=== PATIENT | male | born 1995 | race Native Hawaiian/Other Pacific Islander ===

== ENCOUNTER 2017-02-18 17:34 | Inpatient (IN) | payer MEDICAID, OTHER ==
[2017-02-18 18:41] LABS: BASO # 0.1 K/uL (0.0-0.2); BASO % 0.6 % (0.0-2.0); EOS # 0.3 K/uL (0.0-0.7); EOS % 3.3 % (0.0-4.0); HEMATOCRIT 45.3 % (35.0-51.0); LYMPH # 1.6 K/uL (1.0-4.3); LYMPH % 18.1 % (20.0-40.0); MEAN CELL VOLUME 89.2 fl (80.0-94.0); MEAN CORPUSCULAR HGB CONC 33.6 g/dL (33.0-37.0); MEAN PLATELET VOLUME 7.9 fl (7.2-11.7); MONO # 0.4 K/uL (0.0-0.8); NEUT # 6.4 K/uL (1.8-7.0); RED CELL DISTRIBUTION WIDTH 12.3 % (11.5-14.5); WHITE BLOOD COUNT 8.8 K/uL (4.8-10.8)
[2017-02-18 18:52] LABS: ALB/GLOB RATIO 1.3 (1.0-2.1); ALKALINE PHOSPHATASE 86 U/L (38-126); ALT/SGPT 82 U/L (21-72); AST/SGOT 47 U/L (17-59); BILIRUBIN,TOTAL 0.6 mg/dl (0.2-1.3); BLOOD UREA NITROGEN 22 mg/dl (9-20); CALCIUM 9.4 mg/dL (8.4-10.2); CARBON DIOXIDE 26 mmol/L (22-30); CHLORIDE 102 mmol/L (98-107); GFR AFRICAN-AMERICAN > 60; GLUCOSE,RANDOM 100 mg/dL (75-110); POTASSIUM 3.8 MMOL/L (3.6-5.0); SODIUM 140 mmol/l (132-148); TOTAL PROTEIN 8.3 G/DL (6.3-8.2)
[2017-02-18] MEDS ORDERED: Lidocaine 2% w Epi 1:100,000 Inj IJ ONE ×2 (19:16→19:23)
[2017-02-18] MEDS ORDERED: Propofol 10 mg/ml Inj (20 ML) IV ONE (19:16)
[2017-02-18] MEDS ORDERED: Propofol 10 mg/ml Inj (20 ML) ONE ×2 (19:23→20:33)
--- NOTE | 2017-02-18 19:37 | ED PDOC ---
HPI: SOB/CHF/COPD Time Seen by Provider: 02/18/17 17:53 Chief Complaint (Nursing): Shortness Of Breath Chief Complaint (Provider): Shortness of Breath History Per: Patient History/Exam Limitations: no limitations Onset/Duration Of Symptoms: Hrs (since 10:00 AM this morning) Current Symptoms Are (Timing): Still Present Additional Complaint(s): 17:53 Blanco Irwin is a 21 year old male that presents to the ED with a chief complaint of SOB with associated chest pain that began suddenly while he was on the train to school around 10:00 AM this morning. Once at school, he went to his school [facility], who directed him to an outpatient x-ray which showed a collapsed lung. Patient states that he had a similar sensation about three weeks ago, but that the pain resolved spontaneously after a couple of hours. He also denies coughing and states that he recently had a URI. Denies smoking or drug use. Past Medical History Reviewed: Historical Data, Nursing Documentation, Vital Signs Vital Signs: Last Vital Signs Temp 98.3 F 02/19/17 11:58 Pulse 67 02/19/17 11:58 Resp 12 02/19/17 11:58 BP 111/63 02/19/17 11:58 Pulse Ox 100 02/19/17 17:28 - Medical History PMH: No Chronic Diseases - Surgical History Surgical History: No Surg Hx - Family History Family History: States: Unknown Family Hx Other Family History: Father had multiple myeloma - Social History Current smoker - smoking cessation education provided: No Alcohol: None - Home Medications Home Medications: Ambulatory Orders Medication Instructions Recorded No Known Home Med 02/18/17 - Allergies Allergies/Adverse Reactions: Allergies Allergy/AdvReac Type Severity Reaction Status Date / Time No Known Allergies Allergy Verified 02/18/17 17:39 Review of Systems Cardiovascular: Positive for: Chest Pain Respiratory: Positive for: Shortness of Breath. Negative for: Cough Physical Exam - Reviewed Nursing Documentation Reviewed: Yes Vital Signs Reviewed: Yes - Physical Exam Appears: Positive for: Non-toxic, In Acute Distress (in mild panful distress) Head Exam: Positive for: ATRAUMATIC, NORMOCEPHALIC Skin: Positive for: Normal Color, Warm, Dry Cardiovascular/Chest: Positive for: Tachycardia. Negative for: Regular Rate, Rhythm (regular rhythym, but tachycardic), Murmur Respiratory: Positive for: Decreased Breath Sounds (decreased breath sounds in left lung field, right lung field breath sounds clear). Negative for: Normal Breath Sounds Neurologic/Psych: Positive for: Alert, Oriented - Laboratory Results Result Diagrams: 02/19/17 04:15 02/19/17 04:15 - ECG ECG Rhythm: Positive for: Sinus Tachycardia O2 Sat by Pulse Oximetry: 100 (Non-rebreather) Pulse Ox Interpretation: Normal - Radiology X-Ray Interpretation: Pnemothorax - Critical Care Total Time (In Min): 30 Documented Critical Care: Time excludes all time spent performint seperately billable procedures Medical Decision Making Medical Decision Makin:00 Initial Impression: Pneumothorax Initial Plan: * Type and screen * EKG * PTT * PT * Chext X-Ray: complete LEFT pneumothorax with slight traches deviation to RIGHT * Lidocaine/Epinephrine Injection 5 mL injection (prep for thoracostomy) * Propofol 20 mg/ml, 200 mg IV (prep for thoracostomy) * O2 with nonrebreather mask * Reevalution * Hospitalization 18:[address] Espinoza of thoracic surgery and Dr. Bennett, surgical asst, they will come to do the thoracostomy. Discussed with patient and patient's family the findings and plan of care, obtained consent for moderate sedation for patient. Risk benefits discussed. 20:00 LEFT tube thoracostomy performed by Dr Bennett under moderate sedation. Propofol used initial bolus of 6ml, then boluses of 4ml x 3 during procedure. Pt maintained oxygenation and blood pressure well throughout procedure. Fully alert and awake post procedure, c/o pain to site of thoracostomy tube. Procedure time: 45 minutes Repeat CXR demonstrates partial reexpansion of lung. Anticipate increased expansion with continued suction. CT Chest ordered for inpatient workup. HAKEEM Cartwright Hospitalist for admission to ICU. Scribe Attestation: Documented by Sherry Tian, acting as a scribe for Emily Iniguez MD.. Provider Scribe Attestation: All medical record entries made by the Scribe were at my direction and personally dictated by me. I have reviewed the chart and agree that the record accurately reflects my personal performance of the history, physical exam, medical decision making, and the department course for this patient. I have also personally directed, reviewed, and agree with the discharge instructions and disposition. Disposition - Clinical Impression Clinical Impression: Spontaneous pneumothorax Counseled Patient/Family Regarding: Studies Performed, Diagnosis - Disposition Disposition Time: 18:00 Condition: GUARDED - Pt Status Changed To: Hospital Disposition Of: Inpatient - Admit Certification Admit to Inpatient:: After my assessment, the patient will require hospitalization for at least two midnights. This is because of the severity of symptoms shown, intensity of services needed, and/or the medical risk in this patient being treated as an outpatient. - POA Present On Arrival: None Prod Sedation PRE-PROCEDURE - Pre-Anesthesia Chief Complaint: Shortness Of Breath Past Medical History: Medications Reviewed, Allergies Reviewed, Record Review Previous Surgies: Reviewed Family History/Social History: Reviewed - Physical Exam/Review of Systems Vital Signs Reviewed: Yes Cardiovascular: Regular Rate and Rhythm, Murmurs, Normal S1, S2 Respiratory/Chest: Decreased Breath Sounds (on LEFT side due to pneumothorax) Neurological: GCS=15, CN II-XII Intact, Speech Normal Abdomen: Tenderness, Distention, Normal Bowel Sounds, Peritoneal Signs Mental Status: Alert and Oriented X 3 - Pre-Procedure Airway Assessment History of difficult intubation or surgical airway (i.e trach):: No Inability to extend neck:: No Mouth opening less than two finger breadth:: No Diagnosis of sleep apnea:: No Less than three finger breadth to hyoid bone:: No ASA Criteria: 1 - Healthy, normal. 2 - Mild systemic disease (No functional limitations, mildline obesity, DM withot complications, Hypertention). 3 - Severe systemic disease (Some functional limitation, stable angina, morbid obesity, controlled COPD/Asthma/CHF). 4 - Sever systemic disease constant threat to life (Unstable angina, active symptoms of COPD/Asthma, CHF/ Hypertension. 5 - Moribund ASA Clarification: ASA I Prod Sedation INTRA-PROCEDURE - Medications Medications Given: Acetaminophen (Tylenol 325mg Tab) 650 mg PO Q6H PRN PRN Reason: Pain, Mild (1-3) Enoxaparin Sodium (Lovenox) 40 mg SC DAILY JACOB PRN Reason: Protocol Last Admin: 02/19/17 16:42 Dose: Not Given Non-Admin Reason: Patient Refused Sodium Chloride (Sodium Chloride 0.9%) 1,000 mls @ 100 mls/hr IV .Q10H [facility] Last Admin: 02/19/17 00:13 Dose: 100 mls/hr Ketorolac Tromethamine (Toradol) 30 mg IVP Q6 [facility] Last Admin: 02/19/17 16:37 Dose: 30 mg Morphine Sulfate (Morphine) 4 mg IVP Q4 PRN PRN Reason: Pain, moderate (4-7) Discontinued Medications Propofol (Diprivan) Confirm Administered Dose 1,000 mg in 100 mls @ ud .ROUTE .STK-MED ONE Stop: 02/18/17 20:31 Lidocaine/Epinephrine (Xylocaine 2% W Epi 1:100,000) 5 ml IJ ONCE ONE Stop: 02/18/17 19:17 Last Admin: 02/18/17 20:30 Dose: 5 ml Lidocaine/Epinephrine (Xylocaine 2% W Epi 1:100,000) Confirm Administered Dose 20 ml IJ .STK-MED ONE Stop: 02/18/17 19:24 Morphine Sulfate (Morphine) Confirm Administered Dose 8 mg .ROUTE .STK-MED ONE Stop: 02/18/17 20:34 Morphine Sulfate (Morphine) 8 mg IVP STAT STA Stop: 02/18/17 21:36 Last Admin: 02/18/17 21:37 Dose: 8 mg Re-Assess: [facility] Pain Assessment Document 02/18/17 22:37 (Rec: 02/19/17 01:25 [id number]) Pain Reassessment Is this a pain reassessment? Yes Sleep Is patient sleeping during reassessment? No Presence of Pain Presence of Pain Yes Pain Scale Used Pain Scale Used Numeric Location Left, Right or Bilateral Left Pain Location Body Site Chest Description Description Sharp Intensity of Pain at present 4 Acceptable Level of Pain 4 Aggravating Factors Changing Position Alleviating Factors/Management Medication Techniques Alleviating Factors Medication Pain not relieved and LIP/MD was Pt. states pain is tolerable. notified Morphine Sulfate (Morphine) 4 mg IVP STAT STA Stop: 02/18/17 21:38 Last Admin: 02/18/17 21:41 Dose: 4 mg Morphine Sulfate (Morphine) 2 mg IVP Q4 PRN PRN Reason: Pain, severe (8-10) Last Admin: 02/19/17 06:17 Dose: 2 mg Re-Assess: SABINE Pain Reassessment Document 02/19/17 06:47 (Rec: 02/19/17 07:21 [id number]) Sleep Is patient sleeping during reassessment? No Pain Reassessment Pain not relieved and LIP/MD was Pt. still with c/o pain; MD notified made aware Pain Scale Used Numeric Pain Scale Level 7 Left, Right or Bilateral Left Pain Location Body Site Chest Description Sharp Pneumococcal Polyvalent Vaccine (Pneumovax 23 Vaccine) 0.5 ml IM .ONCE ONE Stop: 02/19/17 09:01 Propofol (Diprivan) 200 mg IV ONCE ONE Stop: 02/18/17 19:17 Last Admin: 02/18/17 21:32 Dose: 200 mg Propofol (Diprivan) Confirm Administered Dose 200 mg .ROUTE .STK-MED ONE Stop: 02/18/17 19:24 Propofol (Diprivan) Confirm Administered Dose 200 mg .ROUTE .STK-MED ONE Stop: 02/18/17 20:34 Proc Sedation POST-PROCEDURE - Discharge Checklist Written MD order for Discharge: No (Pt admitted) Vital signs assessed and are consistent with pre-procedure reading: Yes Voided (if applicable): Yes Minimal nausea, vomiting, and dizziness: Yes Ambulates to pre-procedural level: No (Pt admitted and initially on bedrest) Alert and oriented to pre-procedural level: Yes Responsible adult escort present: Yes - X DISCHARGE INSTRUCTIONS GIVEN:: N/A
[2017-02-18 20:02] LABS: PARTIAL THROMBOPLASTIN TIME 27.8 SECONDS (23.3-32.5)
[2017-02-18] MEDS ORDERED: Propofol 10 mg/ml 0 MG/0 ML VIAL ONE (20:30)
[2017-02-18] MEDS ORDERED: Oxycodone/Acetaminophen 5/325 mg Tab PO PRN (21:44)
--- NOTE | 2017-02-18 23:06 | CT ---
EXAM: CT Chest Without Intravenous Contrast CLINICAL HISTORY: 21 years old, male; Signs and symptoms; Other: Left pneumothorax TECHNIQUE: Axial computed tomography images of the chest without intravenous contrast. This CT exam was performed using one or more of the following dose reduction techniques: automated exposure control, adjustment of the mA and/or kV according to patient size, and/or use of iterative reconstruction technique. Coronal and sagittal reformatted images were created and reviewed. COMPARISON: CR - CHEST TWO VIEWS (PA/LAT) 02/18/2017 6:00:55 PM EXAM: FINDINGS: Lungs: No mass. No consolidation. Pleural spaces: Persistent left-sided pneumothorax, without reexpansion after chest tube placement. The chest tube abuts the posterior pleura, and demonstrates a intraluminal column of fluid for which withdrawal of approximately 2-3 cm is recommended for optimal radiographic placement. Heart: No cardiomegaly. No significant pericardial effusion. Interval resolution of the mediastinal shift seen on earlier x-ray. Vasculature: No aortic aneurysm. Lymph nodes: No enlarged lymph nodes. Bones: No acute fracture. IMPRESSION: No reexpansion following chest tube placement, likely secondary to positioning (as detailed above). Interval resolution of the mediastinal shift, seen on the earlier radiographic evaluation.
--- NOTE | 2017-02-18 23:20 | CP.PCM.HP ---
History of Present Illness - History of Present Illness History of Present Illness: CC: SOB, CP HPI: This is a 21 y/o male with no medical problems who comes in with acute onset of SOB and CP from this AM, around 7-8. He is a student, and he went to his usual classes and then went to a nearby clinic where he was referred to for an XR. He eventually came back to [place] and had the CXR done at an outpatient radiology facility, and then was informed some time later to immediately go to the ER. In the ER, CXR showed mediastinal deviation to the Right, consistent with a tension PTX. Patient had a chest tube put in at bedside in the L chest, and his symptoms improved. Patient does not have any penetration wounds. Patient denies any recent trauma or fractured ribs. Denies PNA, denies asthma, denies significant coughing. He does mention that he had some CP/SOB like this about 2 weeks ago, but it self resolved. ROS: 14 systems reviewed, o/w negative MHx: None SHx: None Allergies: None Medications: None Family Hx: Father recently passed from mult melanoma; no obvious history of Marfan's or other CTD Social Hx: Lives at home, denies tobacco, denies significant EtOH use Present on Admission - Present on Admission Any Indicators Present on Admission: No Past Patient History - Past Social History Alcohol: None - PSYCHIATRIC Hx Substance Use: No - SURGICAL HISTORY Hx Surgeries: No - ANESTHESIA Hx Anesthesia: No Meds Allergies/Adverse Reactions: Allergies Allergy/AdvReac Type Severity Reaction Status Date / Time No Known Allergies Allergy Verified 02/18/17 17:39 Physical Exam - Constitutional Appears: No Acute Distress - Head Exam Head Exam: ATRAUMATIC, NORMOCEPHALIC - Eye Exam Eye Exam: EOMI, PERRL - ENT Exam ENT Exam: Mucous Membranes Moist - Neck Exam Neck exam: Positive for: Full Rom - Respiratory Exam Additional comments: Dim b/s at both bases, dim b/s in L lung field - Cardiovascular Exam Cardiovascular Exam: Tachycardia, +S1, +S2 - GI/Abdominal Exam GI & Abdominal Exam: Normal Bowel Sounds, Soft - Extremities Exam Extremities exam: Positive for: full ROM, normal inspection - Neurological Exam Neurological exam: Alert, CN II-XII Intact, Oriented x3 - Psychiatric Exam Psychiatric exam: Normal Affect, Normal Mood - Skin Skin Exam: Dry, Warm Results - Vital Signs Recent Vital Signs: Last Vital Signs Temp 98.0 F 02/18/17 17:40 Pulse 106 H 02/18/17 19:43 Resp 20 02/18/17 19:43 BP 119/80 02/18/17 19:43 Pulse Ox 100 02/18/17 22:08 - Labs Result Diagrams: 02/18/17 18:25 02/18/17 18:25 - Imaging and Cardiology CT scan - chest Status: Image reviewed by me (CXR appears to show improvement of mediastinal shift; CT report indicate no resoluation of PTX however, possibly due to placement), Report reviewed by me Assessment & Plan (1) Tension pneumothorax, spontaneous Assessment and Plan: 21 y/o with spontaneous PTX-- given no clear etiology. -Patient has L sided chest tube in to suction -Plan for further surgical intervention possibly in OR in AM if no further improvement overnight Status: Acute (2) DVT prophylaxis Status: Acute
--- NOTE | 2017-02-19 00:06 | CP.PCM.CON ---
History of Present Illness - History of Present Illness History of Present Illness: THORACIC SURGERY CONSULT NOTE FOR DR. GARCIA 21yo M with no PMHx presents to the ED with SOB and CP. The symptoms began this morning around 7 or 8AM. He went to class and then went to the school clinic. He was referred for a chest X-ray and was then informed to come to the ER once the CXR results were back. In the ED, he was found to have large left pneumothorax with slight mediastinal shift to the right. A chest tube was placed at bedside in the ED with sedation given by the ED physician. CXR after the chest tube showed some improvement but still pneumothorax. Another CXR ordered for 11PM showed even more re-expansion of left lung. Patient denies similar episodes and denies trauma. He had some SOB about 2 weeks ago but it resolved on its own. PMHx: none Surgeries: none Allergies: none Home medications: none Social history: denies etoh or tobacco use Family history: father from multiple myeloma Review of Systems - Review of Systems All systems: reviewed and no additional remarkable complaints except (as per HPI ) Past Patient History - Past Medical History & Family History Past Medical History?: No - Past Social History Alcohol: None - MUSCULOSKELETAL/RHEUMATOLOGICAL Hx Falls: No - PSYCHIATRIC Hx Substance Use: No - SURGICAL HISTORY Hx Surgeries: No - ANESTHESIA Hx Anesthesia: No Meds Allergies/Adverse Reactions: Allergies Allergy/AdvReac Type Severity Reaction Status Date / Time No Known Allergies Allergy Verified 02/18/17 17:39 - Medications Medications: Current Medications Acetaminophen (Tylenol 325mg Tab) 650 mg PO Q6H PRN PRN Reason: Pain, Mild (1-3) Sodium Chloride (Sodium Chloride 0.9%) 1,000 mls @ 100 mls/hr IV .Q10H [facility] Morphine Sulfate (Morphine) 2 mg IVP Q4 PRN PRN Reason: Pain, severe (8-10) Oxycodone/Acetaminophen (Percocet 5/325 Mg Tab) 1 tab PO Q4 PRN PRN Reason: Pain, moderate (4-7) Stop: 02/21/17 21:45 Pneumococcal Polyvalent Vaccine (Pneumovax 23 Vaccine) 0.5 ml IM .ONCE ONE Stop: 02/19/17 09:01 Physical Exam - Constitutional Appears: Well, Non-toxic, No Acute Distress - Head Exam Head Exam: ATRAUMATIC, NORMAL INSPECTION - Eye Exam Eye Exam: EOMI, Normal appearance - Respiratory Exam Respiratory Exam: Decreased Breath Sounds (left lung), NORMAL BREATHING PATTERN. absent: Respiratory Distress - Cardiovascular Exam Cardiovascular Exam: Tachycardia, +S1, +S2 - GI/Abdominal Exam GI & Abdominal Exam: Soft. absent: Distended - Extremities Exam Extremities exam: Positive for: normal inspection - Neurological Exam Neurological exam: Alert, CN II-XII Intact, Oriented x3 - Psychiatric Exam Psychiatric exam: Normal Affect, Normal Mood - Skin Skin Exam: Dry, Normal Color, Warm Results - Vital Signs Recent Vital Signs: Last Vital Signs Temp 99.9 F H 02/18/17 22:30 Pulse 87 02/18/17 22:30 Resp 13 02/18/17 22:30 BP 127/76 02/18/17 22:30 Pulse Ox 100 02/18/17 22:30 - Labs Result Diagrams: 02/18/17 18:25 02/18/17 18:25 Assessment & Plan - Assessment and Plan (Free Text) Assessment: 21yo M with no PMHx who has spontaneous left pneumothorax - Afebrile, VSS, O2 sat 100% - Initial CXR showed large left pneumothorax - Left chest tube placed at bedside in the ED - CXR showed partial expansion but still large pneumothorax - CXR done at 11PM showed even more re-expansion of left lung - CT Chest done, will follow up with results - If lung does not re-expand more, may need OR tomorrow - NPO after midnight in case goes for OR tomorrow - Patient admitted to ICU for close monitoring overnight - Daily CXRs - Discussed plan with Dr. Alexis Bennett PGY-2
[2017-02-19] MEDS: Sodium Chloride 0.9% 1,000 ML IV SCH ×2 (00:13→21:21)
--- NOTE | 2017-02-19 00:19 | PCM.PROC ---
Procedures Attestation:: I certify that I have explained the specified Operation(s) or Procedure(s), risks, benefits and reasonable alternatives to the Patient and/or other person responsible. The opportunity was given to ask questions and all questions answered - Chest Tube Chest Tube Location: Mid-Axillary Left (anterior axillary line) Size of Tube (cm): 28 Chest Tube Procedure: Chlorhexidine Tube Sutured to Skin: Yes Sterile Dressing Applied: Yes Anesthesia: Lidocaine 2% Volume Anesthetic (mls): 20 Incision Made With: #11 blade Post Procedure: sutured to skin, sterile dressing applied [place] of [employer] [place]: Yes Tube Drainage: none Amount of Initial Drainage: 0 Post Procedure CXR?: Yes Patient Tolerated Procedure: Yes
[2017-02-19 05:05] LABS: HEMATOCRIT 41.4 % (35.0-51.0); MEAN CELL VOLUME 89.5 fl (80.0-94.0); MEAN CORPUSCULAR HGB CONC 33.6 g/dL (33.0-37.0); RED CELL DISTRIBUTION WIDTH 12.5 % (11.5-14.5); WHITE BLOOD COUNT 7.8 K/uL (4.8-10.8)
[2017-02-19 05:09] LABS: BLOOD UREA NITROGEN 15 mg/dl (9-20); CALCIUM 8.9 mg/dL (8.4-10.2); CARBON DIOXIDE 24 mmol/L (22-30); CHLORIDE 106 mmol/L (98-107); GFR AFRICAN-AMERICAN > 60; GLUCOSE,RANDOM 101 mg/dL (75-110); POTASSIUM 3.8 MMOL/L (3.6-5.0); SODIUM 141 mmol/l (132-148)
[2017-02-19 06:10] LABS: ABG ALLEN TEST YES; ARTERIAL BLOOD GAS O2 CAPACITY 20.3 mL/dL (16-24); ARTERIAL BLOOD GAS O2 CONTENT 20.2 ML/dL (15-23); ARTERIAL BLOOD GAS PO2 369 mm/Hg (80-100); CARBOXYHEMOGLOBIN 0.8 % (0.5-1.5); HHB 0.4 % (0.0-5.0); METHEMOGLOBIN 1.7 % (0.0-3.0)
--- NOTE | 2017-02-19 07:17 | CARD ---
APPROVED REPORT EKG Measurement Heart [id number] <Conclusion> Sinus tachycardia with fusion complexes Right atrial enlargement Borderline ECG
--- NOTE | 2017-02-19 07:43 | CP.PCM.PN ---
Subjective - Date & Time of Evaluation Date of Evaluation: 02/19/17 Time of Evaluation: 06:41 - Subjective Subjective: Surgery Progress note for Dr. Espinoza This 21M was seen and examined this Am at bedside. He reports no acute events overnight. He reports pain with inspiration. He denies any fevers or chills. Wound dressing clean dry and intact. Objective - Vital Signs/Intake and Output Vital Signs (last 24 hours): Temp Pulse Resp BP Pulse Ox 98.3 F 77 23 130/67 99 02/19/17 07:26 02/19/17 07:26 02/19/17 07:26 02/19/17 07:26 02/19/17 07:26 Intake and Output: 02/19/17 02/19/17 06:59 18:59 Intake Total 600 Output Total 600 Balance 0 - Medications Medications: Current Medications Acetaminophen (Tylenol 325mg Tab) 650 mg PO Q6H PRN PRN Reason: Pain, Mild (1-3) Sodium Chloride (Sodium Chloride 0.9%) 1,000 mls @ 100 mls/hr IV .Q10H [facility] Last Admin: 02/19/17 00:13 Dose: 100 mls/hr Ketorolac Tromethamine (Toradol) 30 mg IVP Q6 [facility] Morphine Sulfate (Morphine) 4 mg IVP Q4 PRN PRN Reason: Pain, moderate (4-7) Pneumococcal Polyvalent Vaccine (Pneumovax 23 Vaccine) 0.5 ml IM .ONCE ONE Stop: 02/19/17 09:01 - Labs Labs: 02/19/17 04:15 02/19/17 04:15 PT 10.7 SECONDS (9.6-11.2) 02/18/17 18:25 INR 1.03 (0.92-1.08) 02/18/17 18:25 APTT 27.8 SECONDS (23.3-32.5) 02/18/17 18:25 - Constitutional Appears: Non-toxic, No Acute Distress - Head Exam Head Exam: ATRAUMATIC, NORMOCEPHALIC - Eye Exam Eye Exam: EOMI, Normal appearance - ENT Exam ENT Exam: Mucous Membranes Moist - Respiratory Exam Respiratory Exam: NORMAL BREATHING PATTERN Additional comments: Left sided chest tube in place, on wall suction, with minimal output. - GI/Abdominal Exam GI & Abdominal Exam: Soft. absent: Guarding, Rigid, Tenderness - Neurological Exam Neurological Exam: Alert, Awake - Psychiatric Exam Psychiatric exam: Normal Affect, Normal Mood - Skin Skin Exam: Dry, Intact Assessment and Plan - Assessment and Plan (Free Text) Assessment: This is a 21M with no PMH and a spontaneous pneumothorax, POD#1 s/p chest tube placement. Continue wall suction Incentive Spirometry Pain control Monitor output Medical management per primary team Plan: Will discuss with Dr. Alexis Seo PGY-1 Surgery resident day pager [phone]
[2017-02-19] MEDS ORDERED: Pneumococcal 23-Valent Vaccine IM ONE (09:00)
--- NOTE | 2017-02-19 09:26 | CP.PCM.PN ---
Subjective - Date & Time of Evaluation Date of Evaluation: 02/19/17 Time of Evaluation: 08:45 - Subjective Subjective: No fever feels better no SOB mild pain at site of Chest tube no abd pain Objective - Vital Signs/Intake and Output Vital Signs (last 24 hours): Temp Pulse Resp BP Pulse Ox 98.3 F 77 23 130/67 99 02/19/17 07:26 02/19/17 07:26 02/19/17 07:26 02/19/17 07:26 02/19/17 07:26 Intake and Output: 02/19/17 02/19/17 06:59 18:59 Intake Total 600 Output Total 600 Balance 0 - Medications Medications: Current Medications Acetaminophen (Tylenol 325mg Tab) 650 mg PO Q6H PRN PRN Reason: Pain, Mild (1-3) Sodium Chloride (Sodium Chloride 0.9%) 1,000 mls @ 100 mls/hr IV .Q10H [facility] Last Admin: 02/19/17 00:13 Dose: 100 mls/hr Ketorolac Tromethamine (Toradol) 30 mg IVP Q6 [facility] Last Admin: 02/19/17 09:03 Dose: 30 mg Morphine Sulfate (Morphine) 4 mg IVP Q4 PRN PRN Reason: Pain, moderate (4-7) - Labs Labs: 02/19/17 04:15 02/19/17 04:15 PT 10.7 SECONDS (9.6-11.2) 02/18/17 18:25 INR 1.03 (0.92-1.08) 02/18/17 18:25 APTT 27.8 SECONDS (23.3-32.5) 02/18/17 18:25 - Constitutional Appears: No Acute Distress - Head Exam Head Exam: ATRAUMATIC, NORMAL INSPECTION, NORMOCEPHALIC - Eye Exam Eye Exam: EOMI, Normal appearance, PERRL Pupil Exam: NORMAL ACCOMODATION - ENT Exam ENT Exam: Mucous Membranes Moist, Normal External Ear Exam - Neck Exam Neck Exam: Full ROM. absent: Meningismus - Respiratory Exam Respiratory Exam: NORMAL BREATHING PATTERN. absent: Rales, Wheezes, Respiratory Distress - Cardiovascular Exam Cardiovascular Exam: REGULAR RHYTHM, +S1, +S2 Additional comments: chest tube connected to Pleurovac on the left - GI/Abdominal Exam GI & Abdominal Exam: Soft, Normal Bowel Sounds. absent: Tenderness - Extremities Exam Extremities Exam: Full ROM, Normal Capillary Refill. absent: Calf Tenderness, Normal Inspection - Back Exam Back Exam: Full ROM, NORMAL INSPECTION. absent: CVA tenderness (L), CVA tenderness (R) - Neurological Exam Neurological Exam: Alert, Awake, CN II-XII Intact, Oriented x3 Neuro motor strength exam: Left Upper Extremity: 5, Right Upper Extremity: 5, Left Lower Extremity: 5, Right Lower Extremity: 5 - Psychiatric Exam Psychiatric exam: Normal Affect, Normal Mood - Skin Skin Exam: Dry, Normal Color, Warm Assessment and Plan - Assessment and Plan (Free Text) Assessment: 21 y/o gent , no significant PMH came in bec of chest pain and SOB. CXR : showed Pneumothorax on the left (1) Spontaneous Pneumothorax s/p Left Chest Tube placement CXR showed 100% PTX on the left Chest tube place- connected to Pleurovac Thoracic surgery consulted- Dr Espinoza rpt CXR showed small PTX ( improved) (2) DVT prophylaxis Status: Acute Lovenox
--- NOTE | 2017-02-19 09:49 | RAD ---
PROCEDURE: CHEST RADIOGRAPH, 1 VIEW HISTORY: PTX COMPARISON: None available. FINDINGS: LUNGS: In situ left-sided chest tube. Small residual left apical pneumothorax is again noted. The lung nash are otherwise clear. There appears to be some minor right apical pleural thickening PLEURA: No pneumothorax or pleural fluid seen. CARDIOVASCULAR: Normal. OSSEOUS STRUCTURES: No significant abnormalities. VISUALIZED UPPER ABDOMEN: Normal. OTHER FINDINGS: None. IMPRESSION: In situ left-sided chest tube. Small residual left apical pneumothorax
--- NOTE | 2017-02-19 09:51 | RAD ---
HISTORY: chest tube COMPARISON: Comparison made with prior study 02/18/2017 1801 hours FINDINGS: LUNGS: . In situ left-sided chest tube. Large left-sided pneumothorax again noted. Atelectatic changes seen throughout the collapsed left lung PLEURA: No significant pleural effusion identified, no pneumothorax apparent. CARDIOVASCULAR: Normal. OSSEOUS STRUCTURES: No significant abnormalities. VISUALIZED UPPER ABDOMEN: Normal. OTHER FINDINGS: None. IMPRESSION: . In situ left-sided chest tube. Large left-sided pneumothorax again noted. Atelectatic changes seen throughout the collapsed left lung
--- NOTE | 2017-02-19 09:52 | RAD ---
HISTORY: sob COMPARISON: No prior. TECHNIQUE: Chest PA and lateral FINDINGS: LUNGS: Large left apical pneumothorax with marked at atelectasis within the collapsed left lung PLEURA: No significant pleural effusion identified. No pneumothorax apparent. CARDIOVASCULAR: Normal. OSSEOUS STRUCTURES: No significant abnormalities. VISUALIZED UPPER ABDOMEN: Normal. OTHER FINDINGS: None. IMPRESSION: Large left apical pneumothorax with marked at atelectasis within the collapsed left lung
--- NOTE | 2017-02-19 09:54 | RAD ---
PROCEDURE: CHEST RADIOGRAPH, 1 VIEW HISTORY: PTX COMPARISON: Comparison made with prior study 02/18/2017 FINDINGS: LUNGS: In situ left-sided chest tube. Small residual left apical pneumothorax markedly decreased from prior study. Mild left basilar atelectasis PLEURA: No pneumothorax or pleural fluid seen. CARDIOVASCULAR: Normal. OSSEOUS STRUCTURES: No significant abnormalities. VISUALIZED UPPER ABDOMEN: Normal. OTHER FINDINGS: None. IMPRESSION: In situ left-sided chest tube. Small residual left apical pneumothorax markedly decreased from prior study. Mild left basilar atelectasis
--- NOTE | 2017-02-19 10:20 | PN ---
DATE: 02/19/2017 LOCATION: The patient in ICU, bed 434. TIME SPENT: 35 minutes. The patient is seen and evaluated at the bedside. Events since admission are reviewed. PAST MEDICAL, SURGICAL AND SOCIAL HISTORY: Reviewed. The patient is a 21-year-old male with no significant medical history in the past admitted with shortness of breath secondary to pneumothorax, status post chest tube insertion. Repeat chest x-ray shows reexpansion of the lung. Chest tube to wall suction. This morning, alert, awake, follows commands, appropriate , complaining of mild to moderate pain at the site of the chest tube insertion. PHYSICAL EXAMINATION: VITAL SIGNS: Temperature 98.3, heart rate 77 and regular, respiratory rate 23, blood pressure 130/67, pulse oximetry 99%. Intake 600, output 600. Weight 150 pounds. HEAD, EYES, EARS, NOSE AND THROAT: Pupils are reactive. Conjunctivae are pink. Sclerae are white. NECK: Supple. CHEST: Bilateral breath sounds, clear to auscultation. No subcutaneous emphysema. HEART: Rhythm regular. S1, S2 normal intensity. ABDOMEN: Bowel sounds present, soft. Liver and spleen not palpable. Bladder not distended. EXTREMITIES: Unremarkable. NEUROLOGIC: Nonfocal. CURRENT MEDICATIONS: Tylenol 650 p.o. q. 6 p.r.n., morphine 4 mg IV q. 4 p.r.n. , Toradol 30 mg IV push q. 6, normal saline at 100 mL per hour. LABORATORY DATA: WBC 7.8, hemoglobin 13.9, hematocrit 41.4, platelet count of 188. PT 10.7, INR 1.03, PTT 27.8. ABG: pH 7.40, pCO2 of 43, pO2 of 369 on FiO2 100%. Changed to oxygen 2 L nasal cannula, saturation remains 100. SMA-7 : Sodium 141, potassium 3.8, chloride 106, CO2 24, blood urea nitrogen 15, creatinine 0.8, glucose 101, calcium 8.9. AST 47, ALT 82, total protein 8.3, albumin of 4.7. IMPRESSION: 1. Spontaneous pneumothorax, status post chest tube insertion, lung fully expanded. CT chest done to evaluate for blebs or cysts at the pleural/ subpleural location, result pending. 2. ALT 82, needs further evaluation If it does not improve, will check alpha one anitrypsin level to rule out alpha 1 antitypsin defficiency. Yao Schultz MD cc: [id number] TT: 02/19/2017 10:19:40 Confirmation # [id number] Dictation # [id number] MTDD
--- NOTE | 2017-02-19 12:12 | CP.PCM.CON ---
History of Present Illness - History of Present Illness History of Present Illness: Reason fo consultation: Spontaneous left pneumothorax Requested by . Pt s/e, Progress notes and imaging studies reviewed. 21 yo male presented to ED with cxr consistent with 100% pneumothorax left. In ER, a 28 f chest tube was inserted, however, the lung only partially reexpanded (due to failure to fill the water trap column with water). This was recongnized and rectified. Now the lung is almost completely reexpanded, and intrapleural pressure is positive without air leak.Clinically stable now. Will repeat ct of chest tomorrow. Continue chest tube for several more days. a/p:1. Spontaneous pneumothorax.(tiny apical pneumo. remains). 2. ct of chest tomorrow. 3. Continue chest tube. 4. Incentive splirometer. Past Patient History - Past Medical History & Family History Past Medical History?: No - Past Social History Alcohol: None - MUSCULOSKELETAL/RHEUMATOLOGICAL Hx Falls: No - PSYCHIATRIC Hx Substance Use: No - SURGICAL HISTORY Hx Surgeries: No - ANESTHESIA Hx Anesthesia: No Meds Allergies/Adverse Reactions: Allergies Allergy/AdvReac Type Severity Reaction Status Date / Time No Known Allergies Allergy Verified 02/18/17 17:39 - Medications Medications: Current Medications Acetaminophen (Tylenol 325mg Tab) 650 mg PO Q6H PRN PRN Reason: Pain, Mild (1-3) Enoxaparin Sodium (Lovenox) 40 mg SC DAILY [facility] PRN Reason: Protocol Sodium Chloride (Sodium Chloride 0.9%) 1,000 mls @ 100 mls/hr IV .Q10H [facility] Last Admin: 02/19/17 00:13 Dose: 100 mls/hr Ketorolac Tromethamine (Toradol) 30 mg IVP Q6 [facility] Last Admin: 02/19/17 09:03 Dose: 30 mg Morphine Sulfate (Morphine) 4 mg IVP Q4 PRN PRN Reason: Pain, moderate (4-7) Results - Vital Signs Recent Vital Signs: Last Vital Signs Temp 98.3 F 02/19/17 07:26 Pulse 77 02/19/17 07:26 Resp 23 02/19/17 07:26 BP 130/67 02/19/17 07:26 Pulse Ox 99 02/19/17 07:26 - Labs Result Diagrams: 02/19/17 04:15 02/19/17 04:15 Labs: Laboratory Results - last 24 hr 02/19/17 02/19/17 02/19/17 04:15 04:15 05:55 WBC 7.8 RBC 4.63 Hgb 13.9 Hct 41.4 MCV 89.5 MCH 30.0 MCHC 33.6 RDW 12.5 Plt Count 188 pCO2 43 pO2 369 H HCO3 26.0 ABG pH 7.40 ABG Total CO2 27.9 ABG O2 Saturation 99.6 H ABG O2 Content 20.2 ABG Base Excess 1.4 ABG Hemoglobin 14.1 ABG Carboxyhemoglobin 0.8 POC ABG HHb (Measured) 0.4 ABG Methemoglobin 1.7 ABG O2 Capacity 20.3 Choco Test Yes A-a O2 Difference 290.0 Hgb O2 Saturation 97.0 FiO2 100.0 Sodium 141 Potassium 3.8 Chloride 106 Carbon Dioxide 24 Anion Gap 15 BUN 15 Creatinine 0.8 Est GFR ( Amer) > 60 Est GFR (Non-Af Amer) > 60 Random Glucose 101 Calcium 8.9
[2017-02-19] MEDS: Enoxaparin 40 mg Syringe SC SCH (16:42)
[2017-02-20 05:34] LABS: HEMATOCRIT 38.9 % (35.0-51.0); MEAN CELL VOLUME 89.6 fl (80.0-94.0); MEAN CORPUSCULAR HEMOGLOBIN 29.9 pg (27.0-31.0); MEAN CORPUSCULAR HGB CONC 33.4 g/dL (33.0-37.0); RED CELL DISTRIBUTION WIDTH 12.4 % (11.5-14.5); WHITE BLOOD COUNT 8.1 K/uL (4.8-10.8)
[2017-02-20 05:41] LABS: BLOOD UREA NITROGEN 12 mg/dl (9-20); CALCIUM 8.7 mg/dL (8.4-10.2); CARBON DIOXIDE 27 mmol/L (22-30); CHLORIDE 107 mmol/L (98-107); GFR AFRICAN-AMERICAN > 60; GLUCOSE,RANDOM 99 mg/dL (75-110); POTASSIUM 4.1 MMOL/L (3.6-5.0); SODIUM 141 mmol/l (132-148)
[2017-02-20] MEDS: Sodium Chloride 0.9% 1,000 ML IV SCH (07:23)
--- NOTE | 2017-02-20 07:36 | CP.PCM.PN ---
Subjective - Date & Time of Evaluation Date of Evaluation: 02/20/17 Time of Evaluation: 07:34 - Subjective Subjective: General Surgery Progress Note for Dr. Espinoza This 21M was seen and examined this Am at bedside. Nurse reports no acute events overnight. PT chest tube put out 210 cc of serosanguinous fluid over 24 hours. The patient reports that he is using his incentive spirometer and that he is feeling alt better today compared with yesterday. He reports that his current pain control regiment is working well. Objective - Vital Signs/Intake and Output Vital Signs (last 24 hours): Temp Pulse Resp BP Pulse Ox 98.6 F 58 L 14 111/70 100 02/20/17 04:00 02/20/17 06:00 02/20/17 06:00 02/20/17 06:00 02/20/17 06:00 Intake and Output: 02/20/17 02/20/17 06:59 18:59 Intake Total 1440 Output Total 770 Balance 670 - Medications Medications: Current Medications Acetaminophen (Tylenol 325mg Tab) 650 mg PO Q6H PRN PRN Reason: Pain, Mild (1-3) Enoxaparin Sodium (Lovenox) 40 mg SC DAILY [facility] PRN Reason: Protocol Last Admin: 02/19/17 16:42 Dose: Not Given Sodium Chloride (Sodium Chloride 0.9%) 1,000 mls @ 100 mls/hr IV .[facility]10[facility] Last Admin: 02/20/17 07:23 Dose: 100 mls/hr Ketorolac Tromethamine (Toradol) 30 mg IVP Q6 [facility] Last Admin: 02/20/17 04:01 Dose: 30 mg Morphine Sulfate (Morphine) 4 mg IVP Q4 PRN PRN Reason: Pain, moderate (4-7) Last Admin: 02/20/17 02:23 Dose: 4 mg - Labs Labs: 02/20/17 04:35 02/20/17 04:35 PT 10.7 SECONDS (9.6-11.2) 02/18/17 18:25 INR 1.03 (0.92-1.08) 02/18/17 18:25 APTT 27.8 SECONDS (23.3-32.5) 02/18/17 18:25 - Constitutional Appears: Non-toxic, No Acute Distress - Head Exam Head Exam: ATRAUMATIC, NORMOCEPHALIC - Eye Exam Eye Exam: EOMI, Normal appearance - ENT Exam ENT Exam: Mucous Membranes Moist - Respiratory Exam Respiratory Exam: NORMAL BREATHING PATTERN - GI/Abdominal Exam GI & Abdominal Exam: Soft. absent: Guarding, Rigid, Tenderness - Neurological Exam Neurological Exam: Alert, Awake - Psychiatric Exam Psychiatric exam: Normal Affect, Normal Mood - Skin Skin Exam: Dry, Intact Assessment and Plan - Assessment and Plan (Free Text) Assessment: This is a 21M with a spontaneous pneumothorax POD #2 s/p 28Fr chest tube placement. Chest tube to water seal today Followup CXR VSS Labs WNL Will followup alpha one antitrypsin labs Continue medical managment per primary team Will D/W Dr. Alexis Seo PGY-1 Surgery Pager [phone]
--- NOTE | 2017-02-20 08:50 | CP.PCM.PN ---
Subjective - Date & Time of Evaluation Date of Evaluation: 02/20/17 Time of Evaluation: 13:00 - Subjective Subjective: Patient was seen and evaluated bedside.Feeling well at present, denies any SOB, chest pain , palpitations.Developed some more chest pain after chest tube was placed back to suction earlier toady. Chest tube to left hemithorax ,back to suction CXR still showing left apical pneumothorax Hemodynamically stable,BP 111 /57 HR 66 afebrile Objective - Vital Signs/Intake and Output Vital Signs (last 24 hours): Temp Pulse Resp BP Pulse Ox 98.3 F 66 15 118/57 L 95 02/20/17 08:00 02/20/17 08:00 02/20/17 08:00 02/20/17 08:00 02/20/17 08:00 Intake and Output: 02/20/17 02/20/17 06:59 18:59 Intake Total 1440 440 Output Total 770 Balance 670 440 - Medications Medications: Current Medications Acetaminophen (Tylenol 325mg Tab) 650 mg PO Q6H PRN PRN Reason: Pain, Mild (1-3) Enoxaparin Sodium (Lovenox) 40 mg SC DAILY [facility] PRN Reason: Protocol Last Admin: 02/19/17 16:42 Dose: Not Given Sodium Chloride (Sodium Chloride 0.9%) 1,000 mls @ 100 mls/hr IV .Q10H [facility] Last Admin: 02/20/17 07:23 Dose: 100 mls/hr Ketorolac Tromethamine (Toradol) 30 mg IVP Q6 [facility] Last Admin: 02/20/17 04:01 Dose: 30 mg Morphine Sulfate (Morphine) 4 mg IVP Q4 [facility] PRN Reason: Pain, moderate (4-7) Last Admin: 02/20/17 02:23 Dose: 4 mg - Labs Labs: 02/20/17 04:35 02/20/17 04:35 PT 10.7 SECONDS (9.6-11.2) 02/18/17 18:25 INR 1.03 (0.92-1.08) 02/18/17 18:25 APTT 27.8 SECONDS (23.3-32.5) 02/18/17 18:25 - Constitutional Appears: Well, Non-toxic, No Acute Distress - Head Exam Head Exam: ATRAUMATIC, NORMAL INSPECTION, NORMOCEPHALIC - Eye Exam Eye Exam: EOMI, Normal appearance, PERRL Pupil Exam: NORMAL ACCOMODATION - ENT Exam ENT Exam: Mucous Membranes Moist, Normal Exam - Neck Exam Neck Exam: Full ROM, Normal Inspection - Respiratory Exam Respiratory Exam: Clear to Ausculation Bilateral, NORMAL BREATHING PATTERN. absent: Accessory Muscle Use, Prolonged Expiratory Phase, Rales, Rhonchi, Wheezes, Respiratory Distress - Cardiovascular Exam Cardiovascular Exam: REGULAR RHYTHM, RRR, +S1, +S2. absent: JVD - GI/Abdominal Exam GI & Abdominal Exam: Soft, Normal Bowel Sounds. absent: Distended, Guarding, Tenderness, Rebound - Rectal Exam Rectal Exam: Deferred - Extremities Exam Extremities Exam: Full ROM, Normal Capillary Refill, Normal Inspection. absent : Calf Tenderness, Pedal Edema - Back Exam Back Exam: NORMAL INSPECTION - Neurological Exam Neurological Exam: Alert, Awake, CN II-XII Intact, Normal Gait, Oriented x3 - Psychiatric Exam Psychiatric exam: Normal Affect, Normal Mood - Skin Skin Exam: Dry, Intact, Normal Color, Warm Assessment and Plan - Assessment and Plan (Free Text) Assessment: 21 y/o male with no significant PMH came in because of chest pain and SOB.CXR showed tension Pneumothorax on the left.Cardiothoracic surgery consulted and chest tube placed. Patient has no smoking history,no history of trauma to the chest, no connective tissues disorder or chronic lung condition. At present CXR shows still pneumothorax to left chest and chest tube still to suction. 1. Spontaneous Pneumothorax s/p Left Chest Tube placement CXR showed 100% PTX on the left- on admission Thoracic surgery consulted- Dr Espinoza Chest tube in place. Trial aof placing chest tube to water seal done today. Repeat CXR thereafter showed increase in size on pneumothoax on the left Will keep chest tube to suction and repeat CXR in AM Continue pain management PRN Promote out of bed to chair Transfer to telemetry 2. DVT prophylaxis Lovenox
[2017-02-20] MEDS: Enoxaparin 40 mg Syringe SC SCH (08:59)
--- NOTE | 2017-02-20 12:33 | CP.PCM.PN ---
Subjective - Date & Time of Evaluation Date of Evaluation: 02/20/17 Time of Evaluation: 12:32 - Subjective Subjective: CXR-lung reexpanded on suction. Will continue suction.. Objective - Vital Signs/Intake and Output Vital Signs (last 24 hours): Temp Pulse Resp BP Pulse Ox 98.7 F 71 18 114/73 99 02/20/17 12:00 02/20/17 12:00 02/20/17 12:00 02/20/17 12:00 02/20/17 12:00 Intake and Output: 02/20/17 02/20/17 06:59 18:59 Intake Total 1440 880 Output Total 770 Balance 670 880 - Medications Medications: Current Medications Acetaminophen (Tylenol 325mg Tab) 650 mg PO Q6H PRN PRN Reason: Pain, Mild (1-3) Enoxaparin Sodium (Lovenox) 40 mg SC DAILY [facility] PRN Reason: Protocol Last Admin: 02/20/17 08:59 Dose: 40 mg Sodium Chloride (Sodium Chloride 0.9%) 1,000 mls @ 100 mls/hr IV .Q10H [facility] Last Admin: 02/20/17 07:23 Dose: 100 mls/hr Ketorolac Tromethamine (Toradol) 30 mg IVP Q6 [facility] Last Admin: 02/20/17 09:53 Dose: Not Given Morphine Sulfate (Morphine) 4 mg IVP Q4 PRN PRN Reason: Pain, moderate (4-7) Last Admin: 02/20/17 02:23 Dose: 4 mg - Labs Labs: 02/20/17 04:35 02/20/17 04:35 PT 10.7 SECONDS (9.6-11.2) 02/18/17 18:25 INR 1.03 (0.92-1.08) 02/18/17 18:25 APTT 27.8 SECONDS (23.3-32.5) 02/18/17 18:25
--- NOTE | 2017-02-20 12:50 | RAD ---
HISTORY: Pneumothorax COMPARISON: Comparison made with chest radiograph 02/20/2017 at 9:25 a.m. FINDINGS: LUNGS: Apparent repositioning left-sided chest tube is not oriented superiorly along the medial left aspect of the mediastinum. . Small left apical pneumothorax is present and has decreased from earlier study same day PLEURA: No significant pleural effusion identified, no pneumothorax apparent. CARDIOVASCULAR: Normal. OSSEOUS STRUCTURES: No significant abnormalities. VISUALIZED UPPER ABDOMEN: Normal. OTHER FINDINGS: None. IMPRESSION: Small left apical pneumothorax has decreased in size from earlier study same day. . Apparent repositioning of left-sided chest tube chest tube the tip of which is now oriented superiorly along left aspect of mediastinum
--- NOTE | 2017-02-20 12:51 | RAD ---
HISTORY: pneumothorax s/p left chest tube COMPARISON: Comparison made with chest radiograph 02/19/2017 FINDINGS: LUNGS: Small to medium size left-sided pneumothorax increased from prior study. In situ left-sided chest tube again noted PLEURA: No significant pleural effusion identified, no pneumothorax apparent. CARDIOVASCULAR: Normal. OSSEOUS STRUCTURES: No significant abnormalities. VISUALIZED UPPER ABDOMEN: Normal. OTHER FINDINGS: None. IMPRESSION: Small to medium size left-sided pneumothorax increased from prior study. In situ left-sided chest tube again noted
[2017-02-21] MEDS: Sodium Chloride 0.9% 1,000 ML IV SCH ×2 (04:14→20:49)
[2017-02-21 07:09] LABS: HEMATOCRIT 39.6 % (35.0-51.0); MEAN CELL VOLUME 89.1 fl (80.0-94.0); MEAN CORPUSCULAR HEMOGLOBIN 30.3 pg (27.0-31.0); MEAN CORPUSCULAR HGB CONC 33.9 g/dL (33.0-37.0); RED CELL DISTRIBUTION WIDTH 12.5 % (11.5-14.5); WHITE BLOOD COUNT 6.6 K/uL (4.8-10.8)
[2017-02-21] MEDS: Enoxaparin 40 mg Syringe SC SCH (09:18)
--- NOTE | 2017-02-21 10:55 | CP.PCM.PN ---
Subjective - Date & Time of Evaluation Date of Evaluation: 02/21/17 Time of Evaluation: 09:52 - Subjective Subjective: General Surgery Progress Note for Dr. Espinoza This 21M was seen and examined this AM at bedside. Reports no acute events overnight. He reports pain is getting better. Denies fevers, chills, chest pain , nausea vomiting diarrhea. Chest tube to suction, no air leak, dressing clean dry and intact. Objective - Vital Signs/Intake and Output Vital Signs (last 24 hours): Temp Pulse Resp BP Pulse Ox 98 F 67 18 105/63 99 02/21/17 08:13 02/21/17 08:13 02/21/17 08:13 02/21/17 08:13 02/21/17 08:13 Intake and Output: 02/21/17 02/21/17 06:59 18:59 Intake Total 570 950 Output Total 5 505 Balance 565 445 - Medications Medications: Current Medications Acetaminophen (Tylenol 325mg Tab) 650 mg PO Q6H PRN PRN Reason: Pain, Mild (1-3) Enoxaparin Sodium (Lovenox) 40 mg SC DAILY [facility] PRN Reason: Protocol Last Admin: 02/21/17 09:18 Dose: 40 mg Sodium Chloride (Sodium Chloride 0.9%) 1,000 mls @ 100 mls/hr IV .Q10H [facility] Last Admin: 02/21/17 04:14 Dose: 100 mls/hr Ketorolac Tromethamine (Toradol) 30 mg IVP Q6 [facility] Last Admin: 02/21/17 04:09 Dose: 30 mg Morphine Sulfate (Morphine) 4 mg IVP Q4 PRN PRN Reason: Pain, moderate (4-7) Last Admin: 02/20/17 02:23 Dose: 4 mg - Labs Labs: 02/21/17 05:30 02/20/17 04:35 PT 10.7 SECONDS (9.6-11.2) 02/18/17 18:25 INR 1.03 (0.92-1.08) 02/18/17 18:25 APTT 27.8 SECONDS (23.3-32.5) 02/18/17 18:25 - Constitutional Appears: Non-toxic, No Acute Distress - Head Exam Head Exam: ATRAUMATIC, NORMOCEPHALIC - Eye Exam Eye Exam: EOMI, Normal appearance - ENT Exam ENT Exam: Mucous Membranes Moist, Normal Exam - Respiratory Exam Respiratory Exam: NORMAL BREATHING PATTERN - Cardiovascular Exam Cardiovascular Exam: REGULAR RHYTHM - GI/Abdominal Exam GI & Abdominal Exam: Soft. absent: Guarding, Rigid, Tenderness - Neurological Exam Neurological Exam: Alert, Awake - Psychiatric Exam Psychiatric exam: Normal Affect, Normal Mood - Skin Skin Exam: Dry, Intact Assessment and Plan - Assessment and Plan (Free Text) Assessment: This is a 21M with a spontaneous pneumothorax POD #3 s/p 28Fr chest tube placement. CXR showed fully expanded lung Continue suction for 4 more days VSS, Labs WNL Alpha 1 antitrypsin WNL Continue medical managment per primary team Will D/W Dr. Alexis Seo PGY-1 Surgery Pager [phone]
--- NOTE | 2017-02-21 11:05 | RAD ---
HISTORY: chest tube re-eval study performed 05:20. COMPARISON: February 20, 2017. 12:00. FINDINGS: LUNGS: No active pulmonary disease. PLEURA: Persistent, small left apical pneumothorax. Chest tube has been repositioned, the tip is medially. The distal aspect of the tube is now oriented horizontally. Trace subcutaneous emphysema in the left neck. CARDIOVASCULAR: Normal. OSSEOUS STRUCTURES: No significant abnormalities. VISUALIZED UPPER ABDOMEN: Normal. OTHER FINDINGS: None. IMPRESSION: Small left apical pneumothorax. Approximate stability compared to the prior study.
--- NOTE | 2017-02-21 11:51 | CP.PCM.PN ---
Subjective - Date & Time of Evaluation Date of Evaluation: 02/21/17 Time of Evaluation: 11:00 - Subjective Subjective: No fever no SOB no cough no CP Chest tube in place on suction no abd pain Objective - Vital Signs/Intake and Output Vital Signs (last 24 hours): Temp Pulse Resp BP Pulse Ox 98 F 67 18 105/63 99 02/21/17 08:13 02/21/17 08:13 02/21/17 08:13 02/21/17 08:13 02/21/17 08:13 Intake and Output: 02/21/17 02/21/17 06:59 18:59 Intake Total 570 950 Output Total 5 505 Balance 565 445 - Medications Medications: Current Medications Acetaminophen (Tylenol 325mg Tab) 650 mg PO Q6H PRN PRN Reason: Pain, Mild (1-3) Enoxaparin Sodium (Lovenox) 40 mg SC DAILY [facility] PRN Reason: Protocol Last Admin: 02/21/17 09:18 Dose: 40 mg Sodium Chloride (Sodium Chloride 0.9%) 1,000 mls @ 100 mls/hr IV .Q10H [facility] Last Admin: 02/21/17 04:14 Dose: 100 mls/hr Ketorolac Tromethamine (Toradol) 30 mg IVP Q6 [facility] Last Admin: 02/21/17 04:09 Dose: 30 mg Morphine Sulfate (Morphine) 4 mg IVP Q4 PRN PRN Reason: Pain, moderate (4-7) Last Admin: 02/20/17 02:23 Dose: 4 mg - Labs Labs: 02/21/17 05:30 02/20/17 04:35 PT 10.7 SECONDS (9.6-11.2) 02/18/17 18:25 INR 1.03 (0.92-1.08) 02/18/17 18:25 APTT 27.8 SECONDS (23.3-32.5) 02/18/17 18:25 - Constitutional Appears: No Acute Distress - Head Exam Head Exam: ATRAUMATIC, NORMAL INSPECTION, NORMOCEPHALIC - Eye Exam Eye Exam: EOMI, Normal appearance, PERRL Pupil Exam: NORMAL ACCOMODATION - ENT Exam ENT Exam: Mucous Membranes Moist, Normal External Ear Exam - Neck Exam Neck Exam: Full ROM. absent: Meningismus - Respiratory Exam Respiratory Exam: NORMAL BREATHING PATTERN. absent: Rales, Respiratory Distress slight wheeze left - Cardiovascular Exam Cardiovascular Exam: REGULAR RHYTHM, +S1, +S2 Additional comments: chest tube connected to Pleurovac on the left - GI/Abdominal Exam GI & Abdominal Exam: Soft, Normal Bowel Sounds. absent: Tenderness - Extremities Exam Extremities Exam: Full ROM, Normal Capillary Refill. absent: Calf Tenderness, Normal Inspection - Back Exam Back Exam: Full ROM, NORMAL INSPECTION. absent: CVA tenderness (L), CVA tenderness (R) - Neurological Exam Neurological Exam: Alert, Awake, CN II-XII Intact, Oriented x3 Neuro motor strength exam: Left Upper Extremity: 5, Right Upper Extremity: 5, Left Lower Extremity: 5, Right Lower Extremity: 5 - Psychiatric Exam Psychiatric exam: Normal Affect, Normal Mood - Skin Skin Exam: Dry, Normal Color, Warm Assessment and Plan - Assessment and Plan (Free Text) Assessment: 21 y/o male with no significant PMH came in because of chest pain and SOB. CXR showed tension Pneumothorax on the left. Cardiothoracic surgery consulted and chest tube placed. Patient has no smoking history,no history of trauma to the chest, no connective tissues disorder or chronic lung condition. At present CXR shows improvement of pneumothorax to left chest and chest tube still to suction. 1. Spontaneous Pneumothorax s/p Left Chest Tube placement CXR showed 100% PTX on the left- on admission Thoracic surgery consulted- Dr Espinoza Chest tube in place. Will keep chest tube to suction poss x 4 more days repeat CXR done this am - will ff up result Continue pain management PRN out of bed to chair 2. DVT prophylaxis Lovenox
--- NOTE | 2017-02-21 13:04 | CP.PCM.PN ---
Subjective - Date & Time of Evaluation Date of Evaluation: 02/21/17 Time of Evaluation: 12:54 - Subjective Subjective: Pt s/e. No sob. vss. cxr-apical pneumo. smaller than yesterday, but chest tube tip is in mid-lung field. chest tube-air leak(large) and + intrapleural pressure(pleurevac changed). a/p: Persistent air leak and apical pneumothorax. Need to resinsert a chest tube and do talc surry pleurodesis under fluro in OR. Risks, benefits,air leak, and infection including possibility of discussed with the pt and his mother who accepted surgery without reservation. Objective - Vital Signs/Intake and Output Vital Signs (last 24 hours): Temp Pulse Resp BP Pulse Ox 98.7 F 76 18 113/67 97 02/21/17 11:56 02/21/17 11:56 02/21/17 11:56 02/21/17 11:56 02/21/17 11:56 Intake and Output: 02/21/17 02/21/17 06:59 18:59 Intake Total 570 950 Output Total 5 505 Balance 565 445 - Medications Medications: Current Medications Acetaminophen (Tylenol 325mg Tab) 650 mg PO Q6H PRN PRN Reason: Pain, Mild (1-3) Enoxaparin Sodium (Lovenox) 40 mg SC DAILY [facility] PRN Reason: Protocol Last Admin: 02/21/17 09:18 Dose: 40 mg Sodium Chloride (Sodium Chloride 0.9%) 1,000 mls @ 100 mls/hr IV .Q10H [facility] Last Admin: 02/21/17 04:14 Dose: 100 mls/hr Morphine Sulfate (Morphine) 4 mg IVP Q4 PRN PRN Reason: Pain, moderate (4-7) Last Admin: 02/20/17 02:23 Dose: 4 mg - Labs Labs: 02/21/17 05:30 02/20/17 04:35 PT 10.7 SECONDS (9.6-11.2) 02/18/17 18:25 INR 1.03 (0.92-1.08) 02/18/17 18:25 APTT 27.8 SECONDS (23.3-32.5) 02/18/17 18:25
[2017-02-21] MEDS ORDERED: Lidocaine 1% Inj (20ml) ONE (14:19)
[2017-02-21] MEDS ORDERED: Midazolam 2 MG/2 ML VIAL ONE ×2 (14:22→14:42)
[2017-02-21] MEDS ORDERED: Lidocaine 1% Inj (20ml) IJ ONE (14:50)
[2017-02-21] MEDS ORDERED: Ketamine 50 mg/ml Inj (10 ml) ONE (15:07)
[2017-02-21] MEDS ORDERED: Lactated Ringer's 1,000 ML IV ONE (15:45)
[2017-02-21] MEDS: HYDROmorphone 0.5 mg/0.5 ml ISec IVP PRN ×3 (15:47→16:01)
[2017-02-21] MEDS ORDERED: HYDROmorphone 0.5 mg/0.5 ml ISec ONE (15:47)
--- NOTE | 2017-02-21 16:04 | PCM.SURG1 ---
Surgeon's Initial Post Op Note - Surgeon's Notes Surgeon: Dr. Espinoza Filtration Plant Operator: Dr. Seo PGY-1 Type of Anesthesia: MAC, Local Pre-Operative Diagnosis: Pneumothorax Operative Findings: See operative report Post-Operative Diagnosis: Pneumothorax Operation Performed: Chest tube insertion and talc pleuodesis Specimen/Specimens Removed: Previous chest tube Estimated Blood Loss: EBL {In ML}: 10 Blood Products Given: N/A Drains Used: Chest Tubes Post-Op Condition: Good Date of Surgery/Procedure: 02/21/17 Time of Surgery/Procedure: 16:04
[2017-02-21] MEDS ORDERED: HYDROmorphone 0.5 mg/0.5 ml ISec IVP ONE ×3 (17:01→18:54)
--- NOTE | 2017-02-21 17:15 | RAD ---
HISTORY: chest tube placement COMPARISON: Chest x-ray performed 02/21/17 TECHNIQUE: Chest, one view. FINDINGS: Left-sided chest tube with distal tip projecting over the medial left lung apex. Subcutaneous emphysema. LUNGS: No focal consolidation. Please note that chest x-ray has limited sensitivity for the detection of pulmonary masses. PLEURA: No significant pleural effusion identified. Left-sided pneumothorax measures approximately 1.4 cm from pleural edge. CARDIOVASCULAR: The cardiomediastinal silhouette appears within normal limits of size. OSSEOUS STRUCTURES: No acute osseous abnormality identified. VISUALIZED UPPER ABDOMEN: Unremarkable. OTHER FINDINGS: None. IMPRESSION: Increasing left-sided pneumothorax measures approximately 1.4 cm from pleural edge. Left-sided chest tube with distal tip projecting over the medial left lung apex. Subcutaneous emphysema.
--- NOTE | 2017-02-21 18:33 | RAD ---
HISTORY: s/p insertion of left chest tube with talc COMPARISON: Chest x-ray performed earlier the same day. TECHNIQUE: Chest, one view. FINDINGS: Left-sided chest tube. Subcutaneous emphysema within the left lateral chest wall. LUNGS: Interval re-expansion of the left emili thorax without appreciable pneumothorax. Mild pulmonary venous congestion, left emili thorax. No definite pneumothorax. Please note that chest x-ray has limited sensitivity for the detection of pulmonary masses. CARDIOVASCULAR: The cardiomediastinal silhouette appears within normal limits of size. OSSEOUS STRUCTURES: No acute osseous abnormality identified. VISUALIZED UPPER ABDOMEN: Unremarkable. OTHER FINDINGS: None. IMPRESSION: Left-sided chest tube. Subcutaneous emphysema, left lateral chest wall. Interval re-expansion of the left emili thorax without appreciable pneumothorax. Mild pulmonary venous congestion, left emili thorax.
[2017-02-21] MEDS ORDERED: ceFAZolin 1 GM in Sodium Chloride 0.9% 100 ML IVPB SCH (21:00)
[2017-02-22] MEDS: Lactated Ringer's 1,000 ML IV SCH ×3 (04:17→18:43)
--- NOTE | 2017-02-22 08:54 | CP.PCM.PN ---
Subjective - Date & Time of Evaluation Date of Evaluation: 02/22/17 Time of Evaluation: 08:45 - Subjective Subjective: Patient was seen and examined bedside. resting comfortably at present. With more left chest pain yesterday after reinsertion of chest tube. 175 ml output from chest tube last night Hemodynamically stable, BP 115/64 HR 81 T 99.4 WBC 6 k No chest XRay this AM but repeat CXr after re insertion of chest tube and talc pleurodesis yesterday showed improvement with no residual pneumothorax Objective - Vital Signs/Intake and Output Vital Signs (last 24 hours): Temp Pulse Resp BP Pulse Ox 99 F 81 16 115/64 99 02/22/17 08:08 02/22/17 08:08 02/22/17 08:08 02/22/17 08:08 02/22/17 08:08 - Medications Medications: Current Medications Acetaminophen (Tylenol 325mg Tab) 650 mg PO Q6H PRN PRN Reason: Pain, Mild (1-3) Last Admin: 02/21/17 22:47 Dose: 650 mg Enoxaparin Sodium (Lovenox) 40 mg SC DAILY [facility] PRN Reason: Protocol Last Admin: 02/21/17 09:18 Dose: 40 mg Cefazolin Sodium 1 gm/ Sodium (Chloride) 100 mls @ 100 mls/hr IVPB Q12 [facility] Stop: 02/22/17 21:00 Last Admin: 02/21/17 20:57 Dose: 100 mls/hr Lactated Ringer's (Lactated Ringer's) 1,000 mls @ 100 mls/hr IV .Q10H [facility] Last Admin: 02/22/17 04:17 Dose: 100 mls/hr Ketorolac Tromethamine (Toradol) 30 mg IVP Q6 PRN PRN Reason: Pain, severe (8-10) Last Admin: 02/22/17 06:38 Dose: 30 mg Ketorolac Tromethamine (Toradol) 15 mg IM Q6 PRN PRN Reason: Pain, moderate (4-7) - Labs Labs: 02/21/17 05:30 02/20/17 04:35 PT 10.7 SECONDS (9.6-11.2) 02/18/17 18:25 INR 1.03 (0.92-1.08) 02/18/17 18:25 APTT 27.8 SECONDS (23.3-32.5) 02/18/17 18:25 - Constitutional Appears: Non-toxic, No Acute Distress - Head Exam Head Exam: ATRAUMATIC, NORMAL INSPECTION, NORMOCEPHALIC - Eye Exam Eye Exam: EOMI, Normal appearance, PERRL Pupil Exam: NORMAL ACCOMODATION - ENT Exam ENT Exam: Mucous Membranes Moist, Normal Exam - Neck Exam Neck Exam: Full ROM, Normal Inspection - Respiratory Exam Respiratory Exam: Clear to Ausculation Bilateral, NORMAL BREATHING PATTERN. absent: Rales, Wheezes - Cardiovascular Exam Cardiovascular Exam: REGULAR RHYTHM, RRR, +S1, +S2. absent: JVD - GI/Abdominal Exam GI & Abdominal Exam: Soft, Normal Bowel Sounds. absent: Distended, Guarding, Tenderness, Rebound - Rectal Exam Rectal Exam: Deferred - Extremities Exam Extremities Exam: Full ROM, Normal Capillary Refill, Normal Inspection. absent : Calf Tenderness, Pedal Edema - Back Exam Back Exam: NORMAL INSPECTION - Neurological Exam Neurological Exam: Alert, Awake, CN II-XII Intact, Oriented x3 - Psychiatric Exam Psychiatric exam: Normal Affect, Normal Mood - Skin Skin Exam: Dry, Intact, Normal Color, Warm Assessment and Plan - Assessment and Plan (Free Text) Assessment: 21 y/o male with no significant PMH came in because of chest pain and SOB. CXR showed tension Pneumothorax on the left. Cardiothoracic surgery consulted and chest tube was placed. Patient has no smoking history,no history of trauma to the chest, no connective tissues disorder or chronic lung condition. Chest tube re inserted yesterday and talc pleurodesis performed in OR due to residual apical pneumothoax and large air leak . Repeat CXR post procedure showed no residual pneumothorax 1. Spontaneous Pneumothorax s/p Left Chest Tube placement CXR showed 100% PTX on the left- on admission Thoracic surgery consulted- Dr Espinoza Chest tube was placed with improvement of pneumothorax i-on admission. Due to persistent residual apical pneumothorax and large air leak chest tube was re inserted and talc pleurodesis performed ,02/21/17 with resolution of pneumothorax Given Cefazolin x 3 doses empirically Chest tube with 175 ml output last 112 hours Continue pain management Follow up with cardiothoraxix surgery recommendations out of bed to chair 2. DVT prophylaxis Lovenox
[2017-02-22] MEDS: Enoxaparin 40 mg Syringe SC SCH (09:26)
[2017-02-22] MEDS: ceFAZolin 1 GM in Sodium Chloride 0.9% 100 ML IVPB SCH ×2 (09:27→21:15)
--- NOTE | 2017-02-22 09:29 | RAD ---
HISTORY: pneumothorax s/p left chest tube COMPARISON: Comparison chest 02/21/2017 1759 hours FINDINGS: LUNGS: Suspect tiny left apical pneumothorax. Mild left basilar atelectasis. There may be a tiny effusion PLEURA: As above CARDIOVASCULAR: Heart size appears enlarged. No change cardiac silhouette OSSEOUS STRUCTURES: No significant abnormalities. VISUALIZED UPPER ABDOMEN: Normal. OTHER FINDINGS: None. IMPRESSION: Suspect tiny left apical pneumothorax. Mild left basilar atelectasis. There may be a tiny effusion
--- NOTE | 2017-02-22 09:40 | RAD ---
PROCEDURE: Intraoperative Fluoroscopy. HISTORY: CHEST TUBE FINDINGS: Fluoroscopic assistance was provided for chest tube insertion Approximately 43.6 seconds of fluoroscopy time utilized during this procedure Please refer to operative report for additional details.
--- NOTE | 2017-02-22 10:35 | CP.PCM.PN ---
Subjective - Date & Time of Evaluation Date of Evaluation: 02/22/17 Time of Evaluation: 07:30 - Subjective Subjective: CT Surgery Pt S&E, NAEO. Complains of more pain after the procedure (2/2 pleurodesis). No other C/O. Objective - Vital Signs/Intake and Output Vital Signs (last 24 hours): Temp Pulse Resp BP Pulse Ox 99 F 81 16 115/64 99 02/22/17 08:08 02/22/17 08:08 02/22/17 08:08 02/22/17 08:08 02/22/17 08:08 - Medications Medications: Current Medications Acetaminophen (Tylenol 325mg Tab) 650 mg PO Q6H PRN PRN Reason: Pain, Mild (1-3) Last Admin: 02/21/17 22:47 Dose: 650 mg Enoxaparin Sodium (Lovenox) 40 mg SC DAILY [facility] PRN Reason: Protocol Last Admin: 02/22/17 09:26 Dose: 40 mg Lactated Ringer's (Lactated Ringer's) 1,000 mls @ 100 mls/hr IV .Q10H [facility] Last Admin: 02/22/17 07:45 Dose: 100 mls/hr Cefazolin Sodium 1 gm/ Sodium (Chloride) 100 mls @ 100 mls/hr IVPB Q12@1000, 2200 [facility] Last Admin: 02/22/17 09:27 Dose: 100 mls/hr Ketorolac Tromethamine (Toradol) 30 mg IVP Q6 PRN PRN Reason: Pain, severe (8-10) Last Admin: 02/22/17 06:38 Dose: 30 mg Ketorolac Tromethamine (Toradol) 15 mg IM Q6 PRN PRN Reason: Pain, moderate (4-7) - Labs Labs: 02/21/17 05:30 02/20/17 04:35 PT 10.7 SECONDS (9.6-11.2) 02/18/17 18:25 INR 1.03 (0.92-1.08) 02/18/17 18:25 APTT 27.8 SECONDS (23.3-32.5) 02/18/17 18:25 - Constitutional Appears: Non-toxic, No Acute Distress - Head Exam Head Exam: ATRAUMATIC, NORMOCEPHALIC - Eye Exam Eye Exam: EOMI. absent: Scleral icterus - Respiratory Exam Respiratory Exam: NORMAL BREATHING PATTERN. absent: Respiratory Distress Additional comments: CT in place, Dressing C/D/I Drained ~200cc of serosanguinous fluid. Air leak. On suction - GI/Abdominal Exam GI & Abdominal Exam: Soft. absent: Distended, Tenderness - Neurological Exam Neurological Exam: Alert, Awake - Skin Skin Exam: Dry, Warm Assessment and Plan - Assessment and Plan (Free Text) Assessment: 21M s/p Chest tube repositioning and talc slurry pleurodesis. Plan: Daily CXR AM Labs Continue CT to suction Will D/W Dr. Alexis Hayden PGY3
--- NOTE | 2017-02-22 12:52 | CP.PCM.PN ---
Subjective - Date & Time of Evaluation Date of Evaluation: 02/22/17 Time of Evaluation: 12:47 - Subjective Subjective: Pt s/e. c/o discomfort-chest since surgery. VSS. [id number] hct- chest tubes -260cc serosanguinous-+ air leak. cxr-apical pneumo.-chest tube in a good position. a/p: Persistent apical pneumo. Continue [id number], and then to water seal. If current rx fails, then VATS, resection next week.(discussed with pt and his mother) Objective - Vital Signs/Intake and Output Vital Signs (last 24 hours): Temp Pulse Resp BP Pulse Ox 99.3 F 89 16 115/64 100 02/22/17 12:41 02/22/17 12:41 02/22/17 12:41 02/22/17 12:41 02/22/17 12:41 - Medications Medications: Current Medications Acetaminophen (Tylenol 325mg Tab) 650 mg PO Q6H PRN PRN Reason: Pain, Mild (1-3) Last Admin: 02/21/17 22:47 Dose: 650 mg Enoxaparin Sodium (Lovenox) 40 mg SC DAILY [facility] PRN Reason: Protocol Last Admin: 02/22/17 09:26 Dose: 40 mg Lactated Ringer's (Lactated Ringer's) 1,000 mls @ 100 mls/hr IV .Q10H [facility] Last Admin: 02/22/17 07:45 Dose: 100 mls/hr Cefazolin Sodium 1 gm/ Sodium (Chloride) 100 mls @ 100 mls/hr IVPB Q12@1000, 2200 [facility] Last Admin: 02/22/17 09:27 Dose: 100 mls/hr Ketorolac Tromethamine (Toradol) 30 mg IVP Q6 PRN PRN Reason: Pain, severe (8-10) Last Admin: 02/22/17 06:38 Dose: 30 mg Ketorolac Tromethamine (Toradol) 15 mg IM Q6 PRN PRN Reason: Pain, moderate (4-7) - Labs Labs: 02/21/17 05:30 02/20/17 04:35 PT 10.7 SECONDS (9.6-11.2) 02/18/17 18:25 INR 1.03 (0.92-1.08) 02/18/17 18:25 APTT 27.8 SECONDS (23.3-32.5) 02/18/17 18:25
[2017-02-23] MEDS: Lactated Ringer's 1,000 ML IV SCH ×2 (01:02→03:07)
[2017-02-23] MEDS: Enoxaparin 40 mg Syringe SC SCH (09:25)
--- NOTE | 2017-02-23 09:33 | CP.PCM.PN ---
Subjective - Date & Time of Evaluation Date of Evaluation: 02/23/17 Time of Evaluation: 09:33 - Subjective Subjective: seen examined bedside. mild pain, breathing improved from yesterday. repeat CXR today: LLL interstitial changes? poss pneumonitis vs result of reperfusion? consider adding coverage. per CTS - 24 hours suction and water seal today. no drainage HD stable no acute distress. Objective - Vital Signs/Intake and Output Vital Signs (last 24 hours): Temp Pulse Resp BP Pulse Ox 99.9 F H 84 18 108/61 98 02/23/17 08:00 02/23/17 08:00 02/23/17 08:00 02/23/17 08:00 02/23/17 08:00 Intake and Output: 02/23/17 02/23/17 06:59 18:59 Intake Total 1780 Output Total 600 Balance 1180 - Medications Medications: Current Medications Acetaminophen (Tylenol 325mg Tab) 650 mg PO Q6H PRN PRN Reason: Pain, Mild (1-3) Last Admin: 02/21/17 22:47 Dose: 650 mg Enoxaparin Sodium (Lovenox) 40 mg SC DAILY [facility] PRN Reason: Protocol Last Admin: 02/23/17 09:25 Dose: 40 mg Lactated Ringer's (Lactated Ringer's) 1,000 mls @ 100 mls/hr IV .Q10H [facility] Last Admin: 02/23/17 03:07 Dose: Not Given Cefazolin Sodium 1 gm/ Sodium (Chloride) 100 mls @ 100 mls/hr IVPB Q12@1000, 2200 [facility] Last Admin: 02/22/17 21:15 Dose: 100 mls/hr Ketorolac Tromethamine (Toradol) 30 mg IVP Q6 PRN PRN Reason: Pain, severe (8-10) Last Admin: 02/22/17 16:41 Dose: 30 mg Ketorolac Tromethamine (Toradol) 15 mg IM Q6 PRN PRN Reason: Pain, moderate (4-7) Last Admin: 02/22/17 22:15 Dose: 15 mg - Labs Labs: 02/21/17 05:30 02/20/17 04:35 PT 10.7 SECONDS (9.6-11.2) 02/18/17 18:25 INR 1.03 (0.92-1.08) 02/18/17 18:25 APTT 27.8 SECONDS (23.3-32.5) 02/18/17 18:25 - Constitutional Appears: Non-toxic, No Acute Distress - Head Exam Head Exam: ATRAUMATIC, NORMOCEPHALIC - Eye Exam Eye Exam: EOMI, Normal appearance, PERRL Pupil Exam: NORMAL ACCOMODATION - ENT Exam ENT Exam: Mucous Membranes Moist, Normal Oropharynx - Neck Exam Neck Exam: Full ROM, Normal Inspection - Respiratory Exam Respiratory Exam: Clear to Ausculation Bilateral, NORMAL BREATHING PATTERN Additional comments: chest tube in place - Cardiovascular Exam Cardiovascular Exam: RRR, +S1, +S2. absent: Gallop, Rubs - GI/Abdominal Exam GI & Abdominal Exam: Soft, Normal Bowel Sounds. absent: Tenderness - Extremities Exam Extremities Exam: Normal Capillary Refill. absent: Calf Tenderness - Back Exam Back Exam: absent: CVA tenderness (L), CVA tenderness (R) - Neurological Exam Neurological Exam: Alert, Awake - Psychiatric Exam Psychiatric exam: Normal Affect, Normal Mood - Skin Skin Exam: Dry, Warm Assessment and Plan - Assessment and Plan (Free Text) Plan: 21 y/o male with no significant PMH came in because of chest pain and SOB. CXR showed tension Pneumothorax on the left. Cardiothoracic surgery consulted and chest tube was placed. Patient has no smoking history,no history of trauma to the chest, no connective tissues disorder or chronic lung condition. Chest tube re inserted yesterday and talc pleurodesis performed in OR due to residual apical pneumothoax and large air leak . Repeat CXR post procedure showed no residual pneumothorax 1. Spontaneous Pneumothorax s/p Left Chest Tube placement CXR showed 100% PTX on the left- on admission Thoracic surgery consulted- Dr Espinoza Chest tube was placed with improvement of pneumothorax on admission. Due to persistent residual apical pneumothorax and large air leak chest tube was re inserted and talc pleurodesis performed, 02/21/17 with resolution of pneumothorax Given Cefazolin x 3 doses empirically Chest tube 0ml drainage over 12 hours repeat CXR today: LLL interstitial changes? poss pneumonitis vs result of reperfusion? consider adding coverage. Continue pain management Follow up with cardiothoracic surgery recommendations; suction for 24 hours as of yesterday and water seal likely today. out of bed to chair 2. DVT prophylaxis Lovenox
[2017-02-23] MEDS: ceFAZolin 1 GM in Sodium Chloride 0.9% 100 ML IVPB SCH ×2 (09:58→21:06)
--- NOTE | 2017-02-23 11:08 | RAD ---
HISTORY: pneumothorax s/p left chest tube COMPARISON: Yesterday FINDINGS: LUNGS: Small left apical pneumothorax is suspected. Left chest tube is identified with its tip in the high left apex. No right pneumothorax is seen. No right lung infiltrate is noted. There is evidence of persistent infiltrate or atelectasis at the left lung base as well as small left effusion. PLEURA: Small left apical pneumothorax is suspected. See above. CARDIOVASCULAR: Not significantly congested. Heart is unchanged. OSSEOUS STRUCTURES: No significant abnormalities. VISUALIZED UPPER ABDOMEN: Normal. OTHER FINDINGS: None. IMPRESSION: Left chest tube high within the left apex. Very small left apical pneumothorax is suspected. Left subcutaneous air and left lower lobe alveolar density in left pleural fluid unchanged.
--- NOTE | 2017-02-23 12:30 | CP.PCM.PN ---
Subjective - Date & Time of Evaluation Date of Evaluation: 02/23/17 Time of Evaluation: 11:00 - Subjective Subjective: THORACIC SURGERY PROGRESS NOTE FOR DR. GARCIA Patient seen and examined at bedside. He states that is doing ok but it is harder to use the IS after the OR on . He does not report any SOB or CP except for discomfort at chest tube site. Objective - Vital Signs/Intake and Output Vital Signs (last 24 hours): Temp Pulse Resp BP Pulse Ox 99.4 F 92 H 18 106/62 97 02/23/17 12:15 02/23/17 12:15 02/23/17 12:15 02/23/17 12:15 02/23/17 12:15 Intake and Output: 02/23/17 02/23/17 06:59 18:59 Intake Total 1780 Output Total 600 Balance 1180 - Medications Medications: Current Medications Acetaminophen (Tylenol 325mg Tab) 650 mg PO Q6H PRN PRN Reason: Pain, Mild (1-3) Last Admin: 02/21/17 22:47 Dose: 650 mg Enoxaparin Sodium (Lovenox) 40 mg SC DAILY [facility] PRN Reason: Protocol Last Admin: 02/23/17 09:25 Dose: 40 mg Lactated Ringer's (Lactated Ringer's) 1,000 mls @ 100 mls/hr IV .Q10H [facility] BEDS AT [facility] Last Admin: 02/23/17 03:07 Dose: Not Given Cefazolin Sodium 1 gm/ Sodium (Chloride) 100 mls @ 100 mls/hr IVPB Q12@1000, 2200 [facility]S [facility] Last Admin: 02/23/17 09:58 Dose: 100 mls/hr Ketorolac Tromethamine (Toradol) 30 mg IVP Q6 PRN PRN Reason: Pain, severe (8-10) Last Admin: 02/22/17 16:41 Dose: 30 mg Ketorolac Tromethamine (Toradol) 15 mg IM Q6 PRN PRN Reason: Pain, moderate (4-7) Last Admin: 02/22/17 22:15 Dose: 15 mg - Labs Labs: 02/21/17 05:30 02/20/17 04:35 PT 10.7 SECONDS (9.6-11.2) 02/18/17 18:25 INR 1.03 (0.92-1.08) 02/18/17 18:25 APTT 27.8 SECONDS (23.3-32.5) 02/18/17 18:25 - Constitutional Appears: Non-toxic, No Acute Distress - Respiratory Exam Respiratory Exam: NORMAL BREATHING PATTERN. absent: Respiratory Distress Additional comments: Left chest tube in place on suction with 190cc serosanguinous drainage over past 24 hours, air leak present Dressing clean/dry/intact - Cardiovascular Exam Cardiovascular Exam: +S1, +S2 - Neurological Exam Neurological Exam: Alert, Awake, Oriented x3 - Psychiatric Exam Psychiatric exam: Normal Affect, Normal Mood - Skin Skin Exam: Dry, Normal Color, Warm Assessment and Plan - Assessment and Plan (Free Text) Assessment: 21yo M with no PMHx who had spontaneous left pneumothorax s/p left chest tube repositioning and talc slurry pleurodesis POD#2 - Afebrile, VSS - Daily CXRs - Left chest tube in place on suction with 190cc serosanguinous drainage over past 24 hours, air leak present - Dressing clean/dry/intact - CXR this AM: very small left apical pneumothorax is suspected - Will decrease suction of chest tube from 20 to 10cm H20 - Discussed plan with Dr. Alexis Bennett PGY-2
--- NOTE | 2017-02-24 07:09 | CP.PCM.PN ---
Subjective - Date & Time of Evaluation Date of Evaluation: 02/24/17 Time of Evaluation: 07:09 - Subjective Subjective: patient seen and examined at bedside, mother presents. states breathing has improved since yesterday, minor discomfort at site of chest tube. patient vitals are stable, repeat chest xray not significantly changed as reviewed by me 60ml serosang drainage overnight per CTS service, possible water seal today, suction was reduced yesterday. no acute distress all questions answered and discussed. Objective - Vital Signs/Intake and Output Vital Signs (last 24 hours): Temp Pulse Resp BP Pulse Ox 98.9 F 99 H 20 111/67 96 02/24/17 04:49 02/24/17 04:49 02/24/17 04:49 02/24/17 04:49 02/24/17 04:49 Intake and Output: 02/24/17 02/24/17 06:59 18:59 Output Total 550 Balance -550 GEN WDWN alert cooperative HEENT NCAT PERRL EOMI HEART RRR +S1S2, No murmurs appreciated LUNG clear breath sounds, clear, no WRR ABD soft NT ND no organomegaly or masses EXT no edema or cyanosis. well perfused NEURO no focal deficits, awake and alert SKIN warm and dry PSYCH normal mood normal affect - Medications Medications: Current Medications Acetaminophen (Tylenol 325mg Tab) 650 mg PO Q6H PRN PRN Reason: Pain, Mild (1-3) Last Admin: 02/23/17 16:36 Dose: 650 mg Enoxaparin Sodium (Lovenox) 40 mg SC DAILY [facility] PRN Reason: Protocol Last Admin: 02/23/17 09:25 Dose: 40 mg Lactated Ringer's (Lactated Ringer's) 1,000 mls @ 100 mls/hr IV .Q10H [facility] Last Admin: 02/23/17 03:07 Dose: Not Given Cefazolin Sodium 1 gm/ Sodium (Chloride) 100 mls @ 100 mls/hr IVPB Q12@1000, 2200 [facility] Last Admin: 02/23/17 21:06 Dose: 100 mls/hr Ketorolac Tromethamine (Toradol) 30 mg IVP Q6 PRN PRN Reason: Pain, severe (8-10) Last Admin: 02/22/17 16:41 Dose: 30 mg Ketorolac Tromethamine (Toradol) 15 mg IM Q6 PRN PRN Reason: Pain, moderate (4-7) Last Admin: 02/22/17 22:15 Dose: 15 mg - Labs Labs: 02/21/17 05:30 02/20/17 04:35 PT 10.7 SECONDS (9.6-11.2) 02/18/17 18:25 INR 1.03 (0.92-1.08) 02/18/17 18:25 APTT 27.8 SECONDS (23.3-32.5) 02/18/17 18:25 Assessment and Plan - Assessment and Plan (Free Text) Plan: 21 y/o male with no significant PMH came in because of chest pain and SOB. CXR showed tension Pneumothorax on the left. Cardiothoracic surgery consulted and chest tube was placed. Patient has no smoking history, no history of trauma to the chest, no connective tissues disorder or chronic lung condition. Chest tube re inserted yesterday and talc pleurodesis performed in OR due to residual apical pneumothorax and large air leak . Repeat CXR post procedure showed no residual pneumothorax 1. Spontaneous Pneumothorax s/p Left Chest Tube placement CXR showed 100% PTX on the left- on admission Thoracic surgery consulted- Dr Espinoza Chest tube was placed with improvement of pneumothorax on admission. Due to persistent residual apical pneumothorax and large air leak chest tube was re inserted and talc pleurodesis performed, 02/21/17 with resolution of pneumothorax Given Cefazolin x 3 doses empirically Chest tube 60ml serosang drainage over 12 hours repeat CXR today no ptx appreciated. Discussed with Radiologist, patient with bilateral bullous changes, LLL infiltrate vs atelectasis vs. mucous plugging. Consider CT chest tomorrow Continue pain management Follow up with cardiothoracic surgery recommendations; suction reduced yesterday and water seal likely today. Air leak continues. out of bed to chair 2. DVT prophylaxis Lovenox
[2017-02-24] MEDS: Enoxaparin 40 mg Syringe SC SCH (08:51)
[2017-02-24] MEDS: ceFAZolin 1 GM in Sodium Chloride 0.9% 100 ML IVPB SCH ×2 (09:21→21:23)
--- NOTE | 2017-02-24 09:42 | CP.PCM.PN ---
Subjective - Date & Time of Evaluation Date of Evaluation: 02/24/17 Time of Evaluation: 07:00 - Subjective Subjective: THORACIC SURGERY PROGRESS NOTE FOR DR. GARCIA Patient seen and examined at bedside. He does not report any SOB or CP except for discomfort at chest tube site during deep inspiration or while using IS. He has been OOB to chair. He is eating and drinking normally and reports high urine output. Objective - Vital Signs/Intake and Output Vital Signs (last 24 hours): Temp Pulse Resp BP Pulse Ox 98.7 F 80 18 103/64 98 02/24/17 07:43 02/24/17 07:43 02/24/17 07:43 02/24/17 07:43 02/24/17 07:43 Intake and Output: 02/24/17 02/24/17 06:59 18:59 Output Total 550 Balance -550 - Medications Medications: Current Medications Acetaminophen (Tylenol 325mg Tab) 650 mg PO Q6H PRN PRN Reason: Pain, Mild (1-3) Last Admin: 02/23/17 16:36 Dose: 650 mg Enoxaparin Sodium (Lovenox) 40 mg SC DAILY [facility] PRN Reason: Protocol Last Admin: 02/24/17 08:51 Dose: 40 mg Cefazolin Sodium 1 gm/ Sodium (Chloride) 100 mls @ 100 mls/hr IVPB Q12@1000, 2200 [facility] Last Admin: 02/24/17 09:21 Dose: 100 mls/hr Ketorolac Tromethamine (Toradol) 30 mg IVP Q6 PRN PRN Reason: Pain, severe (8-10) Last Admin: 02/22/17 16:41 Dose: 30 mg Ketorolac Tromethamine (Toradol) 15 mg IM Q6 PRN PRN Reason: Pain, moderate (4-7) Last Admin: 02/22/17 22:15 Dose: 15 mg - Labs Labs: 02/21/17 05:30 02/20/17 04:35 PT 10.7 SECONDS (9.6-11.2) 02/18/17 18:25 INR 1.03 (0.92-1.08) 02/18/17 18:25 APTT 27.8 SECONDS (23.3-32.5) 02/18/17 18:25 - Constitutional Appears: Non-toxic, No Acute Distress - Respiratory Exam Respiratory Exam: NORMAL BREATHING PATTERN. absent: Respiratory Distress Additional comments: Left chest tube in place on 10cm suction, 60cc serosanguinous drainage over past 24 hours, air leak still present Dressing clean/dry/intact - Cardiovascular Exam Cardiovascular Exam: +S1, +S2 - Neurological Exam Neurological Exam: Alert, Awake, Oriented x3 - Psychiatric Exam Psychiatric exam: Normal Affect, Normal Mood - Skin Skin Exam: Dry, Normal Color, Warm Assessment and Plan - Assessment and Plan (Free Text) Assessment: 21yo M with no PMHx who had spontaneous left pneumothorax s/p left chest tube repositioning and talc slurry pleurodesis POD#3 - Afebrile, VSS - Daily CXRs - Left chest tube in place on suction with 60cc serosanguinous drainage over past 24 hours, air leak present - Yesterday, suction of chest tube was decreased from 20 to 10cm H20 - Dressing clean/dry/intact - Dressing changed this AM - CXR this AM: left lower lateral small hydropneumothorax, left apex limited by bullous changes although minor left pneumothorax can't be excluded. Similar bullous changes in right apex - Patient may need VATS - Discussed plan with Dr. Alexis Bennett PGY-2
--- NOTE | 2017-02-24 11:44 | RAD ---
HISTORY: pneumothorax s/p left chest tube COMPARISON: Yesterday FINDINGS: LUNGS: Left chest tube is once again identified with its tip in the left apex. There appear to be some bullous changes in the left apex limiting evaluation for pneumothorax. Minor left apical pneumothorax is not excluded. There is however some decrease left pleural fluid laterally at the left lung base with a small left hydro pneumothorax noted near the left costophrenic angle region. Persistent left subcutaneous air is noted. There is additionally minor improvement in aeration at the left lung base with some persistent subsegmental atelectasis noted. No new right lung infiltrates are seen. Trachea is midline. No CHF is seen. PLEURA: See above CARDIOVASCULAR: See above OSSEOUS STRUCTURES: No significant abnormalities. VISUALIZED UPPER ABDOMEN: Normal. OTHER FINDINGS: None. IMPRESSION: Left lower lateral small hydro pneumothorax. Left apex limited by bullous changes although minor left pneumothorax cannot be excluded. Similar bullous changes are seen in the right apex. Decreased left effusion with mild improvement in aeration although persistent left lower lobe subsegmental atelectasis.
[2017-02-24 13:08] LABS: BASO % 0.3 % (0.0-2.0); EOS # 0.2 K/uL (0.0-0.7); EOS % 3.1 % (0.0-4.0); HEMATOCRIT 41.1 % (35.0-51.0); LYMPH # 0.8 K/uL (1.0-4.3); LYMPH % 11.2 % (20.0-40.0); MEAN CELL VOLUME 87.8 fl (80.0-94.0); MEAN CORPUSCULAR HEMOGLOBIN 30.2 pg (27.0-31.0); MEAN CORPUSCULAR HGB CONC 34.4 g/dL (33.0-37.0); MEAN PLATELET VOLUME 7.3 fl (7.2-11.7); MONO # 0.4 K/uL (0.0-0.8); MONO % 6.1 % (0.0-10.0); NEUT # 5.5 K/uL (1.8-7.0); NEUT % 79.3 % (50.0-75.0); NRBC % 0.1 % (0.0-0.0); RED CELL DISTRIBUTION WIDTH 12.2 % (11.5-14.5); WHITE BLOOD COUNT 6.9 K/uL (4.8-10.8)
[2017-02-24 13:20] LABS: BLOOD UREA NITROGEN 8 mg/dl (9-20); CALCIUM 9.5 mg/dL (8.4-10.2); CARBON DIOXIDE 30 mmol/L (22-30); CHLORIDE 99 mmol/L (98-107); GFR AFRICAN-AMERICAN > 60; GLUCOSE,RANDOM 114 mg/dL (75-110); SODIUM 142 mmol/l (132-148)
--- NOTE | 2017-02-24 15:24 | CP.PCM.PN ---
Subjective - Date & Time of Evaluation Date of Evaluation: 02/24/17 Time of Evaluation: 15:21 - Subjective Subjective: Pt s/e. tmax=99 wbc-6k cxr-diificult to appreciated apical pneumo. chest tube-air leak remains. chest tube to water seal. Repeat cxr in am. Possibilit of VATS resection discussed with pt and his mother. Objective - Vital Signs/Intake and Output Vital Signs (last 24 hours): Temp Pulse Resp BP Pulse Ox 99.9 F H 113 H 18 108/67 95 02/24/17 11:48 02/24/17 11:48 02/24/17 11:48 02/24/17 11:48 02/24/17 11:48 Intake and Output: 02/24/17 02/24/17 06:59 18:59 Intake Total 250 Output Total 550 411 Balance -550 -161 - Medications Medications: Current Medications Acetaminophen (Tylenol 325mg Tab) 650 mg PO Q6H PRN PRN Reason: Pain, Mild (1-3) Last Admin: 02/23/17 16:36 Dose: 650 mg Enoxaparin Sodium (Lovenox) 40 mg SC DAILY [facility] PRN Reason: Protocol Last Admin: 02/24/17 08:51 Dose: 40 mg Cefazolin Sodium 1 gm/ Sodium (Chloride) 100 mls @ 100 mls/hr IVPB Q12@1000, 2200 [facility] Last Admin: 02/24/17 09:21 Dose: 100 mls/hr Ketorolac Tromethamine (Toradol) 30 mg IVP Q6 PRN PRN Reason: Pain, severe (8-10) Last Admin: 02/22/17 16:41 Dose: 30 mg Ketorolac Tromethamine (Toradol) 15 mg IM Q6 PRN PRN Reason: Pain, moderate (4-7) Last Admin: 02/22/17 22:15 Dose: 15 mg - Labs Labs: 02/24/17 13:05 02/24/17 13:05 PT 10.7 SECONDS (9.6-11.2) 02/18/17 18:25 INR 1.03 (0.92-1.08) 02/18/17 18:25 APTT 27.8 SECONDS (23.3-32.5) 02/18/17 18:25
[2017-02-25 07:25] LABS: BASO % 0.6 % (0.0-2.0); EOS # 0.5 K/uL (0.0-0.7); EOS % 6.8 % (0.0-4.0); HEMATOCRIT 39.7 % (35.0-51.0); LYMPH # 1.3 K/uL (1.0-4.3); LYMPH % 18.7 % (20.0-40.0); MEAN CELL VOLUME 88.5 fl (80.0-94.0); MEAN CORPUSCULAR HEMOGLOBIN 30.5 pg (27.0-31.0); MEAN CORPUSCULAR HGB CONC 34.4 g/dL (33.0-37.0); MEAN PLATELET VOLUME 7.7 fl (7.2-11.7); MONO # 0.6 K/uL (0.0-0.8); MONO % 8.5 % (0.0-10.0); NEUT # 4.4 K/uL (1.8-7.0); NEUT % 65.4 % (50.0-75.0); NRBC % 0.1 % (0.0-0.0); RED CELL DISTRIBUTION WIDTH 11.9 % (11.5-14.5); WHITE BLOOD COUNT 6.7 K/uL (4.8-10.8)
[2017-02-25 07:33] LABS: BLOOD UREA NITROGEN 11 mg/dl (9-20); CALCIUM 9.8 mg/dL (8.4-10.2); CARBON DIOXIDE 30 mmol/L (22-30); CHLORIDE 102 mmol/L (98-107); GFR AFRICAN-AMERICAN > 60; GLUCOSE,RANDOM 104 mg/dL (75-110); POTASSIUM 3.9 MMOL/L (3.6-5.0); SODIUM 143 mmol/l (132-148)
--- NOTE | 2017-02-25 07:35 | CP.PCM.PN ---
Subjective - Date & Time of Evaluation Date of Evaluation: 02/25/17 Time of Evaluation: 07:33 - Subjective Subjective: patient seen examined bedside. tmax last night 100.5, mild tachy currently afebrile, monitoring WBC no cough or congestion, feels chills, malaise CT chest today Discussed with Dr. Espinoza. Will need limited thoracotomy likely tomorrow. no chest pain, no dyspnea. no air leak appreciated in chest tube no acute distress Objective - Vital Signs/Intake and Output Vital Signs (last 24 hours): Temp Pulse Resp BP Pulse Ox 97.9 F 76 20 107/68 98 02/25/17 05:16 02/25/17 05:16 02/25/17 05:16 02/25/17 05:16 02/25/17 05:16 GEN WDWN alert cooperative HEENT NCAT PERRL EOMI HEART RRR +S1S2, No murmurs appreciated LUNG clear breath sounds, clear, no WRR ABD soft NT ND no organomegaly or masses EXT no edema or cyanosis. well perfused NEURO no focal deficits, awake and alert SKIN feels warm and moist PSYCH normal mood normal affect - Medications Medications: Current Medications Acetaminophen (Tylenol 325mg Tab) 650 mg PO Q6 PRN PRN Reason: Fever >100.4 F Last Admin: 02/24/17 20:20 Dose: 650 mg Enoxaparin Sodium (Lovenox) 40 mg SC DAILY [facility] PRN Reason: Protocol Last Admin: 02/24/17 08:51 Dose: 40 mg Cefazolin Sodium 1 gm/ Sodium (Chloride) 100 mls @ 100 mls/hr IVPB Q12@1000, 2200 [facility] Last Admin: 02/24/17 21:23 Dose: 100 mls/hr Ketorolac Tromethamine (Toradol) 30 mg IVP Q6 PRN PRN Reason: Pain, severe (8-10) Last Admin: 02/22/17 16:41 Dose: 30 mg Ketorolac Tromethamine (Toradol) 15 mg IM Q6 PRN PRN Reason: Pain, moderate (4-7) Last Admin: 02/22/17 22:15 Dose: 15 mg - Labs Labs: 02/25/17 05:50 02/24/17 13:05 PT 10.7 SECONDS (9.6-11.2) 02/18/17 18:25 INR 1.03 (0.92-1.08) 02/18/17 18:25 APTT 27.8 SECONDS (23.3-32.5) 02/18/17 18:25 Assessment and Plan - Assessment and Plan (Free Text) Plan: T 21 y/o male with no significant PMH came in because of chest pain and SOB. CXR showed tension Pneumothorax on the left. Cardiothoracic surgery consulted and chest tube was placed. Patient has no smoking history, no history of trauma to the chest, no connective tissues disorder or chronic lung condition. Chest tube re inserted yesterday and talc pleurodesis performed in OR due to residual apical pneumothorax and large air leak . Repeat CXR post procedure showed no residual pneumothorax. Subsequent CXRs showed small apical pneumos. CT chest 02/25/17 - sm L anterior pneumothorax, small bullous and bleb changes in L Lung apex. Small bleb changes R lung apex. Subcutaneous emphysema L anterolateral chest wall. Mod L basilar atelectasis and small L effusion. 1. Spontaneous Pneumothorax s/p Left Chest Tube placement CXR showed 100% PTX on the left- on admission Thoracic surgery consulted- Dr Espinoza Chest tube was placed with improvement of pneumothorax on admission. Due to persistent residual apical pneumothorax and large air leak chest tube was re inserted and talc pleurodesis performed, 02/21/17 with resolution of pneumothorax. Air leak persisted for 3 days in addition to small apical pneumothorax, CT chest 02/25/17. No airleak today. CT chest 02/25/17 - small L anterior pneumothorax, small bullous and bleb changes in L Lung apex. Small bleb changes R lung apex. Subcutaneous emphysema L anterolateral chest wall. Mod L basilar atelectasis and small L effusion. Discussed with CTS Dr. Espinoza, patient will require limited thoracotomy likely tomorrow. Given Cefazolin x 3 doses empirically Chest tube 60ml serosang drainage over 12 hours Continue pain management out of bed to chair Discussed extensively with patient and family. 2. Pneumonia Tmax overnight 100.9, pt with chills, malaise. no WBC, no bands, follow CBC started Ceftriaxone/Azithromycin 02/25/17 Discussed with Radiologist yesterday, possible pneumonia/effusion LLL. Will evaluate CT today for pneumonia and ptx changes. DVT prophylaxis Lovenox
--- NOTE | 2017-02-25 07:44 | CP.PCM.PN ---
Subjective - Date & Time of Evaluation Date of Evaluation: 02/25/17 Time of Evaluation: 07:40 - Subjective Subjective: Thoracic Surgery - Dr. Espinoza Pt S&E. GENO. Pt has mild discomfort at chest tube site, otherwise no complaints. Slight fever yesterday of 100.5. Left Chest tube in place to waterseal, ~10cc serosanguinous drainage/24hrs, +Airleak. Objective - Vital Signs/Intake and Output Vital Signs (last 24 hours): Temp Pulse Resp BP Pulse Ox 97.9 F 76 20 107/68 98 02/25/17 05:16 02/25/17 05:16 02/25/17 05:16 02/25/17 05:16 02/25/17 05:16 - Medications Medications: Current Medications Acetaminophen (Tylenol 325mg Tab) 650 mg PO Q6 PRN PRN Reason: Fever >100.4 F Last Admin: 02/24/17 20:20 Dose: 650 mg Enoxaparin Sodium (Lovenox) 40 mg SC DAILY [facility] PRN Reason: Protocol Last Admin: 02/24/17 08:51 Dose: 40 mg Cefazolin Sodium 1 gm/ Sodium (Chloride) 100 mls @ 100 mls/hr IVPB Q12@1000, 2200 [facility] Last Admin: 02/24/17 21:23 Dose: 100 mls/hr Ketorolac Tromethamine (Toradol) 30 mg IVP Q6 PRN PRN Reason: Pain, severe (8-10) Last Admin: 02/22/17 16:41 Dose: 30 mg Ketorolac Tromethamine (Toradol) 15 mg IM Q6 PRN PRN Reason: Pain, moderate (4-7) Last Admin: 02/22/17 22:15 Dose: 15 mg - Labs Labs: 02/25/17 05:50 02/24/17 13:05 PT 10.7 SECONDS (9.6-11.2) 02/18/17 18:25 INR 1.03 (0.92-1.08) 02/18/17 18:25 APTT 27.8 SECONDS (23.3-32.5) 02/18/17 18:25 - Constitutional Appears: No Acute Distress - Head Exam Head Exam: ATRAUMATIC, NORMAL INSPECTION, NORMOCEPHALIC - Eye Exam Eye Exam: Normal appearance - Respiratory Exam Respiratory Exam: NORMAL BREATHING PATTERN. absent: Respiratory Distress Additional comments: Left Chest tube to waterseal, + Airleak, dressing C/D/I - Neurological Exam Neurological Exam: Alert, Oriented x3 - Psychiatric Exam Psychiatric exam: Normal Affect, Normal Mood - Skin Skin Exam: Dry, Intact Assessment and Plan - Assessment and Plan (Free Text) Assessment: 21M w. L Spont. PTX, s/p L Chest tube and repositioning w/ talc pleurodesis POD #4 -Continue CT to waterseal -F/U CXR today -Patient may need VATs if airleak/PTX do not resolve -Encourage OOB/Ambulation and Incentive Spirometer -DW Dr. Alexis Dickens PGY2
--- NOTE | 2017-02-25 10:02 | RAD ---
HISTORY: pneumothorax s/p left chest tube COMPARISON: Comparison made with chest radiograph 02/24/2017 FINDINGS: LUNGS: In situ left-sided chest tube which enters the left lower lateral emili thorax extending medially and superiorly terminating near the left lung apex. There may be small residual left apical pneumothorax. Small amount of subcutaneous air overlying the lower at left emili thorax obscures fine soft tissue and bone detail PLEURA: Mild left basilar atelectasis with questionable small effusion. CARDIOVASCULAR: Normal. OSSEOUS STRUCTURES: No significant abnormalities. VISUALIZED UPPER ABDOMEN: Normal. OTHER FINDINGS: None. IMPRESSION: In situ left-sided chest tube which enters the left lower lateral emili thorax extending medially and superiorly terminating near the left lung apex. There may be small residual left apical pneumothorax. . Mild left basilar atelectasis and questionable small left effusion. Small amount of subcutaneous air overlying the lower at left emili thorax obscures fine soft tissue and bone detail
[2017-02-25] MEDS: ceFAZolin 1 GM in Sodium Chloride 0.9% 100 ML IVPB SCH (10:17)
--- NOTE | 2017-02-25 11:31 | CP.PCM.PN ---
Subjective - Date & Time of Evaluation Date of Evaluation: 02/25/17 Time of Evaluation: 11:28 - Subjective Subjective: pt s/e. ohat=713.5 wbc=6.7 chest tube-no air leak. cxr-difficult to read apex but in gereral appears no pneumothorax. a/p: stat ct of [place] without contrast to define apical anatomy, and to ascertain apical pneumo, if there is one. Objective - Vital Signs/Intake and Output Vital Signs (last 24 hours): Temp Pulse Resp BP Pulse Ox 98.8 F 87 18 114/72 97 02/25/17 07:54 02/25/17 07:54 02/25/17 07:54 02/25/17 07:54 02/25/17 07:54 - Medications Medications: Current Medications Acetaminophen (Tylenol 325mg Tab) 650 mg PO Q6 PRN PRN Reason: Fever >100.4 F Last Admin: 02/24/17 20:20 Dose: 650 mg Cefazolin Sodium 1 gm/ Sodium (Chloride) 100 mls @ 100 mls/hr IVPB Q12@1000, 2200 [facility] Last Admin: 02/25/17 10:17 Dose: 100 mls/hr Ketorolac Tromethamine (Toradol) 30 mg IVP Q6 [facility] Last Admin: 02/25/17 10:21 Dose: Not Given Morphine Sulfate (Morphine) 4 mg IVP Q4 PRN PRN Reason: Pain, moderate (4-7) - Labs Labs: 02/25/17 05:50 02/25/17 05:50 PT 10.7 SECONDS (9.6-11.2) 02/18/17 18:25 INR 1.03 (0.92-1.08) 02/18/17 18:25 APTT 27.8 SECONDS (23.3-32.5) 02/18/17 18:25
[2017-02-25] MEDS ORDERED: cefTRIAXone 1,000 MG in PED IV SYRINGE 1 SYR IVPB SCH (11:45)
--- NOTE | 2017-02-25 12:13 | CT ---
PROCEDURE: CT Chest without contrast HISTORY: Day left-sided pneumothorax COMPARISON: Comparison made with chest radiograph obtained earlier same TECHNIQUE: Contiguous axial images were obtained through the chest without intravenous contrast enhancement. Sagittal and coronal reconstructions were performed. Radiation dose (DLP): 350.39 mGy-cm. This CT exam was performed using one or more of the following dose reduction techniques: Automated exposure control, adjustment of the mA and/or kV according to patient size, and/or use of iterative reconstruction technique. FINDINGS: LUNGS: In situ left-sided chest tube which enters the pleural space laterally at the left lung base and extends medially and superiorly in the tip of which terminates in the left lung apex. Small residual left anterior pneumothorax is present. There also appears to be pre-existing small bullous and bleb changes. Moderate left basilar atelectasis and small left-sided effusion . Minor right basilar atelectasis Note also made of linear hyperdensity along the left basilar pleural surface consistent with sequela of recent pleurodesis. In addition, small right apical bleb changes are also present. . No evidence of right the sided pneumothorax. MEDIASTINUM: Unremarkable thoracic aorta. No aneurysm. Normal sized heart. Main pulmonary artery unremarkable. No vascular congestion. No lymphadenopathy. PLEURA: No pleural fluid. No pneumothorax. BONES: No fracture. No destructive lesion. UPPER ABDOMEN: Grossly unremarkable. OTHER FINDINGS: Small amount of subcutaneous emphysema left anterolateral chest wall IMPRESSION: In situ left-sided chest tube. Small left anterior pneumothorax. . Small bullous and bleb changes are present in the left lung apex. Small amount of subcutaneous emphysema overlying the left anterolateral chest wall. Moderate left basilar atelectasis and small left effusion. . Note also made of linear hyperdensity along the left basilar pleural surface consistent with sequela of recent pleurodesis. Small bleb changes right lung apex. Minor right basilar atelectasis. Case discussed with referring labor relations consultant Dr. Espinoza at approximately at 12:10 p.m. with written down and read back verification
--- NOTE | 2017-02-25 12:37 | CP.PCM.PN ---
Subjective - Date & Time of Evaluation Date of Evaluation: 02/25/17 Time of Evaluation: 12:33 - Subjective Subjective: CT(stat ct this am): Mulltiple apical blebs and bullae + apical pneumothorax, left lower lobe atelctais, and effusion. Scheduled for thoracotomy, resection, and parietal pleurectomy on . Discussed with pt and his mother. d/w Dr. Ivonne Collins. Objective - Vital Signs/Intake and Output Vital Signs (last 24 hours): Temp Pulse Resp BP Pulse Ox 99.5 F 98 H 18 110/75 97 02/25/17 11:57 02/25/17 11:57 02/25/17 11:57 02/25/17 11:57 02/25/17 11:57 - Medications Medications: Current Medications Acetaminophen (Tylenol 325mg Tab) 650 mg PO Q6 PRN PRN Reason: Fever >100.4 F Last Admin: 02/24/17 20:20 Dose: 650 mg Azithromycin 500 mg/ Sodium (Chloride) 250 mls @ 125 mls/hr IVPB DAILY [facility] Ceftriaxone Sodium 1 gm/ (Sodium Chloride) 100 mls @ 100 mls/hr IVPB DAILY [facility] Ketorolac Tromethamine (Toradol) 30 mg IVP Q6 [facility] Last Admin: 02/25/17 10:21 Dose: Not Given Morphine Sulfate (Morphine) 4 mg IVP Q4 PRN PRN Reason: Pain, moderate (4-7) - Labs Labs: 02/25/17 05:50 02/25/17 05:50 PT 10.7 SECONDS (9.6-11.2) 02/18/17 18:25 INR 1.03 (0.92-1.08) 02/18/17 18:25 APTT 27.8 SECONDS (23.3-32.5) 02/18/17 18:25
[2017-02-25] MEDS: Azithromycin 500 MG in Sodium Chloride 0.9% 250 ML IVPB SCH (13:57)
--- NOTE | 2017-02-26 07:33 | CP.PCM.PN ---
Subjective - Date & Time of Evaluation Date of Evaluation: 02/26/17 Time of Evaluation: 07:29 - Subjective Subjective: This is a thoracic surgery note for Dr. Espinoza: 21 y/o male seen and examined at bedside. Patient denies any acute events overnight. Patient appears in NAD and AAOx3. Patient complains of mild discomfort to chest tube site, no other complaints at this time. Patient states that he has been sitting in chair during the day but has not walked around at all. Left Chest tube in place to waterseal, minimal chest tube output /24hrs, + Airleak. Objective - Vital Signs/Intake and Output Vital Signs (last 24 hours): Temp Pulse Resp BP Pulse Ox 98.1 F 86 20 109/69 97 02/26/17 04:37 02/26/17 04:37 02/26/17 04:37 02/26/17 04:37 02/26/17 04:37 - Medications Medications: Current Medications Acetaminophen (Tylenol 325mg Tab) 650 mg PO Q6 PRN PRN Reason: Fever >100.4 F Last Admin: 02/24/17 20:20 Dose: 650 mg Azithromycin 500 mg/ Sodium (Chloride) 250 mls @ 125 mls/hr IVPB DAILY [facility] Last Admin: 02/25/17 13:57 Dose: 125 mls/hr Ceftriaxone Sodium 1 gm/ (Sodium Chloride) 100 mls @ 100 mls/hr IVPB DAILY [facility] Last Admin: 02/25/17 13:56 Dose: 100 mls/hr Ketorolac Tromethamine (Toradol) 30 mg IVP Q6 [facility] Last Admin: 02/26/17 03:22 Dose: Not Given Morphine Sulfate (Morphine) 4 mg IVP Q4 PRN PRN Reason: Pain, moderate (4-7) - Labs Labs: 02/25/17 05:50 02/25/17 05:50 PT 10.7 SECONDS (9.6-11.2) 02/18/17 18:25 INR 1.03 (0.92-1.08) 02/18/17 18:25 APTT 27.8 SECONDS (23.3-32.5) 02/18/17 18:25 - Constitutional Appears: Well, Non-toxic, No Acute Distress - Neurological Exam Neurological Exam: Alert, Awake, Oriented x3 - Psychiatric Exam Psychiatric exam: Normal Affect, Normal Mood Assessment and Plan - Assessment and Plan (Free Text) Assessment: 21M w. L Spont. PTX, s/p L Chest tube and repositioning w/ talc pleurodesis POD #5 Plan: -Continue CT to waterseal -F/U CXR today -CT 02/25/17: Mulltiple apical blebs and bullae + apical pneumothorax, left lower lobe atelctais, and effusion -Scheduled for thoracotomy, resection, and parietal pleurectomy on . -Encourage OOB/Ambulation and Incentive Spirometer -DW Dr. Espinoza
[2017-02-26] MEDS: Azithromycin 500 MG in Sodium Chloride 0.9% 250 ML IVPB SCH (09:57)
--- NOTE | 2017-02-26 10:55 | CP.PCM.PN ---
Subjective - Date & Time of Evaluation Date of Evaluation: 02/26/17 Time of Evaluation: 10:45 - Subjective Subjective: No fever no SOB no cough Chest Tube in place , left no abd pain Objective - Vital Signs/Intake and Output Vital Signs (last 24 hours): Temp Pulse Resp BP Pulse Ox 98.9 F 79 18 120/78 97 02/26/17 08:00 02/26/17 08:00 02/26/17 08:00 02/26/17 08:00 02/26/17 08:00 - Medications Medications: Current Medications Acetaminophen (Tylenol 325mg Tab) 650 mg PO Q6 PRN PRN Reason: Fever >100.4 F Last Admin: 02/24/17 20:20 Dose: 650 mg Azithromycin 500 mg/ Sodium (Chloride) 250 mls @ 125 mls/hr IVPB DAILY [facility] Last Admin: 02/26/17 09:57 Dose: 125 mls/hr Ceftriaxone Sodium 1 gm/ (Sodium Chloride) 100 mls @ 100 mls/hr IVPB DAILY [facility] Last Admin: 02/26/17 09:58 Dose: 100 mls/hr Ketorolac Tromethamine (Toradol) 30 mg IVP Q6 [facility] Last Admin: 02/26/17 10:09 Dose: Not Given Morphine Sulfate (Morphine) 4 mg IVP Q4 PRN PRN Reason: Pain, moderate (4-7) - Labs Labs: 02/25/17 05:50 02/25/17 05:50 PT 10.7 SECONDS (9.6-11.2) 02/18/17 18:25 INR 1.03 (0.92-1.08) 02/18/17 18:25 APTT 27.8 SECONDS (23.3-32.5) 02/18/17 18:25 - Constitutional Appears: No Acute Distress - Head Exam Head Exam: ATRAUMATIC, NORMAL INSPECTION, NORMOCEPHALIC - Eye Exam Eye Exam: EOMI, Normal appearance, PERRL Pupil Exam: NORMAL ACCOMODATION - ENT Exam ENT Exam: Mucous Membranes Moist, Normal External Ear Exam - Neck Exam Neck Exam: Full ROM. absent: Meningismus - Respiratory Exam Respiratory Exam: NORMAL BREATHING PATTERN. No Respiratory Distress minimal rales LLL - Cardiovascular Exam Cardiovascular Exam: REGULAR RHYTHM, +S1, +S2 Additional comments: Left chest tube - GI/Abdominal Exam GI & Abdominal Exam: Soft, Normal Bowel Sounds. absent: Tenderness - Extremities Exam Extremities Exam: Full ROM, Normal Capillary Refill. absent: Calf Tenderness, Normal Inspection - Back Exam Back Exam: Full ROM, NORMAL INSPECTION. absent: CVA tenderness (L), CVA tenderness (R) - Neurological Exam Neurological Exam: Alert, Awake, CN II-XII Intact, Oriented x3 Neuro motor strength exam: Left Upper Extremity: 5, Right Upper Extremity: 5, Left Lower Extremity: 5, Right Lower Extremity: 5 - Psychiatric Exam Psychiatric exam: Normal Affect, Normal Mood - Skin Skin Exam: Dry, Normal Color, Warm Assessment and Plan - Assessment and Plan (Free Text) Assessment: 21 y/o male with no significant PMH came in because of chest pain and SOB. CXR showed tension Pneumothorax on the left. Cardiothoracic surgery consulted and chest tube was placed. Patient has no smoking history, no history of trauma to the chest, no connective tissues disorder or chronic lung condition. Chest tube re inserted yesterday and talc pleurodesis performed in OR due to residual apical pneumothorax and large air leak . Repeat CXR post procedure showed no residual pneumothorax. Subsequent CXRs showed small apical pneumos. CT chest 02/25/17 - sm L anterior pneumothorax, small bullous and bleb changes in L Lung apex. Small bleb changes R lung apex. Subcutaneous emphysema L anterolateral chest wall. Mod L basilar atelectasis and small L effusion. 1. Spontaneous Pneumothorax s/p Left Chest Tube placement CXR showed 100% PTX on the left- on admission Thoracic surgery consulted- Dr Espinoza Chest tube was placed with improvement of pneumothorax on admission. Due to persistent residual apical pneumothorax and large air leak chest tube was re inserted and talc pleurodesis performed, 02/21/17 with resolution of pneumothorax. Air leak persisted for 3 days in addition to small apical pneumothorax, CT chest 02/25/17. CT chest 02/25/17 - small L anterior pneumothorax, small bullous and bleb changes in L Lung apex. Small bleb changes R lung apex. Subcutaneous emphysema L anterolateral chest wall. Mod L basilar atelectasis and small L effusion. Given Cefazolin x 3 doses empirically Continue pain management out of bed to chair Discussed extensively with patient and family. Discussed case with Dr Espinoza- se for VATs 2. Fever possible Pneumonia Pt had frever with chills, malaise. no WBC, no bands, follow CBC started Ceftriaxone/Azithromycin 02/25/17 DVT prophylaxis Lovenox
--- NOTE | 2017-02-26 11:20 | RAD ---
HISTORY: pneumothorax s/p left chest tube COMPARISON: 02/25/2017 FINDINGS: LUNGS: No active pulmonary disease. PLEURA: Left apical chest tube, unchanged in position. Probable small loculated pneumothorax at lateral left lung base. Unchanged. Minimal left pleural effusion. No right pleural effusion. CARDIOVASCULAR: Normal. OSSEOUS STRUCTURES: No significant abnormalities. VISUALIZED UPPER ABDOMEN: Normal. OTHER FINDINGS: Subcutaneous emphysema over left lateral chest wall. IMPRESSION: Small loculated pneumothorax at left lung base, unchanged. Left apical chest tube. Small left pleural effusion.
[2017-02-26 12:28] LABS: ABG ALLEN TEST YES; ARTERIAL BLOOD GAS HCO3 27.9 mmol/L (21-28); ARTERIAL BLOOD GAS O2 CAPACITY 19.8 mL/dL (16-24); ARTERIAL BLOOD GAS O2 CONTENT 19.5 ML/dL (15-23); ARTERIAL BLOOD GAS PH 7.47 (7.35-7.45); ARTERIAL BLOOD GAS PO2 89 mm/Hg (80-100); ARTERIAL BLOOD HGB O2 SAT 95.2 % (95.0-98.0); CARBOXYHEMOGLOBIN 1.8 % (0.5-1.5); HHB 1.6 % (0.0-5.0); METHEMOGLOBIN 1.4 % (0.0-3.0)
--- NOTE | 2017-02-26 13:19 | CP.PCM.PN ---
Subjective - Date & Time of Evaluation Date of Evaluation: 02/26/17 Time of Evaluation: 13:14 - Subjective Subjective: pt s/e. Clinically stable. Air leak remains. cxr-apical pneumo + apical bullae. a/p: For hybrid-VATS for apical resection, and pleurectomy, left on Tursday. Risks, benefits, alternatives, complications(infection, persistent air leak, bleeding, and including possibility of ) discussed with the pt and his mother who accepted surgery without reservation. d/w residents. Objective - Vital Signs/Intake and Output Vital Signs (last 24 hours): Temp Pulse Resp BP Pulse Ox 98.7 F 82 18 120/78 96 02/26/17 12:26 02/26/17 12:26 02/26/17 12:26 02/26/17 12:26 02/26/17 12:26 - Medications Medications: Current Medications Acetaminophen (Tylenol 325mg Tab) 650 mg PO Q6 PRN PRN Reason: Fever >100.4 F Last Admin: 02/24/17 20:20 Dose: 650 mg Azithromycin 500 mg/ Sodium (Chloride) 250 mls @ 125 mls/hr IVPB DAILY [facility] Last Admin: 02/26/17 09:57 Dose: 125 mls/hr Ceftriaxone Sodium 1 gm/ (Sodium Chloride) 100 mls @ 100 mls/hr IVPB DAILY [facility] Last Admin: 02/26/17 09:58 Dose: 100 mls/hr Ketorolac Tromethamine (Toradol) 30 mg IVP Q6 [facility] Last Admin: 02/26/17 10:09 Dose: Not Given Morphine Sulfate (Morphine) 4 mg IVP Q4 PRN PRN Reason: Pain, moderate (4-7) - Labs Labs: 02/25/17 05:50 02/25/17 05:50 PT 10.9 SECONDS (9.6-11.2) 02/26/17 10:30 INR 1.05 (0.92-1.08) 02/26/17 10:30 APTT 27.8 SECONDS (23.3-32.5) 02/18/17 18:25
--- NOTE | 2017-02-27 08:10 | CP.PCM.PN ---
Subjective - Date & Time of Evaluation Date of Evaluation: 02/27/17 Time of Evaluation: 08:08 - Subjective Subjective: Thoracic Surgery - Dr. Espinoza Pt S&E. GENO. Pt has mild discomfort at chest tube site, otherwise no complaints. He is OOB to chair and denies any SOB. He is aware of plan for surgery tomorrow. Objective - Vital Signs/Intake and Output Vital Signs (last 24 hours): Temp Pulse Resp BP Pulse Ox 98.5 F 94 H 20 108/66 96 02/27/17 04:23 02/27/17 04:23 02/27/17 04:23 02/27/17 04:23 02/27/17 04:23 - Medications Medications: Current Medications Acetaminophen (Tylenol 325mg Tab) 650 mg PO Q6 PRN PRN Reason: Fever >100.4 F Last Admin: 02/24/17 20:20 Dose: 650 mg Azithromycin 500 mg/ Sodium (Chloride) 250 mls @ 125 mls/hr IVPB DAILY [facility] Last Admin: 02/26/17 09:57 Dose: 125 mls/hr Ceftriaxone Sodium 1 gm/ (Sodium Chloride) 100 mls @ 100 mls/hr IVPB DAILY [facility] Last Admin: 02/26/17 09:58 Dose: 100 mls/hr Ketorolac Tromethamine (Toradol) 30 mg IVP Q6 [facility] Last Admin: 02/27/17 04:22 Dose: Not Given Morphine Sulfate (Morphine) 4 mg IVP Q4 PRN PRN Reason: Pain, moderate (4-7) - Labs Labs: 02/25/17 05:50 02/25/17 05:50 PT 10.9 SECONDS (9.6-11.2) 02/26/17 10:30 INR 1.05 (0.92-1.08) 02/26/17 10:30 APTT 27.8 SECONDS (23.3-32.5) 02/18/17 18:25 - Constitutional Appears: No Acute Distress - Head Exam Head Exam: ATRAUMATIC, NORMAL INSPECTION, NORMOCEPHALIC - Respiratory Exam Respiratory Exam: NORMAL BREATHING PATTERN. absent: Respiratory Distress Additional comments: L CT to waterseal, +airleak - Cardiovascular Exam Cardiovascular Exam: REGULAR RHYTHM - Neurological Exam Neurological Exam: Alert, Oriented x3 - Psychiatric Exam Psychiatric exam: Normal Affect, Normal Mood - Skin Skin Exam: Dry, Intact Assessment and Plan - Assessment and Plan (Free Text) Assessment: 21M w. L Spont. PTX, s/p L Chest tube and repositioning w/ talc pleurodesis POD #6 -Plan for hybrid-VATs with Bleb resection and Pleurectomy tomorrow -NPO @ midnight -DW Dr Alexis Dickens PGY2
[2017-02-27] MEDS: Azithromycin 500 MG in Sodium Chloride 0.9% 250 ML IVPB SCH (08:51)
--- NOTE | 2017-02-27 10:44 | CP.PCM.PN ---
Subjective - Date & Time of Evaluation Date of Evaluation: 02/27/17 Time of Evaluation: 10:00 - Subjective Subjective: No fever no cough no SOB no CP mild pain on site of Chest tube no abd pain Objective - Vital Signs/Intake and Output Vital Signs (last 24 hours): Temp Pulse Resp BP Pulse Ox 98.5 F 92 H 18 127/78 96 02/27/17 09:00 02/27/17 09:00 02/27/17 09:00 02/27/17 09:00 02/27/17 09:00 - Medications Medications: Current Medications Acetaminophen (Tylenol 325mg Tab) 650 mg PO Q6 PRN PRN Reason: Fever >100.4 F Last Admin: 02/24/17 20:20 Dose: 650 mg Azithromycin 500 mg/ Sodium (Chloride) 250 mls @ 125 mls/hr [facility] Last Admin: 02/27/17 08:51 Dose: 125 mls/hr Ceftriaxone Sodium 1 gm/ (Sodium Chloride) 100 mls @ 100 mls/hr IVPB [facility] Last Admin: 02/27/17 08:50 Dose: 100 mls/hr Ketorolac Tromethamine (Toradol) 30 mg IVP Q6 [facility] Last Admin: 02/27/17 04:22 Dose: Not Given Morphine Sulfate (Morphine) 4 mg IVP Q4 PRN PRN Reason: Pain, moderate (4-7) - Labs Labs: 02/25/17 05:50 02/25/17 05:50 PT 10.9 SECONDS (9.6-11.2) 02/26/17 10:30 INR 1.05 (0.92-1.08) 02/26/17 10:30 APTT 27.8 SECONDS (23.3-32.5) 02/18/17 18:25 - Constitutional Appears: No Acute Distress - Head Exam Head Exam: ATRAUMATIC, NORMAL INSPECTION, NORMOCEPHALIC - Eye Exam Eye Exam: EOMI, Normal appearance, PERRL Pupil Exam: NORMAL ACCOMODATION - ENT Exam ENT Exam: Mucous Membranes Moist, Normal External Ear Exam - Neck Exam Neck Exam: Full ROM. absent: Meningismus - Respiratory Exam Respiratory Exam: NORMAL BREATHING PATTERN. No Respiratory Distress minimal rales LLL - Cardiovascular Exam Cardiovascular Exam: REGULAR RHYTHM, +S1, +S2 Additional comments: Left chest tube - GI/Abdominal Exam GI & Abdominal Exam: Soft, Normal Bowel Sounds. absent: Tenderness - Extremities Exam Extremities Exam: Full ROM, Normal Capillary Refill. absent: Calf Tenderness, Normal Inspection - Back Exam Back Exam: Full ROM, NORMAL INSPECTION. absent: CVA tenderness (L), CVA tenderness (R) - Neurological Exam Neurological Exam: Alert, Awake, CN II-XII Intact, Oriented x3 Neuro motor strength exam: Left Upper Extremity: 5, Right Upper Extremity: 5, Left Lower Extremity: 5, Right Lower Extremity: 5 - Psychiatric Exam Psychiatric exam: Normal Affect, Normal Mood - Skin Skin Exam: Dry, Normal Color, Warm Assessment and Plan 21 y/o male with no significant PMH came in because of chest pain and SOB. CXR showed tension Pneumothorax on the left. Cardiothoracic surgery consulted and chest tube was placed. Patient has no smoking history, no history of trauma to the chest, no connective tissues disorder or chronic lung condition. Chest tube re inserted yesterday and talc pleurodesis performed in OR due to residual apical pneumothorax and large air leak . Repeat CXR post procedure showed no residual pneumothorax. Subsequent CXRs showed small apical pneumos. CT chest 02/25/17 - sm L anterior pneumothorax, small bullous and bleb changes in L Lung apex. Small bleb changes R lung apex. Subcutaneous emphysema L anterolateral chest wall. Mod L basilar atelectasis and small L effusion. For hybrid VATS, resection of apical blebs and bullae, and parietal pleurectomy tomorrow 1. Spontaneous Pneumothorax s/p Left Chest Tube placement CXR showed 100% PTX on the left- on admission Thoracic surgery consulted- Dr Espinoza Chest tube was placed with improvement of pneumothorax on admission. Due to persistent residual apical pneumothorax and large air leak chest tube was re inserted and talc pleurodesis performed, 02/21/17 with resolution of pneumothorax. Air leak persisted for 3 days in addition to small apical pneumothorax, CT chest 02/25/17. CT chest 02/25/17 - small L anterior pneumothorax, small bullous and bleb changes in L Lung apex. Small bleb changes R lung apex. Subcutaneous emphysema L anterolateral chest wall. Mod L basilar atelectasis and small L effusion. Continue pain management out of bed to chair Discussed extensively with patient and family. Discussed case with Dr Espinoza- plan for hybrid VATS, resections of apical blebs and bullae, and parietal pleurectomy tomorrow NPO from [place] 2. Fever possible Pneumonia Pt had frever with chills, malaise. no WBC, no bands, follow CBC started Ceftriaxone/Azithromycin 02/25/17 DVT prophylaxis Lovenox
--- NOTE | 2017-02-27 11:53 | CP.PCM.PN ---
Subjective - Date & Time of Evaluation Date of Evaluation: 02/27/17 Time of Evaluation: 11:50 - Subjective Subjective: For hybrid VATS, resections of apical blebs and bullae, and parietal pleurectomy tomorrow. Needs ABGs. Objective - Vital Signs/Intake and Output Vital Signs (last 24 hours): Temp Pulse Resp BP Pulse Ox 98.5 F 92 H 18 127/78 96 02/27/17 09:00 02/27/17 09:00 02/27/17 09:00 02/27/17 09:00 02/27/17 09:00 - Medications Medications: Current Medications Acetaminophen (Tylenol 325mg Tab) 650 mg PO Q6 PRN PRN Reason: Fever >100.4 F Last Admin: 02/24/17 20:20 Dose: 650 mg Azithromycin 500 mg/ Sodium (Chloride) 250 mls @ 125 mls/hr IVPB DAILY [facility] Last Admin: 02/27/17 08:51 Dose: 125 mls/hr Ceftriaxone Sodium 1 gm/ (Sodium Chloride) 100 mls @ 100 mls/hr IVPB DAILY [facility] Last Admin: 02/27/17 08:50 Dose: 100 mls/hr Ketorolac Tromethamine (Toradol) 30 mg IVP Q6 [facility] Last Admin: 02/27/17 11:13 Dose: Not Given Morphine Sulfate (Morphine) 4 mg IVP Q4 PRN PRN Reason: Pain, moderate (4-7) - Labs Labs: 02/25/17 05:50 02/25/17 05:50 PT 10.9 SECONDS (9.6-11.2) 02/26/17 10:30 INR 1.05 (0.92-1.08) 02/26/17 10:30 APTT 27.8 SECONDS (23.3-32.5) 02/18/17 18:25
--- NOTE | 2017-02-27 15:08 | RAD ---
HISTORY: comparison w/ chest tube COMPARISON: February 26, 2017. FINDINGS: LUNGS: Stable consolidative changes left lower lobe PLEURA: Stable findings left pleural space including pleural effusion. The chest tube in the FX of the pleural space medially on the left is unchanged. No significant pneumothorax. CARDIOVASCULAR: Normal. OSSEOUS STRUCTURES: No significant abnormalities. VISUALIZED UPPER ABDOMEN: Normal. OTHER FINDINGS: None. IMPRESSION: No significant interval change compared to the prior examination(s).
[2017-02-28 07:39] LABS: BASO # 0.1 K/uL (0.0-0.2); BASO % 1.2 % (0.0-2.0); EOS # 0.5 K/uL (0.0-0.7); EOS % 9.3 % (0.0-4.0); HEMATOCRIT 38.8 % (35.0-51.0); LYMPH # 1.2 K/uL (1.0-4.3); LYMPH % 21.4 % (20.0-40.0); MEAN CELL VOLUME 86.9 fl (80.0-94.0); MEAN CORPUSCULAR HEMOGLOBIN 29.9 pg (27.0-31.0); MEAN CORPUSCULAR HGB CONC 34.4 g/dL (33.0-37.0); MEAN PLATELET VOLUME 7.3 fl (7.2-11.7); MONO # 0.4 K/uL (0.0-0.8); MONO % 6.1 % (0.0-10.0); NEUT # 3.6 K/uL (1.8-7.0); NRBC % 0.1 % (0.0-0.0); RED CELL DISTRIBUTION WIDTH 12.1 % (11.5-14.5); WHITE BLOOD COUNT 5.8 K/uL (4.8-10.8)
[2017-02-28 07:47] LABS: ALB/GLOB RATIO 1.1 (1.0-2.1); ALKALINE PHOSPHATASE 79 U/L (38-126); ALT/SGPT 103 U/L (21-72); AST/SGOT 60 U/L (17-59); BILIRUBIN,TOTAL 0.3 mg/dl (0.2-1.3); BLOOD UREA NITROGEN 20 mg/dl (9-20); CALCIUM 9.7 mg/dL (8.4-10.2); CARBON DIOXIDE 30 mmol/L (22-30); CHLORIDE 101 mmol/L (98-107); GFR AFRICAN-AMERICAN > 60; GLUCOSE,RANDOM 98 mg/dL (75-110); SODIUM 142 mmol/l (132-148); TOTAL PROTEIN 7.4 G/DL (6.3-8.2)
[2017-02-28] MEDS: Azithromycin 500 MG in Sodium Chloride 0.9% 250 ML IVPB SCH (09:28)
[2017-02-28] MEDS ORDERED: Gentamicin 80 mg/2mL Inj. ONE (10:29)
[2017-02-28] MEDS ORDERED: Bupivacaine 0.5% Inj(30mL) ONE (10:29)
[2017-02-28] MEDS ORDERED: Propofol 10 mg/ml Inj (20 ML) ONE (10:34)
[2017-02-28] MEDS ORDERED: Midazolam 2 MG/2 ML VIAL ONE (10:35)
[2017-02-28] MEDS ORDERED: Succinylcholine 200 mg/10 ml Inj IV ONE (10:35)
[2017-02-28] MEDS ORDERED: Lactated Ringer's 1,000 ML IV ONE ×3 (10:40→14:12)
[2017-02-28] MEDS ORDERED: Lidocaine Hydrochloride 5 ML INJ ONE (10:47)
[2017-02-28] MEDS ORDERED: Rocuronium 10 mg/ml (5 ml) ONE ×3 (11:17→13:15)
[2017-02-28] MEDS ORDERED: Morphine 1 mg/ml preservative-free Inj(Duramorph) ONE (12:10)
[2017-02-28] MEDS ORDERED: Naloxone 0.4 mg/ml Inj (Adult) IVP PRN (13:45)
[2017-02-28] MEDS ORDERED: DiphenhydrAMINE 50 mg/ml Inj IVP PRN (13:45)
[2017-02-28] MEDS ORDERED: Lactated Ringer's 1,000 ML IV SCH (13:47)
[2017-02-28] MEDS ORDERED: Bacitracin Ointment 30 GM TUBE ONE (13:50)
[2017-02-28] MEDS ORDERED: Sodium Chloride 0.9% 1,000 ML IV ONE ×2 (13:58→14:00)
[2017-02-28] MEDS ORDERED: Lactated Ringer's 500 ML IV SCH (14:00)
[2017-02-28] MEDS ORDERED: Bacitracin OINT 15GM TOP ONE (14:15)
[2017-02-28] MEDS ORDERED: Neostigmine Methylsulfate 3mg/3ml Syringe IV ONE (15:23)
[2017-02-28] MEDS ORDERED: HYDROmorphone 0.5 mg/0.5 ml ISec ONE (15:45)
--- NOTE | 2017-02-28 16:19 | CP.PCM.PN ---
Subjective - Date & Time of Evaluation Date of Evaluation: 02/28/17 Time of Evaluation: 16:00 - Subjective Subjective: Pt seen in PACU post op Had VATS done today Pt doing well Has [address] Objective - Vital Signs/Intake and Output Vital Signs (last 24 hours): Temp Pulse Resp BP Pulse Ox 98.5 F 89 18 109/72 96 02/28/17 09:11 02/28/17 09:11 02/28/17 09:11 02/28/17 09:11 02/28/17 09:11 Intake and Output: 02/28/17 02/28/17 06:59 18:59 Intake Total 1000 Output Total 200 Balance 800 - Medications Medications: Current Medications Acetaminophen (Tylenol 325mg Tab) 650 mg PO Q6 PRN PRN Reason: Fever >100.4 F Last Admin: 02/24/17 20:20 Dose: 650 mg Diphenhydramine HCl (Benadryl) 50 mg IVP Q6 PRN PRN Reason: Itching / Pruritus Azithromycin 500 mg/ Sodium (Chloride) 250 mls @ 125 mls/hr IVPB DAILY [facility] Last Admin: 02/28/17 09:28 Dose: 125 mls/hr Ceftriaxone Sodium 1 gm/ (Sodium Chloride) 100 mls @ 100 mls/hr IVPB DAILY [facility] Last Admin: 02/28/17 09:23 Dose: 100 mls/hr Lactated Ringer's (Lactated Ringer's) 1,000 mls @ 100 mls/hr IV .Q10H [facility] Lactated Ringer's (Lactated Ringer's 500ml) 500 mls @ 75 mls/hr IV .Q6H40M [facility] Ketorolac Tromethamine (Toradol) 30 mg IVP Q6 PRN PRN Reason: Pain, moderate (4-7) Naloxone HCl (Narcan) 0.4 mg IVP Q1 PRN PRN Reason: Excess sedation Stop: 03/01/17 23:59 Ondansetron HCl (Zofran Inj) 4 mg IVP Q6 PRN PRN Reason: Nausea/Vomiting - Labs Labs: 02/28/17 06:15 02/28/17 06:15 PT 10.9 SECONDS (9.6-11.2) 02/26/17 10:30 INR 1.05 (0.92-1.08) 02/26/17 10:30 APTT 27.8 SECONDS (23.3-32.5) 02/18/17 18:25 - Constitutional Appears: No Acute Distress - Head Exam Head Exam: ATRAUMATIC, NORMAL INSPECTION, NORMOCEPHALIC - Eye Exam Eye Exam: EOMI, Normal appearance, PERRL Pupil Exam: NORMAL ACCOMODATION - ENT Exam ENT Exam: Mucous Membranes Moist, Normal External Ear Exam - Neck Exam Neck Exam: Full ROM. absent: Meningismus - Respiratory Exam Respiratory Exam: NORMAL BREATHING PATTERN. No Respiratory Distress decrease BS left - Cardiovascular Exam Cardiovascular Exam: REGULAR RHYTHM, +S1, +S2 Additional comments: 2 Left chest tubes on the left - GI/Abdominal Exam GI & Abdominal Exam: Soft, Normal Bowel Sounds. absent: Tenderness - Extremities Exam Extremities Exam: Full ROM, Normal Capillary Refill. absent: Calf Tenderness, Normal Inspection - Back Exam Back Exam: Full ROM, NORMAL INSPECTION. absent: CVA tenderness (L), CVA tenderness (R) - Neurological Exam Neurological Exam: still lethargic due to anesthesia but easily arousable Neuro motor strength exam: moves extremities - Psychiatric Exam Psychiatric exam: Normal Affect, Normal Mood - Skin Skin Exam: Dry, Normal Color, Warm Assessment and Plan - Assessment and Plan (Free Text) Assessment: 21 y/o male with no significant PMH came in because of chest pain and SOB. CXR showed tension Pneumothorax on the left. Cardiothoracic surgery consulted and chest tube was placed. Patient has no smoking history, no history of trauma to the chest, no connective tissues disorder or chronic lung condition. Chest tube re inserted yesterday and talc pleurodesis performed in OR due to residual apical pneumothorax and large air leak . Repeat CXR post procedure showed no residual pneumothorax. Subsequent CXRs showed small apical pneumos. CT chest 02/25/17 - sm L anterior pneumothorax, small bullous and bleb changes in L Lung apex. Small bleb changes R lung apex. Subcutaneous emphysema L anterolateral chest wall. Mod L basilar atelectasis and small L effusion. Hybrid VATS, resection of apical blebs and bullae, and parietal pleurectomy done today 02/28. [address] connected to Pleurovac 1. Spontaneous Pneumothorax s/p Left Chest Tube placement, s/p VATS CXR showed 100% PTX on the left- on admission Thoracic surgery consulted- Dr Espinoza Chest tube was placed with improvement of pneumothorax on admission. Due to persistent residual apical pneumothorax and large air leak chest tube was re inserted and talc pleurodesis performed, 02/21/17 with resolution of pneumothorax. Air leak persisted for 3 days in addition to small apical pneumothorax, CT chest 02/25/17. CT chest 02/25/17 - small L anterior pneumothorax, small bullous and bleb changes in L Lung apex. Small bleb changes R lung apex. Subcutaneous emphysema L anterolateral chest wall. Mod L basilar atelectasis and small L effusion. Continue pain management s/p hybrid VATS, resections of apical blebs and bullae, and parietal pleurectomy 02/28 Pt now has 2 chest tubes 2. Fever possible Pneumonia Pt had fever with chills, malaise. no WBC started Ceftriaxone/Azithromycin 02/25/17 DVT prophylaxis Lovenox- restart in am
--- NOTE | 2017-02-28 16:20 | PCM.SURG1 ---
Surgeon's Initial Post Op Note - Surgeon's Notes Surgeon: Dr. Espinoza Stained Glass Window Designer: Dr. Dickens PGY2; Aliza Espinoza DPM Type of Anesthesia: General Endo Pre-Operative Diagnosis: Left Spontaneous Pneumothorax with persistent airleak Operative Findings: see operative report Post-Operative Diagnosis: same Operation Performed: Left Video assisted Thoracoscopy. Left Thoracotomy. Parietal Pleurectomy. Left Apical lung Resection Specimen/Specimens Removed: Pleural Fluid. Left apical bullae. Parietal Pleura Estimated Blood Loss: EBL {In ML}: 200 Blood Products Given: N/A Drains Used: Chest Tubes (2) Post-Op Condition: Good Date of Surgery/Procedure: 02/28/17 Time of Surgery/Procedure: 11:00
--- NOTE | 2017-02-28 18:13 | RAD ---
HISTORY: post thoracotomy . Semi rec study portable technique 16:25. COMPARISON: Preoperative study 02/27/2017 FINDINGS: LUNGS: Re-expansion of the left PLEURA: Lung. No appreciable pleural effusion in the left pleural space. Two chest tubes identified currently. No pneumothorax identified. CARDIOVASCULAR: Normal. OSSEOUS STRUCTURES: No significant abnormalities. VISUALIZED UPPER ABDOMEN: Normal. OTHER FINDINGS: Incidental finding(s): Subcutaneous emphysema lateral left chest wall. IMPRESSION: Status post thoracotomy ; satisfactory postoperative status. No residual left pleural effusion, commensurate re-expansion left lower lobe.
[2017-03-01 06:11] LABS: BASO # 0.1 K/uL (0.0-0.2); BASO % 0.5 % (0.0-2.0); EOS # 0.3 K/uL (0.0-0.7); EOS % 3.2 % (0.0-4.0); HEMATOCRIT 34.9 % (35.0-51.0); LYMPH % 9.4 % (20.0-40.0); MEAN CELL VOLUME 87.7 fl (80.0-94.0); MEAN CORPUSCULAR HEMOGLOBIN 29.5 pg (27.0-31.0); MEAN CORPUSCULAR HGB CONC 33.7 g/dL (33.0-37.0); MEAN PLATELET VOLUME 7.2 fl (7.2-11.7); MONO # 0.7 K/uL (0.0-0.8); MONO % 6.3 % (0.0-10.0); NEUT # 8.4 K/uL (1.8-7.0); NEUT % 80.6 % (50.0-75.0); PLATELET COUNT 318 K/uL (130-400); RED CELL DISTRIBUTION WIDTH 12.2 % (11.5-14.5); WHITE BLOOD COUNT 10.5 K/uL (4.8-10.8)
[2017-03-01 06:22] LABS: ALB/GLOB RATIO 1.1 (1.0-2.1); ALKALINE PHOSPHATASE 64 U/L (38-126); ALT/SGPT 69 U/L (21-72); AST/SGOT 44 U/L (17-59); BILIRUBIN,TOTAL 0.4 mg/dl (0.2-1.3); BLOOD UREA NITROGEN 19 mg/dl (9-20); CALCIUM 8.7 mg/dL (8.4-10.2); CARBON DIOXIDE 28 mmol/L (22-30); CHLORIDE 99 mmol/L (98-107); GFR AFRICAN-AMERICAN > 60; GLUCOSE,RANDOM 106 mg/dL (75-110); POTASSIUM 3.9 MMOL/L (3.6-5.0); SODIUM 137 mmol/l (132-148); TOTAL PROTEIN 6.4 G/DL (6.3-8.2)
--- NOTE | 2017-03-01 09:14 | CP.PCM.PN ---
Subjective - Date & Time of Evaluation Date of Evaluation: 03/01/17 Time of Evaluation: 09:12 - Subjective Subjective: Thoracic Surgery - Dr. Espinoza Pt S&E in ICU. Doing well post-operatively. He states his pain is well controlled currently, with epidural and prn Toradol. He tolerated liquid diet yesterday, aware he may have solid food if desired. Pt is working with incentive spirometer, encouraged to be OOB to chair today. Schreiber catheter remains in place with clear joseph urine. Left Chest tubes to wall suction with ~100cc drained overnight, serosanguinous, tubes placed to waterseal. Objective - Vital Signs/Intake and Output Vital Signs (last 24 hours): Temp Pulse Resp BP Pulse Ox 98.9 F 76 15 112/67 100 03/01/17 08:35 03/01/17 08:35 03/01/17 08:35 03/01/17 08:35 03/01/17 08:35 Intake and Output: 03/01/17 03/01/17 06:59 18:59 Intake Total 200 Balance 200 - Medications Medications: Current Medications Acetaminophen (Tylenol 325mg Tab) 650 mg PO Q6 PRN PRN Reason: Fever >100.4 F Last Admin: 02/24/17 20:20 Dose: 650 mg Diphenhydramine HCl (Benadryl) 50 mg IVP Q6 PRN PRN Reason: Itching / Pruritus Azithromycin 500 mg/ Sodium (Chloride) 250 mls @ 125 mls/hr IVPB DAILY [facility] Last Admin: 02/28/17 09:28 Dose: 125 mls/hr Ceftriaxone Sodium 1 gm/ (Sodium Chloride) 100 mls @ 100 mls/hr IVPB DAILY [facility] Last Admin: 02/28/17 09:23 Dose: 100 mls/hr Lactated Ringer's (Lactated Ringer's) 1,000 mls @ 100 mls/hr IV .Q10H [facility] Last Admin: 03/01/17 00:30 Dose: 100 mls/hr Ketorolac Tromethamine (Toradol) 30 mg IVP Q6 PRN PRN Reason: Pain, moderate (4-7) Last Admin: 03/01/17 03:45 Dose: 30 mg Naloxone HCl (Narcan) 0.4 mg IVP Q1 PRN PRN Reason: Excess sedation Stop: 03/01/17 23:59 Ondansetron HCl (Zofran Inj) 4 mg IVP Q6 PRN PRN Reason: Nausea/Vomiting - Labs Labs: 03/01/17 04:50 03/01/17 04:50 PT 10.9 SECONDS (9.6-11.2) 02/26/17 10:30 INR 1.05 (0.92-1.08) 02/26/17 10:30 APTT 27.8 SECONDS (23.3-32.5) 02/18/17 18:25 - Constitutional Appears: No Acute Distress - Head Exam Head Exam: ATRAUMATIC, NORMAL INSPECTION, NORMOCEPHALIC - Respiratory Exam Respiratory Exam: NORMAL BREATHING PATTERN. absent: Respiratory Distress Additional comments: L CT x2 to waterseal, 100cc drainage total - Cardiovascular Exam Cardiovascular Exam: REGULAR RHYTHM - Neurological Exam Neurological Exam: Alert, Oriented x3 - Psychiatric Exam Psychiatric exam: Normal Affect, Normal Mood - Skin Skin Exam: Dry, Intact Assessment and Plan - Assessment and Plan (Free Text) Assessment: 21M w. L Spont. PTX, s/p hybrid-VATs with Apical bleb resection and Pleurectomy , POD #1 -ADAT -Continue IVF for now -Chest tubes to waterseal -Epidural in place being monitored by anesthesia, Toradol prn for breakthrough -Will DW anesthesia regarding schreiber catheter removal -F/U AM CXR -OOB to chair and encourage Incentive Spirometer -HAKEEM Dickens PGY2
[2017-03-01 09:43] LABS: EOSINOPHIL 2 % (0-7); NEUTROPHIL 85 % (42-75); REACTIVE LYMPHOCYTES 2 % (0-0); TOTAL CELLS COUNTED 100
[2017-03-01 09:44] LABS: LARGE PLATELETS PRESENT
[2017-03-01] MEDS: Azithromycin 500 MG in Sodium Chloride 0.9% 250 ML IVPB SCH (10:39)
--- NOTE | 2017-03-01 12:48 | CP.PCM.PN ---
Subjective - Date & Time of Evaluation Date of Evaluation: 03/01/17 Time of Evaluation: 12:00 - Subjective Subjective: Patient seen and examined bedside. Still with pain to left chest, controlled with Toradol. Spinal catheter still in place. Anterior and posterior chest tubes connected to pleura vac with only 30ml output Hemodynamically stable, afebrile. No acute issues overnight. Denies any SOB Objective - Vital Signs/Intake and Output Vital Signs (last 24 hours): Temp Pulse Resp BP Pulse Ox 99.1 F 90 24 116/63 100 03/01/17 12:24 03/01/17 12:24 03/01/17 12:24 03/01/17 12:24 03/01/17 12:24 Intake and Output: 03/01/17 03/01/17 06:59 18:59 Intake Total 200 Balance 200 - Medications Medications: Current Medications Acetaminophen (Tylenol 325mg Tab) 650 mg PO Q6 PRN PRN Reason: Fever >100.4 F Last Admin: 02/24/17 20:20 Dose: 650 mg Diphenhydramine HCl (Benadryl) 50 mg IVP Q6 PRN PRN Reason: Itching / Pruritus Azithromycin 500 mg/ Sodium (Chloride) 250 mls @ 125 mls/hr IVPB DAILY [facility] Last Admin: 03/01/17 10:39 Dose: 125 mls/hr Ceftriaxone Sodium 1 gm/ (Sodium Chloride) 100 mls @ 100 mls/hr IVPB DAILY [facility] Last Admin: 03/01/17 10:39 Dose: 100 mls/hr Lactated Ringer's (Lactated Ringer's) 1,000 mls @ 100 mls/hr IV .Q10H [facility] Last Admin: 03/01/17 00:30 Dose: 100 mls/hr Ketorolac Tromethamine (Toradol) 30 mg IVP Q6 PRN PRN Reason: Pain, moderate (4-7) Last Admin: 03/01/17 03:45 Dose: 30 mg Naloxone HCl (Narcan) 0.4 mg IVP Q1 PRN PRN Reason: Excess sedation Stop: 03/01/17 23:59 Ondansetron HCl (Zofran Inj) 4 mg IVP Q6 PRN PRN Reason: Nausea/Vomiting - Labs Labs: 03/01/17 04:50 03/01/17 04:50 PT 10.9 SECONDS (9.6-11.2) 02/26/17 10:30 INR 1.05 (0.92-1.08) 02/26/17 10:30 APTT 27.8 SECONDS (23.3-32.5) 02/18/17 18:25 - Constitutional Appears: Non-toxic, No Acute Distress - Head Exam Head Exam: ATRAUMATIC, NORMAL INSPECTION, NORMOCEPHALIC - Eye Exam Eye Exam: EOMI, Normal appearance, PERRL Pupil Exam: NORMAL ACCOMODATION - ENT Exam ENT Exam: Mucous Membranes Moist, Normal Exam - Neck Exam Neck Exam: Full ROM, Normal Inspection - Respiratory Exam Respiratory Exam: Decreased Breath Sounds (left base ), NORMAL BREATHING PATTERN. absent: Rhonchi, Wheezes Additional comments: anterior and posterior chest tubes to left chest - Cardiovascular Exam Cardiovascular Exam: REGULAR RHYTHM, RRR, +S1, +S2. absent: JVD - GI/Abdominal Exam GI & Abdominal Exam: Soft, Normal Bowel Sounds. absent: Distended, Guarding, Tenderness, Rebound - Rectal Exam Rectal Exam: Deferred - Exam Additional comments: schreiber in place - Extremities Exam Extremities Exam: Full ROM, Normal Capillary Refill, Normal Inspection. absent : Calf Tenderness, Pedal Edema - Back Exam Back Exam: NORMAL INSPECTION - Neurological Exam Neurological Exam: Alert, Awake, CN II-XII Intact, Oriented x3 - Psychiatric Exam Psychiatric exam: Flat Affect - Skin Skin Exam: Dry, Intact, Normal Color, Warm Assessment and Plan - Assessment and Plan (Free Text) Assessment: 21 y/o male with no significant PMH came in because of chest pain and SOB. CXR showed tension Pneumothorax on the left. Cardiothoracic surgery consulted and chest tube was placed. Patient has no smoking history, no history of trauma to the chest, no connective tissues disorder or chronic lung condition. Chest tube was re inserted and talc pleurodesis performed in OR due to residual apical pneumothorax and large air leak . Repeat CXR post procedure showed no residual pneumothorax.CT chest 02/25/17 showed small Left anterior pneumothorax , small bullous and bleb changes in L Lung apex. Small bleb changes R lung apex. Subcutaneous emphysema L anterolateral chest wall. Mod L basilar atelectasis and small L effusion. He ws ataken again to OR and underwent Hybrid VATS, resection of apical blebs and bullae, and parietal pleurectomy 02/28. 2 chest tubes placed to left hemithorax connected to Pleurovac 1. Spontaneous Pneumothorax CXR showed 100% PTX on the left- on admission Chest tube was placed with improvement of pneumothorax on admission. Due to persistent residual apical pneumothorax and large air leak chest tube was re inserted and talc pleurodesis performed, 02/21/17 with resolution. Air leak persisted for 3 days in addition to small apical pneumothorax and CT chest . showed persistent small L anterior pneumothorax, small bullous and bleb changes in L Lung apex,small bleb changes R lung apex Underwent VATS with resection of apical blebs and bullae and parietal pleurectomy Monitor in ICU Continue pain management ands start ambulation out of bed to chair Thoracic surgery Dr Espinoza following 2. Fever possible Pneumonia Pt had fever with chills, malaise. no WBC started Ceftriaxone/Azithromycin 02/25/17. Will continue for total 7 days than d/c DVT prophylaxis Lovenox
--- NOTE | 2017-03-01 13:14 | RAD ---
PROCEDURE: CHEST RADIOGRAPH, 1 VIEW HISTORY: post op, comparison Comparison made with chest radiograph 02/28/2017 COMPARISON: FINDINGS: LUNGS: Again noted are 2 in situ left-sided chest tubes. There is a curvilinear density/lucent interface in the left lung apex that could represent residual left apical pneumothorax. . Mild left basilar atelectasis and small effusion. Small amount of subcutaneous air of left emili thorax scan noted Note also made of what appears represent small bleb changes right lung apex PLEURA: As above CARDIOVASCULAR: No change OSSEOUS STRUCTURES: No significant abnormalities. VISUALIZED UPPER ABDOMEN: Normal. OTHER FINDINGS: None. IMPRESSION: Again noted are 2 in situ left-sided chest tubes. There is a curvilinear density/lucent interface in the left lung apex that could represent residual left apical pneumothorax. . Mild left basilar atelectasis and small effusion. Small amount of subcutaneous air of left emili thorax scan noted Note also made of what appears represent small bleb changes right lung apex
--- NOTE | 2017-03-01 15:00 | CP.PCM.PN ---
Subjective - Date & Time of Evaluation Date of Evaluation: 03/01/17 Time of Evaluation: 14:59 - Subjective Subjective: No air leak. 40cc sanguinous drainge. Doing well. Rx plan discussed with residents. Objective - Vital Signs/Intake and Output Vital Signs (last 24 hours): Temp Pulse Resp BP Pulse Ox 99.1 F 90 24 116/63 100 03/01/17 12:24 03/01/17 12:24 03/01/17 12:24 03/01/17 12:24 03/01/17 12:24 Intake and Output: 03/01/17 03/01/17 06:59 18:59 Intake Total 200 Balance 200 - Medications Medications: Current Medications Acetaminophen (Tylenol 325mg Tab) 650 mg PO Q6 PRN PRN Reason: Fever >100.4 F Last Admin: 02/24/17 20:20 Dose: 650 mg Diphenhydramine HCl (Benadryl) 50 mg IVP Q6 PRN PRN Reason: Itching / Pruritus Azithromycin 500 mg/ Sodium (Chloride) 250 mls @ 125 mls/hr IVPB DAILY [facility] Last Admin: 03/01/17 10:39 Dose: 125 mls/hr Ceftriaxone Sodium 1 gm/ (Sodium Chloride) 100 mls @ 100 mls/hr IVPB DAILY [facility] Last Admin: 03/01/17 10:39 Dose: 100 mls/hr Lactated Ringer's (Lactated Ringer's) 1,000 mls @ 100 mls/hr IV .Q10H [facility] Last Admin: 03/01/17 00:30 Dose: 100 mls/hr Ketorolac Tromethamine (Toradol) 30 mg IVP Q6 PRN PRN Reason: Pain, moderate (4-7) Last Admin: 03/01/17 12:49 Dose: 30 mg Naloxone HCl (Narcan) 0.4 mg IVP Q1 PRN PRN Reason: Excess sedation Stop: 03/01/17 23:59 Ondansetron HCl (Zofran Inj) 4 mg IVP Q6 PRN PRN Reason: Nausea/Vomiting - Labs Labs: 03/01/17 04:50 03/01/17 04:50 PT 10.9 SECONDS (9.6-11.2) 02/26/17 10:30 INR 1.05 (0.92-1.08) 02/26/17 10:30 APTT 27.8 SECONDS (23.3-32.5) 02/18/17 18:25
[2017-03-01] MEDS ORDERED: Morphine 1 mg/ml preservative-free Inj(Duramorph) ONE (15:25)
--- NOTE | 2017-03-01 15:56 | CP.PCM.PN ---
Subjective - Date & Time of Evaluation Date of Evaluation: 03/01/17 Time of Evaluation: 15:45 - Subjective Subjective: Patient evaluated and examined, comfortable, stable vital signs, patient given 4mg of morphine thru the thoracic .epidural catheter Objective - Vital Signs/Intake and Output Vital Signs (last 24 hours): Temp Pulse Resp BP Pulse Ox 99.1 F 90 24 116/63 100 03/01/17 12:24 03/01/17 12:24 03/01/17 12:24 03/01/17 12:24 03/01/17 12:24 Intake and Output: 03/01/17 03/01/17 06:59 18:59 Intake Total 200 Balance 200 - Medications Medications: Current Medications Acetaminophen (Tylenol 325mg Tab) 650 mg PO Q6 PRN PRN Reason: Fever >100.4 F Last Admin: 02/24/17 20:20 Dose: 650 mg Diphenhydramine HCl (Benadryl) 50 mg IVP Q6 PRN PRN Reason: Itching / Pruritus Enoxaparin Sodium (Lovenox) 40 mg SC DAILY [facility] PRN Reason: Protocol Azithromycin 500 mg/ Sodium (Chloride) 250 mls @ 125 mls/hr IVPB DAILY [facility] Last Admin: 03/01/17 10:39 Dose: 125 mls/hr Ceftriaxone Sodium 1 gm/ (Sodium Chloride) 100 mls @ 100 mls/hr IVPB DAILY [facility] Last Admin: 03/01/17 10:39 Dose: 100 mls/hr Lactated Ringer's (Lactated Ringer's) 1,000 mls @ 100 mls/hr IV .Q10H [facility] Last Admin: 03/01/17 00:30 Dose: 100 mls/hr Ketorolac Tromethamine (Toradol) 30 mg IVP Q6 PRN PRN Reason: Pain, moderate (4-7) Last Admin: 03/01/17 12:49 Dose: 30 mg Naloxone HCl (Narcan) 0.4 mg IVP Q1 PRN PRN Reason: Excess sedation Stop: 03/01/17 23:59 Ondansetron HCl (Zofran Inj) 4 mg IVP Q6 PRN PRN Reason: Nausea/Vomiting - Labs Labs: 03/01/17 04:50 03/01/17 04:50 PT 10.9 SECONDS (9.6-11.2) 02/26/17 10:30 INR 1.05 (0.92-1.08) 02/26/17 10:30 APTT 27.8 SECONDS (23.3-32.5) 02/18/17 18:25
--- NOTE | 2017-03-01 16:14 | CP.CCUPN ---
<Lissy Danielle - Last Filed: 03/01/17 16:09> CCU Subjective - Physician Review Subjective (Free Text): 03/01/17 17:12 Patient seen and examined at bedside with attending and discussed during rounds. Patient is s/p thoracotomy with left apical lung resection, POD #1, with left sided anterior and posterior chest tubes in place, draining well. His pain has been well controlled with morphine via thoracic epidural catheter + IV toradol. He denies fevers, chills, SOB, abdominal pain, nausea or vomiting. Patient has been lying in bed comfortably and was able to get out of bed to chair with assistance. CCU Objective - Vital Signs / Intake & Output Vital Signs (Last 4 hours): Vital Signs Temp Pulse Resp BP Pulse Ox 03/01/17 12:24 99.1 F 90 24 116/63 100 - Physical Exam Head: Positive for: Atraumatic, Normocephalic Pupils: Positive for: PERRL Extroacular Muscles: Positive for: EOMI Conjunctiva: Positive for: Normal Respiratory/Chest: Positive for: Clear to Auscultation, Other (B/L air entry present with slightly decreased sounds on left compared to right. Left sided anterior/posterior chest tubes present.). Negative for: Respiratory Distress, Wheezes, Retracting, Rhonchi Cardiovascular: Positive for: Regular Rate and Rhythm, Normal S1, S2, Peripheal Pulses Present. Negative for: Murmurs Abdomen: Positive for: Normal Bowel Sounds. Negative for: Tenderness, Distention, Guarding Upper Extremity: Positive for: Normal Inspection, Capillary Refill < 2s Lower Extremity: Positive for: Normal Inspection. Negative for: Edema, CALF TENDERNESS Neurological: Positive for: Speech Normal Psychiatric: Positive for: Alert, Oriented x 3 - Medications Active Medications: Active Medications Generic Name Dose Route Start Last Admin Trade Name Freq PRN Reason Stop Dose Admin Acetaminophen 650 mg 02/24/17 19:47 02/24/17 20:20 Tylenol 325mg Tab PO 650 mg Q6 PRN Administration Fever >100.4 F Diphenhydramine HCl 50 mg 02/28/17 13:45 Benadryl IVP Q6 PRN Itching / Pruritus Enoxaparin Sodium 40 mg 03/02/17 09:00 Lovenox SC DAILY [facility] Protocol Azithromycin 500 mg/ Sodium 250 mls @ 125 mls/hr 02/25/17 11:45 03/01/17 10: 39 Chloride IVPB 125 mls/hr DAILY [facility] Administration Ceftriaxone Sodium 1 gm/ 100 mls @ 100 mls/hr 02/25/17 11:30 03/01/17 10:39 Sodium Chloride IVPB 100 mls/hr DAILY [facility] Administration Lactated Ringer's 1,000 mls @ 100 mls/hr 02/28/17 13:47 03/01/17 00:30 Lactated Ringer's IV 100 mls/hr .Q10H [facility] Administration Ketorolac Tromethamine 30 mg 02/28/17 16:17 03/01/17 12:49 Toradol IVP 30 mg Q6 PRN Administration Pain, moderate (4-7) Naloxone HCl 0.4 mg 02/28/17 13:45 Narcan IVP 03/01/17 23:59 Q1 PRN Excess sedation Ondansetron HCl 4 mg 02/28/17 13:45 Zofran Inj IVP Q6 PRN Nausea/Vomiting - Patient Studies Lab Studies: Microbiology Studies 02/21/17 16:16 Gram Stain - Final Chest Lab Studies 03/01/17 03/01/17 02/27/17 Range/Units 04:50 04:50 16:15 WBC 10.5 D (4.8-10.8) K/uL RBC 3.98 L (4.40-5.90) Mil/uL Hgb 11.8 L (12.0-18.0) g/dL Hct 34.9 L (35.0-51.0) % MCV 87.7 (80.0-94.0) fl MCH 29.5 (27.0-31.0) pg MCHC 33.7 (33.0-37.0) g/dL RDW 12.2 (11.5-14.5) % Plt Count 318 (130-400) K/uL MPV 7.2 (7.2-11.7) fl Neut % (Auto) 80.6 H (50.0-75.0) % Lymph % (Auto) 9.4 L (20.0-40.0) % Bowman % (Auto) 6.3 (0.0-10.0) % Eos % (Auto) 3.2 (0.0-4.0) % Baso % (Auto) 0.5 (0.0-2.0) % Neut # 8.4 H (1.8-7.0) K/uL Lymph # 1.0 (1.0-4.3) K/uL Bowman # 0.7 (0.0-0.8) K/uL Eos # 0.3 (0.0-0.7) K/uL Baso # 0.1 (0.0-0.2) K/uL Neutrophils % (Manual) 85 H (42-75) % Lymphocytes % (Manual) 8 L (20-50) % Reactive Lymphs % 2 H (0-0) % Monocytes % (Manual) 3 (0-10) % Eosinophils % (Manual) 2 (0-7) % Platelet Estimate Normal (NORMAL) Large Platelets Present Hypochromasia (manual) Slight Anisocytosis (manual) Slight Tear Drop Cells Slight Sodium 137 (132-148) mmol/l Potassium 3.9 (3.6-5.0) MMOL/L Chloride 99 (98-107) mmol/L Carbon Dioxide 28 (22-30) mmol/L Anion Gap 14 (10-20) BUN 19 (9-20) mg/dl Creatinine 0.9 (0.8-1.5) mg/dL Est GFR ( Amer) > 60 Est GFR (Non-Af Amer) > 60 Random Glucose 106 (75-110) mg/dL Calcium 8.7 (8.4-10.2) mg/dL Total Bilirubin 0.4 (0.2-1.3) mg/dl AST 44 (17-59) U/L ALT 69 (21-72) U/L Alkaline Phosphatase 64 (38-126) U/L Total Protein 6.4 (6.3-8.2) G/DL Albumin 3.3 L (3.5-5.0) g/dL Globulin 3.0 (2.2-3.9) gm/dL Albumin/Globulin Ratio 1.1 (1.0-2.1) Crossmatch See Detail Laboratory Results - last 24 hr 02/27/17 03/01/17 03/01/17 16:15 04:50 04:50 WBC 10.5 D RBC 3.98 L Hgb 11.8 L Hct 34.9 L MCV 87.7 MCH 29.5 MCHC 33.7 RDW 12.2 Plt Count 318 MPV 7.2 Neut % (Auto) 80.6 H Lymph % (Auto) 9.4 L Bowman % (Auto) 6.3 Eos % (Auto) 3.2 Baso % (Auto) 0.5 Neut # 8.4 H Lymph # 1.0 Bowman # 0.7 Eos # 0.3 Baso # 0.1 Neutrophils % (Manual) 85 H Lymphocytes % (Manual) 8 L Reactive Lymphs % 2 H Monocytes % (Manual) 3 Eosinophils % (Manual) 2 Platelet Estimate Normal Large Platelets Present Hypochromasia (manual) Slight Anisocytosis (manual) Slight Tear Drop Cells Slight Sodium 137 Potassium 3.9 Chloride 99 Carbon Dioxide 28 Anion Gap 14 BUN 19 Creatinine 0.9 Est GFR ( Amer) > 60 Est GFR (Non-Af Amer) > 60 Random Glucose 106 Calcium 8.7 Total Bilirubin 0.4 AST 44 ALT 69 Alkaline Phosphatase 64 Total Protein 6.4 Albumin 3.3 L Globulin 3.0 Albumin/Globulin Ratio 1.1 Crossmatch See Detail Review of Systems - Constitutional Constitutional: absent: Fever, Chills - Cardiovascular Cardiovascular: absent: Dyspnea, Leg Edema, Palpitations - Respiratory Respiratory: Pain on Inspiration (Mild left sided pain on deep inspiration). absent: Cough, Wheezing - Gastrointestinal Gastrointestinal: absent: Abdominal Pain, Nausea, Vomiting Critical Care Progress Note - Nutrition Nutrition: Nutrition Category Date Time Status Regular Diet [DIET] Diets 03/01/17 Breakfast Active Assessment/Plan - Assessment and Plan (Free Text) Assessment: 21 y/o M with unremarkable PMH referred to ED on 02/18/17 from a nearby clinic with acute onset SOB and chest pain secondary to a left sided tension pneumothorax. A chest tube was placed and symptoms improved however patient required talc pleurodesis on 02/21/17 due to persistent residual apical pneumothorax. Despite treatment, a persistent air leak was present and patient ultimately required a thoracotomy with left apical lung resection on 02/28/17. Patient is currently POD#1 and has been doing well. Plan: Pneumothorax -Etiology likely secondary to ruptured bleb -S/p thoracotomy with left apical lung resection with left sided anterior and posterior chest tube placement on 02/28/17, POD #1 -Continue to monitor chest tube drain output: Anterior: 65cc serosanguinous fluid, Posterior: 140cc serosanguinous fluid -CXR performed today confirms placment of 2 chest tubes. Mild left basilar atelectasis and small effusion is also noted. -Physical therapy. Encourage out of bed. -Continue incentive spirometry -Received 4mg duramorph via epidural catheter as per anesthesia -Toradol 30mg IV Q6h PRN Left basilar atelectasis -Patient currently afebrile, WBC: 10.5 -Completed 5 days of azithromycin and currently on day 5 of ceftriaxone for possible pneumonia Diet -Tolerating regular diet DVT Prophylaxis -40mg SC daily <Geovany Wells M - Last Filed: 03/01/17 18:20> CCU Objective - Vital Signs / Intake & Output Vital Signs (Last 4 hours): Vital Signs Temp Pulse Resp BP Pulse Ox 03/01/17 18:00 95 H 17 117/64 100 03/01/17 16:00 98.9 F 88 22 108/59 L 100 - Medications Active Medications: Active Medications Generic Name Dose Route Start Last Admin Trade Name Freq PRN Reason Stop Dose Admin Acetaminophen 650 mg 02/24/17 19:47 02/24/17 20:20 Tylenol 325mg Tab PO 650 mg Q6 PRN Administration Fever >100.4 F Diphenhydramine HCl 50 mg 02/28/17 13:45 Benadryl IVP Q6 PRN Itching / Pruritus Enoxaparin Sodium 40 mg 03/02/17 09:00 Lovenox SC DAILY [facility] Protocol Azithromycin 500 mg/ Sodium 250 mls @ 125 mls/hr 02/25/17 11:45 03/01/17 10: 39 Chloride IVPB 125 mls/hr DAILY [facility] Administration Ceftriaxone Sodium 1 gm/ 100 mls @ 100 mls/hr 02/25/17 11:30 03/01/17 10:39 Sodium Chloride IVPB 100 mls/hr DAILY [facility] Administration Lactated Ringer's 1,000 mls @ 100 mls/hr 02/28/17 13:47 03/01/17 00:30 Lactated Ringer's IV 100 mls/hr .Q10H [facility] Administration Ketorolac Tromethamine 30 mg 02/28/17 16:17 03/01/17 12:49 Toradol IVP 30 mg Q6 PRN Administration Pain, moderate (4-7) Naloxone HCl 0.4 mg 02/28/17 13:45 Narcan IVP 03/01/17 23:59 Q1 PRN Excess sedation Ondansetron HCl 4 mg 02/28/17 13:45 Zofran Inj IVP Q6 PRN Nausea/Vomiting - Patient Studies Lab Studies: Microbiology Studies 02/28/17 15:54 Gram Stain - Final Pleural Fluid 02/21/17 16:16 Gram Stain - Final Chest Lab Studies 03/01/17 03/01/17 02/27/17 Range/Units 04:50 04:50 16:15 WBC 10.5 D (4.8-10.8) K/uL RBC 3.98 L (4.40-5.90) Mil/uL Hgb 11.8 L (12.0-18.0) g/dL Hct 34.9 L (35.0-51.0) % MCV 87.7 (80.0-94.0) fl MCH 29.5 (27.0-31.0) pg MCHC 33.7 (33.0-37.0) g/dL RDW 12.2 (11.5-14.5) % Plt Count 318 (130-400) K/uL MPV 7.2 (7.2-11.7) fl Neut % (Auto) 80.6 H (50.0-75.0) % Lymph % (Auto) 9.4 L (20.0-40.0) % Bowman % (Auto) 6.3 (0.0-10.0) % Eos % (Auto) 3.2 (0.0-4.0) % Baso % (Auto) 0.5 (0.0-2.0) % Neut # 8.4 H (1.8-7.0) K/uL Lymph # 1.0 (1.0-4.3) K/uL Bowman # 0.7 (0.0-0.8) K/uL Eos # 0.3 (0.0-0.7) K/uL Baso # 0.1 (0.0-0.2) K/uL Neutrophils % (Manual) 85 H (42-75) % Lymphocytes % (Manual) 8 L (20-50) % Reactive Lymphs % 2 H (0-0) % Monocytes % (Manual) 3 (0-10) % Eosinophils % (Manual) 2 (0-7) % Platelet Estimate Normal (NORMAL) Large Platelets Present Hypochromasia (manual) Slight Anisocytosis (manual) Slight Tear Drop Cells Slight Sodium 137 (132-148) mmol/l Potassium 3.9 (3.6-5.0) MMOL/L Chloride 99 (98-107) mmol/L Carbon Dioxide 28 (22-30) mmol/L Anion Gap 14 (10-20) BUN 19 (9-20) mg/dl Creatinine 0.9 (0.8-1.5) mg/dL Est GFR ( Amer) > 60 Est GFR (Non-Af Amer) > 60 Random Glucose 106 (75-110) mg/dL Calcium 8.7 (8.4-10.2) mg/dL Total Bilirubin 0.4 (0.2-1.3) mg/dl AST 44 (17-59) U/L ALT 69 (21-72) U/L Alkaline Phosphatase 64 (38-126) U/L Total Protein 6.4 (6.3-8.2) G/DL Albumin 3.3 L (3.5-5.0) g/dL Globulin 3.0 (2.2-3.9) gm/dL Albumin/Globulin Ratio 1.1 (1.0-2.1) Crossmatch See Detail Laboratory Results - last 24 hr 02/27/17 03/01/17 03/01/17 16:15 04:50 04:50 WBC 10.5 D RBC 3.98 L Hgb 11.8 L Hct 34.9 L MCV 87.7 MCH 29.5 MCHC 33.7 RDW 12.2 Plt Count 318 MPV 7.2 Neut % (Auto) 80.6 H Lymph % (Auto) 9.4 L Bowman % (Auto) 6.3 Eos % (Auto) 3.2 Baso % (Auto) 0.5 Neut # 8.4 H Lymph # 1.0 Bowman # 0.7 Eos # 0.3 Baso # 0.1 Neutrophils % (Manual) 85 H Lymphocytes % (Manual) 8 L Reactive Lymphs % 2 H Monocytes % (Manual) 3 Eosinophils % (Manual) 2 Platelet Estimate Normal Large Platelets Present Hypochromasia (manual) Slight Anisocytosis (manual) Slight Tear Drop Cells Slight Sodium 137 Potassium 3.9 Chloride 99 Carbon Dioxide 28 Anion Gap 14 BUN 19 Creatinine 0.9 Est GFR ( Amer) > 60 Est GFR (Non-Af Amer) > 60 Random Glucose 106 Calcium 8.7 Total Bilirubin 0.4 AST 44 ALT 69 Alkaline Phosphatase 64 Total Protein 6.4 Albumin 3.3 L Globulin 3.0 Albumin/Globulin Ratio 1.1 Crossmatch See Detail Critical Care Progress Note - Nutrition Nutrition: Nutrition Category Date Time Status Regular Diet [DIET] Diets 03/01/17 Breakfast Active Attending/Attestation - Attestation I have personally seen and examined this patient.: Yes I have fully participated in the care of the patient.: Yes I have reviewed all pertinent clinical information: Yes Notes (Text): 03/01/17 18:20 Today: Wednesday, March 01, 2017 The Patient was seen and examined at the bedside, Medical records reviewed, all clinical/lab/hemodynamic/radiographic data were reviewed and management issues were discussed and formulated, Events reviewed Pain issues, skin care, head of the bed elevation, GI/DVT prophylaxis, glycemic control were addressed. Agree with above treatment plans as transcribed in Dr. Danielle note
[2017-03-02 06:48] LABS: BASO % 0.5 % (0.0-2.0); EOS # 0.5 K/uL (0.0-0.7); EOS % 5.5 % (0.0-4.0); HEMATOCRIT 31.5 % (35.0-51.0); LYMPH # 1.3 K/uL (1.0-4.3); LYMPH % 14.5 % (20.0-40.0); MEAN CELL VOLUME 89.1 fl (80.0-94.0); MEAN CORPUSCULAR HEMOGLOBIN 30.3 pg (27.0-31.0); MEAN PLATELET VOLUME 6.9 fl (7.2-11.7); MONO # 0.7 K/uL (0.0-0.8); MONO % 8.1 % (0.0-10.0); NEUT # 6.3 K/uL (1.8-7.0); NEUT % 71.4 % (50.0-75.0); RED CELL DISTRIBUTION WIDTH 11.9 % (11.5-14.5); WHITE BLOOD COUNT 8.8 K/uL (4.8-10.8)
[2017-03-02 06:52] LABS: ALKALINE PHOSPHATASE 61 U/L (38-126); ALT/SGPT 53 U/L (21-72); AST/SGOT 38 U/L (17-59); BILIRUBIN,TOTAL 0.3 mg/dl (0.2-1.3); BLOOD UREA NITROGEN 11 mg/dl (9-20); CALCIUM 8.6 mg/dL (8.4-10.2); CARBON DIOXIDE 32 mmol/L (22-30); CHLORIDE 100 mmol/L (98-107); GFR AFRICAN-AMERICAN > 60; GLUCOSE,RANDOM 106 mg/dL (75-110); POTASSIUM 4.1 MMOL/L (3.6-5.0); SODIUM 139 mmol/l (132-148); TOTAL PROTEIN 5.9 G/DL (6.3-8.2)
--- NOTE | 2017-03-02 07:32 | CP.PCM.PN ---
Subjective - Date & Time of Evaluation Date of Evaluation: 03/02/17 Time of Evaluation: 07:30 - Subjective Subjective: Patient was seen and examined bedside. feeling better. sitting in chair in NAD and participating with PT. no acute issues overnight. Hemodynamically stable, afebrile , saturating 98 -100 % on 2 L O2 via N[place] Anterior and posterior chest tubes to left hemithorax in place with 145 ml and 165 ml sero sanguinous output each. Air leak noted from anterior chest wall Objective - Vital Signs/Intake and Output Vital Signs (last 24 hours): Temp Pulse Resp BP Pulse Ox 98.4 F 79 15 107/54 L 99 03/02/17 04:00 03/02/17 06:00 03/02/17 06:00 03/02/17 06:00 03/02/17 06:00 Intake and Output: 03/02/17 03/02/17 06:59 18:59 Intake Total 180 Output Total 1395 Balance -1215 - Medications Medications: Current Medications Acetaminophen (Tylenol 325mg Tab) 650 mg PO Q6 PRN PRN Reason: Fever >100.4 F Last Admin: 03/02/17 01:27 Dose: 650 mg Diphenhydramine HCl (Benadryl) 50 mg IVP Q6 PRN PRN Reason: Itching / Pruritus Enoxaparin Sodium (Lovenox) 40 mg SC DAILY [facility] PRN Reason: Protocol Azithromycin 500 mg/ Sodium (Chloride) 250 mls @ 125 mls/hr IVPB DAILY [facility] Last Admin: 03/01/17 10:39 Dose: 125 mls/hr Ceftriaxone Sodium 1 gm/ (Sodium Chloride) 100 mls @ 100 mls/hr IVPB DAILY [facility] Last Admin: 03/01/17 10:39 Dose: 100 mls/hr Lactated Ringer's (Lactated Ringer's) 1,000 mls @ 100 mls/hr IV .Q10H [facility] Last Admin: 03/01/17 00:30 Dose: 100 mls/hr Ketorolac Tromethamine (Toradol) 30 mg IVP Q6 PRN PRN Reason: Pain, moderate (4-7) Last Admin: 03/02/17 00:13 Dose: 30 mg Ondansetron HCl (Zofran Inj) 4 mg IVP Q6 PRN PRN Reason: Nausea/Vomiting - Labs Labs: 03/02/17 05:30 03/02/17 05:30 PT 10.9 SECONDS (9.6-11.2) 02/26/17 10:30 INR 1.05 (0.92-1.08) 02/26/17 10:30 APTT 27.8 SECONDS (23.3-32.5) 02/18/17 18:25 - Constitutional Appears: Non-toxic, No Acute Distress - Head Exam Head Exam: ATRAUMATIC, NORMAL INSPECTION, NORMOCEPHALIC - Eye Exam Eye Exam: EOMI, Normal appearance, PERRL Pupil Exam: NORMAL ACCOMODATION - ENT Exam ENT Exam: Mucous Membranes Moist, Normal Exam - Neck Exam Neck Exam: Full ROM, Normal Inspection - Respiratory Exam Respiratory Exam: Clear to Ausculation Bilateral. absent: Prolonged Expiratory Phase, Rhonchi, Wheezes, Respiratory Distress - Cardiovascular Exam Cardiovascular Exam: REGULAR RHYTHM, RRR, +S1, +S2. absent: JVD - GI/Abdominal Exam GI & Abdominal Exam: Soft, Normal Bowel Sounds. absent: Distended, Guarding, Tenderness, Rebound - Rectal Exam Rectal Exam: Deferred - Extremities Exam Extremities Exam: Full ROM, Normal Capillary Refill, Normal Inspection. absent : Calf Tenderness, Pedal Edema - Back Exam Back Exam: NORMAL INSPECTION - Neurological Exam Neurological Exam: Alert, Awake, CN II-XII Intact, Normal Gait, Oriented x3 - Psychiatric Exam Psychiatric exam: Normal Affect, Normal Mood - Skin Skin Exam: Dry, Intact, Normal Color Assessment and Plan - Assessment and Plan (Free Text) Assessment: 21 y/o male with no significant PMH came in because of chest pain and SOB. CXR showed tension Pneumothorax on the left. Cardiothoracic surgery consulted and chest tube was placed. Patient has no smoking history, no history of trauma to the chest, no connective tissues disorder or chronic lung condition. Chest tube was re inserted and talc pleurodesis performed in OR due to residual apical pneumothorax and large air leak . Repeat CXR post procedure showed no residual pneumothorax.CT chest 02/25/17 showed small Left anterior pneumothorax , small bullous and bleb changes in L Lung apex. Small bleb changes R lung apex. Subcutaneous emphysema L anterolateral chest wall. Mod L basilar atelectasis and small L effusion. He ws ataken again to OR and underwent Hybrid VATS, resection of apical blebs and bullae, and parietal pleurectomy 02/28. Anterior and posterior chest tubes to left hemithorax connected to Pleurovac 1. Spontaneous Pneumothorax CXR showed 100% PTX on the left- on admission Chest tube was placed with improvement of pneumothorax on admission. Due to persistent residual apical pneumothorax and large air leak chest tube was re inserted and talc pleurodesis performed, 02/21/17 with resolution. Air leak persisted for 3 days in addition to small apical pneumothorax and CT chest . showed persistent small L anterior pneumothorax, small bullous and bleb changes in L Lung apex,small bleb changes R lung apex Underwent VATS with resection of apical blebs and bullae and parietal pleurectomy Anterior and posterior chest tubes to left hemithorax with 1345 and 165 ml of sero sanguinous output last 24 hours . Air leak noted from anterior chest tube Connected to slow intermittent suction Monitor in ICU Continue pain management ands promote ambulation out of bed to chair with PT Thoracic surgery Dr Espinoza following 2. Fever possible Pneumonia Pt had fever with chills, malaise. no WBC started Ceftriaxone/Azithromycin 02/25/17. Will continue for total 7 days than d/c DVT prophylaxis Lovenox
--- NOTE | 2017-03-02 09:32 | CP.CCUPN ---
CCU Subjective - Physician Review Events Since Last Encounter (Free Text): 03/02/17 09:28 Alert and oriented , no sob, denies any pain CCU Objective - Vital Signs / Intake & Output Vital Signs (Last 4 hours): Vital Signs Temp Pulse Resp BP Pulse Ox 03/02/17 08:00 98.7 F 84 16 109/57 L 97 03/02/17 06:00 79 15 107/54 L 99 Intake and Output (Last 8hrs): Intake & Output 03/01/17 03/02/17 03/02/17 22:59 06:59 14:59 Intake Total 60 120 Output Total 815 1395 Balance -245 -1275 Intake: Oral 60 120 Output: Chest Tube Drainage 20 Left Lateral Chest 20 Drainage 95 175 Left Anterior Chest 40 Left Posterior Chest 135 Left Upper Lateral Chest 95 Urine 700 1220 Urine, Voided 700 1220 - Physical Exam Narrative Physical Exam (Free Text): 03/02/17 09:28 P/E Neck: No JVD Lungs: decreased breath sounds, left base heart: No gallop Abdomen: soft, non-tender Ext: No edema Head: Positive for: Atraumatic, Normocephalic Pupils: Positive for: PERRL Extroacular Muscles: Positive for: EOMI Conjunctiva: Positive for: Normal Respiratory/Chest: Positive for: Clear to Auscultation, Other (B/L air entry present with slightly decreased sounds on left compared to right. Left sided anterior/posterior chest tubes present.). Negative for: Respiratory Distress, Wheezes, Retracting, Rhonchi Cardiovascular: Positive for: Regular Rate and Rhythm, Normal S1, S2, Peripheal Pulses Present. Negative for: Murmurs Abdomen: Positive for: Normal Bowel Sounds. Negative for: Tenderness, Distention, Guarding Upper Extremity: Positive for: Normal Inspection, Capillary Refill < 2s Lower Extremity: Positive for: Normal Inspection. Negative for: Edema, CALF TENDERNESS Neurological: Positive for: Speech Normal Psychiatric: Positive for: Alert, Oriented x 3 - Medications Active Medications: Active Medications Generic Name Dose Route Start Last Admin Trade Name Freq PRN Reason Stop Dose Admin Acetaminophen 650 mg 02/24/17 19:47 03/02/17 01:27 Tylenol 325mg Tab PO 650 mg Q6 PRN Administration Fever >100.4 F Diphenhydramine HCl 50 mg 02/28/17 13:45 Benadryl IVP Q6 PRN Itching / Pruritus Enoxaparin Sodium 40 mg 03/02/17 09:00 Lovenox SC DAILY [facility] Protocol Azithromycin 500 mg/ Sodium 250 mls @ 125 mls/hr 02/25/17 11:45 03/01/17 10: 39 Chloride IVPB 125 mls/hr DAILY [facility] Administration Ceftriaxone Sodium 1 gm/ 100 mls @ 100 mls/hr 02/25/17 11:30 03/01/17 10:39 Sodium Chloride IVPB 100 mls/hr DAILY [facility] Administration Lactated Ringer's 1,000 mls @ 100 mls/hr 02/28/17 13:47 03/01/17 00:30 Lactated Ringer's IV 100 mls/hr .Q10H [facility] Administration Ketorolac Tromethamine 30 mg 02/28/17 16:17 03/02/17 00:13 Toradol IVP 30 mg Q6 PRN Administration Pain, moderate (4-7) Ondansetron HCl 4 mg 02/28/17 13:45 Zofran Inj IVP Q6 PRN Nausea/Vomiting - Patient Studies Lab Studies: Microbiology Studies 02/28/17 15:54 Gram Stain - Final Pleural Fluid 02/21/17 16:16 Gram Stain - Final Chest Lab Studies 03/02/17 03/02/17 03/01/17 Range/Units 05:30 05:30 04:50 WBC 8.8 (4.8-10.8) K/uL RBC 3.54 L (4.40-5.90) Mil/uL Hgb 10.7 L (12.0-18.0) g/dL Hct 31.5 L (35.0-51.0) % MCV 89.1 (80.0-94.0) fl MCH 30.3 (27.0-31.0) pg MCHC 34.0 (33.0-37.0) g/dL RDW 11.9 (11.5-14.5) % Plt Count 290 (130-400) K/uL MPV 6.9 L (7.2-11.7) fl Neut % (Auto) 71.4 (50.0-75.0) % Lymph % (Auto) 14.5 L (20.0-40.0) % Walton % (Auto) 8.1 (0.0-10.0) % Eos % (Auto) 5.5 H (0.0-4.0) % Baso % (Auto) 0.5 (0.0-2.0) % Neut # 6.3 (1.8-7.0) K/uL Lymph # 1.3 (1.0-4.3) K/uL Walton # 0.7 (0.0-0.8) K/uL Eos # 0.5 (0.0-0.7) K/uL Baso # 0.0 (0.0-0.2) K/uL Neutrophils % (Manual) 85 H (42-75) % Lymphocytes % (Manual) 8 L (20-50) % Reactive Lymphs % 2 H (0-0) % Monocytes % (Manual) 3 (0-10) % Eosinophils % (Manual) 2 (0-7) % Platelet Estimate Normal (NORMAL) Large Platelets Present Hypochromasia (manual) Slight Anisocytosis (manual) Slight Tear Drop Cells Slight Sodium 139 (132-148) mmol/l Potassium 4.1 (3.6-5.0) MMOL/L Chloride 100 (98-107) mmol/L Carbon Dioxide 32 H (22-30) mmol/L Anion Gap 11 (10-20) BUN 11 (9-20) mg/dl Creatinine 0.8 (0.8-1.5) mg/dL Est GFR ( Amer) > 60 Est GFR (Non-Af Amer) > 60 Random Glucose 106 (75-110) mg/dL Calcium 8.6 (8.4-10.2) mg/dL Total Bilirubin 0.3 (0.2-1.3) mg/dl AST 38 (17-59) U/L ALT 53 (21-72) U/L Alkaline Phosphatase 61 (38-126) U/L Total Protein 5.9 L (6.3-8.2) G/DL Albumin 3.0 L (3.5-5.0) g/dL Globulin 2.9 (2.2-3.9) gm/dL Albumin/Globulin Ratio 1.0 (1.0-2.1) Crossmatch 02/27/17 Range/Units 16:15 WBC (4.8-10.8) K/uL RBC (4.40-5.90) Mil/uL Hgb (12.0-18.0) g/dL Hct (35.0-51.0) % MCV (80.0-94.0) fl MCH (27.0-31.0) pg MCHC (33.0-37.0) g/dL RDW (11.5-14.5) % Plt Count (130-400) K/uL MPV (7.2-11.7) fl Neut % (Auto) (50.0-75.0) % Lymph % (Auto) (20.0-40.0) % Walton % (Auto) (0.0-10.0) % Eos % (Auto) (0.0-4.0) % Baso % (Auto) (0.0-2.0) % Neut # (1.8-7.0) K/uL Lymph # (1.0-4.3) K/uL Walton # (0.0-0.8) K/uL Eos # (0.0-0.7) K/uL Baso # (0.0-0.2) K/uL Neutrophils % (Manual) (42-75) % Lymphocytes % (Manual) (20-50) % Reactive Lymphs % (0-0) % Monocytes % (Manual) (0-10) % Eosinophils % (Manual) (0-7) % Platelet Estimate (NORMAL) Large Platelets Hypochromasia (manual) Anisocytosis (manual) Tear Drop Cells Sodium (132-148) mmol/l Potassium (3.6-5.0) MMOL/L Chloride (98-107) mmol/L Carbon Dioxide (22-30) mmol/L Anion Gap (10-20) BUN (9-20) mg/dl Creatinine (0.8-1.5) mg/dL Est GFR ( Amer) Est GFR (Non-Af Amer) Random Glucose (75-110) mg/dL Calcium (8.4-10.2) mg/dL Total Bilirubin (0.2-1.3) mg/dl AST (17-59) U/L ALT (21-72) U/L Alkaline Phosphatase (38-126) U/L Total Protein (6.3-8.2) G/DL Albumin (3.5-5.0) g/dL Globulin (2.2-3.9) gm/dL Albumin/Globulin Ratio (1.0-2.1) Crossmatch See Detail Laboratory Results - last 24 hr 02/27/17 03/01/17 03/02/17 16:15 04:50 05:30 WBC 8.8 RBC 3.54 L Hgb 10.7 L Hct 31.5 L MCV 89.1 MCH 30.3 MCHC 34.0 RDW 11.9 Plt Count 290 MPV 6.9 L Neut % (Auto) 71.4 Lymph % (Auto) 14.5 L Walton % (Auto) 8.1 Eos % (Auto) 5.5 H Baso % (Auto) 0.5 Neut # 6.3 Lymph # 1.3 Walton # 0.7 Eos # 0.5 Baso # 0.0 Neutrophils % (Manual) 85 H Lymphocytes % (Manual) 8 L Reactive Lymphs % 2 H Monocytes % (Manual) 3 Eosinophils % (Manual) 2 Platelet Estimate Normal Large Platelets Present Hypochromasia (manual) Slight Anisocytosis (manual) Slight Tear Drop Cells Slight Sodium Potassium Chloride Carbon Dioxide Anion Gap BUN Creatinine Est GFR ( Amer) Est GFR (Non-Af Amer) Random Glucose Calcium Total Bilirubin AST ALT Alkaline Phosphatase Total Protein Albumin Globulin Albumin/Globulin Ratio Crossmatch See Detail 03/02/17 05:30 WBC RBC Hgb Hct MCV MCH MCHC RDW Plt Count MPV Neut % (Auto) Lymph % (Auto) Walton % (Auto) Eos % (Auto) Baso % (Auto) Neut # Lymph # Walton # Eos # Baso # Neutrophils % (Manual) Lymphocytes % (Manual) Reactive Lymphs % Monocytes % (Manual) Eosinophils % (Manual) Platelet Estimate Large Platelets Hypochromasia (manual) Anisocytosis (manual) Tear Drop Cells Sodium 139 Potassium 4.1 Chloride 100 Carbon Dioxide 32 H Anion Gap 11 BUN 11 Creatinine 0.8 Est GFR ( Amer) > 60 Est GFR (Non-Af Amer) > 60 Random Glucose 106 Calcium 8.6 Total Bilirubin 0.3 AST 38 ALT 53 Alkaline Phosphatase 61 Total Protein 5.9 L Albumin 3.0 L Globulin 2.9 Albumin/Globulin Ratio 1.0 Crossmatch Critical Care Progress Note - Nutrition Nutrition: Nutrition Category Date Time Status Regular Diet [DIET] Diets 03/01/17 Breakfast Active Assessment/Plan - Assessment and Plan (Free Text) Assessment: - Assessment and Plan (Free Text) Assessment: 1. Spontaneous Pneumothorax s/p CT placement for PTX 02/21 s/p Pleurodesis s/p VATS s/p left sided CT stable Pain management. CT surgery f/u, Dr Espinoza 2. Fever possible Pneumonia Had fever, probably non-infectios, post surgery, no leukocytosis. no WBC started Ceftriaxone/Azithromycin 02/25/17. Will continue for total 7 days than d/c DVT prophylaxis Lovenox
[2017-03-02] MEDS: Enoxaparin 40 mg Syringe SC SCH (09:59)
[2017-03-02] MEDS: Azithromycin 500 MG in Sodium Chloride 0.9% 250 ML IVPB SCH (10:01)
--- NOTE | 2017-03-02 11:05 | RAD ---
HISTORY: S/S thoracotomy. Check CT Placement COMPARISON: 03/01/2017 FINDINGS: LUNGS: No active pulmonary disease. PLEURA: Two left-sided chest tubes in place with new opacity overlying the left upper lung field. CARDIOVASCULAR: Normal. OSSEOUS STRUCTURES: No significant abnormalities. VISUALIZED UPPER ABDOMEN: Normal. OTHER FINDINGS: None. IMPRESSION: Two left-sided chest tubes in place with new opacity overlying the left upper lung field. Question infiltrate or hydrothorax.
--- NOTE | 2017-03-02 11:17 | CP.PCM.PN ---
Subjective - Date & Time of Evaluation Date of Evaluation: 03/02/17 Time of Evaluation: 10:00 - Subjective Subjective: CT Surgery Pt S&E, NAEO. Pain controlled by epidural. No other C/O Objective - Vital Signs/Intake and Output Vital Signs (last 24 hours): Temp Pulse Resp BP Pulse Ox 98.7 F 114 H 20 117/78 98 03/02/17 08:00 03/02/17 10:00 03/02/17 10:00 03/02/17 10:00 03/02/17 10:00 Intake and Output: 03/02/17 03/02/17 06:59 18:59 Intake Total 180 350 Output Total 1395 300 Balance -1215 50 - Medications Medications: Current Medications Acetaminophen (Tylenol 325mg Tab) 650 mg PO Q6 PRN PRN Reason: Fever >100.4 F Last Admin: 03/02/17 01:27 Dose: 650 mg Diphenhydramine HCl (Benadryl) 50 mg IVP Q6 PRN PRN Reason: Itching / Pruritus Enoxaparin Sodium (Lovenox) 40 mg SC DAILY [facility] PRN Reason: Protocol Last Admin: 03/02/17 09:59 Dose: 40 mg Azithromycin 500 mg/ Sodium (Chloride) 250 mls @ 125 mls/hr IVPB DAILY [facility] Last Admin: 03/02/17 10:01 Dose: 125 mls/hr Ceftriaxone Sodium 1 gm/ (Sodium Chloride) 100 mls @ 100 mls/hr IVPB DAILY [facility] Last Admin: 03/02/17 10:00 Dose: 100 mls/hr Lactated Ringer's (Lactated Ringer's) 1,000 mls @ 100 mls/hr IV .Q10H [facility] Last Admin: 03/01/17 00:30 Dose: 100 mls/hr Ketorolac Tromethamine (Toradol) 30 mg IVP Q6 PRN PRN Reason: Pain, moderate (4-7) Last Admin: 03/02/17 10:01 Dose: 30 mg Ondansetron HCl (Zofran Inj) 4 mg IVP Q6 PRN PRN Reason: Nausea/Vomiting - Labs Labs: 03/02/17 05:30 03/02/17 05:30 PT 10.9 SECONDS (9.6-11.2) 02/26/17 10:30 INR 1.05 (0.92-1.08) 02/26/17 10:30 APTT 27.8 SECONDS (23.3-32.5) 02/18/17 18:25 - Constitutional Appears: Non-toxic, No Acute Distress - Head Exam Head Exam: ATRAUMATIC, NORMOCEPHALIC - Eye Exam Eye Exam: EOMI. absent: Scleral icterus - Respiratory Exam Respiratory Exam: NORMAL BREATHING PATTERN. absent: Respiratory Distress Additional comments: small air leak in anterior CT 145cc serosanguinous fluid Posterior CT without leak, 165cc serosanguinous fluid Dressing C/D/I - Neurological Exam Neurological Exam: Alert, Awake, Oriented x3 - Skin Skin Exam: Dry, Warm Assessment and Plan - Assessment and Plan (Free Text) Assessment: 21M s/p VATS with wedge resection and pleurectomy Plan: Place CTs on 15mm suction due to output Daily CXR Dressing Change tomorrow Anesthesia to refill epidural today, will remove tomorrow D/W Dr. Alexis Hayden PGY3
--- NOTE | 2017-03-02 16:31 | CP.PCM.PN ---
Subjective - Date & Time of Evaluation Date of Evaluation: 03/02/17 Time of Evaluation: 16:25 - Subjective Subjective: Anesthesiology Progress Note: Follow on this patient with epidural catheter for post-op pain control. On assessing his pain, the patient felt that he does not need the epidural for now. Will re-evaluate tomorrow. Will not remove catheter today because he might reconsider. Objective - Vital Signs/Intake and Output Vital Signs (last 24 hours): Temp Pulse Resp BP Pulse Ox 98.4 F 76 21 122/77 99 03/02/17 16:00 03/02/17 16:00 03/02/17 16:00 03/02/17 16:00 03/02/17 16:00 Intake and Output: 03/02/17 03/02/17 06:59 18:59 Intake Total 180 350 Output Total 1395 1005 Balance -1215 -655 - Medications Medications: Current Medications Acetaminophen (Tylenol 325mg Tab) 650 mg PO Q6 PRN PRN Reason: Fever >100.4 F Last Admin: 03/02/17 01:27 Dose: 650 mg Diphenhydramine HCl (Benadryl) 50 mg IVP Q6 PRN PRN Reason: Itching / Pruritus Enoxaparin Sodium (Lovenox) 40 mg SC DAILY [facility] PRN Reason: Protocol Last Admin: 03/02/17 09:59 Dose: 40 mg Azithromycin 500 mg/ Sodium (Chloride) 250 mls @ 125 mls/hr IVPB DAILY [facility] Last Admin: 03/02/17 10:01 Dose: 125 mls/hr Ceftriaxone Sodium 1 gm/ (Sodium Chloride) 100 mls @ 100 mls/hr IVPB DAILY [facility] Last Admin: 03/02/17 10:00 Dose: 100 mls/hr Lactated Ringer's (Lactated Ringer's) 1,000 mls @ 100 mls/hr IV .Q10H [facility] Last Admin: 03/01/17 00:30 Dose: 100 mls/hr Ketorolac Tromethamine (Toradol) 30 mg IVP Q6 PRN PRN Reason: Pain, moderate (4-7) Last Admin: 03/02/17 15:59 Dose: 30 mg Ondansetron HCl (Zofran Inj) 4 mg IVP Q6 PRN PRN Reason: Nausea/Vomiting - Labs Labs: 03/02/17 05:30 03/02/17 05:30 PT 10.9 SECONDS (9.6-11.2) 02/26/17 10:30 INR 1.05 (0.92-1.08) 02/26/17 10:30 APTT 27.8 SECONDS (23.3-32.5) 02/18/17 18:25
[2017-03-03 06:55] LABS: BASO % 0.6 % (0.0-2.0); EOS # 0.3 K/uL (0.0-0.7); EOS % 4.8 % (0.0-4.0); HEMATOCRIT 26.5 % (35.0-51.0); LYMPH # 1.2 K/uL (1.0-4.3); LYMPH % 16.5 % (20.0-40.0); MEAN CELL VOLUME 88.1 fl (80.0-94.0); MEAN CORPUSCULAR HEMOGLOBIN 29.6 pg (27.0-31.0); MEAN CORPUSCULAR HGB CONC 33.6 g/dL (33.0-37.0); MEAN PLATELET VOLUME 6.8 fl (7.2-11.7); MONO # 0.4 K/uL (0.0-0.8); NEUT # 5.2 K/uL (1.8-7.0); NEUT % 72.1 % (50.0-75.0); RED CELL DISTRIBUTION WIDTH 11.9 % (11.5-14.5); WHITE BLOOD COUNT 7.2 K/uL (4.8-10.8)
[2017-03-03 07:00] LABS: ALKALINE PHOSPHATASE 58 U/L (38-126); ALT/SGPT 50 U/L (21-72); AST/SGOT 41 U/L (17-59); BILIRUBIN,TOTAL 0.4 mg/dl (0.2-1.3); BLOOD UREA NITROGEN 10 mg/dl (9-20); CALCIUM 8.6 mg/dL (8.4-10.2); CARBON DIOXIDE 30 mmol/L (22-30); CHLORIDE 103 mmol/L (98-107); GFR AFRICAN-AMERICAN > 60; GLUCOSE,RANDOM 101 mg/dL (75-110); POTASSIUM 3.9 MMOL/L (3.6-5.0); SODIUM 141 mmol/l (132-148); TOTAL PROTEIN 6.1 G/DL (6.3-8.2)
--- NOTE | 2017-03-03 08:31 | CP.PCM.PN ---
Subjective - Date & Time of Evaluation Date of Evaluation: 03/03/17 Time of Evaluation: 20:00 - Subjective Subjective: Anesthesiology Progress Note: Re- Epidural catheter for post op - pain relief; Patient is comfortable with Ketorolac, therefore epidural morphine is not needed . Epidural catheter removed.Tip intact. However tape blister noted,Bacitracin ointment and sterile dressing applied. MD Jessica Objective - Vital Signs/Intake and Output Vital Signs (last 24 hours): Temp Pulse Resp BP Pulse Ox 99.0 F 75 16 111/63 98 03/03/17 06:01 03/03/17 06:00 03/03/17 06:00 03/03/17 06:00 03/03/17 06:00 Intake and Output: 03/03/17 03/03/17 06:59 18:59 Intake Total 400 Output Total 810 Balance -410 - Medications Medications: Current Medications Acetaminophen (Tylenol 325mg Tab) 650 mg PO Q6 PRN PRN Reason: Fever >100.4 F Last Admin: 03/02/17 01:27 Dose: 650 mg Diphenhydramine HCl (Benadryl) 50 mg IVP Q6 PRN PRN Reason: Itching / Pruritus Enoxaparin Sodium (Lovenox) 40 mg SC DAILY [facility] PRN Reason: Protocol Last Admin: 03/02/17 09:59 Dose: 40 mg Azithromycin 500 mg/ Sodium (Chloride) 250 mls @ 125 mls/hr IVPB DAILY [facility] Last Admin: 03/02/17 10:01 Dose: 125 mls/hr Ceftriaxone Sodium 1 gm/ (Sodium Chloride) 100 mls @ 100 mls/hr IVPB DAILY [facility] Last Admin: 03/02/17 10:00 Dose: 100 mls/hr Lactated Ringer's (Lactated Ringer's) 1,000 mls @ 100 mls/hr IV .Q10H [facility] Last Admin: 03/01/17 00:30 Dose: 100 mls/hr Ketorolac Tromethamine (Toradol) 30 mg IVP Q6 PRN PRN Reason: Pain, moderate (4-7) Last Admin: 03/03/17 04:52 Dose: 30 mg Ondansetron HCl (Zofran Inj) 4 mg IVP Q6 PRN PRN Reason: Nausea/Vomiting - Labs Labs: 03/03/17 05:30 03/03/17 05:30 PT 10.9 SECONDS (9.6-11.2) 02/26/17 10:30 INR 1.05 (0.92-1.08) 02/26/17 10:30 APTT 27.8 SECONDS (23.3-32.5) 02/18/17 18:25
--- NOTE | 2017-03-03 09:19 | RAD ---
PROCEDURE: CHEST RADIOGRAPH, 1 VIEW HISTORY: post op, comparison COMPARISON: 03/02/2017 FINDINGS: LUNGS: Worsening opacity in the left upper lung zone. PLEURA: Left chest tubes in place. CARDIOVASCULAR: Normal. OSSEOUS STRUCTURES: No significant abnormalities. VISUALIZED UPPER ABDOMEN: Normal. OTHER FINDINGS: None. IMPRESSION: Worsening opacity in the left upper lung zone.
[2017-03-03] MEDS: Azithromycin 500 MG in Sodium Chloride 0.9% 250 ML IVPB SCH (10:01)
[2017-03-03] MEDS: Enoxaparin 40 mg Syringe SC SCH ×2 (10:01→10:07)
[2017-03-03 11:32] LABS: HEMATOCRIT 28.3 % (35.0-51.0); MEAN CELL VOLUME 88.7 fl (80.0-94.0); MEAN CORPUSCULAR HEMOGLOBIN 29.8 pg (27.0-31.0); MEAN CORPUSCULAR HGB CONC 33.6 g/dL (33.0-37.0); WHITE BLOOD COUNT 6.3 K/uL (4.8-10.8)
--- NOTE | 2017-03-03 11:39 | CP.PCM.PN ---
Subjective - Date & Time of Evaluation Date of Evaluation: 03/03/17 Time of Evaluation: 07:30 - Subjective Subjective: Patient seen and examined bedside. Feeling well. Denies any SOB, CP,Cough, palpitations.No acute issues overnight. Pain is controlled . saturating 100 % in RA BP 114/64 HR 92 Anterior and posterior chest tubes to left hemithorax with 60 ml and 100 mi or serosanguinous output respectively last 12 hours CXR this AM showed increased Left upper lobe opacity Objective - Vital Signs/Intake and Output Vital Signs (last 24 hours): Temp Pulse Resp BP Pulse Ox 98.5 F 92 H 11 L 114/64 100 03/03/17 08:00 03/03/17 08:00 03/03/17 08:00 03/03/17 08:00 03/03/17 08:00 Intake and Output: 03/03/17 03/03/17 06:59 18:59 Intake Total 400 Output Total 810 Balance -410 - Medications Medications: Current Medications Acetaminophen (Tylenol 325mg Tab) 650 mg PO Q6 PRN PRN Reason: Fever >100.4 F Last Admin: 03/02/17 01:27 Dose: 650 mg Diphenhydramine HCl (Benadryl) 50 mg IVP Q6 PRN PRN Reason: Itching / Pruritus Enoxaparin Sodium (Lovenox) 40 mg SC DAILY [facility] PRN Reason: Protocol Last Admin: 03/03/17 10:07 Dose: Not Given Azithromycin 500 mg/ Sodium (Chloride) 250 mls @ 125 mls/hr IVPB DAILY [facility] Last Admin: 03/03/17 10:01 Dose: 125 mls/hr Ceftriaxone Sodium 1 gm/ (Sodium Chloride) 100 mls @ 100 mls/hr IVPB DAILY [facility] Last Admin: 03/03/17 10:02 Dose: 100 mls/hr Lactated Ringer's (Lactated Ringer's) 1,000 mls @ 100 mls/hr IV .Q10H [facility] Last Admin: 03/01/17 00:30 Dose: 100 mls/hr Ketorolac Tromethamine (Toradol) 30 mg IVP Q6 PRN PRN Reason: Pain, moderate (4-7) Last Admin: 03/03/17 04:52 Dose: 30 mg Ondansetron HCl (Zofran Inj) 4 mg IVP Q6 PRN PRN Reason: Nausea/Vomiting - Labs Labs: 03/03/17 11:20 03/03/17 05:30 PT 10.9 SECONDS (9.6-11.2) 02/26/17 10:30 INR 1.05 (0.92-1.08) 02/26/17 10:30 APTT 27.8 SECONDS (23.3-32.5) 02/18/17 18:25 - Constitutional Appears: Non-toxic, No Acute Distress - Head Exam Head Exam: ATRAUMATIC, NORMAL INSPECTION, NORMOCEPHALIC - Eye Exam Eye Exam: EOMI, Normal appearance, PERRL Pupil Exam: NORMAL ACCOMODATION - ENT Exam ENT Exam: Mucous Membranes Moist, Normal Exam - Neck Exam Neck Exam: Full ROM, Normal Inspection - Respiratory Exam Respiratory Exam: Decreased Breath Sounds (CARINE). absent: Accessory Muscle Use, Prolonged Expiratory Phase, Rhonchi, Wheezes, Respiratory Distress - Cardiovascular Exam Cardiovascular Exam: REGULAR RHYTHM, RRR, +S1, +S2. absent: JVD - GI/Abdominal Exam GI & Abdominal Exam: Soft, Normal Bowel Sounds. absent: Distended, Guarding, Rebound - Rectal Exam Rectal Exam: Deferred - Extremities Exam Extremities Exam: Full ROM, Normal Capillary Refill, Normal Inspection. absent : Calf Tenderness, Pedal Edema - Back Exam Back Exam: NORMAL INSPECTION - Neurological Exam Neurological Exam: Alert, Awake, CN II-XII Intact, Oriented x3 - Psychiatric Exam Psychiatric exam: Normal Affect, Normal Mood - Skin Skin Exam: Dry, Pallor, Warm Additional comments: left hemithorax anterior and posterior chest tubes in place Assessment and Plan - Assessment and Plan (Free Text) Assessment: 21 y/o male with no significant PMH came in because of chest pain and SOB. CXR showed tension Pneumothorax on the left. Cardiothoracic surgery consulted and chest tube was placed. Patient has no smoking history, no history of trauma to the chest, no connective tissues disorder or chronic lung condition. Chest tube was re inserted and talc pleurodesis performed in OR due to residual apical pneumothorax and large air leak . Repeat CXR post procedure showed no residual pneumothorax.CT chest 02/25/17 showed small Left anterior pneumothorax , small bullous and bleb changes in L Lung apex. Small bleb changes R lung apex. Subcutaneous emphysema L anterolateral chest wall. Mod L basilar atelectasis and small L effusion. He was taken again to OR and underwent Hybrid VATS, resection of apical blebs and bullae, and parietal pleurectomy 02/28. Anterior and posterior chest tubes to left hemithorax connected to Pleurovac with respectively 60 and 100 ml serosanguinous output last 12 hours . 1. Spontaneous Pneumothorax CXR showed 100% PTX on the left- on admission Chest tube was placed with improvement of pneumothorax on admission. Due to persistent residual apical pneumothorax and large air leak chest tube was re inserted and talc pleurodesis performed, 02/21/17 with resolution. Air leak persisted for 3 days in addition to small apical pneumothorax and CT chest . showed persistent small L anterior pneumothorax, small bullous and bleb changes in L Lung apex,small bleb changes R lung apex Underwent VATS with resection of apical blebs and bullae and parietal pleurectomy Anterior and posterior chest tubes to left hemithorax with 60 and 100 ml of sero sanguinous output last 12 hours . Repeat CXR this Am showed increased opacity / density to Left upper lobe suspicious for hydrothorax There is a trend down on hemoglobin from 02/28 13.3--11.8--10.7---8.9 today. Chest tube output decreasing last 12 hours. Will repeat CBC stat Discussed with Dr. Espinoza . Will repeat CT chest without contrast and H&H Continue monitoring in ICU Continue pain management ands promote ambulation out of bed to chair with PT Discontinued spinal catheter since patient's pain is controlled Thoracic surgery Dr Espinoza following 2. Fever possible Pneumonia Pt had fever with chills, malaise. no WBC started Ceftriaxone/Azithromycin 02/25/17. Will continue for total 7 days than d/c 3. Acute blood loss anemia Hgb 8.9 today Will repeat CBc stat Ct chest without contrast to rule out hemothorax 4.DVT prophylaxis Will hold Lovenox since h& h is dropping
[2017-03-03] MEDS ORDERED: Iohexol 300 100 ML IJ ONE (12:49)
[2017-03-03] MEDS ORDERED: Sodium Chloride 0.9% 50 ML IV ONE (12:49)
--- NOTE | 2017-03-03 13:11 | CP.PCM.PN ---
Subjective - Date & Time of Evaluation Date of Evaluation: 03/03/17 Time of Evaluation: 13:08 - Subjective Subjective: Surgery: Dr. Espinoza Patient remains in ICU overnight. Patient denies any chest pain or difficulty breathing. He reports being OOB to chair. He does complain of some pain at chest tube site with movement but otherwise feels comfortable. He is tolerating diet w/o n/v. Denies f/c. Per nursing no acute events overnight. Nursing reports chest tube output over 12 hours 100cc/sanguineous fluid from posterior and 50cc/sanguineous from anterior. Over the past 24 hours both tubes have put out 200cc each of sanguineous fluid. Objective - Vital Signs/Intake and Output Vital Signs (last 24 hours): Temp Pulse Resp BP Pulse Ox 98.5 F 92 H 11 L 114/64 100 03/03/17 08:00 03/03/17 08:00 03/03/17 08:00 03/03/17 08:00 03/03/17 08:00 Intake and Output: 03/03/17 03/03/17 06:59 18:59 Intake Total 400 Output Total 810 Balance -410 - Medications Medications: Current Medications Acetaminophen (Tylenol 325mg Tab) 650 mg PO Q6 PRN PRN Reason: Fever >100.4 F Last Admin: 03/02/17 01:27 Dose: 650 mg Diphenhydramine HCl (Benadryl) 50 mg IVP Q6 PRN PRN Reason: Itching / Pruritus Enoxaparin Sodium (Lovenox) 40 mg SC DAILY [facility] PRN Reason: Protocol Last Admin: 03/03/17 10:07 Dose: Not Given Azithromycin 500 mg/ Sodium (Chloride) 250 mls @ 125 mls/hr IVPB DAILY [facility] Last Admin: 03/03/17 10:01 Dose: 125 mls/hr Ceftriaxone Sodium 1 gm/ (Sodium Chloride) 100 mls @ 100 mls/hr IVPB DAILY [facility] Last Admin: 03/03/17 10:02 Dose: 100 mls/hr Ketorolac Tromethamine (Toradol) 30 mg IVP Q6 PRN PRN Reason: Pain, moderate (4-7) Last Admin: 03/03/17 04:52 Dose: 30 mg Ondansetron HCl (Zofran Inj) 4 mg IVP Q6 PRN PRN Reason: Nausea/Vomiting - Labs Labs: 03/03/17 11:20 03/03/17 05:30 PT 10.9 SECONDS (9.6-11.2) 02/26/17 10:30 INR 1.05 (0.92-1.08) 02/26/17 10:30 APTT 27.8 SECONDS (23.3-32.5) 02/18/17 18:25 - Constitutional Appears: Non-toxic, No Acute Distress - Head Exam Head Exam: ATRAUMATIC, NORMOCEPHALIC - Eye Exam Eye Exam: EOMI, Normal appearance - ENT Exam ENT Exam: Mucous Membranes Moist - Respiratory Exam Respiratory Exam: NORMAL BREATHING PATTERN. absent: Respiratory Distress Additional comments: Left chest tube insertion site dressing w/ dried blood tinged drainage. dressing changed at bedside. Some serous fluid noted saturated on internal gauze dressing. Superior to chest tubes is surgical incision with overlying dermabond dressing. trace bloody fluid drained from posterior portion once overlying gauze dressing removed. Outputs in subjective. no evidence of leak. chest tubes remain on suction secondary to output. Clean dry hauze dressing replaced on chest tubes and incision. Assessment and Plan - Assessment and Plan (Free Text) Assessment: 21 y/o male s/p VATs w/ mini thoracotomy, wedge resection and pleurectomy POD3 Plan: -new dressing changed, cont daily dressing changes -Hgb 8.9 today down from 10.7, repeat CBC 9.5 -stat CBC, transfuse [address] Espinoza -stat Chest CT to rule out residual bleeding -monitor Chest tube output and keep on wall suction -continue close ICU monitoring -discussed w/ Dr. Espinoza AKWhite PGY1
--- NOTE | 2017-03-03 14:22 | CP.CCUPN ---
CCU Subjective - Physician Review Events Since Last Encounter (Free Text): 03/03/17 14:12 Alert and oriented, no sob, no pain, both chest tube are draining minimal discharge, CCU Objective - Vital Signs / Intake & Output Intake and Output (Last 8hrs): Intake & Output 03/02/17 03/03/17 03/03/17 22:59 06:59 14:59 Intake Total 400 Output Total 705 810 Balance -705 -410 Intake: Oral 400 Output: Chest Tube Drainage 305 160 Left Anterior Chest 165 60 Left Posterior Chest 140 100 Urine 400 650 Urine, Voided 400 650 Other: # Bowel Movements 1 - Physical Exam Narrative Physical Exam (Free Text): 03/03/17 14:13 P/E Neck: No JVD Lungs: no ronchi, crackles Abdomen: soft, non-tender Ext; No edema heart: no gallop. Head: Positive for: Atraumatic, Normocephalic Pupils: Positive for: PERRL Extroacular Muscles: Positive for: EOMI Conjunctiva: Positive for: Normal Respiratory/Chest: Positive for: Clear to Auscultation, Other (B/L air entry present with slightly decreased sounds on left compared to right. Left sided anterior/posterior chest tubes present.). Negative for: Respiratory Distress, Wheezes, Retracting, Rhonchi Cardiovascular: Positive for: Regular Rate and Rhythm, Normal S1, S2, Peripheal Pulses Present. Negative for: Murmurs Abdomen: Positive for: Normal Bowel Sounds. Negative for: Tenderness, Distention, Guarding Upper Extremity: Positive for: Normal Inspection, Capillary Refill < 2s Lower Extremity: Positive for: Normal Inspection. Negative for: Edema, CALF TENDERNESS Neurological: Positive for: Speech Normal Psychiatric: Positive for: Alert, Oriented x 3 - Medications Active Medications: Active Medications Generic Name Dose Route Start Last Admin Trade Name Freq PRN Reason Stop Dose Admin Acetaminophen 650 mg 02/24/17 19:47 03/02/17 01:27 Tylenol 325mg Tab PO 650 mg Q6 PRN Administration Fever >100.4 F Diphenhydramine HCl 50 mg 02/28/17 13:45 Benadryl IVP Q6 PRN Itching / Pruritus Enoxaparin Sodium 40 mg 03/02/17 09:00 03/03/17 10:07 Lovenox SC Not Given DAILY [facility] Protocol Azithromycin 500 mg/ Sodium 250 mls @ 125 mls/hr 02/25/17 11:45 03/03/17 10: 01 Chloride IVPB 125 mls/hr DAILY [facility] Administration Ceftriaxone Sodium 1 gm/ 100 mls @ 100 mls/hr 02/25/17 11:30 03/03/17 10:02 Sodium Chloride IVPB 100 mls/hr DAILY [facility] Administration Ketorolac Tromethamine 30 mg 02/28/17 16:17 03/03/17 04:52 Toradol IVP 30 mg Q6 PRN Administration Pain, moderate (4-7) Morphine Sulfate 4 mg 03/03/17 13:18 03/03/17 13:51 Morphine IVP 4 mg Q4 PRN Administration Pain, moderate (4-7) Ondansetron HCl 4 mg 02/28/17 13:45 Zofran Inj IVP Q6 PRN Nausea/Vomiting - Patient Studies Lab Studies: Microbiology Studies 02/21/17 16:16 Gram Stain - Final Chest Wound Culture - Preliminary No growth. 02/28/17 11:00 Gram Stain - Final Other: Please Indicate Wound Culture - Preliminary No growth. 02/28/17 15:54 Gram Stain - Final Pleural Fluid Anaerobic Culture - Final NO ANAEROBES ISOLATED. Body Fluid Culture - Preliminary NO GROWTH AFTER 2 DAYS Lab Studies 03/03/17 03/03/17 03/03/17 Range/Units 12:30 11:20 05:30 WBC 6.3 (4.8-10.8) K/uL RBC 3.19 L (4.40-5.90) Mil/uL Hgb 9.5 L (12.0-18.0) g/dL Hct 28.3 L (35.0-51.0) % MCV 88.7 (80.0-94.0) fl MCH 29.8 (27.0-31.0) pg MCHC 33.6 (33.0-37.0) g/dL RDW 12.0 (11.5-14.5) % Plt Count 340 (130-400) K/uL MPV (7.2-11.7) fl Neut % (Auto) (50.0-75.0) % Lymph % (Auto) (20.0-40.0) % [place] % (Auto) (0.0-10.0) % Eos % (Auto) (0.0-4.0) % Baso % (Auto) (0.0-2.0) % Neut # (1.8-7.0) K/uL Lymph # (1.0-4.3) K/uL [place] # (0.0-0.8) K/uL Eos # (0.0-0.7) K/uL Baso # (0.0-0.2) K/uL Sodium 141 (132-148) mmol/l Potassium 3.9 (3.6-5.0) MMOL/L Chloride 103 (98-107) mmol/L Carbon Dioxide 30 (22-30) mmol/L Anion Gap 12 (10-20) BUN 10 (9-20) mg/dl Creatinine 0.8 (0.8-1.5) mg/dL Est GFR ( Amer) > 60 Est GFR (Non-Af Amer) > 60 Random Glucose 101 (75-110) mg/dL Calcium 8.6 (8.4-10.2) mg/dL Total Bilirubin 0.4 (0.2-1.3) mg/dl AST 41 (17-59) U/L ALT 50 (21-72) U/L Alkaline Phosphatase 58 (38-126) U/L Total Protein 6.1 L (6.3-8.2) G/DL Albumin 3.1 L (3.5-5.0) g/dL Globulin 3.0 (2.2-3.9) gm/dL Albumin/Globulin Ratio 1.0 (1.0-2.1) Blood Type B POSITIVE Antibody Screen Negative Crossmatch See Detail BBK History Checked Patient has bt 03/03/17 02/27/17 Range/Units 05:30 16:15 WBC 7.2 (4.8-10.8) K/uL RBC 3.01 L (4.40-5.90) Mil/uL Hgb 8.9 L (12.0-18.0) g/dL Hct 26.5 L (35.0-51.0) % MCV 88.1 (80.0-94.0) fl MCH 29.6 (27.0-31.0) pg MCHC 33.6 (33.0-37.0) g/dL RDW 11.9 (11.5-14.5) % Plt Count 316 (130-400) K/uL MPV 6.8 L (7.2-11.7) fl Neut % (Auto) 72.1 (50.0-75.0) % Lymph % (Auto) 16.5 L (20.0-40.0) % [place] % (Auto) 6.0 (0.0-10.0) % Eos % (Auto) 4.8 H (0.0-4.0) % Baso % (Auto) 0.6 (0.0-2.0) % Neut # 5.2 (1.8-7.0) K/uL Lymph # 1.2 (1.0-4.3) K/uL [place] # 0.4 (0.0-0.8) K/uL Eos # 0.3 (0.0-0.7) K/uL Baso # 0.0 (0.0-0.2) K/uL Sodium (132-148) mmol/l Potassium (3.6-5.0) MMOL/L Chloride (98-107) mmol/L Carbon Dioxide (22-30) mmol/L Anion Gap (10-20) BUN (9-20) mg/dl Creatinine (0.8-1.5) mg/dL Est GFR ( Amer) Est GFR (Non-Af Amer) Random Glucose (75-110) mg/dL Calcium (8.4-10.2) mg/dL Total Bilirubin (0.2-1.3) mg/dl AST (17-59) U/L ALT (21-72) U/L Alkaline Phosphatase (38-126) U/L Total Protein (6.3-8.2) G/DL Albumin (3.5-5.0) g/dL Globulin (2.2-3.9) gm/dL Albumin/Globulin Ratio (1.0-2.1) Blood Type Antibody Screen Crossmatch See Detail BBK History Checked Laboratory Results - last 24 hr 02/27/17 03/03/17 03/03/17 16:15 05:30 05:30 WBC 7.2 RBC 3.01 L Hgb 8.9 L Hct 26.5 L MCV 88.1 MCH 29.6 MCHC 33.6 RDW 11.9 Plt Count 316 MPV 6.8 L Neut % (Auto) 72.1 Lymph % (Auto) 16.5 L [place] % (Auto) 6.0 Eos % (Auto) 4.8 H Baso % (Auto) 0.6 Neut # 5.2 Lymph # 1.2 [place] # 0.4 Eos # 0.3 Baso # 0.0 Sodium 141 Potassium 3.9 Chloride 103 Carbon Dioxide 30 Anion Gap 12 BUN 10 Creatinine 0.8 Est GFR ( Amer) > 60 Est GFR (Non-Af Amer) > 60 Random Glucose 101 Calcium 8.6 Total Bilirubin 0.4 AST 41 ALT 50 Alkaline Phosphatase 58 Total Protein 6.1 L Albumin 3.1 L Globulin 3.0 Albumin/Globulin Ratio 1.0 Blood Type Antibody Screen Crossmatch See Detail BBK History Checked 03/03/17 03/03/17 11:20 12:30 WBC 6.3 RBC 3.19 L Hgb 9.5 L Hct 28.3 L MCV 88.7 MCH 29.8 MCHC 33.6 RDW 12.0 Plt Count 340 MPV Neut % (Auto) Lymph % (Auto) [place] % (Auto) Eos % (Auto) Baso % (Auto) Neut # Lymph # [place] # Eos # Baso # Sodium Potassium Chloride Carbon Dioxide Anion Gap BUN Creatinine Est GFR ( Amer) Est GFR (Non-Af Amer) Random Glucose Calcium Total Bilirubin AST ALT Alkaline Phosphatase Total Protein Albumin Globulin Albumin/Globulin Ratio Blood Type B POSITIVE Antibody Screen Negative Crossmatch See Detail BBK History Checked Patient has bt Critical Care Progress Note - Nutrition Nutrition: Nutrition Category Date Time Status NPO Diet [DIET] Diets 03/03/17 Lunch Active Assessment/Plan - Assessment and Plan (Free Text) Assessment: 1. Spontaneous Pneumothorax s/p CT placement for PTX 02/21 s/p Pleurodesis s/p VATS s/p left sided CT stable Pain management. CT surgery f/u, Dr Espinoza 2. Fever possible Pneumonia Had fever yesterday and 99 this morning, no fever now, in afternoon, probably non-infectios, post surgery, no leukocytosis. no WBC started Ceftriaxone/Azithromycin 02/25/17. Will continue for total 7 days than d/c 3-Anemia: Hb dropped from yesterday, this morning was 8.5 and this afternoon 9.5. He was on Lovenox, was not given this AM and will DC, as discussed with Dr Espinoza. Also Dr Espinoza initially ordered blood transfusion but now will hold it as Hb is stable and he is off lovenox now. DVT prophylaxis: SCd
--- NOTE | 2017-03-03 14:53 | CP.PCM.PN ---
Subjective - Date & Time of Evaluation Date of Evaluation: 03/03/17 Time of Evaluation: 14:48 - Subjective Subjective: I was called by Dr Alvares re dropping hb(8.9) and increasing density left apex. Subsequent chest drainge_hb,8.9. ct; aplical and posterior and inferior loculations of fluid. and atelctasis. chest tubes-stopped draining now.(has gotten lovonex on saturday and ). Pt clinically stable, and no c/o. a/p: No transfusion. continue current care. Stop anticoagulation. Objective - Vital Signs/Intake and Output Vital Signs (last 24 hours): Temp Pulse Resp BP Pulse Ox 98.5 F 92 H 11 L 114/64 100 03/03/17 08:00 03/03/17 08:00 03/03/17 08:00 03/03/17 08:00 03/03/17 08:00 Intake and Output: 03/03/17 03/03/17 06:59 18:59 Intake Total 400 Output Total 810 Balance -410 - Medications Medications: Current Medications Acetaminophen (Tylenol 325mg Tab) 650 mg PO Q6 PRN PRN Reason: Fever >100.4 F Last Admin: 03/02/17 01:27 Dose: 650 mg Diphenhydramine HCl (Benadryl) 50 mg IVP Q6 PRN PRN Reason: Itching / Pruritus Azithromycin 500 mg/ Sodium (Chloride) 250 mls @ 125 mls/hr IVPB DAILY [facility] Last Admin: 03/03/17 10:01 Dose: 125 mls/hr Ceftriaxone Sodium 1 gm/ (Sodium Chloride) 100 mls @ 100 mls/hr IVPB DAILY [facility] Last Admin: 03/03/17 10:02 Dose: 100 mls/hr Ketorolac Tromethamine (Toradol) 30 mg IVP Q6 PRN PRN Reason: Pain, moderate (4-7) Last Admin: 03/03/17 04:52 Dose: 30 mg Morphine Sulfate (Morphine) 4 mg IVP Q4 PRN PRN Reason: Pain, moderate (4-7) Last Admin: 03/03/17 13:51 Dose: 4 mg Ondansetron HCl (Zofran Inj) 4 mg IVP Q6 PRN PRN Reason: Nausea/Vomiting - Labs Labs: 03/03/17 11:20 03/03/17 05:30 PT 10.9 SECONDS (9.6-11.2) 02/26/17 10:30 INR 1.05 (0.92-1.08) 02/26/17 10:30 APTT 27.8 SECONDS (23.3-32.5) 02/18/17 18:25
--- NOTE | 2017-03-03 15:35 | CT ---
PROCEDURE: HISTORY: s/p VATS comparison COMPARISON: TECHNIQUE: FINDINGS: The right lung is clear. 2 left chest tubes are present with extensive subcutaneous emphysema. There is loculated fluid along the left apical margin as well as a left posterior lateral margin. There is also free layering fluid along the left base. The loculated fluid along the left posterior lateral lung in continuity with the left apical region is of high density suggestive of internal hemorrhagic or serosanguineous fluid. There is no evidence of an actively bleeding vessel. The mediastinum is within normal limits. There is no rib fracture. The upper abdomen is unremarkable. IMPRESSION: Findings suggestive of loculated hemo thoraces on the left with chest tubes in place.
[2017-03-03 18:21] LABS: HEMATOCRIT 28.2 % (35.0-51.0); MEAN CELL VOLUME 87.9 fl (80.0-94.0); MEAN CORPUSCULAR HEMOGLOBIN 29.5 pg (27.0-31.0); MEAN CORPUSCULAR HGB CONC 33.6 g/dL (33.0-37.0); WHITE BLOOD COUNT 6.7 K/uL (4.8-10.8)
[2017-03-04 04:46] LABS: HEMATOCRIT 27.2 % (35.0-51.0); RED CELL DISTRIBUTION WIDTH 11.9 % (11.5-14.5); WHITE BLOOD COUNT 6.8 K/uL (4.8-10.8)
[2017-03-04 04:53] LABS: CHLORIDE 104 mmol/L (98-107); POTASSIUM 4.4 MMOL/L (3.6-5.0); SODIUM 141 mmol/l (132-148)
[2017-03-04 04:56] LABS: BLOOD UREA NITROGEN 9 mg/dl (9-20); CARBON DIOXIDE 30 mmol/L (22-30); GFR AFRICAN-AMERICAN > 60; GLUCOSE,RANDOM 99 mg/dL (75-110)
[2017-03-04 04:57] LABS: CALCIUM 9.1 mg/dL (8.4-10.2)
[2017-03-04] MEDS ORDERED: Oxycodone/Acetaminophen 5/325 mg Tab PO PRN ×3 (05:43→11:54)
--- NOTE | 2017-03-04 07:37 | CP.PCM.PN ---
Subjective - Date & Time of Evaluation Date of Evaluation: 03/04/17 Time of Evaluation: 07:35 - Subjective Subjective: Thoracic Surgery - Dr. Espinoza Pt S&E. GENO. Pt complains of pain from the chest tubes, states morphine is wearing off within 2 hours. He denies any SOB, N/V, F/C. He has been OOb to chair and working with incentive spirometer. Left CT x2 to wall suction, 40cc sanguinous drainage from anterior tube/24hrs, 50cc from posterior. Objective - Vital Signs/Intake and Output Vital Signs (last 24 hours): Temp Pulse Resp BP Pulse Ox 98.7 F 92 H 22 118/73 98 03/04/17 04:00 03/04/17 06:00 03/04/17 06:00 03/04/17 06:00 03/04/17 06:00 - Medications Medications: Current Medications Acetaminophen (Tylenol 325mg Tab) 650 mg PO Q6 PRN PRN Reason: Fever >100.4 F Last Admin: 03/02/17 01:27 Dose: 650 mg Diphenhydramine HCl (Benadryl) 50 mg IVP Q6 PRN PRN Reason: Itching / Pruritus Azithromycin 500 mg/ Sodium (Chloride) 250 mls @ 125 mls/hr IVPB DAILY [facility] Last Admin: 03/03/17 10:01 Dose: 125 mls/hr Ceftriaxone Sodium 1 gm/ (Sodium Chloride) 100 mls @ 100 mls/hr IVPB DAILY [facility] Last Admin: 03/03/17 10:02 Dose: 100 mls/hr Ketorolac Tromethamine (Toradol) 30 mg IVP Q6 PRN PRN Reason: Pain, moderate (4-7) Last Admin: 03/03/17 04:52 Dose: 30 mg Morphine Sulfate (Morphine) 4 mg IVP Q4 PRN PRN Reason: Pain, moderate (4-7) Ondansetron HCl (Zofran Inj) 4 mg IVP Q6 PRN PRN Reason: Nausea/Vomiting Oxycodone HCl (Oxycontin Extended Release Tab) 20 mg PO Q12 [facility] - Labs Labs: 03/04/17 04:30 03/04/17 04:30 PT 10.9 SECONDS (9.6-11.2) 02/26/17 10:30 INR 1.05 (0.92-1.08) 02/26/17 10:30 APTT 27.8 SECONDS (23.3-32.5) 02/18/17 18:25 - Constitutional Appears: No Acute Distress - Head Exam Head Exam: ATRAUMATIC, NORMAL INSPECTION, NORMOCEPHALIC - Respiratory Exam Respiratory Exam: NORMAL BREATHING PATTERN. absent: Respiratory Distress Additional comments: L Ct to wall suction, dressing C/D/I, No airleak - Cardiovascular Exam Cardiovascular Exam: REGULAR RHYTHM - Neurological Exam Neurological Exam: Alert, Oriented x3 - Psychiatric Exam Psychiatric exam: Normal Affect, Normal Mood - Skin Skin Exam: Dry, Intact Assessment and Plan - Assessment and Plan (Free Text) Assessment: 21 y/o male s/p VATs w/ mini thoracotomy, wedge resection and pleurectomy POD4 Plan: -CXR this morning similar to yesterday, retained apical hemothorax -CTs with ~100cc total drainage/24hrs -Oxycontin q12 for baseline pain control and Morphine prn for breakthrough -Encourage OOB and Incentive Spirometer -DW Dr Alexis Dickens PGY2
[2017-03-04] MEDS: oxyCODONE 20 mg ER Tab (oxyCONTIN) PO SCH ×2 (08:10→20:51)
[2017-03-04] MEDS: Azithromycin 500 MG in Sodium Chloride 0.9% 250 ML IVPB SCH (08:47)
--- NOTE | 2017-03-04 11:42 | CP.PCM.PN ---
Subjective - Date & Time of Evaluation Date of Evaluation: 03/04/17 Time of Evaluation: 11:39 - Subjective Subjective: Pt s/e. Afebrile. wbc-6k hb-9.2 chest tube-110cc/y sanguinous (h/h No air leak. cxr-unchanged. a/p: continue current care. Objective - Vital Signs/Intake and Output Vital Signs (last 24 hours): Temp Pulse Resp BP Pulse Ox 98.9 F 88 20 118/67 98 03/04/17 08:00 03/04/17 08:00 03/04/17 08:00 03/04/17 08:00 03/04/17 08:00 Intake and Output: 03/04/17 03/04/17 06:59 18:59 Intake Total 50 Balance 50 - Medications Medications: Current Medications Acetaminophen (Tylenol 325mg Tab) 650 mg PO Q6 PRN PRN Reason: Fever >100.4 F Last Admin: 03/02/17 01:27 Dose: 650 mg Diphenhydramine HCl (Benadryl) 50 mg IVP Q6 PRN PRN Reason: Itching / Pruritus Azithromycin 500 mg/ Sodium (Chloride) 250 mls @ 125 mls/hr IVPB DAILY [facility] Last Admin: 03/04/17 08:47 Dose: 125 mls/hr Ceftriaxone Sodium 1 gm/ (Sodium Chloride) 100 mls @ 100 mls/hr IVPB DAILY [facility] Last Admin: 03/04/17 08:13 Dose: 100 mls/hr Morphine Sulfate (Morphine) 4 mg IVP Q4 PRN PRN Reason: Pain, moderate (4-7) Ondansetron HCl (Zofran Inj) 4 mg IVP Q6 PRN PRN Reason: Nausea/Vomiting Oxycodone HCl (Oxycontin Extended Release Tab) 20 mg PO Q12 [facility] Last Admin: 03/04/17 08:10 Dose: 20 mg - Labs Labs: 03/04/17 04:30 03/04/17 04:30 PT 10.9 SECONDS (9.6-11.2) 02/26/17 10:30 INR 1.05 (0.92-1.08) 02/26/17 10:30 APTT 27.8 SECONDS (23.3-32.5) 02/18/17 18:25
--- NOTE | 2017-03-04 11:48 | CP.PCM.PN ---
Subjective - Date & Time of Evaluation Date of Evaluation: 03/04/17 Time of Evaluation: 11:00 - Subjective Subjective: No fever Pain controlled Pt sitted on chair some serosanguinous drainage on the chest tubes denies SOB no abd pain Objective - Vital Signs/Intake and Output Vital Signs (last 24 hours): Temp Pulse Resp BP Pulse Ox 98.9 F 88 20 118/67 98 03/04/17 08:00 03/04/17 08:00 03/04/17 08:00 03/04/17 08:00 03/04/17 08:00 Intake and Output: 03/04/17 03/04/17 06:59 18:59 Intake Total 50 Balance 50 - Medications Medications: Current Medications Acetaminophen (Tylenol 325mg Tab) 650 mg PO Q6 PRN PRN Reason: Fever >100.4 F Last Admin: 03/02/17 01:27 Dose: 650 mg Diphenhydramine HCl (Benadryl) 50 mg IVP Q6 PRN PRN Reason: Itching / Pruritus Azithromycin 500 mg/ Sodium (Chloride) 250 mls @ 125 mls/hr IVPB DAILY REPLACED BY [facility] Last Admin: 03/04/17 08:47 Dose: 125 mls/hr Ceftriaxone Sodium 1 gm/ (Sodium Chloride) 100 mls @ 100 mls/hr IVPB DAILY REPLACED BY [facility] Last Admin: 03/04/17 08:13 Dose: 100 mls/hr Morphine Sulfate (Morphine) 4 mg IVP Q4 PRN PRN Reason: Pain, moderate (4-7) Ondansetron HCl (Zofran Inj) 4 mg IVP Q6 PRN PRN Reason: Nausea/Vomiting Oxycodone HCl (Oxycontin Extended Release Tab) 20 mg PO Q12 REPLACED BY [facility] Last Admin: 03/04/17 08:10 Dose: 20 mg - Labs Labs: 03/04/17 04:30 03/04/17 04:30 PT 10.9 SECONDS (9.6-11.2) 02/26/17 10:30 INR 1.05 (0.92-1.08) 02/26/17 10:30 APTT 27.8 SECONDS (23.3-32.5) 02/18/17 18:25 - Constitutional Appears: No Acute Distress - Head Exam Head Exam: ATRAUMATIC, NORMAL INSPECTION, NORMOCEPHALIC - Eye Exam Eye Exam: EOMI, Normal appearance, PERRL Pupil Exam: NORMAL ACCOMODATION - ENT Exam ENT Exam: Mucous Membranes Moist, Normal External Ear Exam - Neck Exam Neck Exam: Full ROM. absent: Meningismus - Respiratory Exam Respiratory Exam: NORMAL BREATHING PATTERN. No Respiratory Distress decrease BS left - Cardiovascular Exam Cardiovascular Exam: REGULAR RHYTHM, +S1, +S2 Additional comments: 2 Left chest tubes on the left , some serosanguinous drainage - GI/Abdominal Exam GI & Abdominal Exam: Soft, Normal Bowel Sounds. absent: Tenderness - Extremities Exam Extremities Exam: Full ROM, Normal Capillary Refill. absent: Calf Tenderness, Normal Inspection - Back Exam Back Exam: Full ROM, NORMAL INSPECTION. absent: CVA tenderness (L), CVA tenderness (R) - Neurological Exam Neurological Exam: alert, oriented x 3 Neuro motor strength exam: 02/22 - Psychiatric Exam Psychiatric exam: Normal Affect, Normal Mood - Skin Skin Exam: Dry, Normal Color, Warm Assessment and Plan - Assessment and Plan (Free Text) Assessment: 21 y/o male with no significant PMH came in because of chest pain and SOB. CXR showed tension Pneumothorax on the left. Cardiothoracic surgery consulted and chest tube was placed. Patient has no smoking history, no history of trauma to the chest, no connective tissues disorder or chronic lung condition. Chest tube was re inserted and talc pleurodesis performed in OR due to residual apical pneumothorax and large air leak . Repeat CXR post procedure showed no residual pneumothorax.CT chest 02/25/17 showed small Left anterior pneumothorax , small bullous and bleb changes in L Lung apex. Small bleb changes R lung apex. Subcutaneous emphysema L anterolateral chest wall. Mod L basilar atelectasis and small L effusion. He was taken again to OR and underwent Hybrid VATS, resection of apical blebs and bullae, and parietal pleurectomy 02/28. Anterior and posterior chest tubes to left hemithorax connected to Pleurovac with respectively 60 and 100 ml serosanguinous output last 12 hours . 1. Spontaneous Pneumothorax s/p VATs,resection of apical blebs and Pleurectomy s/p Chest tube x 2 Apical Hemothorax, loculated CXR showed 100% PTX on the left- on admission Chest tube was placed with improvement of pneumothorax on admission. Due to persistent residual apical pneumothorax and large air leak chest tube was re inserted and talc pleurodesis performed, 02/21/17 with resolution. Air leak persisted for 3 days in addition to small apical pneumothorax and CT chest . showed persistent small L anterior pneumothorax, small bullous and bleb changes in L Lung apex,small bleb changes R lung apex Underwent VATS with resection of apical blebs and bullae and parietal pleurectomy Anterior and posterior chest tubes to left hemithorax w/ sero sanguinous drainage hemoglobin drpped from 02/28 13.3--11.8--10.7---8.9 --9.[address] post op : loculated hemothorax Continue monitoring in ICU Continue pain management ands promote ambulation out of bed to chair with PT Discontinued spinal catheter since patient's pain is controlled Thoracic surgery Dr Espinoza following pt, case discussed 2. Fever possible Pneumonia Pt had fever with chills, malaise. no WBC started Ceftriaxone/Azithromycin 02/25/17. Will continue for total 7 days than d/c 3. Acute blood loss anemia monitor CBC Ct chest without contrast : loculated hemothorax 4.DVT prophylaxis Will hold Lovenox since h& h is dropping
--- NOTE | 2017-03-04 13:09 | PN ---
DATE: 03/04/2017 The patient in ICU, bed 431. TIME SPENT: 35 minutes. The patient is seen and evaluated at the bedside. A 21-year-old male admitted with spontaneous pneumothorax, status post CT placement on 02/21, status post pleurodesis, status post video-assisted thoracoscopy, postop day 4. Remains alert, awake, follows commands appropriate. Complaining of pain at the site of chest tube insertion. No shortness of breath, no palpitation, no abdominal pain or diarrhea, no dysuria. PHYSICAL EXAMINATION: VITAL SIGNS: Temperature 98.9, heart rate 88, respiratory rate 20, thoracoabdominal, blood pressure 118/67, saturation 98% on room air. Intake 750 , output 1850, negative 1065. HEENT: Pupils reactive. Conjunctivae pink. Sclerae white. NECK: Supple. Trachea central. CHEST: Reduced breath sounds on the left. No subcutaneous emphysema. No air leak noted. Drainage left anterior 225 mL, left posterior 240 mL. HEART: Rhythm regular. ABDOMEN: Bowel sounds present, soft. EXTREMITIES: Unremarkable. NEUROLOGIC: Nonfocal. CURRENT MEDICATIONS: Tylenol 650 q. 6 p.r.n. for temp more than 100.4, Zithromax 250 mg daily, ceftriaxone 1 gram daily, Benadryl 50 mg IV q. 6 p.r.n. , morphine 4 mg IV q. 4 p.r.n. for pain, Zofran 4 mg IV q. 6 p.r.n. for nausea/ vomiting, oxycodone 20 mg p.o. q. 12 hours, oxycodone with Tylenol 5/325 mg q. 4 p.r.n. for pain. LABORATORY DATA: WBC 6.8, hemoglobin 9.2, hematocrit 27.2, platelet count 360. PT 10. INR 1.05. SMA-7: Sodium 141, potassium 4.4, chloride 104, CO2 30, blood urea nitrogen 9, creatinine 0.8, glucose 99, calcium 9.1. Anaerobic pleural fluid _ no anaerobes. Gram stain, no organisms seen. MRSA nasal smear negative. MPRESSION: Status post spontaneous pneumothorax, status post pleurodesis, video -assisted thoracoscopic surgery with anterior and posterior chest tubes in place with moderate drainage, no air leak. To continue current medications including analgesics and deep venous thrombosis prophylaxis with Venodyne boots. Anticoagulation on hold due to the haziness at the site of surgery and a drop in the hemoglobin. Closely encourage incentive spirometry. Head of bed 30 degrees up. Follow chest x-ray. Yao Schultz MD cc: 170 TT: 03/04/2017 13:08:58 Confirmation # [id number] Dictation # [id number] en MTDD
--- NOTE | 2017-03-04 15:04 | RAD ---
PROCEDURE: CHEST RADIOGRAPH, 1 VIEW portable study 04:55. HISTORY: post op, comparison COMPARISON: Multiple serial examinations preceding the most recent study: March 03, 2017. March 03, 2017. CT thorax documented loculated fluid and left emili thorax, 2 chest tubes in the left pleural space. FINDINGS: LUNGS: Stable consolidative changes left upper lobe. PLEURA: Stable position of 2 chest tubes in the left pleural space. No apparent, appreciable pneumothorax. CARDIOVASCULAR: Normal. OSSEOUS STRUCTURES: No significant abnormalities. VISUALIZED UPPER ABDOMEN: Normal. OTHER FINDINGS: None. IMPRESSION: No significant interval change compared to the prior examination(s).
[2017-03-05 05:13] LABS: HEMATOCRIT 28.4 % (35.0-51.0); MEAN CELL VOLUME 88.9 fl (80.0-94.0); MEAN CORPUSCULAR HEMOGLOBIN 29.4 pg (27.0-31.0); MEAN CORPUSCULAR HGB CONC 33.1 g/dL (33.0-37.0); RED CELL DISTRIBUTION WIDTH 11.6 % (11.5-14.5); WHITE BLOOD COUNT 5.3 K/uL (4.8-10.8)
[2017-03-05 05:20] LABS: BLOOD UREA NITROGEN 14 mg/dl (9-20); CALCIUM 9.2 mg/dL (8.4-10.2); CARBON DIOXIDE 29 mmol/L (22-30); CHLORIDE 100 mmol/L (98-107); GFR AFRICAN-AMERICAN > 60; GLUCOSE,RANDOM 94 mg/dL (75-110); POTASSIUM 3.9 MMOL/L (3.6-5.0); SODIUM 141 mmol/l (132-148)
--- NOTE | 2017-03-05 07:39 | CP.PCM.PN ---
Subjective - Date & Time of Evaluation Date of Evaluation: 03/05/17 Time of Evaluation: 07:37 - Subjective Subjective: Surgery Progress Note for Dr. Espinoza This 21M was seen and examined this AM at bedside. Nurse reports no acute events overnight. Chest tubes on suction, no air leak noted, neither chest tube had any output over 24 hours. No air leaks noted in either chest tube. Dressings clean dry and intact. Patient complained of blisters from previous tape used. Patient has no other new complaints at this time. Initial Post-operative Note - Surgeon's Notes Surgeon: Dr. Espinoza Manager Action: Dr. Seo Anesthesia Administered By: None Pre-Operative Diagnosis: Thrombosed chest tube Date of OP: 03/05/17 Procedure: Catheter thrmbectomy of anterior and posterior chest tube Decription of Operation: The patient was prepped with betadine and drapped in a sterile fashion. The chest tubes were clamped and disconnected. A 6 estonian zeinab catheter was inserted 20 centimeters and inflated with 2cc of water and retracted. This was done no less than 5 times per chest tube. Large thromboses were evacuated. The patient handled the procedure well without any complaints. Specimen Removed: Thrombus Objective - Vital Signs/Intake and Output Vital Signs (last 24 hours): Temp Pulse Resp BP Pulse Ox 97.8 F 70 16 109/61 98 03/05/17 04:00 03/05/17 06:00 03/05/17 06:00 03/05/17 06:00 03/05/17 06:00 Intake and Output: 03/05/17 03/05/17 06:59 18:59 Output Total 600 Balance -600 - Medications Medications: Current Medications Acetaminophen (Tylenol 325mg Tab) 650 mg PO Q6 PRN PRN Reason: Fever >100.4 F Last Admin: 03/02/17 01:27 Dose: 650 mg Diphenhydramine HCl (Benadryl) 50 mg IVP Q6 PRN PRN Reason: Itching / Pruritus Azithromycin 500 mg/ Sodium (Chloride) 250 mls @ 125 mls/hr IVPB [facility] Last Admin: 03/04/17 08:47 Dose: 125 mls/hr Ceftriaxone Sodium 1 gm/ (Sodium Chloride) 100 mls @ 100 mls/hr IVPB [facility] Last Admin: 03/04/17 08:13 Dose: 100 mls/hr Morphine Sulfate (Morphine) 4 mg IVP Q4 PRN PRN Reason: Pain, moderate (4-7) Ondansetron HCl (Zofran Inj) 4 mg IVP Q6 PRN PRN Reason: Nausea/Vomiting Oxycodone HCl (Oxycontin Extended Release Tab) 20 mg PO Q12 [facility] Last Admin: 03/04/17 20:51 Dose: 20 mg Oxycodone/Acetaminophen (Percocet 5/325 Mg Tab) 1 tab PO Q4 PRN PRN Reason: Pain, moderate (4-7) Stop: 03/07/17 11:55 - Labs Labs: 03/05/17 04:25 03/05/17 04:25 PT 10.9 SECONDS (9.6-11.2) 02/26/17 10:30 INR 1.05 (0.92-1.08) 02/26/17 10:30 APTT 27.8 SECONDS (23.3-32.5) 02/18/17 18:25 - Constitutional Appears: Non-toxic, No Acute Distress - Head Exam Head Exam: ATRAUMATIC - Eye Exam Eye Exam: EOMI - ENT Exam ENT Exam: Mucous Membranes Moist - Respiratory Exam Respiratory Exam: NORMAL BREATHING PATTERN - Cardiovascular Exam Cardiovascular Exam: REGULAR RHYTHM - GI/Abdominal Exam GI & Abdominal Exam: Soft. absent: Firm, Guarding, Rigid, Tenderness - Neurological Exam Neurological Exam: Alert, Awake - Psychiatric Exam Psychiatric exam: Normal Affect, Normal Mood - Skin Skin Exam: Dry, Intact Assessment and Plan - Assessment and Plan (Free Text) Assessment: This is a 21M with no PMH who was admitted for a spontaneous pneumothorax POD#4 s/p hyrbid vats with apical lung resection and apical pleurectomy and doing well. Will followup CT scan this AM Vital signs stable Labs WNL Continue pain control Dressing clean dry and intact CT without drainage over 24 hours or drain leak Continue CT to suction Continue medical management per primary team Will discuss with Dr. Alexis Seo PGY-4
[2017-03-05] MEDS ORDERED: Iohexol 300 100 ML IJ ONE (09:04)
[2017-03-05] MEDS ORDERED: Sodium Chloride 0.9% 50 ML IV ONE (09:05)
[2017-03-05] MEDS: Azithromycin 500 MG in Sodium Chloride 0.9% 250 ML IVPB SCH (09:13)
[2017-03-05] MEDS: oxyCODONE 20 mg ER Tab (oxyCONTIN) PO SCH ×2 (09:15→21:00)
--- NOTE | 2017-03-05 09:44 | CP.CCUPN ---
Addendum entered and electronically signed by Lissy Danielle MD 03/05/17 16:21 : Patient had bedside removal of clots from chest tube by CTS with resumption of drainage. Drain totals to date: Anterior: 360cc, Posterior: 570cc. he appears comfortable and has gotten out of bed to chair. Encouraged frequent incentive spirometry and lower extremity exercises. Original Note: <Lissy Danielle - Last Filed: 03/05/17 16:09> CCU Subjective - Physician Review Subjective (Free Text): 03/05/17 09:46 Patient seen and examined at bedside with attending during morning rounds. He reports good pain control overnight but has slight chest wall pain at tube insertion site with deep inspiration. There has been no chest tube drainage over the last 24 hours. Patient has been out of bed to chair and walked 150 feet with PT supervision yesterday. He has been afebrile and is using incentive spirometry regularly. CCU Objective - Vital Signs / Intake & Output Vital Signs (Last 4 hours): Vital Signs Temp Pulse Resp BP Pulse Ox 03/05/17 07:40 98.1 F 97 H 32 H 122/64 98 03/05/17 06:00 70 16 109/61 98 Intake and Output (Last 8hrs): Intake & Output 03/04/17 03/05/17 03/05/17 22:59 06:59 14:59 Output Total 1600 Balance -1600 Output: Chest Tube Drainage 0 Left Anterior Chest 0 Left Posterior Chest 0 Urine 1600 Urine, Voided 1600 Other: # Voids Urine, Voided 2 - Physical Exam Head: Positive for: Atraumatic, Normocephalic Pupils: Positive for: PERRL Extroacular Muscles: Positive for: EOMI Conjunctiva: Positive for: Normal Mouth: Positive for: Moist Mucous Membranes Respiratory/Chest: Positive for: Tender to Palpation, Other (B/L air entry present with decreased sounds on left compared to right. Left sided anterior/ posterior chest tubes present. Rupture skin bulla is present from prior tape application with no signs of infection.). Negative for: Respiratory Distress, Wheezes, Retracting, Rhonchi Cardiovascular: Positive for: Regular Rate and Rhythm, Normal S1, S2, Peripheal Pulses Present. Negative for: Murmurs Abdomen: Positive for: Normal Bowel Sounds. Negative for: Tenderness, Distention, Guarding Upper Extremity: Positive for: Normal Inspection, Capillary Refill < 2s Lower Extremity: Positive for: Normal Inspection. Negative for: Edema, CALF TENDERNESS Neurological: Positive for: Speech Normal Psychiatric: Positive for: Alert, Oriented x 3 - Medications Active Medications: Active Medications Generic Name Dose Route Start Last Admin Trade Name Freq PRN Reason Stop Dose Admin Acetaminophen 650 mg 02/24/17 19:47 03/02/17 01:27 Tylenol 325mg Tab PO 650 mg Q6 PRN Administration Fever >100.4 F Diphenhydramine HCl 50 mg 02/28/17 13:45 Benadryl IVP Q6 PRN Itching / Pruritus Azithromycin 500 mg/ Sodium 250 mls @ 125 mls/hr 02/25/17 11:45 03/05/17 09: 13 Chloride IVPB 125 mls/hr DAILY [facility] Administration Ceftriaxone Sodium 1 gm/ 100 mls @ 100 mls/hr 02/25/17 11:30 03/05/17 09:13 Sodium Chloride IVPB 100 mls/hr DAILY [facility] Administration Morphine Sulfate 4 mg 03/04/17 07:30 Morphine IVP Q4 PRN Pain, moderate (4-7) Ondansetron HCl 4 mg 02/28/17 13:45 Zofran Inj IVP Q6 PRN Nausea/Vomiting Oxycodone HCl 20 mg 03/04/17 09:00 03/05/17 09:15 Oxycontin Extended Release Tab PO 20 mg Q12 [facility] Administration Oxycodone/Acetaminophen 1 tab 03/04/17 11:54 Percocet 5/325 Mg Tab PO 03/07/17 11:55 Q4 PRN Pain, moderate (4-7) - Patient Studies Lab Studies: Microbiology Studies 02/21/17 16:16 Gram Stain - Final Chest Wound Culture - Preliminary No growth. 02/28/17 11:00 Gram Stain - Final Other: Please Indicate Wound Culture - Preliminary No growth. 02/28/17 15:54 Gram Stain - Final Pleural Fluid Anaerobic Culture - Final NO ANAEROBES ISOLATED. Body Fluid Culture - Preliminary NO GROWTH AFTER 3 DAYS Lab Studies 03/05/17 03/05/17 Range/Units 04:25 04:25 WBC 5.3 (4.8-10.8) K/uL RBC 3.19 L (4.40-5.90) Mil/uL Hgb 9.4 L (12.0-18.0) g/dL Hct 28.4 L (35.0-51.0) % MCV 88.9 (80.0-94.0) fl MCH 29.4 (27.0-31.0) pg MCHC 33.1 (33.0-37.0) g/dL RDW 11.6 (11.5-14.5) % Plt Count 395 (130-400) K/uL Sodium 141 (132-148) mmol/l Potassium 3.9 (3.6-5.0) MMOL/L Chloride 100 (98-107) mmol/L Carbon Dioxide 29 (22-30) mmol/L Anion Gap 16 (10-20) BUN 14 (9-20) mg/dl Creatinine 0.7 L (0.8-1.5) mg/dL Est GFR ( Amer) > 60 Est GFR (Non-Af Amer) > 60 Random Glucose 94 (75-110) mg/dL Calcium 9.2 (8.4-10.2) mg/dL Laboratory Results - last 24 hr 03/05/17 03/05/17 04:25 04:25 WBC 5.3 RBC 3.19 L Hgb 9.4 L Hct 28.4 L MCV 88.9 MCH 29.4 MCHC 33.1 RDW 11.6 Plt Count 395 Sodium 141 Potassium 3.9 Chloride 100 Carbon Dioxide 29 Anion Gap 16 BUN 14 Creatinine 0.7 L Est GFR ( Amer) > 60 Est GFR (Non-Af Amer) > 60 Random Glucose 94 Calcium 9.2 Review of Systems - Constitutional Constitutional: absent: Fever, Chills - Cardiovascular Cardiovascular: absent: Dyspnea, Leg Edema, Palpitations - Respiratory Respiratory: absent: Cough, Hemoptysis - Gastrointestinal Gastrointestinal: absent: Abdominal Pain, Nausea, Vomiting - Musculoskeletal Musculoskeletal: Other (Left sided chest wall pain at chest tube insertion site) Critical Care Progress Note - Nutrition Nutrition: Nutrition Category Date Time Status Regular Diet [DIET] Diets 03/03/17 Dinner Active Assessment/Plan - Assessment and Plan (Free Text) Assessment: 21 y/o M with unremarkable PMH referred to ED on 02/18/17 from a nearby clinic with acute onset SOB and chest pain secondary to a left sided spontaneous pneumothorax which was later determined to be secondary to ruptured pleural bleb. Initially, a chest tube was placed and symptoms improved however patient required talc pleurodesis on 02/21/17 due to persistent residual apical pneumothorax. Despite treatment, a persistent air leak was present and patient ultimately required a thoracotomy with left apical lung resection on 02/28/17. Patient is currently POD#5. Plan: Spontaneous Pneumothorax -Etiology likely secondary to ruptured pleural bleb -S/p thoracotomy with left apical lung resection with left sided anterior and posterior chest tube placement on 02/28/17, POD #5 -There has been no chest tube drain output over the last 24 hours -Suspect possible occlusion of chest tube secondary to blood clot -CT chest from 03/03 suggested left sided loculated hemothroaces -Repeat CT chest ordered today by CTS to re-assess -Physical therapy. Encourage out of bed. -Continue incentive spirometry -Pain control: Oxycodone ER 20mg Q12h JACOB and Percocet 5/325mg Q4h PRN Left basilar atelectasis -Patient currently afebrile, WBC: 5.3 -Completed 7 days of azithromycin and currently on day 7 of ceftriaxone for possible pneumonia -Will discontinue antibiotics Diet -Tolerating regular diet DVT Prophylaxis -Lovenox held due to possible hemothorax -SCDs <Geovany Wells M - Last Filed: 03/05/17 16:30> CCU Objective - Medications Active Medications: Active Medications Generic Name Dose Route Start Last Admin Trade Name Freq PRN Reason Stop Dose Admin Acetaminophen 650 mg 02/24/17 19:47 03/02/17 01:27 Tylenol 325mg Tab PO 650 mg Q6 PRN Administration Fever >100.4 F Diphenhydramine HCl 50 mg 02/28/17 13:45 Benadryl IVP Q6 PRN Itching / Pruritus Ketorolac Tromethamine 30 mg 03/05/17 13:18 Toradol IVP 03/08/17 13:19 Q6 PRN Pain, moderate (4-7) Morphine Sulfate 4 mg 03/05/17 13:19 Morphine IVP Q4 PRN Pain, severe (8-10) Ondansetron HCl 4 mg 02/28/17 13:45 Zofran Inj IVP Q6 PRN Nausea/Vomiting Oxycodone HCl 20 mg 03/04/17 09:00 03/05/17 09:15 Oxycontin Extended Release Tab PO 20 mg Q12 [facility] Administration Oxycodone/Acetaminophen 1 tab 03/04/17 11:54 Percocet 5/325 Mg Tab PO 03/07/17 11:55 Q4 PRN Pain, moderate (4-7) - Patient Studies Lab Studies: Microbiology Studies 02/21/17 16:16 Gram Stain - Final Chest Wound Culture - Final Corynebacterium Species 02/28/17 11:00 Gram Stain - Final Other: Please Indicate Wound Culture - Final Staphylococcus Sp Coag Neg 02/28/17 15:54 Gram Stain - Final Pleural Fluid Anaerobic Culture - Final NO ANAEROBES ISOLATED. Body Fluid Culture - Final No growth. Lab Studies 03/05/17 03/05/17 03/05/17 Range/Units 11:08 04:25 04:25 WBC 5.3 (4.8-10.8) K/uL RBC 3.19 L (4.40-5.90) Mil/uL Hgb 9.4 L (12.0-18.0) g/dL Hct 28.4 L (35.0-51.0) % MCV 88.9 (80.0-94.0) fl MCH 29.4 (27.0-31.0) pg MCHC 33.1 (33.0-37.0) g/dL RDW 11.6 (11.5-14.5) % Plt Count 395 (130-400) K/uL Sodium 141 (132-148) mmol/l Potassium 3.9 (3.6-5.0) MMOL/L Chloride 100 (98-107) mmol/L Carbon Dioxide 29 (22-30) mmol/L Anion Gap 16 (10-20) BUN 14 (9-20) mg/dl Creatinine 0.7 L (0.8-1.5) mg/dL Est GFR ( Amer) > 60 Est GFR (Non-Af Amer) > 60 POC Glucose (mg/dL) 95 (65-110) mg/dL Random Glucose 94 (75-110) mg/dL Calcium 9.2 (8.4-10.2) mg/dL Laboratory Results - last 24 hr 03/05/17 03/05/17 03/05/17 04:25 04:25 11:08 WBC 5.3 RBC 3.19 L Hgb 9.4 L Hct 28.4 L MCV 88.9 MCH 29.4 MCHC 33.1 RDW 11.6 Plt Count 395 Sodium 141 Potassium 3.9 Chloride 100 Carbon Dioxide 29 Anion Gap 16 BUN 14 Creatinine 0.7 L Est GFR ( Amer) > 60 Est GFR (Non-Af Amer) > 60 POC Glucose (mg/dL) 95 Random Glucose 94 Calcium 9.2 Critical Care Progress Note - Nutrition Nutrition: Nutrition Category Date Time Status Regular Diet [DIET] Diets 03/03/17 Dinner Active Attending/Attestation - Attestation I have personally seen and examined this patient.: Yes I have fully participated in the care of the patient.: Yes I have reviewed all pertinent clinical information: Yes Notes (Text): 03/05/17 16:30 Today: Sunday, March 05, 2017 The Patient was seen and examined at the bedside, Medical records reviewed, all clinical/lab/hemodynamic/radiographic data were reviewed and management issues were discussed and formulated, Events reviewed Pain issues, skin care, head of the bed elevation, GI/DVT prophylaxis, glycemic control were addressed. Agree with above treatment plans as transcribed in Dr. Danielle note
--- NOTE | 2017-03-05 11:14 | CT ---
PROCEDURE: CT chest dated 03/05/2017 HISTORY: Comparison from last CT COMPARISON: Comparison made with the chest radiograph 03/04/2017 at 5:[address] as well as CT scan chest 03/03/2017 TECHNIQUE: Contiguous axial images were obtained through the chest on performed following injection of approximately 95 cc of Omnipaque 350 contrast material. Intravenous contrast enhancement. Sagittal and coronal reconstructions were performed. Radiation dose (DLP): 478.03 mGy-cm. This CT exam was performed using one or more of the following dose reduction techniques: Automated exposure control, adjustment of the mA and/or kV according to patient size, and/or use of iterative reconstruction technique. FINDINGS: LUNGS: Current study re- demonstrates partial opacification left upper lobe consistent with some combination of effusion and hemorrhage. In 2 in situ left-sided chest tubes are present portions of which appear occluded with debris. Small left anterior/upper lobe pneumothorax with left apical and upper lobe bleb and small bullous changes. Hyperdense linear/curvilinear densities left upper lung field consistent with pleurodesis talc. Left basilar atelectasis. MEDIASTINUM: Unremarkable thoracic aorta. No aneurysm or dissection. Normal sized heart. Main pulmonary artery unremarkable. No vascular congestion. No lymphadenopathy. PLEURA: As above BONES: No fracture. No destructive lesion. UPPER ABDOMEN: Grossly unremarkable. OTHER FINDINGS: Small amount of subcutaneous emphysema left emili thorax. IMPRESSION: Two in situ left-sided chest tubes portions of which appear occluded by debris. . Partial opacification left upper lung field consistent with some combination of effusion and hemorrhage. . Small left anterior upper lobe pneumothorax with small left apical and upper lobe of bleb and small bullous changes.
[2017-03-05] MEDS ORDERED: Povidone Iodine Topical 10% Sol ONE (11:44)
--- NOTE | 2017-03-05 12:21 | CP.PCM.PN ---
Subjective - Date & Time of Evaluation Date of Evaluation: 03/05/17 Time of Evaluation: 12:00 - Subjective Subjective: No fever noted CT of chest result showing obstruction of chest tubes with clot- Dr Espinoza cleaned up CT at bedside Pain controlled no SOB no abd pain Objective - Vital Signs/Intake and Output Vital Signs (last 24 hours): Temp Pulse Resp BP Pulse Ox 98.1 F 82 23 115/71 98 03/05/17 07:40 03/05/17 12:00 03/05/17 12:00 03/05/17 12:00 03/05/17 12:00 Intake and Output: 03/05/17 03/05/17 06:59 18:59 Output Total 600 Balance -600 - Medications Medications: Current Medications Acetaminophen (Tylenol 325mg Tab) 650 mg PO Q6 PRN PRN Reason: Fever >100.4 F Last Admin: 03/02/17 01:27 Dose: 650 mg Diphenhydramine HCl (Benadryl) 50 mg IVP Q6 PRN PRN Reason: Itching / Pruritus Morphine Sulfate (Morphine) 4 mg IVP Q4 PRN PRN Reason: Pain, moderate (4-7) Last Admin: 03/05/17 11:38 Dose: 4 mg Ondansetron HCl (Zofran Inj) 4 mg IVP Q6 PRN PRN Reason: Nausea/Vomiting Oxycodone HCl (Oxycontin Extended Release Tab) 20 mg PO Q12 JACOB Last Admin: 03/05/17 09:15 Dose: 20 mg Oxycodone/Acetaminophen (Percocet 5/325 Mg Tab) 1 tab PO Q4 PRN PRN Reason: Pain, moderate (4-7) Stop: 03/07/17 11:55 - Labs Labs: 03/05/17 04:25 03/05/17 04:25 PT 10.9 SECONDS (9.6-11.2) 02/26/17 10:30 INR 1.05 (0.92-1.08) 02/26/17 10:30 APTT 27.8 SECONDS (23.3-32.5) 02/18/17 18:25 - Constitutional Appears: No Acute Distress - Head Exam Head Exam: ATRAUMATIC, NORMAL INSPECTION, NORMOCEPHALIC - Eye Exam Eye Exam: EOMI, Normal appearance, PERRL Pupil Exam: NORMAL ACCOMODATION - ENT Exam ENT Exam: Mucous Membranes Moist, Normal External Ear Exam - Neck Exam Neck Exam: Full ROM. absent: Meningismus - Respiratory Exam Respiratory Exam: NORMAL BREATHING PATTERN. No Respiratory Distress decrease BS left - Cardiovascular Exam Cardiovascular Exam: REGULAR RHYTHM, +S1, +S2 Additional comments: 2 Left chest tubes on the left , some serosanguinous drainage - GI/Abdominal Exam GI & Abdominal Exam: Soft, Normal Bowel Sounds. absent: Tenderness - Extremities Exam Extremities Exam: Full ROM, Normal Capillary Refill. absent: Calf Tenderness, Normal Inspection - Back Exam Back Exam: Full ROM, NORMAL INSPECTION. absent: CVA tenderness (L), CVA tenderness (R) - Neurological Exam Neurological Exam: alert, oriented x 3 Neuro motor strength exam: 02/22 - Psychiatric Exam Psychiatric exam: Normal Affect, Normal Mood - Skin Skin Exam: Dry, Normal Color, Warm Assessment and Plan - Assessment and Plan (Free Text) Assessment: 21 y/o male with no significant PMH came in because of chest pain and SOB. CXR showed tension Pneumothorax on the left. Cardiothoracic surgery consulted and chest tube was placed. Patient has no smoking history, no history of trauma to the chest, no connective tissues disorder or chronic lung condition. Chest tube was re inserted and talc pleurodesis performed in OR due to residual apical pneumothorax and large air leak . Repeat CXR post procedure showed no residual pneumothorax.CT chest 02/25/17 showed small Left anterior pneumothorax , small bullous and bleb changes in L Lung apex. Small bleb changes R lung apex. Subcutaneous emphysema L anterolateral chest wall. Mod L basilar atelectasis and small L effusion. He was taken again to OR and underwent Hybrid VATS, resection of apical blebs and bullae, and parietal pleurectomy 02/28. Anterior and posterior chest tubes to left hemithorax connected to Pleurovac with respectively 60 and 100 ml serosanguinous output last 12 hours . 1. Spontaneous Pneumothorax s/p VATs,resection of apical blebs and Pleurectomy s/p Chest tube x 2 Apical Hemothorax, loculated CXR showed 100% PTX on the left- on admission Chest tube was placed with improvement of pneumothorax on admission. Due to persistent residual apical pneumothorax and large air leak chest tube was re inserted and talc pleurodesis performed, 02/21/17 with resolution. Air leak persisted for 3 days in addition to small apical pneumothorax and CT chest . showed persistent small L anterior pneumothorax, small bullous and bleb changes in L Lung apex,small bleb changes R lung apex Underwent VATS with resection of apical blebs and bullae and parietal pleurectomy Anterior and posterior chest tubes to left hemithorax w/ sero sanguinous drainage hemoglobin drpped from 02/28 13.3--11.8--10.7---8.9 --9.[address] post op : loculated hemothorax Continue monitoring in ICU Continue pain management and promote ambulation out of bed to chair with PT Thoracic surgery Dr Espinoza following pt Rpt CT of chest done 03/05: Two in situ left-sided chest tubes portions of which appear occluded by debris. . Partial opacification left upper lung field consistent with some combination of effusion and hemorrhage. . Small left anterior upper lobe pneumothorax with small left apical and upper lobe of bleb and small bullous changes. Dr Espinoza came in and removed some of the the clots from the tube 2. Fever possible Pneumonia Pt had fever with chills, malaise. no WBC started Ceftriaxone/Azithromycin 02/25/17, completed 7 days 3. Acute blood loss anemia monitor CBC Ct chest without contrast : loculated hemothorax 4.DVT prophylaxis Will hold Lovenox bec of some bleeding in the Chest tube
--- NOTE | 2017-03-05 13:59 | RAD ---
PROCEDURE: CHEST RADIOGRAPH, 1 VIEW HISTORY: comparison, post clot removal from CTs COMPARISON: Comparison made with chest radiograph 03/04/2017 at 0520 hours. Comparison also made with CT scan chest 03/04/2017 at 1018 hours. FINDINGS: LUNGS: Re- demonstrated are 2 in situ left-sided chest tubes. Partial opacification left mid to upper lung field with more dense opacification left lung apical region. A small residual left upper and anterior lobe pneumothorax is less well seen on this study compared to high-resolution CT scan. Mild left basilar atelectasis. PLEURA: As above CARDIOVASCULAR: Heart appears grossly unremarkable. OSSEOUS STRUCTURES: No significant abnormalities. VISUALIZED UPPER ABDOMEN: Normal. OTHER FINDINGS: None. IMPRESSION: Re- demonstrated are 2 in situ left-sided chest tubes. Partial opacification left mid to upper lung zone with more dense opacification left lung apical region. . Left lower lobe atelectasis.
[2017-03-06 05:13] LABS: MEAN CELL VOLUME 87.4 fl (80.0-94.0); MEAN CORPUSCULAR HEMOGLOBIN 29.8 pg (27.0-31.0); MEAN CORPUSCULAR HGB CONC 34.1 g/dL (33.0-37.0); RED CELL DISTRIBUTION WIDTH 11.6 % (11.5-14.5); WHITE BLOOD COUNT 6.9 K/uL (4.8-10.8)
[2017-03-06] MEDS ORDERED: Midazolam 2 MG/2 ML VIAL ONE (07:07)
[2017-03-06] MEDS ORDERED: Midazolam 2 MG/2 ML VIAL IV ONE (07:15)
[2017-03-06] MEDS ORDERED: Oxycodone/Acetaminophen 5/325 mg Tab PO PRN ×2 (09:02)
--- NOTE | 2017-03-06 10:01 | CP.PCM.PN ---
Subjective - Date & Time of Evaluation Date of Evaluation: 03/06/17 Time of Evaluation: 10:00 - Subjective Subjective: Pt was seen ambulating with PT around the unit No fever no SOB still with some blood clots on the chest tube denies CP no abd pain Objective - Vital Signs/Intake and Output Vital Signs (last 24 hours): Temp Pulse Resp BP Pulse Ox 98.5 F 70 16 113/59 L 96 03/06/17 08:00 03/06/17 08:00 03/06/17 08:00 03/06/17 08:00 03/06/17 08:00 Intake and Output: 03/06/17 03/06/17 06:59 18:59 Intake Total 360 Output Total 1570 Balance -1210 - Medications Medications: Current Medications Acetaminophen (Tylenol 325mg Tab) 650 mg PO Q6 PRN PRN Reason: Fever >100.4 F Last Admin: 03/02/17 01:27 Dose: 650 mg Diphenhydramine HCl (Benadryl) 50 mg IVP Q6 PRN PRN Reason: Itching / Pruritus Ferrous Sulfate (Feosol) 325 mg PO DAILY JACOB Gabapentin (Neurontin) 300 mg PO TID JACOB Ketorolac Tromethamine (Toradol) 30 mg IVP Q6 PRN PRN Reason: Pain, moderate (4-7) Stop: 03/08/17 13:19 Last Admin: 03/05/17 22:34 Dose: 30 mg Ondansetron HCl (Zofran Inj) 4 mg IVP Q6 PRN PRN Reason: Nausea/Vomiting Oxycodone/Acetaminophen (Percocet 5/325 Mg Tab) 1 tab PO Q6 PRN PRN Reason: Pain, moderate (4-7) Stop: 03/09/17 09:03 Oxycodone/Acetaminophen (Percocet 5/325 Mg Tab) 2 tab PO Q6 PRN PRN Reason: Pain, severe (8-10) Stop: 03/09/17 09:03 - Labs Labs: 03/06/17 04:35 03/05/17 04:25 PT 10.9 SECONDS (9.6-11.2) 02/26/17 10:30 INR 1.05 (0.92-1.08) 02/26/17 10:30 APTT 27.8 SECONDS (23.3-32.5) 02/18/17 18:25 - Constitutional Appears: No Acute Distress - Head Exam Head Exam: ATRAUMATIC, NORMAL INSPECTION, NORMOCEPHALIC - Eye Exam Eye Exam: EOMI, Normal appearance, PERRL Pupil Exam: NORMAL ACCOMMODATION - ENT Exam ENT Exam: Mucous Membranes Moist, Normal External Ear Exam - Neck Exam Neck Exam: Full ROM. absent: Meningismus - Respiratory Exam Respiratory Exam: NORMAL BREATHING PATTERN. No Respiratory Distress decrease BS left - Cardiovascular Exam Cardiovascular Exam: REGULAR RHYTHM, +S1, +S2 Additional comments: 2 Left chest tubes on the left , some serosanguinous drainage - GI/Abdominal Exam GI & Abdominal Exam: Soft, Normal Bowel Sounds. absent: Tenderness - Extremities Exam Extremities Exam: Full ROM, Normal Capillary Refill. absent: Calf Tenderness, Normal Inspection - Back Exam Back Exam: Full ROM, NORMAL INSPECTION. absent: CVA tenderness (L), CVA tenderness (R) - Neurological Exam Neurological Exam: alert, oriented x 3 Neuro motor strength exam: 02/22 - Psychiatric Exam Psychiatric exam: Normal Affect, Normal Mood - Skin Skin Exam: Dry, Normal Color, Warm Assessment and Plan - Assessment and Plan (Free Text) Assessment: 21 y/o male with no significant PMH came in because of chest pain and SOB. CXR showed tension Pneumothorax on the left. Cardiothoracic surgery consulted and chest tube was placed. Patient has no smoking history, no history of trauma to the chest, no connective tissues disorder or chronic lung condition. Chest tube was re inserted and talc pleurodesis performed in OR due to residual apical pneumothorax and large air leak . Repeat CXR post procedure showed no residual pneumothorax.CT chest 02/25/17 showed small Left anterior pneumothorax , small bullous and bleb changes in L Lung apex. Small bleb changes R lung apex. Subcutaneous emphysema L anterolateral chest wall. Mod L basilar atelectasis and small L effusion. He was taken again to OR and underwent Hybrid VATS, resection of apical blebs and bullae, and parietal pleurectomy 02/28. Anterior and posterior chest tubes to left hemithorax connected to Pleurovac . 1. Spontaneous Pneumothorax s/p VATs,resection of apical blebs and Pleurectomy s/p Chest tube x 2 Apical Hemothorax, loculated CXR showed 100% PTX on the left- on admission Chest tube was placed with improvement of pneumothorax on admission. Due to persistent residual apical pneumothorax and large air leak chest tube was re inserted and talc pleurodesis performed, 02/21/17 with resolution. Air leak persisted for 3 days in addition to small apical pneumothorax and CT chest . showed persistent small L anterior pneumothorax, small bullous and bleb changes in L Lung apex,small bleb changes R lung apex Underwent VATS with resection of apical blebs and bullae and parietal pleurectomy Anterior and posterior chest tubes to left hemithorax w/ sero sanguinous drainage hemoglobin dropped from 02/28 13.3--11.8--10.7---8.9 --9.[address] post op : loculated hemothorax Continue monitoring in ICU Continue pain management and promote ambulation out of bed to chair with PT Thoracic surgery Dr Espinoza following pt Rpt CT of chest done 03/05: Two in situ left-sided chest tubes portions of which appear occluded by debris. . Partial opacification left upper lung field consistent with some combination of effusion and hemorrhage. . Small left anterior upper lobe pneumothorax with small left apical and upper lobe of bleb and small bullous changes. Dr Espinoza came in and removed some of the the clots from the tube- yesterday and today As discussed with Dr Espinoza- he rec continuing pt on IV abx- will start IV Cefepime 2. Fever possible Pneumonia Pt had fever with chills, malaise. no WBC Ceftriaxone/Azithromycin 02/25/17, completed 7 days 3. Acute blood loss anemia monitor CBC Ct chest without contrast : loculated hemothorax 4.DVT prophylaxis Will hold Lovenox bec of some bleeding in the Chest tube Early ambulation
--- NOTE | 2017-03-06 10:46 | CP.CCUPN ---
<[email or web address] - Last Filed: 03/06/17 14:20> CCU Subjective - Physician Review Subjective (Free Text): 03/06/17 10:48 Patient seen and examined at bedside with ICU attending during morning rounds. Patient is awake sitting upright in chair and appears in no acute distress. He had a bedside declotting of chest tube performed yesterday and again today by CTS, which patient tolerated well. He was walking out of bed today with physical therapy supervision. His chest wall pain has been moderately well controlled and his scheduled oxycontin dose was discontinued. Patient remains afebrile and is using incentive spirometry. CCU Objective - Vital Signs / Intake & Output Vital Signs (Last 4 hours): Vital Signs Temp Pulse Resp BP Pulse Ox 03/06/17 08:00 98.5 F 70 16 113/59 L 96 Intake and Output (Last 8hrs): Intake & Output 03/05/17 03/06/17 03/06/17 22:59 06:59 14:59 Intake Total 120 240 Output Total 350 1220 Balance -230 -980 Intake: Oral 120 240 Output: Chest Tube Drainage 10 Left Lateral Chest 0 Left Posterior Chest 10 Drainage 10 Left Posterior Chest 10 Urine 350 1200 Urine, Voided 350 1200 - Physical Exam Head: Positive for: Atraumatic, Normocephalic Pupils: Positive for: PERRL Extroacular Muscles: Positive for: EOMI Conjunctiva: Positive for: Normal Mouth: Positive for: Moist Mucous Membranes Respiratory/Chest: Positive for: Tender to Palpation, Other (B/L air entry present with decreased sounds on left compared to right. Left sided anterior/ posterior chest tubes present. Rupture skin bulla is present from prior tape application with no signs of infection.). Negative for: Respiratory Distress, Wheezes, Retracting, Rhonchi Cardiovascular: Positive for: Regular Rate and Rhythm, Normal S1, S2, Peripheal Pulses Present. Negative for: Murmurs Abdomen: Positive for: Normal Bowel Sounds. Negative for: Tenderness, Distention, Guarding Upper Extremity: Positive for: Normal Inspection, Capillary Refill < 2s Lower Extremity: Positive for: Normal Inspection. Negative for: Edema, CALF TENDERNESS Neurological: Positive for: Speech Normal Psychiatric: Positive for: Alert, Oriented x 3 - Medications Active Medications: Active Medications Generic Name Dose Route Start Last Admin Trade Name Freq PRN Reason Stop Dose Admin Acetaminophen 650 mg 02/24/17 19:47 03/02/17 01:27 Tylenol 325mg Tab PO 650 mg Q6 PRN Administration Fever >100.4 F Diphenhydramine HCl 50 mg 02/28/17 13:45 Benadryl IVP Q6 PRN Itching / Pruritus Ferrous Sulfate 325 mg 03/06/17 09:00 03/06/17 10:01 Feosol PO 325 mg DAILY JACOB Administration Gabapentin 300 mg 03/06/17 13:00 Neurontin PO TID JACOB Ketorolac Tromethamine 30 mg 03/05/17 13:18 03/05/17 22:34 Toradol IVP 03/08/17 13:19 30 mg Q6 PRN Administration Pain, moderate (4-7) Ondansetron HCl 4 mg 02/28/17 13:45 Zofran Inj IVP Q6 PRN Nausea/Vomiting Oxycodone/Acetaminophen 1 tab 03/06/17 09:02 Percocet 5/325 Mg Tab PO 03/09/17 09:03 Q6 PRN Pain, moderate (4-7) Oxycodone/Acetaminophen 2 tab 03/06/17 09:02 Percocet 5/325 Mg Tab PO 03/09/17 09:03 Q6 PRN Pain, severe (8-10) - Patient Studies Lab Studies: Microbiology Studies 02/21/17 16:16 Gram Stain - Final Chest Wound Culture - Final Corynebacterium Species 02/28/17 11:00 Gram Stain - Final Other: Please Indicate Wound Culture - Final Staphylococcus Sp Coag Neg 02/28/17 15:54 Gram Stain - Final Pleural Fluid Anaerobic Culture - Final NO ANAEROBES ISOLATED. Body Fluid Culture - Final No growth. Lab Studies 03/06/17 03/05/17 03/03/17 Range/Units 04:35 11:08 12:30 WBC 6.9 (4.8-10.8) K/uL RBC 3.20 L (4.40-5.90) Mil/uL Hgb 9.6 L (12.0-18.0) g/dL Hct 28.0 L (35.0-51.0) % MCV 87.4 (80.0-94.0) fl MCH 29.8 (27.0-31.0) pg MCHC 34.1 (33.0-37.0) g/dL RDW 11.6 (11.5-14.5) % Plt Count 399 (130-400) K/uL POC Glucose (mg/dL) 95 (65-110) mg/dL Crossmatch See Detail Laboratory Results - last 24 hr 03/03/17 03/05/17 03/06/17 12:30 11:08 04:35 WBC 6.9 RBC 3.20 L Hgb 9.6 L Hct 28.0 L MCV 87.4 MCH 29.8 MCHC 34.1 RDW 11.6 Plt Count 399 POC Glucose (mg/dL) 95 Crossmatch See Detail Review of Systems - Constitutional Constitutional: absent: Fever, Chills - Cardiovascular Cardiovascular: absent: Dyspnea, Leg Edema, Palpitations - Respiratory Respiratory: absent: Cough, Hemoptysis, Dyspnea on Exertion, Wheezing - Gastrointestinal Gastrointestinal: absent: Abdominal Pain, Nausea, Vomiting - Musculoskeletal Musculoskeletal: Other (Left sided chest wall pain at chest tube insertion site) - Psychiatric Psychiatric: absent: Depression Critical Care Progress Note - Nutrition Nutrition: Nutrition Category Date Time Status Regular Diet [DIET] Diets 03/03/17 Dinner Active Assessment/Plan - Assessment and Plan (Free Text) Assessment: 21 y/o M with unremarkable PMH referred to ED on 02/18/17 from a nearby clinic with acute onset SOB and chest pain secondary to a left sided spontaneous pneumothorax which was later determined to be secondary to ruptured pleural bleb. Initially, a chest tube was placed and symptoms improved however patient required talc pleurodesis on 02/21/17 due to persistent residual apical pneumothorax. Despite treatment, a persistent air leak was present and patient ultimately required a thoracotomy with left apical lung resection on 02/28/17. Patient is currently POD#6. Plan: Spontaneous Pneumothorax -Etiology likely secondary to ruptured pleural bleb -S/p thoracotomy with left apical lung resection with left sided anterior and posterior chest tube placement on 02/28/17, POD #6 -CT chest from 03/03 suggested left sided loculated hemothroaces -Repeat CT chest on 03/05 confirmed two left-sided chest tubes which appear occluded by debris and a left sided opacification consistent effusion/ hemorrhage. -Patient had bedside removal of clot from chest tube by CTS yesterday and again this morning with resultant flow from chest tube -Chest tube drain output over the last 12hrs: Anterior: Minimal output, Posterior: 55cc (Total output: Anterior 360cc, Posterior 625cc) -CXR today demonstrates interval improvement compared to prior study -Physical therapy. Encourage out of bed. -Continue incentive spirometry -CTS plans for daily Jey catheter chest tube thrombectomy and daily CXR -Pain control: Percocet 5/325mg 1 tab Q4h PRN moderate pain, 2 tabs Q4h PRN for severe pain -Oxycodone ER 20mg Q12h JACOB discontinued Left basilar atelectasis -Patient currently afebrile, WBC: 6.9 -Completed 7 days of azithromycin and ceftriaxone for possible pneumonia (02/25-) Diet -Tolerating regular diet DVT Prophylaxis -Lovenox held due to possible hemothorax -SCDs <Vicente Tavarez - Last Filed: 03/06/17 18:54> CCU Subjective - Physician Review Subjective (Free Text): Attestation: Patient seen and examined at the bedside with Resident Dr. Tristen Danielle; and I agree with his outline of plans and management documented as discussed on AM rounds reflecting my review of all applicable clinical data, and participation in the care of the patient throughout the day in ICU; today, March 06, 2017.
--- NOTE | 2017-03-06 11:30 | CP.PCM.PN ---
Subjective - Date & Time of Evaluation Date of Evaluation: 03/06/17 Time of Evaluation: 11:25 - Subjective Subjective: Pt s/e. hb-9.6-is trending up. chest tubes-Forgarthy cath. thrombectoy this am. tubes clotted again. 60cc marroon color drainge/y. cxr-left base improved somewhat. a/p: Will require daily thrombectomy. daily cxr. Objective - Vital Signs/Intake and Output Vital Signs (last 24 hours): Temp Pulse Resp BP Pulse Ox 98.5 F 70 16 113/59 L 96 03/06/17 08:00 03/06/17 08:00 03/06/17 08:00 03/06/17 08:00 03/06/17 08:00 Intake and Output: 03/06/17 03/06/17 06:59 18:59 Intake Total 360 Output Total 1570 Balance -1210 - Medications Medications: Current Medications Acetaminophen (Tylenol 325mg Tab) 650 mg PO Q6 PRN PRN Reason: Fever >100.4 F Last Admin: 03/02/17 01:27 Dose: 650 mg Diphenhydramine HCl (Benadryl) 50 mg IVP Q6 PRN PRN Reason: Itching / Pruritus Ferrous Sulfate (Feosol) 325 mg PO DAILY [facility] Last Admin: 03/06/17 10:01 Dose: 325 mg Gabapentin (Neurontin) 300 mg PO TID [facility] Ketorolac Tromethamine (Toradol) 30 mg IVP Q6 PRN PRN Reason: Pain, moderate (4-7) Stop: 03/08/17 13:19 Last Admin: 03/05/17 22:34 Dose: 30 mg Ondansetron HCl (Zofran Inj) 4 mg IVP Q6 PRN PRN Reason: Nausea/Vomiting Oxycodone/Acetaminophen (Percocet 5/325 Mg Tab) 1 tab PO Q6 PRN PRN Reason: Pain, moderate (4-7) Stop: 03/09/17 09:03 Oxycodone/Acetaminophen (Percocet 5/325 Mg Tab) 2 tab PO Q6 PRN PRN Reason: Pain, severe (8-10) Stop: 03/09/17 09:03 - Labs Labs: 03/06/17 04:35 03/05/17 04:25 PT 10.9 SECONDS (9.6-11.2) 02/26/17 10:30 INR 1.05 (0.92-1.08) 02/26/17 10:30 APTT 27.8 SECONDS (23.3-32.5) 02/18/17 18:25
--- NOTE | 2017-03-06 12:01 | RAD ---
HISTORY: Chest tube. Portable study 11:10 COMPARISON: Multiple serial examinations preceding the most recent study: March 05, 2017. FINDINGS: LUNGS: Improved aeration left lung. PLEURA: Stable findings in the left pleural space including 2 chest tubes. No changes with respect to small left pneumothorax. CARDIOVASCULAR: Normal. OSSEOUS STRUCTURES: No significant abnormalities. VISUALIZED UPPER ABDOMEN: Normal. OTHER FINDINGS: None. IMPRESSION: No significant interval change compared to the prior examination(s).
--- NOTE | 2017-03-06 13:47 | PCM.SURG1 ---
Surgeon's Initial Post Op Note - Surgeon's Notes Surgeon: Dr Espinoza Mandrel Cleaner: Dr Dickens PGY2, Dr Bonilla PGY2 Type of Anesthesia: None Pre-Operative Diagnosis: clogged thoracostomy tubing left chest Operative Findings: as above Post-Operative Diagnosis: as above Operation Performed: thrombectomy of thoracostomy tube x 2. The patient was prepped with betadine and drapped in a sterile fashion. The chest tubes were clamped and disconnected. A 6 togolese zeinab catheter was inserted 20 centimeters and inflated with 2cc of water and retracted. This was done no less than 5 times per chest tube. Large thromboses were evacuated. The patient handled the procedure well without any complaints. Specimen/Specimens Removed: none Estimated Blood Loss: EBL {In ML}: 5 Blood Products Given: N/A Drains Used: Chest Tubes Post-Op Condition: Good Date of Surgery/Procedure: 03/06/17 Time of Surgery/Procedure: 13:47
[2017-03-06] MEDS: Cefepime 1 GM in Sodium Chloride 0.9% 100 ML IVPB SCH (15:30)
[2017-03-07] MEDS ORDERED: Cefepime (Maxipime) 1 g Inj ONE (09:00)
[2017-03-07] MEDS ORDERED: Oxycodone/Acetaminophen 5/325 mg Tab ONE (09:00)
--- NOTE | 2017-03-07 09:43 | RAD ---
PROCEDURE: CHEST RADIOGRAPH, 1 VIEW HISTORY: comparison COMPARISON: 03/06/2017 FINDINGS: LUNGS: No definite infiltrate. PLEURA: Persistent left apical opacity consistent with pleural fluid collection, loculated, as demonstrated on CT examination of 03/05/2017. Two left apical chest tubes unchanged in position. Small loculated pneumothorax at left base, unchanged. CARDIOVASCULAR: Normal. OSSEOUS STRUCTURES: No significant abnormalities. VISUALIZED UPPER ABDOMEN: Normal. OTHER FINDINGS: None. IMPRESSION: No interval change. Left apical opacity consistent with known pleural fluid collection. Two left apical chest tubes. Small loculated pneumothorax left base.
--- NOTE | 2017-03-07 19:26 | PCM.SURG1 ---
Surgeon's Initial Post Op Note - Surgeon's Notes Surgeon: Dr. Espinoza Studio Technician Video Operator: Dr. Seo, Dr. Dickens Type of Anesthesia: None Pre-Operative Diagnosis: Thrombosed Chest tube Operative Findings: No thromboses evacuated Post-Operative Diagnosis: Patent Chest tube Operation Performed: Chest tube embolectomy Specimen/Specimens Removed: none Estimated Blood Loss: EBL {In ML}: 0 Drains Used: No Drains Post-Op Condition: Good Date of Surgery/Procedure: 03/07/17 Time of Surgery/Procedure: 15:00
[2017-03-08] MEDS: Cefepime 1 GM in Sodium Chloride 0.9% 100 ML IVPB SCH ×4 (00:40→16:13)
[2017-03-08 05:06] LABS: HEMATOCRIT 30.5 % (35.0-51.0); MEAN CELL VOLUME 88.4 fl (80.0-94.0); MEAN CORPUSCULAR HEMOGLOBIN 30.2 pg (27.0-31.0); MEAN CORPUSCULAR HGB CONC 34.1 g/dL (33.0-37.0); RED CELL DISTRIBUTION WIDTH 12.3 % (11.5-14.5)
[2017-03-08 05:18] LABS: BLOOD UREA NITROGEN 15 mg/dl (9-20); CALCIUM 9.4 mg/dL (8.4-10.2); CARBON DIOXIDE 28 mmol/L (22-30); CHLORIDE 102 mmol/L (98-107); GFR AFRICAN-AMERICAN > 60; GLUCOSE,RANDOM 99 mg/dL (75-110); POTASSIUM 4.3 MMOL/L (3.6-5.0); SODIUM 141 mmol/l (132-148)
--- NOTE | 2017-03-08 07:20 | CP.PCM.PN ---
Subjective - Date & Time of Evaluation Date of Evaluation: 03/08/17 Time of Evaluation: 07:15 - Subjective Subjective: Surgery Progress note for Dr. Espinoza This 21M was seen and examined this Am at bedside. He reports no acute events overnight. Posterior chest tube put out 100cc of serosanguinous fluid overnight. Dressings clean dry and intact. Patient did not ambulate overnight however he did get out of bed and has no complaints. Objective - Vital Signs/Intake and Output Vital Signs (last 24 hours): Temp Pulse Resp BP Pulse Ox 98.6 F 83 12 107/57 L 97 03/08/17 00:00 03/08/17 06:00 03/08/17 06:00 03/08/17 00:00 03/08/17 06:00 Intake and Output: 03/08/17 03/08/17 06:59 18:59 Output Total 1260 Balance -1260 - Medications Medications: Current Medications Acetaminophen (Tylenol 325mg Tab) 650 mg PO Q6 PRN PRN Reason: Fever >100.4 F Last Admin: 03/02/17 01:27 Dose: 650 mg Diphenhydramine HCl (Benadryl) 50 mg IVP Q6 PRN PRN Reason: Itching / Pruritus Ferrous Sulfate (Feosol) 325 mg PO DAILY [facility] Last Admin: 03/06/17 10:01 Dose: 325 mg Gabapentin (Neurontin) 300 mg PO TID [facility] Last Admin: 03/06/17 17:30 Dose: 300 mg Cefepime HCl 1 gm/ Sodium (Chloride) 100 mls @ 100 mls/hr IVPB Q8 [facility] Last Admin: 03/08/17 00:40 Dose: 100 mls/hr Ketorolac Tromethamine (Toradol) 30 mg IVP Q6 PRN PRN Reason: Pain, moderate (4-7) Stop: 03/08/17 13:19 Last Admin: 03/05/17 22:34 Dose: 30 mg Ondansetron HCl (Zofran Inj) 4 mg IVP Q6 PRN PRN Reason: Nausea/Vomiting Oxycodone/Acetaminophen (Percocet 5/325 Mg Tab) 1 tab PO Q6 PRN PRN Reason: Pain, moderate (4-7) Stop: 03/09/17 09:03 Oxycodone/Acetaminophen (Percocet 5/325 Mg Tab) 2 tab PO Q6 PRN PRN Reason: Pain, severe (8-10) Stop: 03/09/17 09:03 - Labs Labs: 03/08/17 04:25 03/08/17 04:25 PT 10.9 SECONDS (9.6-11.2) 02/26/17 10:30 INR 1.05 (0.92-1.08) 02/26/17 10:30 APTT 27.8 SECONDS (23.3-32.5) 02/18/17 18:25 - Constitutional Appears: Non-toxic, No Acute Distress - Head Exam Head Exam: ATRAUMATIC, NORMOCEPHALIC - Eye Exam Eye Exam: EOMI, Normal appearance - ENT Exam ENT Exam: Mucous Membranes Moist - Respiratory Exam Respiratory Exam: NORMAL BREATHING PATTERN - Cardiovascular Exam Cardiovascular Exam: REGULAR RHYTHM - GI/Abdominal Exam GI & Abdominal Exam: Soft. absent: Firm, Guarding, Rigid, Tenderness - Neurological Exam Neurological Exam: Alert, Awake - Psychiatric Exam Psychiatric exam: Normal Affect, Normal Mood - Skin Skin Exam: Dry, Intact Assessment and Plan - Assessment and Plan (Free Text) Assessment: This is a 21M with no PMH who presented with a spontaneous pneumothorax. He is POD#8 S/P vats with apical lung wedge resection and apical plaurectomy, with anterior and posterior chest tube placement. Vital signs stable, Labds WNL Continue chest tubes to suction. Ambulate as tolerated Regular diet Daily Chest Xray Will discuss with Dr. Alexis Seo PGY-1
--- NOTE | 2017-03-08 10:14 | RAD ---
HISTORY: f/u PTX COMPARISON: Comparison chest 03/08/2017 FINDINGS: LUNGS: Re- demonstrated are 2 in situ left-sided chest. Persistent opacification left mid to upper lung field with what appears represent left basilar atelectasis. There persistent pneumothorax obvious in the left lung base. Left-sided effusion not well seen. PLEURA: No significant pleural effusion identified, no pneumothorax apparent. CARDIOVASCULAR: Normal. OSSEOUS STRUCTURES: No significant abnormalities. VISUALIZED UPPER ABDOMEN: Normal. OTHER FINDINGS: None. IMPRESSION: re- demonstrated are 2 in situ left-sided chest tubes. Persistent left sided pneumothorax obvious in the left lung base. Persistent opacification left upper/ mid lung field. . Suspect mild left basilar atelectasis. Left-sided effusion not well seen.
--- NOTE | 2017-03-08 10:41 | CP.CCUPN ---
<Lissy Danielle - Last Filed: 03/08/17 17:12> CCU Subjective - Physician Review Subjective (Free Text): 03/08/17 10:41 Patient seen and examined at bedside with attending during ICU rounds. He has been getting OOB to chair and has been walking with PT assistance. Patient states his pain has been well controlled and he denies any SOB. He remains afebrile. No drainage present from anterior chest tube and posterior tube has drained approximatley 100cc over the last 24 hours. Bedside declotting of anterior tube was performed yesterday by surgery with minimal clot removal. CCU Objective - Vital Signs / Intake & Output Vital Signs (Last 4 hours): Vital Signs Temp Pulse Resp BP Pulse Ox 03/08/17 08:00 98.7 F 82 14 124/67 97 Intake and Output (Last 8hrs): Intake & Output 03/07/17 03/08/17 03/08/17 22:59 06:59 14:59 Output Total 1260 Balance -1260 Output: Chest Tube Drainage 10 Left Anterior Chest 0 Left Posterior Chest 10 Urine 1250 Urine, Voided 1250 - Physical Exam Head: Positive for: Atraumatic, Normocephalic Pupils: Positive for: PERRL Extroacular Muscles: Positive for: EOMI Conjunctiva: Positive for: Normal Mouth: Positive for: Moist Mucous Membranes Respiratory/Chest: Positive for: Tender to Palpation, Other (B/L air entry present with decreased sounds on left compared to right. Chest wall expansion greater on right compared to left. Left sided anterior/posterior chest tubes present. A single skin bulla present with no signs of infection.). Negative for : Respiratory Distress, Wheezes, Retracting, Rhonchi Cardiovascular: Positive for: Regular Rate and Rhythm, Normal S1, S2, Peripheal Pulses Present. Negative for: Murmurs Abdomen: Positive for: Normal Bowel Sounds. Negative for: Tenderness, Distention, Guarding Upper Extremity: Positive for: Normal Inspection, Capillary Refill < 2s Lower Extremity: Positive for: Normal Inspection. Negative for: Edema, CALF TENDERNESS Neurological: Positive for: Speech Normal Psychiatric: Positive for: Alert, Oriented x 3 - Medications Active Medications: Active Medications Generic Name Dose Route Start Last Admin Trade Name Freq PRN Reason Stop Dose Admin Acetaminophen 650 mg 02/24/17 19:47 03/02/17 01:27 Tylenol 325mg Tab PO 650 mg Q6 PRN Administration Fever >100.4 F Diphenhydramine HCl 50 mg 02/28/17 13:45 Benadryl IVP Q6 PRN Itching / Pruritus Ferrous Sulfate 325 mg 03/06/17 09:00 03/08/17 08:54 Feosol PO 325 mg DAILY [facility] Administration Gabapentin 300 mg 03/06/17 13:00 03/08/17 08:53 Neurontin PO 300 mg TID [facility] Administration Cefepime HCl 1 gm/ Sodium 100 mls @ 100 mls/hr 03/06/17 14:17 03/08/17 08:54 Chloride IVPB 100 mls/hr Q8 [facility] Administration Ketorolac Tromethamine 30 mg 03/05/17 13:18 03/05/17 22:34 Toradol IVP 03/08/17 13:19 30 mg Q6 PRN Administration Pain, moderate (4-7) Ondansetron HCl 4 mg 02/28/17 13:45 Zofran Inj IVP Q6 PRN Nausea/Vomiting Oxycodone/Acetaminophen 1 tab 03/06/17 09:02 Percocet 5/325 Mg Tab PO 03/09/17 09:03 Q6 PRN Pain, moderate (4-7) Oxycodone/Acetaminophen 2 tab 03/06/17 09:02 Percocet 5/325 Mg Tab PO 03/09/17 09:03 Q6 PRN Pain, severe (8-10) - Patient Studies Lab Studies: Microbiology Studies 03/05/17 21:02 Gram Stain - Final Pleural Fluid Body Fluid Culture - Preliminary NO GROWTH AFTER 24 HOURS Lab Studies 03/08/17 03/08/17 Range/Units 04:25 04:25 WBC 8.0 (4.8-10.8) K/uL RBC 3.45 L (4.40-5.90) Mil/uL Hgb 10.4 L (12.0-18.0) g/dL Hct 30.5 L (35.0-51.0) % MCV 88.4 (80.0-94.0) fl MCH 30.2 (27.0-31.0) pg MCHC 34.1 (33.0-37.0) g/dL RDW 12.3 (11.5-14.5) % Plt Count 431 H (130-400) K/uL Sodium 141 (132-148) mmol/l Potassium 4.3 (3.6-5.0) MMOL/L Chloride 102 (98-107) mmol/L Carbon Dioxide 28 (22-30) mmol/L Anion Gap 15 (10-20) BUN 15 (9-20) mg/dl Creatinine 0.8 (0.8-1.5) mg/dL Est GFR ( Amer) > 60 Est GFR (Non-Af Amer) > 60 Random Glucose 99 (75-110) mg/dL Calcium 9.4 (8.4-10.2) mg/dL Laboratory Results - last 24 hr 03/08/17 03/08/17 04:25 04:25 WBC 8.0 RBC 3.45 L Hgb 10.4 L Hct 30.5 L MCV 88.4 MCH 30.2 MCHC 34.1 RDW 12.3 Plt Count 431 H Sodium 141 Potassium 4.3 Chloride 102 Carbon Dioxide 28 Anion Gap 15 BUN 15 Creatinine 0.8 Est GFR ( Amer) > 60 Est GFR (Non-Af Amer) > 60 Random Glucose 99 Calcium 9.4 Review of Systems - Constitutional Constitutional: absent: Fever, Chills - Cardiovascular Cardiovascular: absent: Dyspnea, Leg Edema, Palpitations - Respiratory Respiratory: Pain with Coughing (Left chest wall pain). absent: Cough, Hemoptysis - Gastrointestinal Gastrointestinal: absent: Abdominal Pain, Diarrhea, Nausea, Vomiting Critical Care Progress Note - Nutrition Nutrition: Nutrition Category Date Time Status Regular Diet [DIET] Diets 03/03/17 Dinner Active Assessment/Plan - Assessment and Plan (Free Text) Assessment: 21 y/o M with unremarkable PMH referred to ED on 02/18/17 from a nearby clinic with acute onset SOB and chest pain secondary to a left sided spontaneous pneumothorax which was later determined to be secondary to ruptured pleural bleb. Initially, a chest tube was placed and symptoms improved however patient required talc pleurodesis on 02/21/17 due to persistent residual apical pneumothorax. Despite treatment, a persistent air leak was present and patient ultimately required a thoracotomy with left apical lung resection on 02/28/17. Patient is currently POD#8. Plan: Spontaneous Pneumothorax -Etiology likely secondary to ruptured pleural bleb -S/p thoracotomy with left apical lung resection with left sided anterior and posterior chest tube placement on 02/28/17, POD #8 -CT chest from 03/03 suggested left sided loculated hemothroaces -Repeat CT chest on 03/05 confirmed two left-sided chest tubes which appear occluded by debris and a left sided opacification consistent effusion/ hemorrhage. -Patient had bedside removal of clot from chest tube by CTS yesterday and again this morning with resultant flow from chest tube -Chest tube drain output over the last 12hrs: (Anterior: Minimal output, Posterior: 100cc) -CXR today demonstrates interval improvement compared to prior study -Physical therapy. Encourage out of bed. -Continue incentive spirometry -Daily Jey catheter chest tube thrombectomy as needed and daily CXR -Pain control: Percocet 5/325mg 1 tab Q4h PRN moderate pain, 2 tabs Q4h PRN for severe pain Anemia -Secondary to hemothorax, surgical blood loss -H/H improvin.6/28.0 > 10.4/30.5 Left basilar atelectasis -Patient currently afebrile, WBC: 8.0 -Completed 7 days of azithromycin and ceftriaxone for possible pneumonia (02/25-) Diet -Tolerating regular diet DVT Prophylaxis -Lovenox held due to possible hemothorax -SCDs <Vicente Tavarez - Last Filed: 03/08/17 17:54> CCU Subjective - Physician Review Subjective (Free Text): Attestation: Patient seen and examined at the bedside with Resident Dr. Tristen Danielle; and I agree with his outline of plans and management documented as discussed on AM rounds reflecting my review of all applicable clinical data, and participation in the care of the patient throughout the day in ICU; today, March 08, 2017.
--- NOTE | 2017-03-08 10:50 | CT ---
PROCEDURE: CT Chest without contrast HISTORY: Left hemothorax COMPARISON: 03/05/2017 TECHNIQUE: Contiguous axial images were obtained through the chest without intravenous contrast enhancement. Sagittal and coronal reconstructions were performed. Radiation dose (DLP): 448.53 mGy-cm. This CT exam was performed using one or more of the following dose reduction techniques: Automated exposure control, adjustment of the mA and/or kV according to patient size, and/or use of iterative reconstruction technique. FINDINGS: LUNGS: There is a left hydro pneumothorax. There are 2 left chest tubes, unchanged in position from prior CT. There is a persistent left apical fluid collection. This collection is of heterogeneous attenuation consistent with history of hemo thorax. A portion of this collection anteriorly appears slightly diminished in size compared to the prior examination. A post oral lateral apical portion of the collection appears slightly decreased in size from the prior examination. There are sutures seen in the left apex. Extension MEDIASTINUM: Unremarkable thoracic aorta. No aneurysm. Normal sized heart. Main pulmonary artery unremarkable. No vascular congestion. No lymphadenopathy. Soft tissue density in the anterior mediastinum consistent with residual thymic tissue in this young man. PLEURA: As above. High attenuation along the posterior pleural surface consistent with prior pleurodesis. BONES: No fracture. No destructive lesion. UPPER ABDOMEN: Grossly unremarkable. OTHER FINDINGS: Trace subcutaneous emphysema over left lateral chest wall. IMPRESSION: Slight decrease in size of left hydro pneumothorax/ hemothorax as compared to prior 03/05/2017. Two left chest tubes unchanged in position, extending to left apex. Surgical sutures left apex. Evidence of prior left pleurodesis.
[2017-03-08 14:41] LABS: HEMATOCRIT 29.3 % (35.0-51.0); MEAN CELL VOLUME 88.6 fl (80.0-94.0); MEAN CORPUSCULAR HEMOGLOBIN 29.5 pg (27.0-31.0); MEAN CORPUSCULAR HGB CONC 33.3 g/dL (33.0-37.0); RED CELL DISTRIBUTION WIDTH 12.1 % (11.5-14.5); WHITE BLOOD COUNT 8.4 K/uL (4.8-10.8)
--- NOTE | 2017-03-08 16:07 | CP.PCM.PN ---
Subjective - Date & Time of Evaluation Date of Evaluation: 03/08/17 Time of Evaluation: 16:04 - Subjective Subjective: Persistent retained apical hemothorax, left chest. IR consulted and instilled TPA via cath after fragmentation of clots with cath. The pat tolerated procedure well. Objective - Vital Signs/Intake and Output Vital Signs (last 24 hours): Temp Pulse Resp BP Pulse Ox 98.4 F 100 H 18 116/48 L 98 03/08/17 15:20 03/08/17 15:20 03/08/17 15:20 03/08/17 15:20 03/08/17 15:20 Intake and Output: 03/08/17 03/08/17 06:59 18:59 Output Total 1260 650 Balance -1260 -650 - Medications Medications: Current Medications Acetaminophen (Tylenol 325mg Tab) 650 mg PO Q6 PRN PRN Reason: Fever >100.4 F Last Admin: 03/02/17 01:27 Dose: 650 mg Diphenhydramine HCl (Benadryl) 50 mg IVP Q6 PRN PRN Reason: Itching / Pruritus Ferrous Sulfate (Feosol) 325 mg PO DAILY [facility] Last Admin: 03/08/17 08:54 Dose: 325 mg Gabapentin (Neurontin) 300 mg PO TID [facility] Last Admin: 03/08/17 08:53 Dose: 300 mg Cefepime HCl 1 gm/ Sodium (Chloride) 100 mls @ 100 mls/hr IVPB Q8 [facility] Last Admin: 03/08/17 08:54 Dose: 100 mls/hr Ondansetron HCl (Zofran Inj) 4 mg IVP Q6 PRN PRN Reason: Nausea/Vomiting Oxycodone/Acetaminophen (Percocet 5/325 Mg Tab) 1 tab PO Q6 PRN PRN Reason: Pain, moderate (4-7) Stop: 03/09/17 09:03 Oxycodone/Acetaminophen (Percocet 5/325 Mg Tab) 2 tab PO Q6 PRN PRN Reason: Pain, severe (8-10) Stop: 03/09/17 09:03 - Labs Labs: 03/08/17 04:25 03/08/17 04:25 PT 10.9 SECONDS (9.6-11.2) 02/26/17 10:30 INR 1.05 (0.92-1.08) 02/26/17 10:30 APTT 27.8 SECONDS (23.3-32.5) 02/18/17 18:25
--- NOTE | 2017-03-08 17:51 | CP.PCM.PN ---
Subjective - Date & Time of Evaluation Date of Evaluation: 03/08/17 Time of Evaluation: 17:50 - Subjective Subjective: Hospitalist Progress Note (Patient was seen and examined at 5:50 PM 03/08/17 ICU Bed 431-1) 21 year old male who was found to have left pneumothorax that required chest tube insertion. He underwent talc pleurodesis on 02/21/17. He underwent left sided bleb resection on 02/28/17. CT Chest 03/07/17 showed slight decrease in size of left hydro pneumothorax/hemothorax compared to 03/05/17. He underwent TPA infusion via catheter into left pleural for the persistent hemothorax. ROS: Some tightness when he tries to take in a deep breath Some soreness at the chest tube insertion sites NO SOB/Cough, NO dyshpagia/odynophagia, NO abdominal pain, NO n/v/d/c, NO burning/pain with urination, NO lightheadedness/dizziness, NO new changes in vision/eye pain, NO new changes in hearing/ear pain, NO paresthesias, NO edema Exam: HEENT: NCA, EOMI, PERRLA, NO pharyngeal erythema/exudate, NO thyromegaly, NO lymphadenopathy Cardio: NS1 and NS2, NO M/R/G Respiratory: CTA B/L NO R/R?W GI: BSx4, Soft, NT, NO HSM, NO guarding/rebound tenderness, ND Ext: NO Edema, Capillary Refill is 2 seconds, Pulses are strong and equal Neuro: CN II throug XII are grossly intact Assessment and Plan: 1). Left Sided Pneumothorax/Pleural Bleb/Chest Tubes Surgery Dr. Espinoza IR Dr. Tristen Krause Toradol 30 mg IV Q6H PRN Moderate Pain Percocet 5/325 mg PO 1 tab PO Q6H Moderate Pain Percocet 5/325 mg PO 2 tab PO Q6H Severe Pain Zofran 4 mg IV Q6H PRN N/V Gabapentin 300 mg PO TID Tylenol 650 mg PO Q6H PRN F>100.4 F/U Chest X Ray Objective - Vital Signs/Intake and Output Vital Signs (last 24 hours): Temp Pulse Resp BP Pulse Ox 98.4 F 100 H 18 116/48 L 98 03/08/17 15:20 03/08/17 15:20 03/08/17 15:20 03/08/17 15:20 03/08/17 15:20 Intake and Output: 03/08/17 03/08/17 06:59 18:59 Output Total 1259 1969 Balance -126 - Medications Medications: Current Medications Acetaminophen (Tylenol 325mg Tab) 650 mg PO Q6 PRN PRN Reason: Fever >100.4 F Last Admin: 03/02/17 01:27 Dose: 650 mg Diphenhydramine HCl (Benadryl) 50 mg IVP Q6 PRN PRN Reason: Itching / Pruritus Ferrous Sulfate (Feosol) 325 mg PO DAILY [facility] Last Admin: 03/08/17 08:54 Dose: 325 mg Gabapentin (Neurontin) 300 mg PO TID [facility] Last Admin: 03/08/17 16:10 Dose: 300 mg Cefepime HCl 1 gm/ Sodium (Chloride) 100 mls @ 100 mls/hr IVPB Q8 [facility] Last Admin: 03/08/17 16:13 Dose: 100 mls/hr Ketorolac Tromethamine (Toradol) 30 mg IVP Q6 PRN PRN Reason: Pain, moderate (4-7) Ondansetron HCl (Zofran Inj) 4 mg IVP Q6 PRN PRN Reason: Nausea/Vomiting Oxycodone/Acetaminophen (Percocet 5/325 Mg Tab) 1 tab PO Q6 PRN PRN Reason: Pain, moderate (4-7) Stop: 03/09/17 09:03 Oxycodone/Acetaminophen (Percocet 5/325 Mg Tab) 2 tab PO Q6 PRN PRN Reason: Pain, severe (8-10) Stop: 03/09/17 09:03 - Labs Labs: 03/08/17 04:25 03/08/17 04:25 PT 10.9 SECONDS (9.6-11.2) 02/26/17 10:30 INR 1.05 (0.92-1.08) 02/26/17 10:30 APTT 27.8 SECONDS (23.3-32.5) 02/18/17 18:25
[2017-03-09] MEDS: Cefepime 1 GM in Sodium Chloride 0.9% 100 ML IVPB SCH ×3 (00:53→16:16)
--- NOTE | 2017-03-09 06:42 | CP.PCM.PN ---
Subjective - Date & Time of Evaluation Date of Evaluation: 03/09/17 Time of Evaluation: 06:40 - Subjective Subjective: Surgery Progress Note for Dr. Espinoza This 21M was seen and examined this Am at bedside. Nurse reports no acute events overnight. Pt had tpa thrombolysis of his hemothorax yesteray. The patients chest tubes dressings are clean dry and intact the anterior chest tube put out 62cc overnight and the posterior chest tube put out 140cc overnight. Patient is laying comfortably in bed he has no acute complaints overnight. Objective - Vital Signs/Intake and Output Vital Signs (last 24 hours): Temp Pulse Resp BP Pulse Ox 98.6 F 80 20 133/54 L 98 03/09/17 00:00 03/09/17 02:00 03/09/17 02:00 03/09/17 02:00 03/09/17 02:00 Intake and Output: 03/08/17 03/09/17 18:59 06:59 Intake Total 200 220 Output Total 1990 809 Balance -1790 -589 - Medications Medications: Current Medications Acetaminophen (Tylenol 325mg Tab) 650 mg PO Q6 PRN PRN Reason: Fever >100.4 F Last Admin: 03/02/17 01:27 Dose: 650 mg Diphenhydramine HCl (Benadryl) 50 mg IVP Q6 PRN PRN Reason: Itching / Pruritus Ferrous Sulfate (Feosol) 325 mg PO DAILY [facility] Last Admin: 03/08/17 08:54 Dose: 325 mg Gabapentin (Neurontin) 300 mg PO TID [facility] Last Admin: 03/08/17 16:10 Dose: 300 mg Cefepime HCl 1 gm/ Sodium (Chloride) 100 mls @ 100 mls/hr IVPB Q8 [facility] Last Admin: 03/09/17 00:53 Dose: 100 mls/hr Ketorolac Tromethamine (Toradol) 30 mg IVP Q6 PRN PRN Reason: Pain, moderate (4-7) Ondansetron HCl (Zofran Inj) 4 mg IVP Q6 PRN PRN Reason: Nausea/Vomiting Oxycodone/Acetaminophen (Percocet 5/325 Mg Tab) 1 tab PO Q6 PRN PRN Reason: Pain, moderate (4-7) Stop: 03/09/17 09:03 Oxycodone/Acetaminophen (Percocet 5/325 Mg Tab) 2 tab PO Q6 PRN PRN Reason: Pain, severe (8-10) Stop: 03/09/17 09:03 - Labs Labs: 03/08/17 04:25 03/08/17 04:25 PT 10.9 SECONDS (9.6-11.2) 02/26/17 10:30 INR 1.05 (0.92-1.08) 02/26/17 10:30 APTT 27.8 SECONDS (23.3-32.5) 02/18/17 18:25 - Constitutional Appears: Non-toxic, No Acute Distress - Head Exam Head Exam: ATRAUMATIC, NORMOCEPHALIC - Eye Exam Eye Exam: EOMI, Normal appearance - ENT Exam ENT Exam: Mucous Membranes Moist - Respiratory Exam Respiratory Exam: NORMAL BREATHING PATTERN, chest tube in place on wall suction , anterior 62cc posterior 140cc overnight - Cardiovascular Exam Cardiovascular Exam: REGULAR RHYTHM - GI/Abdominal Exam GI & Abdominal Exam: Soft. absent: Firm, Guarding, Rigid, Tenderness - Neurological Exam Neurological Exam: Alert, Awake - Psychiatric Exam Psychiatric exam: Normal Affect, Normal Mood - Skin Skin Exam: Dry, Intact Assessment and Plan - Assessment and Plan (Free Text) Assessment: This is a 21M with no PMH who presented with a spontaneous pneumothorax. He is POD#8 S/P vats with apical lung wedge resection and apical plaurectomy, with anterior and posterior chest tube placement. Vital signs stable Continue chest tubes to suction. Ambulate as tolerated Regular diet Will followup labs and chest xray Will discuss with Dr. Alexis Seo PGY-1
--- NOTE | 2017-03-09 10:42 | RAD ---
HISTORY: s/p TPA to chest tubes COMPARISON: Chest x-ray performed 03/08/17 TECHNIQUE: Chest, one view. FINDINGS: Two left-sided chest tubes. LUNGS: Persistent opacification within the left upper lobe. Small left hydropneumothorax. Please note that chest x-ray has limited sensitivity for the detection of pulmonary masses. CARDIOVASCULAR: Heart size appears within normal limits. OSSEOUS STRUCTURES: No acute osseous abnormality identified. VISUALIZED UPPER ABDOMEN: Unremarkable. OTHER FINDINGS: None. IMPRESSION: Two left-sided chest tubes. Persistent opacification within the left upper lobe. Small left hydropneumothorax.
--- NOTE | 2017-03-09 10:46 | RAD ---
HISTORY: comparison COMPARISON: Chest x-ray performed 03/08/17 at 1717 hours TECHNIQUE: Chest, one view. FINDINGS: Two left-sided chest tubes. LUNGS: Persistent left upper lobe opacity, decreased in extent. Trace left hydropneumothorax. Right apical pleural thickening. Please note that chest x-ray has limited sensitivity for the detection of pulmonary masses. CARDIOVASCULAR: Heart size appears within normal limits. OSSEOUS STRUCTURES: No acute osseous abnormality identified. VISUALIZED UPPER ABDOMEN: Unremarkable. OTHER FINDINGS: None. IMPRESSION: Two left-sided chest tubes. Persistent left upper lobe opacity, decreased in extent. Trace left hydropneumothorax.
--- NOTE | 2017-03-09 10:51 | RAD ---
HISTORY: chest tubes, pneumothorax COMPARISON: Multiple prior chest x-rays, the most recent chest x-ray performed 03/09/17 at 7:40 a.m., chest CT without contrast performed 03/05/17 TECHNIQUE: Chest, one view. FINDINGS: Two left-sided chest tubes. LUNGS: Persistent left upper lobe opacity. Tiny left hydro pneumothorax. Right apical pleural thickening. Please note that chest x-ray has limited sensitivity for the detection of pulmonary masses. CARDIOVASCULAR: Heart size appears within normal limits. OSSEOUS STRUCTURES: No acute osseous abnormality is detected. VISUALIZED UPPER ABDOMEN: Unremarkable. OTHER FINDINGS: None. IMPRESSION: Persistent left upper lobe opacity. Tiny left hydropneumothorax.
--- NOTE | 2017-03-09 12:56 | PN ---
DATE: 03/09/2017 LOCATION: The patient in ICU, bed 431. TIME SPENT: 35 minutes. The patient is seen and evaluated at the bedside. Past medical, surgical, social history review. Ev ents overnight uneventful. A 21-year-old male admitted with spontaneous pneumothorax, status post th oracotomy with left apical lung resection with left anterior and posterior chest tube placement on 02/18/17, postop day 8. CT chest from 03/03 suggested a left-sided loculated hemothorax. Repeat CT on confirmed 2 left-sided chest tubes that appear occluded by ____ and left-sided opacification consi stent with effusions/hemorrhage, status post bedside removal of blood clot from chest tube by CT surg florinda 2 days ago. Chest tube drainage has markedly diminished since then. Currently, left anterior ch est 15 mL, left posterior chest 5 mL. The patient remains alert, awake, follows commands appropriate . Denies shortness of breath, discomfort from having tubes on left side of the chest. PHYSICAL EXAMINATION: VITAL SIGNS: Temperature 98.6, heart rate 93, respiratory rate 21, blood pressure 115/61, pulse oxim etry 99% on room air. Intake 3070, output 950, negative balance 580. HEART: Rhythm regular. S1, S2 normal. ABDOMEN: Bowel sounds present, soft. CHEST: Chest tube in place to wall suction. SKIN: Intact. LABORATORY DATA: Two left-sided chest tubes, persistent left upper lobe opacity decreased in extent, trace left hydropneumothorax. WBC 8, hemoglobin 10.4, hematocrit 30.5, platelet count 431. PT 10.9 , INR 1.05. SMA-7: Sodium 141, potassium 4.2, chloride 102, CO2 of 28, blood urea nitrogen 15, crea tinine 0.8. CURRENT MEDICATIONS: Tylenol 650 q. 6 p.r.n., cefepime 1 gram IV q. 8, Benadryl 50 mg IV q. 6 p.r.n ., ferrous sulfate 325 mg p.o. daily, gabapentin 300 mg p.o. 3 times daily, Toradol 30 mg IV q. 6 p.r .n., Zofran 4 mg IV q. 6 p.r.n. IMPRESSION: Spontaneous pneumothorax, status post thoracostomy, left apical lung resection with resi dual pneumothorax on the left, anemia secondary to the surgical blood loss. Hemoglobin currently sta ble. Left bibasilar atelectasis. Encourage incentive spirometry. Continue ambulate as tolerated, r egular diet. Yao Schultz MD cc: 170 TT: 03/09/2017 12:55:57 Confirmation # [id number] Dictation # [id number] tn
[2017-03-09 14:14] LABS: BASO # 0.1 K/uL (0.0-0.2); BASO % 1.3 % (0.0-2.0); EOS # 0.7 K/uL (0.0-0.7); EOS % 7.9 % (0.0-4.0); HEMATOCRIT 33.5 % (35.0-51.0); LYMPH # 1.8 K/uL (1.0-4.3); MEAN CELL VOLUME 88.1 fl (80.0-94.0); MEAN CORPUSCULAR HEMOGLOBIN 29.8 pg (27.0-31.0); MEAN CORPUSCULAR HGB CONC 33.8 g/dL (33.0-37.0); MEAN PLATELET VOLUME 6.8 fl (7.2-11.7); MONO # 0.4 K/uL (0.0-0.8); MONO % 4.7 % (0.0-10.0); NEUT # 5.3 K/uL (1.8-7.0); NEUT % 64.1 % (50.0-75.0); RED CELL DISTRIBUTION WIDTH 12.5 % (11.5-14.5); WHITE BLOOD COUNT 8.2 K/uL (4.8-10.8)
[2017-03-09 14:41] LABS: BLOOD UREA NITROGEN 16 mg/dl (9-20); CHLORIDE 103 mmol/L (98-107); GFR AFRICAN-AMERICAN > 60; GLUCOSE,RANDOM 100 mg/dL (75-110); POTASSIUM 4.2 MMOL/L (3.6-5.0); SODIUM 141 mmol/l (132-148)
[2017-03-09 14:42] LABS: CARBON DIOXIDE 29 mmol/L (22-30)
--- NOTE | 2017-03-09 17:33 | CP.PCM.PN ---
Subjective - Date & Time of Evaluation Date of Evaluation: 03/09/17 Time of Evaluation: 17:30 - Subjective Subjective: Hospitalist Progress Note (Patient was seen and examined at 5:30 PM 03/08/17 ICU Bed 431-1) 21 year old male who was found to have left pneumothorax that required chest tube insertion. He underwent talc pleurodesis on 02/21/17. He underwent left sided bleb resection on 02/28/17. CT Chest 03/07/17 showed slight decrease in size of left hydro pneumothorax/hemothorax compared to 03/05/17. He underwent TPA infusion via catheter into left pleural for the persistent hemothorax on . ROS: Some tightness when he tries to take in a deep breath Some soreness at the chest tube insertion sites but improving NO SOB/Cough, NO dyshpagia/odynophagia, NO abdominal pain, NO n/v/d/c (NO black/ bloody stools), NO burning/pain with urination, NO lightheadedness/dizziness, NO new changes in vision/eye pain, NO new changes in hearing/ear pain, NO paresthesias, NO edema Exam: HEENT: NCA, EOMI, PERRLA, NO pharyngeal erythema/exudate, NO thyromegaly, NO lymphadenopathy Cardio: NS1 and NS2, NO M/R/G Respiratory: CTA B/L NO R/R?W GI: BSx4, Soft, NT, NO HSM, NO guarding/rebound tenderness, ND Ext: NO Edema, Capillary Refill is 2 seconds, Pulses are strong and equal Neuro: CN II throug XII are grossly intact Assessment and Plan: 1). Left Sided Pneumothorax/Pleural Bleb/Chest Tubes Chest X Ray 03/09/17 showed left sided chest tubes, persistent CARINE opacity decreased in extent with trace left hydroneumothorax HgB/Hct are stable Surgery Dr. Alexis rKause Ceftriaxone 1 gm IV Q24H Toradol 30 mg IV Q6H PRN Moderate Pain Zofran 4 mg IV Q6H PRN N/V Gabapentin 300 mg PO TID Tylenol 650 mg PO Q6H PRN F>100.4 Feosol 325 mg PO 1x/day Objective - Vital Signs/Intake and Output Vital Signs (last 24 hours): Temp Pulse Resp BP Pulse Ox 98.6 F 93 H 21 115/61 99 03/09/17 08:00 03/09/17 10:00 03/09/17 10:00 03/09/17 10:00 03/09/17 10:00 Intake and Output: 03/09/17 03/09/17 06:59 18:59 Intake Total 220 370 Output Total 809 950 Balance -589 -580 - Medications Medications: Current Medications Acetaminophen (Tylenol 325mg Tab) 650 mg PO Q6 PRN PRN Reason: Fever >100.4 F Last Admin: 03/02/17 01:27 Dose: 650 mg Diphenhydramine HCl (Benadryl) 50 mg IVP Q6 PRN PRN Reason: Itching / Pruritus Ferrous Sulfate (Feosol) 325 mg PO DAILY [facility] Last Admin: 03/09/17 09:43 Dose: 325 mg Gabapentin (Neurontin) 300 mg PO TID [facility] Last Admin: 03/09/17 16:15 Dose: 300 mg Cefepime HCl 1 gm/ Sodium (Chloride) 100 mls @ 100 mls/hr IVPB Q8 [facility] Last Admin: 03/09/17 16:16 Dose: 100 mls/hr Ketorolac Tromethamine (Toradol) 30 mg IVP Q6 PRN PRN Reason: Pain, moderate (4-7) Ondansetron HCl (Zofran Inj) 4 mg IVP Q6 PRN PRN Reason: Nausea/Vomiting - Labs Labs: 03/09/17 13:00 03/08/17 04:25 PT 10.9 SECONDS (9.6-11.2) 02/26/17 10:30 INR 1.05 (0.92-1.08) 02/26/17 10:30 APTT 27.8 SECONDS (23.3-32.5) 02/18/17 18:25
--- NOTE | 2017-03-09 20:58 | CP.PCM.PN ---
Subjective - Date & Time of Evaluation Date of Evaluation: 03/09/17 Time of Evaluation: 20:55 - Subjective Subjective: Pt s/e. Afebrile. vss hb-11.3 chest tubes-210cc since TPA, and 40cc so far today. No air leak.(marroon color fluid). cxr-apical dendisity decreased. a/p: continue current rx. ct of chest on Saturday. Objective - Vital Signs/Intake and Output Vital Signs (last 24 hours): Temp Pulse Resp BP Pulse Ox 98.5 F 94 H 21 120/68 98 03/09/17 16:00 03/09/17 18:00 03/09/17 18:00 03/09/17 18:00 03/09/17 18:00 Intake and Output: 03/09/17 03/10/17 18:59 06:59 Intake Total 370 Output Total 950 30 Balance -580 -30 - Medications Medications: Current Medications Acetaminophen (Tylenol 325mg Tab) 650 mg PO Q6 PRN PRN Reason: Fever >100.4 F Last Admin: 03/02/17 01:27 Dose: 650 mg Diphenhydramine HCl (Benadryl) 50 mg IVP Q6 PRN PRN Reason: Itching / Pruritus Ferrous Sulfate (Feosol) 325 mg PO DAILY [facility] Last Admin: 03/09/17 09:43 Dose: 325 mg Gabapentin (Neurontin) 300 mg PO TID [facility] Last Admin: 03/09/17 16:15 Dose: 300 mg Cefepime HCl 1 gm/ Sodium (Chloride) 100 mls @ 100 mls/hr IVPB Q8 [facility] Last Admin: 03/09/17 16:16 Dose: 100 mls/hr Ketorolac Tromethamine (Toradol) 30 mg IVP Q6 PRN PRN Reason: Pain, moderate (4-7) Ondansetron HCl (Zofran Inj) 4 mg IVP Q6 PRN PRN Reason: Nausea/Vomiting - Labs Labs: 03/09/17 13:00 03/08/17 04:25 PT 10.9 SECONDS (9.6-11.2) 02/26/17 10:30 INR 1.05 (0.92-1.08) 02/26/17 10:30 APTT 27.8 SECONDS (23.3-32.5) 02/18/17 18:25
[2017-03-10] MEDS: Cefepime 1 GM in Sodium Chloride 0.9% 100 ML IVPB SCH ×3 (00:03→18:09)
--- NOTE | 2017-03-10 02:15 | CP.PCM.PN ---
Subjective - Date & Time of Evaluation Date of Evaluation: 03/10/17 Time of Evaluation: 02:12 - Subjective Subjective: SURGERY PROGRESS NOTE FOR DR. GARCIA 21M seen and examined at bedside. Patient is resting comfortably, denies SOB or pain. Chest tube currently at 210ccPosterior and 80ccAnterior. dark red color. Currently on suction. Objective - Vital Signs/Intake and Output Vital Signs (last 24 hours): Temp Pulse Resp BP Pulse Ox 98.3 F 93 H 12 120/62 98 03/09/17 20:00 03/09/17 20:00 03/09/17 20:00 03/09/17 20:00 03/09/17 20:00 Intake and Output: 03/09/17 03/10/17 18:59 06:59 Intake Total 370 120 Output Total 950 30 Balance -580 90 - Medications Medications: Current Medications Acetaminophen (Tylenol 325mg Tab) 650 mg PO Q6 PRN PRN Reason: Fever >100.4 F Last Admin: 03/02/17 01:27 Dose: 650 mg Diphenhydramine HCl (Benadryl) 50 mg IVP Q6 PRN PRN Reason: Itching / Pruritus Ferrous Sulfate (Feosol) 325 mg PO DAILY [facility] Last Admin: 03/09/17 09:43 Dose: 325 mg Gabapentin (Neurontin) 300 mg PO TID [facility] Last Admin: 03/09/17 16:15 Dose: 300 mg Cefepime HCl 1 gm/ Sodium (Chloride) 100 mls @ 100 mls/hr IVPB Q8 [facility] Last Admin: 03/10/17 00:03 Dose: 100 mls/hr Ketorolac Tromethamine (Toradol) 30 mg IVP Q6 PRN PRN Reason: Pain, moderate (4-7) Ondansetron HCl (Zofran Inj) 4 mg IVP Q6 PRN PRN Reason: Nausea/Vomiting - Labs Labs: 03/09/17 13:00 03/08/17 04:25 PT 10.9 SECONDS (9.6-11.2) 02/26/17 10:30 INR 1.05 (0.92-1.08) 02/26/17 10:30 APTT 27.8 SECONDS (23.3-32.5) 02/18/17 18:25 - Constitutional Appears: Non-toxic, No Acute Distress - Head Exam Head Exam: ATRAUMATIC - Respiratory Exam Respiratory Exam: Clear to Ausculation Bilateral, NORMAL BREATHING PATTERN Additional comments: chest tubes in place. 210cc posterior, 80cc anterior chest tube. dressings changed. - Cardiovascular Exam Cardiovascular Exam: REGULAR RHYTHM. absent: +S1, +S2 - GI/Abdominal Exam GI & Abdominal Exam: Soft. absent: Distended, Firm, Guarding, Rigid, Tenderness , Rebound - Neurological Exam Neurological Exam: Alert, Awake Assessment and Plan - Assessment and Plan (Free Text) Assessment: 21M with spontaneous pneumothorax. He is POD#9 S/P vats with apical lung wedge resection and apical pleurectomy, with anterior and posterior chest tube placement. - Vital signs stable - Continue chest tubes to suction. - Ambulate as tolerated - Regular diet - Will followup labs and chest xray - CT chest on Saturday as per Dr. Garcia note Further recs discuss with Dr. Alexis Joe, PGY1
[2017-03-10 06:44] LABS: BASO # 0.1 K/uL (0.0-0.2); BASO % 1.4 % (0.0-2.0); EOS # 0.6 K/uL (0.0-0.7); EOS % 8.6 % (0.0-4.0); HEMATOCRIT 32.9 % (35.0-51.0); LYMPH # 1.5 K/uL (1.0-4.3); LYMPH % 21.5 % (20.0-40.0); MEAN CELL VOLUME 88.4 fl (80.0-94.0); MEAN CORPUSCULAR HEMOGLOBIN 30.1 pg (27.0-31.0); MEAN CORPUSCULAR HGB CONC 34.1 g/dL (33.0-37.0); MEAN PLATELET VOLUME 6.7 fl (7.2-11.7); MONO # 0.4 K/uL (0.0-0.8); NEUT # 4.4 K/uL (1.8-7.0); NEUT % 62.5 % (50.0-75.0); RED CELL DISTRIBUTION WIDTH 12.9 % (11.5-14.5)
--- NOTE | 2017-03-10 10:13 | RAD ---
HISTORY: comparison COMPARISON: Chest x-ray performed 03/09/17 TECHNIQUE: Chest, one view. FINDINGS: Two left-sided chest tubes. LUNGS: Left upper lobe opacity without significant interval change. Persistent small left pneumothorax. Probable trace left pleural effusion. Please note that chest x-ray has limited sensitivity for the detection of pulmonary masses. CARDIOVASCULAR: Heart size appears within normal limits. OSSEOUS STRUCTURES: No acute osseous abnormality is detected. VISUALIZED UPPER ABDOMEN: Unremarkable. OTHER FINDINGS: None. IMPRESSION: Two left-sided chest tubes.Left upper lobe opacity without significant interval change. Persistent small left pneumothorax. Probable trace left pleural effusion.
--- NOTE | 2017-03-10 13:11 | CP.PCM.PN ---
Subjective - Date & Time of Evaluation Date of Evaluation: 03/10/17 Time of Evaluation: 13:10 - Subjective Subjective: Hospitalist Progress Note (Patient was seen and examined at 1:10 PM 03/10/17 ICU Bed 431-1) 21 year old male who was found to have left pneumothorax that required chest tube insertion. He underwent talc pleurodesis on 02/21/17. He underwent left sided bleb resection on 02/28/17. CT Chest 03/07/17 showed slight decrease in size of left hydro pneumothorax/hemothorax compared to 03/05/17. He underwent TPA infusion via catheter into left pleural for the persistent hemothorax on . Chest X Ray 03/09/17 showed some decrease in size of the hemothorax. Repeat CT Chest pending for 03/11/17. ROS: Some tightness when he tries to take in a deep breath Some soreness at the chest tube insertion sites but improving NO SOB/Cough, NO dyshpagia/odynophagia, NO abdominal pain, NO n/v/d/c (NO black/ bloody stools), NO burning/pain with urination, NO lightheadedness/dizziness, NO new changes in vision/eye pain, NO new changes in hearing/ear pain, NO paresthesias, NO edema Exam: HEENT: NCA, EOMI, PERRLA, NO pharyngeal erythema/exudate, NO thyromegaly, NO lymphadenopathy Cardio: NS1 and NS2, NO M/R/G Respiratory: CTA B/L NO R/R?W GI: BSx4, Soft, NT, NO HSM, NO guarding/rebound tenderness, ND Ext: NO Edema, Capillary Refill is 2 seconds, Pulses are strong and equal Neuro: CN II throug XII are grossly intact Assessment and Plan: 1). Left Sided Pneumothorax/Pleural Bleb/Chest Tubes Chest X Ray 03/09/17 showed left sided chest tubes, persistent CARINE opacity decreased in extent with trace left hydroneumothorax. Chest X Ray 03/10/17 did NOT show any changes from 03/09/17 F/U Repeat CT Chest 03/11/17 HgB/Hct are stable Surgery Dr. Espinoza IR Dr. Tristen Krause Ceftriaxone 1 gm IV Q24H Toradol 30 mg IV Q6H PRN Moderate Pain Zofran 4 mg IV Q6H PRN N/V Gabapentin 300 mg PO TID Tylenol 650 mg PO Q6H PRN F>100.4 Feosol 325 mg PO 1x/day Objective - Vital Signs/Intake and Output Vital Signs (last 24 hours): Temp Pulse Resp BP Pulse Ox 98.3 F 91 H 13 140/76 98 03/10/17 08:00 03/10/17 10:00 03/10/17 10:00 03/10/17 10:00 03/10/17 10:00 Intake and Output: 03/10/17 03/10/17 06:59 18:59 Intake Total 300 300 Output Total 965 250 Balance -665 50 - Medications Medications: Current Medications Acetaminophen (Tylenol 325mg Tab) 650 mg PO Q6 PRN PRN Reason: Fever >100.4 F Last Admin: 03/02/17 01:27 Dose: 650 mg Diphenhydramine HCl (Benadryl) 50 mg IVP Q6 PRN PRN Reason: Itching / Pruritus Ferrous Sulfate (Feosol) 325 mg PO DAILY [facility] Last Admin: 03/10/17 09:15 Dose: 325 mg Gabapentin (Neurontin) 300 mg PO TID [facility] Last Admin: 03/10/17 12:59 Dose: 300 mg Cefepime HCl 1 gm/ Sodium (Chloride) 100 mls @ 100 mls/hr IVPB Q8 [facility] Last Admin: 03/10/17 09:15 Dose: 100 mls/hr Ketorolac Tromethamine (Toradol) 30 mg IVP Q6 PRN PRN Reason: Pain, moderate (4-7) Ondansetron HCl (Zofran Inj) 4 mg IVP Q6 PRN PRN Reason: Nausea/Vomiting - Labs Labs: 03/10/17 05:45 03/08/17 04:25 PT 10.9 SECONDS (9.6-11.2) 02/26/17 10:30 INR 1.05 (0.92-1.08) 02/26/17 10:30 APTT 27.8 SECONDS (23.3-32.5) 02/18/17 18:25
--- NOTE | 2017-03-10 14:04 | PN ---
DATE: 03/10/2017 The patient in ICU, bed 431. TIME SPENT: 25 minutes. Seen and evaluated at the bedside. Past medical, surgical, social history reviewed. Events overnigh t uneventful. A 21-year-old male admitted with spontaneous pneumothorax, status post pleurodesis, resection of the left apical bleb and chest tube insertion. Remains alert, awake, follows commands appropriate. Comp laining of discomfort on deep inspiration secondary to the chest tube. PHYSICAL EXAMINATION: CURRENT VITAL SIGNS: Temperature 98.3, heart rate 91, regular, blood pressure 140/76, respiratory ra te 13, saturating 98% on room air. Intake 670, output 1915, negative balance 1245. Left anterior ch est tube 30 mL, left posterior chest tube 35 mL. HEENT: Unremarkable. Pupils equal, round, reactive to light and accommodation. No pharyngeal eryth bertram or exudate. HEART: Rhythm regular. S1, S2 normal intensity. CHEST: Bilateral breath sounds, air entry reduced on the left. No subcutaneous emphysema, no air le ak. ABDOMEN: Bowel sounds present, soft. Liver, spleen not palpable. EXTREMITIES: No edema. Capillary refill less than 2 seconds. NEUROLOGIC: Cranial nerves intact. No sensorimotor deficit. LABORATORY DATA: WBC 7, hemoglobin 11.2, hematocrit 32.9, platelet count 446. SMA-7: Sodium 141, p otassium 4.2, chloride of 102, CO2 28, blood urea nitrogen 15, creatinine 0.8. Wound culture positiv e for corynebacterium as well Staphylococcus coagulase-negative. CURRENT MEDICATIONS: Include Tylenol 650 q. 6 p.r.n., cefepime 1 gram IV q. 8, Benadryl 50 mg IV q. 6 p.r.n. for pruritus, iron sulfate 325 mg p.o. daily, Neurontin 300 mg p.o. 3 times daily, Toradol 3 0 mg IV q. 6 hours p.r.n., Zofran 4 mg IV q. 6 p.r.n. IMPRESSION: Left-sided pneumothorax/pleural bleb, status post resection and chest tube insertion. C hest x-ray 03/09/2017 showed left-sided chest tubes, persistent left upper lobe opacity, decreased in the extent. Repeat chest x-ray from today remains same. Continue with analgesic as needed, incentiv e spirometry. Continue iron sulfate. Followup by surgery consult. Yao Schultz MD cc: 170 TT: 03/10/2017 14:03:52 Confirmation # [id number] Dictation # [id number]
[2017-03-11] MEDS: Cefepime 1 GM in Sodium Chloride 0.9% 100 ML IVPB SCH ×2 (00:29→08:42)
[2017-03-11 04:54] LABS: BASO # 0.1 K/uL (0.0-0.2); BASO % 1.4 % (0.0-2.0); EOS # 0.7 K/uL (0.0-0.7); EOS % 8.8 % (0.0-4.0); HEMATOCRIT 33.7 % (35.0-51.0); LYMPH # 1.7 K/uL (1.0-4.3); LYMPH % 23.2 % (20.0-40.0); MEAN CORPUSCULAR HEMOGLOBIN 29.7 pg (27.0-31.0); MEAN CORPUSCULAR HGB CONC 33.8 g/dL (33.0-37.0); MEAN PLATELET VOLUME 6.5 fl (7.2-11.7); MONO # 0.5 K/uL (0.0-0.8); MONO % 6.2 % (0.0-10.0); NEUT # 4.5 K/uL (1.8-7.0); NEUT % 60.4 % (50.0-75.0); NRBC % 0.1 % (0.0-0.0); RED CELL DISTRIBUTION WIDTH 12.9 % (11.5-14.5); WHITE BLOOD COUNT 7.4 K/uL (4.8-10.8)
--- NOTE | 2017-03-11 07:41 | CP.PCM.PN ---
Subjective - Date & Time of Evaluation Date of Evaluation: 03/11/17 Time of Evaluation: 12:30 - Subjective Subjective: Patient seen and examined bedside. Still complains with some discomfort to left chest wall where chest tubes in place. With minimal output last 24 hours from anterior and posterior chest tube 1 ml and 5 ml Chest tubes manipulated bedside today by Dr. Espinoza with no increase in output BP 107/56 HR 76 afebrile WBC 7.4 Hgb 11.4 No acute issues overnight CT chest today showed interim improvement of left apical hematoma Objective - Vital Signs/Intake and Output Vital Signs (last 24 hours): Temp Pulse Resp BP Pulse Ox 97.5 F L 76 18 107/56 L 99 03/11/17 02:00 03/11/17 03:59 03/11/17 03:59 03/11/17 03:59 03/11/17 03:59 Intake and Output: 03/11/17 03/11/17 06:59 18:59 Output Total 565 Balance -565 - Medications Medications: Current Medications Acetaminophen (Tylenol 325mg Tab) 650 mg PO Q6 PRN PRN Reason: Fever >100.4 F Last Admin: 03/02/17 01:27 Dose: 650 mg Diphenhydramine HCl (Benadryl) 50 mg IVP Q6 PRN PRN Reason: Itching / Pruritus Ferrous Sulfate (Feosol) 325 mg PO DAILY [facility] Last Admin: 03/10/17 09:15 Dose: 325 mg Gabapentin (Neurontin) 300 mg PO TID [facility] Last Admin: 03/10/17 18:09 Dose: 300 mg Cefepime HCl 1 gm/ Sodium (Chloride) 100 mls @ 100 mls/hr IVPB Q8 [facility] Last Admin: 03/11/17 00:29 Dose: 100 mls/hr Ketorolac Tromethamine (Toradol) 30 mg IVP Q6 PRN PRN Reason: Pain, moderate (4-7) Ondansetron HCl (Zofran Inj) 4 mg IVP Q6 PRN PRN Reason: Nausea/Vomiting - Labs Labs: 03/11/17 04:25 03/08/17 04:25 PT 10.9 SECONDS (9.6-11.2) 02/26/17 10:30 INR 1.05 (0.92-1.08) 02/26/17 10:30 APTT 27.8 SECONDS (23.3-32.5) 02/18/17 18:25 - Constitutional Appears: Non-toxic, No Acute Distress - Head Exam Head Exam: ATRAUMATIC, NORMAL INSPECTION, NORMOCEPHALIC - Eye Exam Eye Exam: EOMI, Normal appearance, PERRL Pupil Exam: NORMAL ACCOMODATION - ENT Exam ENT Exam: Mucous Membranes Moist, Normal Exam - Neck Exam Neck Exam: Full ROM, Normal Inspection - Respiratory Exam Respiratory Exam: Clear to Ausculation Bilateral, NORMAL BREATHING PATTERN. absent: Rhonchi, Wheezes, Respiratory Distress Additional comments: anterior and posterior chest tubes to left hemithorax with no output - Cardiovascular Exam Cardiovascular Exam: Tachycardia, +S1, +S2. absent: JVD - GI/Abdominal Exam GI & Abdominal Exam: Soft, Normal Bowel Sounds. absent: Tenderness, Rebound - Rectal Exam Rectal Exam: Deferred - Extremities Exam Extremities Exam: Full ROM, Normal Capillary Refill, Normal Inspection. absent : Calf Tenderness, Pedal Edema - Back Exam Back Exam: NORMAL INSPECTION - Neurological Exam Neurological Exam: Alert, Awake, CN II-XII Intact, Normal Gait, Oriented x3 - Psychiatric Exam Psychiatric exam: Normal Affect, Normal Mood - Skin Skin Exam: Dry, Intact, Pallor, Warm Assessment and Plan - Assessment and Plan (Free Text) Assessment: 21 y/o male with no significant PMH came in because of chest pain and SOB. CXR showed tension Pneumothorax on the left. Cardiothoracic surgery consulted and chest tube was placed. Chest tube was re inserted and talc pleurodesis performed in OR due to residual apical pneumothorax and large air leak. He was taken again to OR and underwent Hybrid VATS, resection of apical blebs and bullae, and parietal pleurectomy 02/28. He developed left hemothorax and underwent TPA infusion via catheter into left pleura for the persistent hemothorax on 03/08/17. Repeat CT chest today showed interval improvement of hemothorax. Chest tubes in place with almost no output last 24 hours. 1. Spontaneous Pneumothorax s/p VATs,resection of apical blebs and Pleurectomy s/p Chest tube x 2 Apical Hemothorax, loculated s/p TPA Repeat CT chest today showed interval improvement of hemothorax No output noted from chest tubes last 24 hours. s/p manipulation of chest tubes bedside by Dr Lowe with no increase in output Plan to inject tPA again Continue pain management 2. Acute blood loss anemia on ferrous sulfate stable 3. DVt prophylaxis SCD ambulatory
--- NOTE | 2017-03-11 08:34 | CT ---
PROCEDURE: CT Chest without contrast HISTORY: compare COMPARISON: 03/07/2017. CT thorax. . TECHNIQUE: Contiguous axial images were obtained through the chest without intravenous contrast enhancement. Sagittal and coronal reconstructions were performed. Radiation dose (DLP): mGy-cm. This CT exam was performed using one or more of the following dose reduction techniques: Automated exposure control, adjustment of the mA and/or kV according to patient size, and/or use of iterative reconstruction technique. FINDINGS: LUNGS: Interval improvement in aeration of left upper lobe. MEDIASTINUM: Unremarkable thoracic aorta. No aneurysm. Normal sized heart. Main pulmonary artery unremarkable. No vascular congestion. No lymphadenopathy. PLEURA: Near-complete resolution of previously identified pneumothorax. Small locules of pleural air and fluid anteriorly at adjacent to the in more anterior of the 2 chest tubes. The 2 chest tubes are in stable position. Fluid and debris associated with prior pleurodesis again identified. BONES: No fracture. No destructive lesion. UPPER ABDOMEN: Grossly unremarkable. OTHER FINDINGS: None. IMPRESSION: Interval improvement with respect to pleural and parenchymal findings left emili thorax.
[2017-03-11] MEDS ORDERED: Povidone Iodine Topical 10% Sol ONE (11:57)
[2017-03-11] MEDS ORDERED: Lidocaine 1% Inj (20ml) IJ ONE (12:01)
--- NOTE | 2017-03-11 12:20 | VASCULAR ---
PROCEDURE: Date of procedure: 03/08/2007 CHEST TUBE: TPA infusion of chest tubes for thrombolysis. Medications: TPA 2 mg Radiation: 14.23 mGy Fluorotime: 155.7 seconds HISTORY: Hemothorax with non-draining chest tubes. COMPARISON: TECHNIQUE: Following informed consent and procedure time-out, patient placed supine on the interventional table. Fluoroscopic image showed 2 chest tubes with tips in the upper left chest. The chest tubes were prepped in a sterile manner. A guidewire and catheter were advanced through existing chest tube into the pleural space and guidewire and catheter use the disrupt any blood clots. This was followed by infusion of 2 milligrams of tPA dissolved in 8 cubic centimeters of saline into the pleural space. The chest tubes were then reattached to wall suction. FINDINGS: IMPRESSION: TPA infusion into left chest tubes in the patient with hemothorax
--- NOTE | 2017-03-11 14:41 | CP.PCM.PN ---
Subjective - Date & Time of Evaluation Date of Evaluation: 03/11/17 Time of Evaluation: 14:38 - Subjective Subjective: Pt s/e. ct : improved but still needs apical density. chest tubes adjusted at bedside this am to fascilitate drainage, but so singificant improvent of flows. IR consulted who will TPA this pm. Objective - Vital Signs/Intake and Output Vital Signs (last 24 hours): Temp Pulse Resp BP Pulse Ox 98.4 F 72 20 106/57 L 99 03/11/17 12:00 03/11/17 14:00 03/11/17 12:00 03/11/17 06:00 03/11/17 12:00 Intake and Output: 03/11/17 03/11/17 06:59 18:59 Intake Total 120 Output Total 1221 Balance -1221 120 - Medications Medications: Current Medications Acetaminophen (Tylenol 325mg Tab) 650 mg PO Q6 PRN PRN Reason: Fever >100.4 F Last Admin: 03/02/17 01:27 Dose: 650 mg Alteplase, Recombinant (Cathflo 2 Mg Inj) 2 mg IV ONCE ONE Stop: 03/11/17 15:01 Diphenhydramine HCl (Benadryl) 50 mg IVP Q6 PRN PRN Reason: Itching / Pruritus Ferrous Sulfate (Feosol) 325 mg PO DAILY [facility] Last Admin: 03/11/17 08:45 Dose: 325 mg Gabapentin (Neurontin) 300 mg PO TID [facility] Last Admin: 03/11/17 08:45 Dose: 300 mg Cefepime HCl 1 gm/ Sodium (Chloride) 100 mls @ 100 mls/hr IVPB Q8 [facility] Last Admin: 03/11/17 08:42 Dose: 100 mls/hr Ketorolac Tromethamine (Toradol) 30 mg IVP Q6 PRN PRN Reason: Pain, moderate (4-7) Ondansetron HCl (Zofran Inj) 4 mg IVP Q6 PRN PRN Reason: Nausea/Vomiting - Labs Labs: 03/11/17 04:25 03/08/17 04:25 PT 10.9 SECONDS (9.6-11.2) 02/26/17 10:30 INR 1.05 (0.92-1.08) 02/26/17 10:30 APTT 27.8 SECONDS (23.3-32.5) 02/18/17 18:25
--- NOTE | 2017-03-11 16:11 | CP.CCUPN ---
CCU Subjective - Physician Review Events Since Last Encounter (Free Text): 03/11/17 16:11 Patient appears clinically improved, ambulating around ICU with chest tubes in place. No complaints. CCU Objective - Vital Signs / Intake & Output Vital Signs (Last 4 hours): Vital Signs Temp Pulse Resp BP Pulse Ox 03/11/17 15:30 98.2 F 101 H 22 128/64 98 03/11/17 14:00 72 Intake and Output (Last 8hrs): Intake & Output 03/11/17 03/11/17 03/11/17 06:59 14:59 22:59 Intake Total 120 Output Total 1206 Balance -1206 120 Intake: Oral 120 Output: Chest Tube Drainage 6 Left Anterior Chest 1 Left Posterior Chest 5 Urine 1200 Urine, Voided 1200 - Physical Exam Head: Positive for: Atraumatic, Normocephalic Pupils: Positive for: PERRL Extroacular Muscles: Positive for: EOMI Conjunctiva: Positive for: Normal Mouth: Positive for: Moist Mucous Membranes Respiratory/Chest: Positive for: Tender to Palpation, Other (B/L air entry present with decreased sounds on left compared to right. Chest wall expansion greater on right compared to left. Left sided anterior/posterior chest tubes present. A single skin bulla present with no signs of infection.). Negative for : Respiratory Distress, Wheezes, Retracting, Rhonchi Cardiovascular: Positive for: Regular Rate and Rhythm, Normal S1, S2, Peripheal Pulses Present. Negative for: Murmurs Abdomen: Positive for: Normal Bowel Sounds. Negative for: Tenderness, Distention, Guarding Upper Extremity: Positive for: Normal Inspection, Capillary Refill < 2s Lower Extremity: Positive for: Normal Inspection. Negative for: Edema, CALF TENDERNESS Neurological: Positive for: Speech Normal Psychiatric: Positive for: Alert, Oriented x 3 - Medications Active Medications: Active Medications Generic Name Dose Route Start Last Admin Trade Name Freq PRN Reason Stop Dose Admin Acetaminophen 650 mg 02/24/17 19:47 03/02/17 01:27 Tylenol 325mg Tab PO 650 mg Q6 PRN Administration Fever >100.4 F Diphenhydramine HCl 50 mg 02/28/17 13:45 Benadryl IVP Q6 PRN Itching / Pruritus Ferrous Sulfate 325 mg 03/06/17 09:00 03/11/17 08:45 Feosol PO 325 mg DAILY JACOB Administration Gabapentin 300 mg 03/06/17 13:00 03/11/17 08:45 Neurontin PO 300 mg TID JACOB Administration Cefepime HCl 1 gm/ Sodium 100 mls @ 100 mls/hr 03/06/17 14:17 03/11/17 08:42 Chloride IVPB 100 mls/hr Q8 JACOB Administration Ketorolac Tromethamine 30 mg 03/08/17 16:18 Toradol IVP Q6 PRN Pain, moderate (4-7) Ondansetron HCl 4 mg 02/28/17 13:45 Zofran Inj IVP Q6 PRN Nausea/Vomiting - Patient Studies Lab Studies: Lab Studies 03/11/17 Range/Units 04:25 WBC 7.4 (4.8-10.8) K/uL RBC 3.83 L (4.40-5.90) Mil/uL Hgb 11.4 L (12.0-18.0) g/dL Hct 33.7 L (35.0-51.0) % MCV 88.0 (80.0-94.0) fl MCH 29.7 (27.0-31.0) pg MCHC 33.8 (33.0-37.0) g/dL RDW 12.9 (11.5-14.5) % Plt Count 417 H (130-400) K/uL MPV 6.5 L (7.2-11.7) fl Neut % (Auto) 60.4 (50.0-75.0) % Lymph % (Auto) 23.2 (20.0-40.0) % [place] % (Auto) 6.2 (0.0-10.0) % Eos % (Auto) 8.8 H (0.0-4.0) % Baso % (Auto) 1.4 (0.0-2.0) % Neut # 4.5 (1.8-7.0) K/uL Lymph # 1.7 (1.0-4.3) K/uL [place] # 0.5 (0.0-0.8) K/uL Eos # 0.7 (0.0-0.7) K/uL Baso # 0.1 (0.0-0.2) K/uL Laboratory Results - last 24 hr 03/11/17 04:25 WBC 7.4 RBC 3.83 L Hgb 11.4 L Hct 33.7 L MCV 88.0 MCH 29.7 MCHC 33.8 RDW 12.9 Plt Count 417 H MPV 6.5 L Neut % (Auto) 60.4 Lymph % (Auto) 23.2 [place] % (Auto) 6.2 Eos % (Auto) 8.8 H Baso % (Auto) 1.4 Neut # 4.5 Lymph # 1.7 [place] # 0.5 Eos # 0.7 Baso # 0.1 Review of Systems - Review of Systems Review of Systems: All systems reviewed, no remarkable complaints. Critical Care Progress Note - Nutrition Nutrition: Nutrition Category Date Time Status Regular Diet [DIET] Diets 03/03/17 Dinner Active Assessment/Plan (1) Spontaneous pneumothorax Assessment and plan: 21-year-old male with no past medical history, presents with spontaneous pneumothorax. Patient underwent talc pleurodesis on 02/21/2017, due to persistent apical pneumothorax with chest tube in place. Patient had persistent air leak and then had to undergo thoracotomy with left apical lung resection on 02/28/2017. Neuro: Alert and oriented 3, Toradol for pain Pulm: Chest tubes in place with minimal drainage, as per thoracic surgery team patient will remain on 20 cm of suction. CV: Hemodynamically stable Hem: Anemia of critical illness. Renal: No acute issues, urine output within normal limits. Endo: No acute issues GI: Regular diet ID: Empiric treatment with cefepime. DVT proph - SCDs, Lovenox was held secondary to possible hemothorax, patient is ambulating around ICU with low risk of DVT GI proph - not currently indicated Code status - full code Crtical Care Time spent 35 minutes Multi-disciplinary rounds were performed with house staff, nursing, speech therapy, respiratory therapy, pharmacy and nutrition with integrated input from the primary team/attending and other consulting services. The documented time is cumulative and includes review of patient data/exams/labs/chart review and examination of the patient on rounds and throughout the day; time is exclusive of any procedures or teaching time. Current Visit: Yes Status: Acute
--- NOTE | 2017-03-11 16:58 | RAD ---
HISTORY: Follow-up spontaneous pneumothorax. Prior pleurodesis and wedge resection left upper lobe Portable study 16:20. COMPARISON: Multiple serial examinations preceding the most recent study: March 10, 2017. FINDINGS: LUNGS: Stable findings left upper lobe. PLEURA: The more medial of the 2 chest tubes appears to have been retracted since the prior study. The adjacent chest tubes in stable position. CARDIOVASCULAR: No radiographic findings to suggest acute or significant cardiovascular disease. OSSEOUS STRUCTURES: No significant abnormalities. VISUALIZED UPPER ABDOMEN: Normal. OTHER FINDINGS: None. IMPRESSION: Perception Bobby the more medial of the 2 chest tubes appears to have been manipulated and withdrawn approximately 5 cm. Otherwise no interval change.
[2017-03-12] MEDS: Cefepime 1 GM in Sodium Chloride 0.9% 100 ML IVPB SCH ×3 (00:55→16:15)
[2017-03-12 05:01] LABS: MEAN CELL VOLUME 88.6 fl (80.0-94.0); MEAN CORPUSCULAR HEMOGLOBIN 29.3 pg (27.0-31.0); RED CELL DISTRIBUTION WIDTH 12.9 % (11.5-14.5); WHITE BLOOD COUNT 8.2 K/uL (4.8-10.8)
[2017-03-12 05:19] LABS: BLOOD UREA NITROGEN 14 mg/dl (9-20); CALCIUM 9.5 mg/dL (8.4-10.2); CARBON DIOXIDE 30 mmol/L (22-30); CHLORIDE 101 mmol/L (98-107); GFR AFRICAN-AMERICAN > 60; GLUCOSE,RANDOM 97 mg/dL (75-110); POTASSIUM 3.9 MMOL/L (3.6-5.0); SODIUM 140 mmol/l (132-148)
--- NOTE | 2017-03-12 07:32 | CP.PCM.PN ---
Subjective - Date & Time of Evaluation Date of Evaluation: 03/12/17 Time of Evaluation: 07:30 - Subjective Subjective: Cardiothoracic Surgery Note for Dr. Espinoza This 21M was seen and examined this Am at bedside. He reports no acute events overnight. His dressings are clean dry and intact. He has no complains overnight. He is eating drinking and ambulating without any issues. Objective - Vital Signs/Intake and Output Vital Signs (last 24 hours): Temp Pulse Resp BP Pulse Ox 98.0 F 67 13 115/61 96 03/12/17 04:00 03/12/17 04:00 03/12/17 04:00 03/12/17 04:00 03/12/17 04:00 - Medications Medications: Current Medications Acetaminophen (Tylenol 325mg Tab) 650 mg PO Q6 PRN PRN Reason: Fever >100.4 F Last Admin: 03/02/17 01:27 Dose: 650 mg Diphenhydramine HCl (Benadryl) 50 mg IVP Q6 PRN PRN Reason: Itching / Pruritus Ferrous Sulfate (Feosol) 325 mg PO DAILY [facility] Last Admin: 03/11/17 08:45 Dose: 325 mg Gabapentin (Neurontin) 300 mg PO TID [facility] Last Admin: 03/11/17 17:38 Dose: 300 mg Cefepime HCl 1 gm/ Sodium (Chloride) 100 mls @ 100 mls/hr IVPB Q8 [facility] Last Admin: 03/12/17 00:55 Dose: 100 mls/hr Ketorolac Tromethamine (Toradol) 30 mg IVP Q6 PRN PRN Reason: Pain, moderate (4-7) Last Admin: 03/12/17 05:21 Dose: 30 mg Ondansetron HCl (Zofran Inj) 4 mg IVP Q6 PRN PRN Reason: Nausea/Vomiting - Labs Labs: 03/12/17 04:20 03/12/17 04:20 PT 10.9 SECONDS (9.6-11.2) 02/26/17 10:30 INR 1.05 (0.92-1.08) 02/26/17 10:30 APTT 27.8 SECONDS (23.3-32.5) 02/18/17 18:25 - Constitutional Appears: Non-toxic, No Acute Distress - Head Exam Head Exam: ATRAUMATIC, NORMOCEPHALIC - Eye Exam Eye Exam: EOMI, Normal appearance - ENT Exam ENT Exam: Mucous Membranes Moist - Respiratory Exam Respiratory Exam: NORMAL BREATHING PATTERN, chest tube in place on wall suction , anterior 65cc posterior 75cc overnight - Cardiovascular Exam Cardiovascular Exam: REGULAR RHYTHM - GI/Abdominal Exam GI & Abdominal Exam: Soft. absent: Firm, Guarding, Rigid, Tenderness - Neurological Exam Neurological Exam: Alert, Awake - Psychiatric Exam Psychiatric exam: Normal Affect, Normal Mood - Skin Skin Exam: Dry, Intact Assessment and Plan - Assessment and Plan (Free Text) Assessment: This is a 21M with no PMH who presented with a spontaneous pneumothorax. He is POD#11 S/P vats with apical lung wedge resection and apical plaurectomy, with anterior and posterior chest tube placement. Vital signs stable Continue chest tubes to suction. Ambulate as tolerated Regular diet Will followup labs and chest xray Will discuss with Dr. Alexis Seo PGY-1
--- NOTE | 2017-03-12 10:45 | CP.CCUPN ---
<[email or web address] - Last Filed: 03/12/17 13:37> CCU Subjective - Physician Review Subjective (Free Text): 03/12/17 11:21 Patient seen and examined at bedside with attending during ICU rounds. Patient reports pain has been well controlled overnight with toradol. He has been getting OOB to chair and has been walking with PT assistance. He denies SOB and remains afebrile. He had repeat TPA infusion through chest tubes by IR performed yesterday, which patient tolerated well. Anterior and posterior chest tubes have been draining 60cc and 70cc respectively over the last 24 hours. CCU Objective - Vital Signs / Intake & Output Vital Signs (Last 4 hours): Vital Signs Temp Pulse Resp BP Pulse Ox 03/12/17 08:05 98.4 F 76 18 109/74 97 Intake and Output (Last 8hrs): Intake & Output 03/11/17 03/12/17 03/12/17 22:59 06:59 14:59 Intake Total 15 Balance 15 Intake: IV 15 - Physical Exam Head: Positive for: Atraumatic, Normocephalic Pupils: Positive for: PERRL Extroacular Muscles: Positive for: EOMI Conjunctiva: Positive for: Normal Mouth: Positive for: Moist Mucous Membranes Respiratory/Chest: Positive for: Tender to Palpation, Other (B/L air entry present with decreased sounds on left compared to right. Chest wall expansion greater on right compared to left. Left sided anterior/posterior chest tubes present.). Negative for: Respiratory Distress, Wheezes, Retracting, Rhonchi Cardiovascular: Positive for: Regular Rate and Rhythm, Normal S1, S2, Peripheal Pulses Present. Negative for: Murmurs Abdomen: Positive for: Normal Bowel Sounds. Negative for: Tenderness, Distention, Guarding Upper Extremity: Positive for: Normal Inspection, Capillary Refill < 2s Lower Extremity: Positive for: Normal Inspection. Negative for: Edema, CALF TENDERNESS Neurological: Positive for: Speech Normal Psychiatric: Positive for: Alert, Oriented x 3 - Medications Active Medications: Active Medications Generic Name Dose Route Start Last Admin Trade Name Freq PRN Reason Stop Dose Admin Acetaminophen 650 mg 02/24/17 19:47 03/02/17 01:27 Tylenol 325mg Tab PO 650 mg Q6 PRN Administration Fever >100.4 F Diphenhydramine HCl 50 mg 02/28/17 13:45 Benadryl IVP Q6 PRN Itching / Pruritus Ferrous Sulfate 325 mg 03/06/17 09:00 03/11/17 08:45 Feosol PO 325 mg DAILY JACOB Administration Gabapentin 300 mg 03/06/17 13:00 03/12/17 08:34 Neurontin PO 300 mg TID JACOB Administration Cefepime HCl 1 gm/ Sodium 100 mls @ 100 mls/hr 03/06/17 14:17 03/12/17 08:34 Chloride IVPB 100 mls/hr Q8 JACOB Administration Ketorolac Tromethamine 30 mg 03/08/17 16:18 03/12/17 05:21 Toradol IVP 30 mg Q6 PRN Administration Pain, moderate (4-7) Ondansetron HCl 4 mg 02/28/17 13:45 Zofran Inj IVP Q6 PRN Nausea/Vomiting - Patient Studies Lab Studies: Lab Studies 03/12/17 03/12/17 Range/Units 04:20 04:20 WBC 8.2 (4.8-10.8) K/uL RBC 3.84 L (4.40-5.90) Mil/uL Hgb 11.2 L (12.0-18.0) g/dL Hct 34.0 L (35.0-51.0) % MCV 88.6 (80.0-94.0) fl MCH 29.3 (27.0-31.0) pg MCHC 33.0 (33.0-37.0) g/dL RDW 12.9 (11.5-14.5) % Plt Count 370 (130-400) K/uL Sodium 140 (132-148) mmol/l Potassium 3.9 (3.6-5.0) MMOL/L Chloride 101 (98-107) mmol/L Carbon Dioxide 30 (22-30) mmol/L Anion Gap 13 (10-20) BUN 14 (9-20) mg/dl Creatinine 0.8 (0.8-1.5) mg/dL Est GFR ( Amer) > 60 Est GFR (Non-Af Amer) > 60 Random Glucose 97 (75-110) mg/dL Calcium 9.5 (8.4-10.2) mg/dL Laboratory Results - last 24 hr 03/12/17 03/12/17 04:20 04:20 WBC 8.2 RBC 3.84 L Hgb 11.2 L Hct 34.0 L MCV 88.6 MCH 29.3 MCHC 33.0 RDW 12.9 Plt Count 370 Sodium 140 Potassium 3.9 Chloride 101 Carbon Dioxide 30 Anion Gap 13 BUN 14 Creatinine 0.8 Est GFR ( Amer) > 60 Est GFR (Non-Af Amer) > 60 Random Glucose 97 Calcium 9.5 Critical Care Progress Note - Nutrition Nutrition: Nutrition Category Date Time Status Regular Diet [DIET] Diets 03/03/17 Dinner Active Assessment/Plan - Assessment and Plan (Free Text) Assessment: 21 y/o M with unremarkable PMH referred to ED on 02/18/17 from a nearby clinic with acute onset SOB and chest pain secondary to a left sided spontaneous pneumothorax which was later determined to be secondary to ruptured pleural bleb. Initially, a chest tube was placed and symptoms improved however patient required talc pleurodesis on 02/21/17 due to persistent residual apical pneumothorax. Despite treatment, a persistent air leak was present and patient ultimately required a thoracotomy with left apical lung resection on 02/28/17. Patient is currently POD#12. Plan: Spontaneous Pneumothorax -Etiology likely secondary to ruptured pleural bleb -S/p thoracotomy with left apical lung resection with left sided anterior and posterior chest tube placement on 02/28/17, POD #12 -CT chest on 03/05 confirmed two left-sided chest tubes which appear occluded by debris and a left sided opacification consistent effusion/hemorrhage. -CT chest repeated on 03/11/17 reports near complete resolution of previously identified pneumothorax and interval improvement in aeration of left upper lobe -CXR today demonstrates interval improvement compared to prior studies -Patient had TPA infusion into left chest tubes by IR to dissolve and disrupt blood clots on 03/08 and again on 03/11 -Chest tube drainage over the last 24 hrs: Anterior 60cc Posterior 70cc -Continue physical therapy. Encourage out of bed. -Continue incentive spirometry -Pain control: Toradol 30mg IVP Q6h prn Anemia -Secondary to hemothorax, surgical blood loss -H/H improvin.4/30.5 > 11.2/34.0 Left basilar atelectasis -Patient currently afebrile, WBC: 8.2 -Completed 7 days of azithromycin and ceftriaxone for possible pneumonia (02/25-) -Patient has been on prophylactic cefepime (03/06-03/12) Diet -Tolerating regular diet DVT Prophylaxis -Lovenox held due to possible hemothorax -SCDs <Efra Almaraz - Last Filed: 03/12/17 14:38> CCU Objective - Vital Signs / Intake & Output Vital Signs (Last 4 hours): Vital Signs Temp Pulse Resp Pulse Ox 03/12/17 14:00 90 03/12/17 12:10 98.4 F 90 23 96 Intake and Output (Last 8hrs): Intake & Output 03/11/17 03/12/17 03/12/17 22:59 06:59 14:59 Intake Total 15 Balance 15 Intake: IV 15 - Medications Active Medications: Active Medications Generic Name Dose Route Start Last Admin Trade Name Freq PRN Reason Stop Dose Admin Acetaminophen 650 mg 02/24/17 19:47 03/02/17 01:27 Tylenol 325mg Tab PO 650 mg Q6 PRN Administration Fever >100.4 F Diphenhydramine HCl 50 mg 02/28/17 13:45 Benadryl IVP Q6 PRN Itching / Pruritus Ferrous Sulfate 325 mg 03/06/17 09:00 03/12/17 13:23 Feosol PO 325 mg DAILY JACOB Administration Gabapentin 300 mg 03/06/17 13:00 03/12/17 13:23 Neurontin PO 300 mg TID JACOB Administration Cefepime HCl 1 gm/ Sodium 100 mls @ 100 mls/hr 03/06/17 14:17 03/12/17 08:34 Chloride IVPB 100 mls/hr Q8 JACOB Administration Ketorolac Tromethamine 30 mg 03/08/17 16:18 03/12/17 05:21 Toradol IVP 30 mg Q6 PRN Administration Pain, moderate (4-7) Ondansetron HCl 4 mg 02/28/17 13:45 Zofran Inj IVP Q6 PRN Nausea/Vomiting - Patient Studies Lab Studies: Lab Studies 03/12/17 03/12/17 Range/Units 04:20 04:20 WBC 8.2 (4.8-10.8) K/uL RBC 3.84 L (4.40-5.90) Mil/uL Hgb 11.2 L (12.0-18.0) g/dL Hct 34.0 L (35.0-51.0) % MCV 88.6 (80.0-94.0) fl MCH 29.3 (27.0-31.0) pg MCHC 33.0 (33.0-37.0) g/dL RDW 12.9 (11.5-14.5) % Plt Count 370 (130-400) K/uL Sodium 140 (132-148) mmol/l Potassium 3.9 (3.6-5.0) MMOL/L Chloride 101 (98-107) mmol/L Carbon Dioxide 30 (22-30) mmol/L Anion Gap 13 (10-20) BUN 14 (9-20) mg/dl Creatinine 0.8 (0.8-1.5) mg/dL Est GFR ( Amer) > 60 Est GFR (Non-Af Amer) > 60 Random Glucose 97 (75-110) mg/dL Calcium 9.5 (8.4-10.2) mg/dL Laboratory Results - last 24 hr 03/12/17 03/12/17 04:20 04:20 WBC 8.2 RBC 3.84 L Hgb 11.2 L Hct 34.0 L MCV 88.6 MCH 29.3 MCHC 33.0 RDW 12.9 Plt Count 370 Sodium 140 Potassium 3.9 Chloride 101 Carbon Dioxide 30 Anion Gap 13 BUN 14 Creatinine 0.8 Est GFR ( Amer) > 60 Est GFR (Non-Af Amer) > 60 Random Glucose 97 Calcium 9.5 Critical Care Progress Note - Nutrition Nutrition: Nutrition Category Date Time Status Regular Diet [DIET] Diets 03/03/17 Dinner Active Assessment/Plan (1) Spontaneous pneumothorax Current Visit: Yes Status: Acute Attending/Attestation - Attestation I have personally seen and examined this patient.: Yes I have fully participated in the care of the patient.: Yes I have reviewed all pertinent clinical information: Yes Notes (Text): 03/12/17 14:36 I have seen and examined the patient. Medical records, lab studies, and imaging were reviewed by me and a management plan was formulated on multidisciplinary rounds with resident Dr. Danielle. I agree with their above documented assessment and plan. Patient is doing well clinically, chest tubes draining well now. Eventual removal as per Thoracic surgery team. Critical Care Time 35 minutes. Multi-disciplinary rounds were performed with house staff, nursing, speech therapy, respiratory therapy, pharmacy and nutrition with integrated input from the primary team/attending and other consulting services. The documented time is cumulative and includes review of patient data/exams/labs/chart review and examination of the patient on rounds and throughout the day; time is exclusive of any procedures or teaching time. 03/12/17 14:36
--- NOTE | 2017-03-12 11:15 | RAD ---
PROCEDURE: CHEST RADIOGRAPH, 1 VIEW HISTORY: Eval of pneumothorax COMPARISON: Comparison made with chest radiographs and CT scan chest both dated 03/11/2017. FINDINGS: LUNGS: Re- demonstrated are 2 in situ left-sided chest tubes. Again noted is a Heterogeneous opacity in the left lung apex consistent with some combination of atelectasis granulation tissue and presumed clot the interspersed with bubbles of air. . There appears to have been some retraction of the some heterogeneous opacification . Small of more translucent opacity along the lateral convexity just inferior to the aforementioned opacification likely representing exit similar smaller loculated component There are also small blebs the at and/or tiny. Loculated extra-axial air of, residual of prior pneumothorax. Note that these changes are seen to much better advantage on prior CT scan PLEURA: As above CARDIOVASCULAR: Heart size normal OSSEOUS STRUCTURES: No significant abnormalities. VISUALIZED UPPER ABDOMEN: Normal. OTHER FINDINGS: None. IMPRESSION: Re- demonstrated are 2 in situ left-sided chest tubes. Again noted is a Heterogeneous opacity in the left lung apex consistent with some combination of atelectasis granulation tissue and presumed clot the interspersed with bubbles of air. . There appears to have been some retraction of the some heterogeneous opacification . Small of more translucent opacity along the lateral convexity just inferior to the aforementioned opacification likely representing exit similar smaller loculated component There are also small blebs the at and/or tiny. Loculated extra-axial air of, residual of prior pneumothorax. Note that these changes are seen to much better advantage on prior CT scan
--- NOTE | 2017-03-12 11:50 | CP.PCM.PN ---
Subjective - Date & Time of Evaluation Date of Evaluation: 03/12/17 Time of Evaluation: 10:30 - Subjective Subjective: No fever pain controlled no SOB no cough Objective - Vital Signs/Intake and Output Vital Signs (last 24 hours): Temp Pulse Resp BP Pulse Ox 98.4 F 76 18 109/74 97 03/12/17 08:05 03/12/17 08:05 03/12/17 08:05 03/12/17 08:05 03/12/17 08:05 Intake and Output: 03/12/17 03/12/17 06:59 18:59 Intake Total 15 Balance 15 - Medications Medications: Current Medications Acetaminophen (Tylenol 325mg Tab) 650 mg PO Q6 PRN PRN Reason: Fever >100.4 F Last Admin: 03/02/17 01:27 Dose: 650 mg Diphenhydramine HCl (Benadryl) 50 mg IVP Q6 PRN PRN Reason: Itching / Pruritus Ferrous Sulfate (Feosol) 325 mg PO DAILY [facility] Last Admin: 03/11/17 08:45 Dose: 325 mg Gabapentin (Neurontin) 300 mg PO TID [facility] Last Admin: 03/12/17 08:34 Dose: 300 mg Cefepime HCl 1 gm/ Sodium (Chloride) 100 mls @ 100 mls/hr IVPB Q8 [facility] Last Admin: 03/12/17 08:34 Dose: 100 mls/hr Ketorolac Tromethamine (Toradol) 30 mg IVP Q6 PRN PRN Reason: Pain, moderate (4-7) Last Admin: 03/12/17 05:21 Dose: 30 mg Ondansetron HCl (Zofran Inj) 4 mg IVP Q6 PRN PRN Reason: Nausea/Vomiting - Labs Labs: 03/12/17 04:20 03/12/17 04:20 PT 10.9 SECONDS (9.6-11.2) 02/26/17 10:30 INR 1.05 (0.92-1.08) 02/26/17 10:30 APTT 27.8 SECONDS (23.3-32.5) 02/18/17 18:25 - Constitutional Appears: No Acute Distress - Head Exam Head Exam: ATRAUMATIC, NORMAL INSPECTION, NORMOCEPHALIC - Eye Exam Eye Exam: EOMI, Normal appearance, PERRL Pupil Exam: NORMAL ACCOMMODATION - ENT Exam ENT Exam: Mucous Membranes Moist, Normal External Ear Exam - Neck Exam Neck Exam: Full ROM. absent: Meningismus - Respiratory Exam Respiratory Exam: NORMAL BREATHING PATTERN. No Respiratory Distress decrease BS left - Cardiovascular Exam Cardiovascular Exam: REGULAR RHYTHM, +S1, +S2 Additional comments: 2 Left chest tubes on the left , some serosanguinous drainage - GI/Abdominal Exam GI & Abdominal Exam: Soft, Normal Bowel Sounds. absent: Tenderness - Extremities Exam Extremities Exam: Full ROM, Normal Capillary Refill. absent: Calf Tenderness, Normal Inspection - Back Exam Back Exam: Full ROM, NORMAL INSPECTION. absent: CVA tenderness (L), CVA tenderness (R) - Neurological Exam Neurological Exam: alert, oriented x 3 Neuro motor strength exam: 02/22 - Psychiatric Exam Psychiatric exam: Normal Affect, Normal Mood - Skin Skin Exam: Dry, Normal Color, Warm Assessment and Plan - Assessment and Plan (Free Text) Assessment: 21 y/o male with no significant PMH came in because of chest pain and SOB. CXR showed tension Pneumothorax on the left. Cardiothoracic surgery consulted and chest tube was placed. Chest tube was re inserted and talc pleurodesis performed in OR due to residual apical pneumothorax and large air leak. He was taken again to OR and underwent Hybrid VATS, resection of apical blebs and bullae, and parietal pleurectomy 02/28. He developed left hemothorax and underwent TPA infusion via catheter into left pleura for the persistent hemothorax on 03/08/17. Repeat CT chest showed interval improvement of hemothorax. 1. Spontaneous Pneumothorax s/p VATs,resection of apical blebs and Pleurectomy s/p Chest tube x 2 Apical Hemothorax, loculated s/p TPA Repeat CT chest 03/11 showed interval improvement of hemothorax , Dr Espinoza ordered a rpt CT of chest today s/p manipulation of chest tubes bedside by Dr Espinoza with no increase in output Continue pain management Cont Cefepime 2. Acute blood loss anemia on ferrous sulfate stable 3. DVt prophylaxis SCD ambulatory
--- NOTE | 2017-03-12 14:25 | CP.PCM.PN ---
Subjective - Date & Time of Evaluation Date of Evaluation: 03/12/17 Time of Evaluation: 14:19 - Subjective Subjective: Pt s/e. No c/o. Aebrile. VSS. HCT-34.\ Plat;380k. wbc-8k. chest tubes-dark marroon color drainage-70/40 since TPA cxr-left apical density decreasing. a/p: continue current care. consider ct on and d/c tubes on also. Discussed with pt and his morther re: overall outcome and prognosis. Objective - Vital Signs/Intake and Output Vital Signs (last 24 hours): Temp Pulse Resp BP Pulse Ox 98.4 F 90 23 109/74 96 03/12/17 12:10 03/12/17 12:10 03/12/17 12:10 03/12/17 08:05 03/12/17 12:10 Intake and Output: 03/12/17 03/12/17 06:59 18:59 Intake Total 15 Balance 15 - Medications Medications: Current Medications Acetaminophen (Tylenol 325mg Tab) 650 mg PO Q6 PRN PRN Reason: Fever >100.4 F Last Admin: 03/02/17 01:27 Dose: 650 mg Diphenhydramine HCl (Benadryl) 50 mg IVP Q6 PRN PRN Reason: Itching / Pruritus Ferrous Sulfate (Feosol) 325 mg PO DAILY [facility] Last Admin: 03/12/17 13:23 Dose: 325 mg Gabapentin (Neurontin) 300 mg PO TID [facility] Last Admin: 03/12/17 13:23 Dose: 300 mg Cefepime HCl 1 gm/ Sodium (Chloride) 100 mls @ 100 mls/hr IVPB Q8 [facility] Last Admin: 03/12/17 08:34 Dose: 100 mls/hr Ketorolac Tromethamine (Toradol) 30 mg IVP Q6 PRN PRN Reason: Pain, moderate (4-7) Last Admin: 03/12/17 05:21 Dose: 30 mg Ondansetron HCl (Zofran Inj) 4 mg IVP Q6 PRN PRN Reason: Nausea/Vomiting - Labs Labs: 03/12/17 04:20 03/12/17 04:20 PT 10.9 SECONDS (9.6-11.2) 02/26/17 10:30 INR 1.05 (0.92-1.08) 02/26/17 10:30 APTT 27.8 SECONDS (23.3-32.5) 02/18/17 18:25
[2017-03-13] MEDS: Cefepime 1 GM in Sodium Chloride 0.9% 100 ML IVPB SCH ×3 (01:01→16:18)
--- NOTE | 2017-03-13 08:01 | CP.PCM.PN ---
Subjective - Date & Time of Evaluation Date of Evaluation: 03/13/17 Time of Evaluation: 07:59 - Subjective Subjective: Cardiothoracic Surgery Note for Dr. Espinoza This 21M was seen and examined this Am at bedside. He reports no acute events overnight. His dressings are clean dry and intact. Patient resting comfortably in bed His anterior chest tube and posterior chest tube had approximately 45/ 45cc output since yesterday. Objective - Vital Signs/Intake and Output Vital Signs (last 24 hours): Temp Pulse Resp BP Pulse Ox 97.5 F L 72 20 116/71 98 03/13/17 05:17 03/13/17 05:17 03/13/17 05:17 03/13/17 05:17 03/13/17 05:17 Intake and Output: 03/13/17 03/13/17 06:59 18:59 Intake Total 220 420 Output Total 92 21 Balance 128 399 - Medications Medications: Current Medications Acetaminophen (Tylenol 325mg Tab) 650 mg PO Q6 PRN PRN Reason: Fever >100.4 F Last Admin: 03/02/17 01:27 Dose: 650 mg Diphenhydramine HCl (Benadryl) 50 mg IVP Q6 PRN PRN Reason: Itching / Pruritus Ferrous Sulfate (Feosol) 325 mg PO DAILY [facility] Last Admin: 03/12/17 13:23 Dose: 325 mg Gabapentin (Neurontin) 300 mg PO TID [facility] Last Admin: 03/12/17 16:15 Dose: 300 mg Cefepime HCl 1 gm/ Sodium (Chloride) 100 mls @ 100 mls/hr IVPB Q8 [facility] Last Admin: 03/13/17 01:01 Dose: 100 mls/hr Ketorolac Tromethamine (Toradol) 30 mg IVP Q6 PRN PRN Reason: Pain, moderate (4-7) Last Admin: 03/13/17 00:24 Dose: 30 mg Ondansetron HCl (Zofran Inj) 4 mg IVP Q6 PRN PRN Reason: Nausea/Vomiting - Labs Labs: 03/12/17 04:20 03/12/17 04:20 PT 10.9 SECONDS (9.6-11.2) 02/26/17 10:30 INR 1.05 (0.92-1.08) 02/26/17 10:30 APTT 27.8 SECONDS (23.3-32.5) 02/18/17 18:25 - Constitutional Appears: Non-toxic, No Acute Distress - Head Exam Head Exam: ATRAUMATIC, NORMOCEPHALIC - Eye Exam Eye Exam: EOMI, Normal appearance - ENT Exam ENT Exam: Mucous Membranes Moist - Respiratory Exam Respiratory Exam: NORMAL BREATHING PATTERN, chest tube in place on wall suction , anterior 65cc posterior 75cc overnight - Cardiovascular Exam Cardiovascular Exam: REGULAR RHYTHM - Skin Skin Exam: Dry, Intact Assessment and Plan - Assessment and Plan (Free Text) Assessment: This is a 21M with no PMH who presented with a spontaneous pneumothorax. He is POD#12 S/P vats with apical lung wedge resection and apical plaurectomy, with anterior and posterior chest tube placement. Vital signs stable Continue chest tubes to suction. Ambulate as tolerated Regular diet Will do CT chest tomorrow with possible DC of chest tubes Will discuss with Dr. Alexis Seo PGY-1
--- NOTE | 2017-03-13 11:04 | RAD ---
PROCEDURE: CHEST RADIOGRAPH, 1 VIEW HISTORY: comparison COMPARISON: Comparison chest dated FINDINGS: LUNGS: Current study re- demonstrates 2 in situ left-sided chest tubes. There has been interval improvement in patchy on irregular opacity left lung apex. There may be some residual bubbles of air within the opacity as well as small of blebs and or a tiny residual loculated pneumothorax in the lung apex. Left basilar atelectasis. Suspect the tiny residual left basilar effusion PLEURA: No pneumothorax or pleural fluid seen. CARDIOVASCULAR: Normal. OSSEOUS STRUCTURES: No significant abnormalities. VISUALIZED UPPER ABDOMEN: Normal. OTHER FINDINGS: None. IMPRESSION: Current study re- demonstrates 2 in situ left-sided chest tubes. There has been interval improvement in patchy on irregular opacity left lung apex. There may be some residual bubbles of air within the opacity as well as small of blebs and or a tiny residual loculated pneumothorax in the lung apex. Left basilar atelectasis. Suspect the tiny residual left basilar effusion
--- NOTE | 2017-03-13 11:06 | CP.PCM.PN ---
Subjective - Date & Time of Evaluation Date of Evaluation: 03/13/17 Time of Evaluation: 10:00 - Subjective Subjective: Patient was seen and evaluated bedside. sitting in chair , comfortable inNAD. Feeling better. Still with left hemithorax anterior and posterior chest tubes in place.With output last 24 hours 51 /62 ml from both chest tubes( last 12 hours 12/9 ml ) Hemodynamically stable, afebrile. No acute issues overnight. Objective - Vital Signs/Intake and Output Vital Signs (last 24 hours): Temp Pulse Resp BP Pulse Ox 98.2 F 78 20 115/70 100 03/13/17 08:02 03/13/17 08:02 03/13/17 08:02 03/13/17 08:02 03/13/17 08:02 Intake and Output: 03/13/17 03/13/17 06:59 18:59 Intake Total 220 420 Output Total 92 21 Balance 128 399 - Medications Medications: Current Medications Acetaminophen (Tylenol 325mg Tab) 650 mg PO Q6 PRN PRN Reason: Fever >100.4 F Last Admin: 03/02/17 01:27 Dose: 650 mg Diphenhydramine HCl (Benadryl) 50 mg IVP Q6 PRN PRN Reason: Itching / Pruritus Ferrous Sulfate (Feosol) 325 mg PO DAILY [facility] Last Admin: 03/13/17 08:36 Dose: 325 mg Gabapentin (Neurontin) 300 mg PO TID [facility] Last Admin: 03/13/17 08:35 Dose: 300 mg Cefepime HCl 1 gm/ Sodium (Chloride) 100 mls @ 100 mls/hr IVPB Q8 [facility] Last Admin: 03/13/17 08:34 Dose: 100 mls/hr Ketorolac Tromethamine (Toradol) 30 mg IVP Q6 PRN PRN Reason: Pain, moderate (4-7) Last Admin: 03/13/17 00:24 Dose: 30 mg Ondansetron HCl (Zofran Inj) 4 mg IVP Q6 PRN PRN Reason: Nausea/Vomiting - Labs Labs: 03/12/17 04:20 03/12/17 04:20 PT 10.9 SECONDS (9.6-11.2) 02/26/17 10:30 INR 1.05 (0.92-1.08) 02/26/17 10:30 APTT 27.8 SECONDS (23.3-32.5) 02/18/17 18:25 - Constitutional Appears: Non-toxic, No Acute Distress - Head Exam Head Exam: NORMOCEPHALIC - Eye Exam Eye Exam: EOMI, Normal appearance, PERRL Pupil Exam: NORMAL ACCOMODATION - ENT Exam ENT Exam: Mucous Membranes Moist, Normal Exam - Neck Exam Neck Exam: Full ROM, Normal Inspection - Respiratory Exam Respiratory Exam: Clear to Ausculation Bilateral. absent: Accessory Muscle Use , Rhonchi, Wheezes, Respiratory Distress Additional comments: left hemithorax anterior and posterior chest tubes in place - Cardiovascular Exam Cardiovascular Exam: REGULAR RHYTHM, RRR, +S1, +S2. absent: JVD - GI/Abdominal Exam GI & Abdominal Exam: Soft, Normal Bowel Sounds. absent: Distended, Guarding, Tenderness, Rebound - Rectal Exam Rectal Exam: Deferred - Extremities Exam Extremities Exam: Full ROM, Normal Capillary Refill, Normal Inspection. absent : Calf Tenderness, Tenderness - Back Exam Back Exam: NORMAL INSPECTION - Neurological Exam Neurological Exam: Alert, Awake, CN II-XII Intact, Oriented x3 - Psychiatric Exam Psychiatric exam: Normal Affect, Normal Mood - Skin Skin Exam: Dry, Pallor, Warm Assessment and Plan - Assessment and Plan (Free Text) Assessment: 21 y/o male with no significant PMH came in because of chest pain and SOB. CXR showed tension Pneumothorax on the left. Cardiothoracic surgery consulted and chest tube was placed. Chest tube was re inserted and talc pleurodesis performed in OR due to residual apical pneumothorax and large air leak. He was taken again to OR and underwent Hybrid VATS, resection of apical blebs and bullae, and parietal pleurectomy 02/28. He developed left hemothorax and underwent TPA infusion via catheter into left pleura for the persistent hemothorax on 03/08/17 and 03/11/17. With 51 ml and 62 ml output from anterior and posterior chest tubes respectively last 24 hours. Repeat CXR today showed significant improvement of hemothorax 1. Spontaneous Pneumothorax s/p VATs,resection of apical blebs and Pleurectomy s/p Chest tube x 2 Apical Hemothorax, loculated s/p TPA x2 Feeling better Repeat CXr today showed almost resolution of hemothorax Discussed with Dr. Espinoza .Will repeat Ct chest in AM and decide about chest tube removal Continue pain management Cont Cefepime 2. Acute blood loss anemia on ferrous sulfate stable 3. DVt prophylaxis SCD ambulatory
--- NOTE | 2017-03-13 11:29 | CP.PCM.PN ---
Subjective - Date & Time of Evaluation Date of Evaluation: 03/13/17 Time of Evaluation: 11:27 - Subjective Subjective: Pt s/e. No c/o. chest tubes; 62/52 marroon color output-no air leak. cxr-dramatic improvement of apex. ct tomorrow and consider d/c chest tubes. Objective - Vital Signs/Intake and Output Vital Signs (last 24 hours): Temp Pulse Resp BP Pulse Ox 98.2 F 78 20 115/70 100 03/13/17 08:02 03/13/17 08:02 03/13/17 08:02 03/13/17 08:02 03/13/17 08:02 Intake and Output: 03/13/17 03/13/17 06:59 18:59 Intake Total 220 420 Output Total 92 21 Balance 128 399 - Medications Medications: Current Medications Acetaminophen (Tylenol 325mg Tab) 650 mg PO Q6 PRN PRN Reason: Fever >100.4 F Last Admin: 03/02/17 01:27 Dose: 650 mg Diphenhydramine HCl (Benadryl) 50 mg IVP Q6 PRN PRN Reason: Itching / Pruritus Ferrous Sulfate (Feosol) 325 mg PO DAILY [facility] Last Admin: 03/13/17 08:36 Dose: 325 mg Gabapentin (Neurontin) 300 mg PO TID [facility] Last Admin: 03/13/17 08:35 Dose: 300 mg Cefepime HCl 1 gm/ Sodium (Chloride) 100 mls @ 100 mls/hr IVPB Q8 [facility] Last Admin: 03/13/17 08:34 Dose: 100 mls/hr Ketorolac Tromethamine (Toradol) 30 mg IVP Q6 PRN PRN Reason: Pain, moderate (4-7) Last Admin: 03/13/17 00:24 Dose: 30 mg Ondansetron HCl (Zofran Inj) 4 mg IVP Q6 PRN PRN Reason: Nausea/Vomiting - Labs Labs: 03/12/17 04:20 03/12/17 04:20 PT 10.9 SECONDS (9.6-11.2) 02/26/17 10:30 INR 1.05 (0.92-1.08) 02/26/17 10:30 APTT 27.8 SECONDS (23.3-32.5) 02/18/17 18:25
--- NOTE | 2017-03-13 12:25 | CARD ---
APPROVED REPORT EXAM: Two-dimensional and M-mode echocardiogram with Doppler and color Doppler. Other Information Quality : GoodRhythm : Technically limited study due to No 4 Ch[place]be rviews due to Chest Tubes insertion. INDICATION LV Function:SystolicDiastolic 2D DIMENSIONS IVSd0.98 (0.7-1.1cm)LVDd4.82 (3.9-5.9cm) LVOT Diameter2.13 (1.8-2.4cm)PWd1.02 (0.7-1.1cm) IVSs1.42 (0.8-1.2cm)LVDs3.10 (2.5-4.0cm) FS (%) 35.6 %PWs1.25 (0.8-1.2cm) M-Mode DIMENSIONS Left Atrium (MM)3.42 (2.5-4.0cm)IVSd1.16 (0.7-1.1cm) Aortic Root2.98 (2.2-3.7cm)LVDd4.77 (4.0-5.6cm) Aortic Cusp Exc.2.65 (1.5-2.0cm)PWd0.91 (0.7-1.1cm) IVSs1.76 cmFS (%) 43 % LVDs2.73 (2.0-3.8cm)PWs1.46 cm Mitral Valve E/A ratio0.0 TDI E/Lateral E'0.0E/Medial E'0.0 Pulmonary Valve PV Peak Gfcnvvdu335.3cm/s LEFT VENTRICLE The left ventricle is normal size. There is normal left ventricular wall thickness. The left ventricular function is normal. The left ventricular ejection fraction is 55% There is normal LV segmental wall motion. The left ventricular diastolic function is normal. No left ventricle thrombus noted on this study. There is no ventricular septal defect visualized. There is no left ventricular aneurysm. There is no mass noted in the left ventricle. RIGHT VENTRICLE The right ventricle is normal size. There is normal right ventricular wall thickness. The right ventricular systolic function is normal. ATRIA The left atrium size is normal. The right atrium size is normal. The interatrial septum is intact with no evidence for an atrial septal defect. AORTIC VALVE The aortic valve is normal in structure and function. No aortic regurgitation is present. There is no aortic valvular stenosis. There is no aortic valvular vegetation. MITRAL VALVE The mitral valve is normal in structure and function. There is no evidence of mitral valve prolapse. There is no mitral valve stenosis. There is no mitral valve regurgitation noted. TRICUSPID VALVE The tricuspid valve is normal in structure and function. There is no tricuspid valve regurgitation noted. There is no tricuspid valve prolapse or vegetation. There is no tricuspid valve stenosis. PULMONIC VALVE The pulmonary valve is normal in structure and function. There is no pulmonic valvular regurgitation. There is no pulmonic valvular stenosis. GREAT VESSELS The aortic root is normal in size. The ascending aorta is normal in size. The IVC is normal in size and collapses >50% with inspiration. PERICARDIAL EFFUSION The pericardium appears normal. There is no pleural effusion. <Conclusion> Normal Echocardiogram
[2017-03-14] MEDS: Cefepime 1 GM in Sodium Chloride 0.9% 100 ML IVPB SCH ×3 (08:36→17:24)
--- NOTE | 2017-03-14 10:44 | CP.PCM.PN ---
Subjective - Date & Time of Evaluation Date of Evaluation: 03/14/17 Time of Evaluation: 10:41 - Subjective Subjective: Cardiothoracic Surgery Note for Dr. Espinoza This 21M was seen and examined this Am at bedside. He reports no acute events overnight. His dressings are clean dry and intact. Patient resting comfortably in bed His anterior chest tube and posterior chest tube had approximately 25/ 15cc output since yesterday. Objective - Vital Signs/Intake and Output Vital Signs (last 24 hours): Temp Pulse Resp BP Pulse Ox 97.6 F 20 L 20 119/75 99 03/14/17 08:17 03/14/17 08:17 03/14/17 08:17 03/14/17 08:17 03/14/17 08:17 Intake and Output: 03/14/17 03/14/17 06:59 18:59 Intake Total 600 Output Total 8 Balance 592 - Medications Medications: Current Medications Acetaminophen (Tylenol 325mg Tab) 650 mg PO Q6 PRN PRN Reason: Fever >100.4 F Last Admin: 03/02/17 01:27 Dose: 650 mg Diphenhydramine HCl (Benadryl) 50 mg IVP Q6 PRN PRN Reason: Itching / Pruritus Ferrous Sulfate (Feosol) 325 mg PO DAILY [facility] Last Admin: 03/14/17 08:36 Dose: 325 mg Gabapentin (Neurontin) 300 mg PO TID [facility] Last Admin: 03/14/17 08:37 Dose: 300 mg Cefepime HCl 1 gm/ Sodium (Chloride) 100 mls @ 100 mls/hr IVPB Q8 [facility] Last Admin: 03/14/17 08:36 Dose: 100 mls/hr Ketorolac Tromethamine (Toradol) 30 mg IVP Q6 PRN PRN Reason: Pain, moderate (4-7) Last Admin: 03/13/17 23:50 Dose: 30 mg Ondansetron HCl (Zofran Inj) 4 mg IVP Q6 PRN PRN Reason: Nausea/Vomiting - Labs Labs: 03/12/17 04:20 03/12/17 04:20 PT 10.9 SECONDS (9.6-11.2) 02/26/17 10:30 INR 1.05 (0.92-1.08) 02/26/17 10:30 APTT 27.8 SECONDS (23.3-32.5) 02/18/17 18:25 - Constitutional Appears: Non-toxic, No Acute Distress - Head Exam Head Exam: ATRAUMATIC, NORMOCEPHALIC - Eye Exam Eye Exam: EOMI, Normal appearance - ENT Exam ENT Exam: Mucous Membranes Moist - Respiratory Exam Respiratory Exam: NORMAL BREATHING PATTERN, chest tube in place on wall suction , anterior 65cc posterior 75cc overnight - Cardiovascular Exam Cardiovascular Exam: REGULAR RHYTHM - Skin Skin Exam: Dry, Intact Assessment and Plan - Assessment and Plan (Free Text) Assessment: This is a 21M with no PMH who presented with a spontaneous pneumothorax. He is POD#14 S/P vats with apical lung wedge resection and apical plaurectomy, with anterior and posterior chest tube placement. Vital signs stable Continue chest tubes to suction. Ambulate as tolerated Regular diet Will CT chest tomorrow Will discuss with Dr. Alexis Seo PGY-1
--- NOTE | 2017-03-14 14:53 | CP.PCM.PN ---
Subjective - Date & Time of Evaluation Date of Evaluation: 03/14/17 Time of Evaluation: 11:30 - Subjective Subjective: Patient was seen and evaluated bedside. Sitting in chair , comfortable in NAD. Feeling better. Still with left hemithorax anterior and posterior chest tubes in place.With output last 12 hours 20/15 ml from both chest tubes Hemodynamically stable, afebrile. No acute issues overnight. Objective - Vital Signs/Intake and Output Vital Signs (last 24 hours): Temp Pulse Resp BP Pulse Ox 97.6 F 20 L 20 119/75 99 03/14/17 08:17 03/14/17 08:17 03/14/17 08:17 03/14/17 08:17 03/14/17 08:17 Intake and Output: 03/14/17 03/14/17 06:59 18:59 Intake Total 600 Output Total 8 Balance 592 - Medications Medications: Current Medications Acetaminophen (Tylenol 325mg Tab) 650 mg PO Q6 PRN PRN Reason: Fever >100.4 F Last Admin: 03/02/17 01:27 Dose: 650 mg Diphenhydramine HCl (Benadryl) 50 mg IVP Q6 PRN PRN Reason: Itching / Pruritus Ferrous Sulfate (Feosol) 325 mg PO DAILY [facility] Last Admin: 03/14/17 08:36 Dose: 325 mg Gabapentin (Neurontin) 300 mg PO TID [facility] Last Admin: 03/14/17 13:00 Dose: 300 mg Cefepime HCl 1 gm/ Sodium (Chloride) 100 mls @ 100 mls/hr IVPB Q8 [facility] Last Admin: 03/14/17 08:36 Dose: 100 mls/hr Ketorolac Tromethamine (Toradol) 30 mg IVP Q6 PRN PRN Reason: Pain, moderate (4-7) Last Admin: 03/13/17 23:50 Dose: 30 mg Ondansetron HCl (Zofran Inj) 4 mg IVP Q6 PRN PRN Reason: Nausea/Vomiting - Labs Labs: 03/12/17 04:20 03/12/17 04:20 PT 10.9 SECONDS (9.6-11.2) 02/26/17 10:30 INR 1.05 (0.92-1.08) 02/26/17 10:30 APTT 27.8 SECONDS (23.3-32.5) 02/18/17 18:25 - Constitutional Appears: Non-toxic, No Acute Distress - Head Exam Head Exam: ATRAUMATIC, NORMAL INSPECTION, NORMOCEPHALIC - Eye Exam Eye Exam: EOMI, Normal appearance, PERRL Pupil Exam: NORMAL ACCOMODATION - ENT Exam ENT Exam: Mucous Membranes Moist, Normal Exam - Neck Exam Neck Exam: Full ROM, Normal Inspection - Respiratory Exam Respiratory Exam: Clear to Ausculation Bilateral. absent: Rales, Wheezes, Respiratory Distress Additional comments: left hemithorax anterior and posterior chest tube in place - Cardiovascular Exam Cardiovascular Exam: REGULAR RHYTHM, RRR, +S1, +S2. absent: JVD - GI/Abdominal Exam GI & Abdominal Exam: Soft, Normal Bowel Sounds. absent: Distended, Guarding, Rebound - Rectal Exam Rectal Exam: Deferred - Extremities Exam Extremities Exam: Full ROM, Normal Capillary Refill, Normal Inspection. absent : Calf Tenderness, Pedal Edema - Back Exam Back Exam: NORMAL INSPECTION - Neurological Exam Neurological Exam: Alert, Awake, CN II-XII Intact, Oriented x3 - Psychiatric Exam Psychiatric exam: Normal Affect, Normal Mood - Skin Skin Exam: Dry, Intact, Warm Assessment and Plan - Assessment and Plan (Free Text) Assessment: 21 y/o male with no significant PMH came in because of chest pain and SOB. CXR showed tension Pneumothorax on the left. Cardiothoracic surgery consulted and chest tube was placed. Chest tube was re inserted and talc pleurodesis performed in OR due to residual apical pneumothorax and large air leak. He was taken again to OR and underwent Hybrid VATS, resection of apical blebs and bullae, and parietal pleurectomy 02/28. He developed left hemothorax and underwent TPA infusion via catheter into left pleura for the persistent hemothorax on 03/08/17 and 03/11/17. With 20 and 15 ml output from anterior and posterior chest tubes respectively last 12 hours. Repeat CXR yesterday showed significant improvement of hemothorax 1. Spontaneous Pneumothorax s/p VATs,resection of apical blebs and Pleurectomy s/p Chest tube x 2 Apical Hemothorax, loculated s/p TPA x2 Feeling better Repeat CXR yesterday showed almost resolution of hemothorax Discussed with Dr. Espinoza .Will repeat CT chest in AM and decide about chest tube removal Continue pain management Cont Cefepime 2. Acute blood loss anemia on ferrous sulfate stable 3. DVt prophylaxis SCD ambulatory
--- NOTE | 2017-03-14 15:39 | CT ---
PROCEDURE: Date of procedure: 03/11/2017 CHEST TUBE: TPA infusion of chest tubes for thrombolysis. Medications: TPA 2 mg Radiation: 11.05 mGy Fluorotime: 127.5 seconds HISTORY: Hemothorax with non-draining chest tubes. COMPARISON: TECHNIQUE: Following informed consent and procedure time-out, patient placed supine on the interventional table. Fluoroscopic image showed 2 chest tubes with tips in the upper left chest. The chest tubes were prepped in a sterile manner. A guidewire and catheter were advanced through existing chest tube into the pleural space and guidewire and catheter use the disrupt any blood clots. This was followed by infusion of 2 milligrams of tPA dissolved in 8 cubic centimeters of saline into the pleural space. The chest tubes were then reattached to wall suction. FINDINGS: IMPRESSION: TPA infusion into left chest tubes in the patient with hemothorax
[2017-03-15] MEDS: Cefepime 1 GM in Sodium Chloride 0.9% 100 ML IVPB SCH ×3 (01:13→17:25)
--- NOTE | 2017-03-15 08:13 | CP.PCM.PN ---
Subjective - Date & Time of Evaluation Date of Evaluation: 03/15/17 Time of Evaluation: 08:11 - Subjective Subjective: Cardiothoracic Surgery Note for Dr. Espinoza This 21M was seen and examined this Am at bedside. He reports no acute events overnight. His dressings are clean dry and intact. Patient resting comfortably in bed His anterior chest tube and posterior chest tube in place this morning. Objective - Vital Signs/Intake and Output Vital Signs (last 24 hours): Temp Pulse Resp BP Pulse Ox 98.0 F 77 20 115/71 99 03/15/17 08:04 03/15/17 08:04 03/15/17 08:04 03/15/17 08:04 03/15/17 08:04 - Medications Medications: Current Medications Acetaminophen (Tylenol 325mg Tab) 650 mg PO Q6 PRN PRN Reason: Fever >100.4 F Last Admin: 03/02/17 01:27 Dose: 650 mg Diphenhydramine HCl (Benadryl) 50 mg IVP Q6 PRN PRN Reason: Itching / Pruritus Ferrous Sulfate (Feosol) 325 mg PO DAILY [facility] Last Admin: 03/14/17 08:36 Dose: 325 mg Gabapentin (Neurontin) 300 mg PO TID [facility] Last Admin: 03/14/17 17:24 Dose: 300 mg Cefepime HCl 1 gm/ Sodium (Chloride) 100 mls @ 100 mls/hr IVPB Q8 [facility] Last Admin: 03/15/17 01:13 Dose: 100 mls/hr Ketorolac Tromethamine (Toradol) 30 mg IVP Q6 PRN PRN Reason: Pain, moderate (4-7) Last Admin: 03/13/17 23:50 Dose: 30 mg Ondansetron HCl (Zofran Inj) 4 mg IVP Q6 PRN PRN Reason: Nausea/Vomiting - Labs Labs: 03/12/17 04:20 03/12/17 04:20 PT 10.9 SECONDS (9.6-11.2) 02/26/17 10:30 INR 1.05 (0.92-1.08) 02/26/17 10:30 APTT 27.8 SECONDS (23.3-32.5) 02/18/17 18:25 - Constitutional Appears: Well, Non-toxic, No Acute Distress - Respiratory Exam Additional comments: NORMAL BREATHING PATTERN, chest tube in place on wall suction, anterior 50cc posterior 10cc in the past 24 hrs Assessment and Plan - Assessment and Plan (Free Text) Assessment: This is a 21M with no PMH who presented with a spontaneous pneumothorax. He is POD#15 S/P vats with apical lung wedge resection and apical plaurectomy, with anterior and posterior chest tube placement. Vital signs stable Continue chest tubes to suction. Ambulate as tolerated Regular diet f/u CT chest possible removal of posterior chest tube today Will discuss with Dr. Espinoza
--- NOTE | 2017-03-15 09:05 | CP.PCM.PN ---
Subjective - Date & Time of Evaluation Date of Evaluation: 03/15/17 Time of Evaluation: 08:50 - Subjective Subjective: 2 chest tubes on left chest - connected to Pleurovac No fever Pain on chest tube site controlled no SOB no cough no abd pain Objective - Vital Signs/Intake and Output Vital Signs (last 24 hours): Temp Pulse Resp BP Pulse Ox 98.0 F 77 20 115/71 99 03/15/17 08:04 03/15/17 08:04 03/15/17 08:04 03/15/17 08:04 03/15/17 08:04 - Medications Medications: Current Medications Acetaminophen (Tylenol 325mg Tab) 650 mg PO Q6 PRN PRN Reason: Fever >100.4 F Last Admin: 03/02/17 01:27 Dose: 650 mg Diphenhydramine HCl (Benadryl) 50 mg IVP Q6 PRN PRN Reason: Itching / Pruritus Ferrous Sulfate (Feosol) 325 mg PO DAILY [facility] Last Admin: 03/15/17 08:51 Dose: 325 mg Gabapentin (Neurontin) 300 mg PO TID [facility] Last Admin: 03/15/17 08:51 Dose: 300 mg Cefepime HCl 1 gm/ Sodium (Chloride) 100 mls @ 100 mls/hr IVPB Q8 [facility] Last Admin: 03/15/17 08:55 Dose: 100 mls/hr Ketorolac Tromethamine (Toradol) 30 mg IVP Q6 PRN PRN Reason: Pain, moderate (4-7) Last Admin: 03/13/17 23:50 Dose: 30 mg Ondansetron HCl (Zofran Inj) 4 mg IVP Q6 PRN PRN Reason: Nausea/Vomiting - Labs Labs: 03/12/17 04:20 03/12/17 04:20 PT 10.9 SECONDS (9.6-11.2) 02/26/17 10:30 INR 1.05 (0.92-1.08) 02/26/17 10:30 APTT 27.8 SECONDS (23.3-32.5) 02/18/17 18:25 - Constitutional Appears: No Acute Distress - Head Exam Head Exam: ATRAUMATIC, NORMAL INSPECTION, NORMOCEPHALIC - Eye Exam Eye Exam: EOMI, Normal appearance, PERRL Pupil Exam: NORMAL ACCOMMODATION - ENT Exam ENT Exam: Mucous Membranes Moist, Normal External Ear Exam - Neck Exam Neck Exam: Full ROM. absent: Meningismus - Respiratory Exam Respiratory Exam: NORMAL BREATHING PATTERN. No Respiratory Distress decrease BS left - Cardiovascular Exam Cardiovascular Exam: REGULAR RHYTHM, +S1, +S2 Additional comments: 2 Left chest tubes on the left , some serosanguinous drainage - GI/Abdominal Exam GI & Abdominal Exam: Soft, Normal Bowel Sounds. absent: Tenderness - Extremities Exam Extremities Exam: Full ROM, Normal Capillary Refill. absent: Calf Tenderness, Normal Inspection - Back Exam Back Exam: Full ROM, NORMAL INSPECTION. absent: CVA tenderness (L), CVA tenderness (R) - Neurological Exam Neurological Exam: alert, oriented x 3 Neuro motor strength exam: 02/22 - Psychiatric Exam Psychiatric exam: Normal Affect, Normal Mood - Skin Skin Exam: Dry, Normal Color, Warm Assessment and Plan - Assessment and Plan (Free Text) Assessment: 21 y/o male with no significant PMH came in because of chest pain and SOB. CXR showed tension Pneumothorax on the left. Cardiothoracic surgery consulted and chest tube was placed. Chest tube was re inserted and talc pleurodesis performed in OR due to residual apical pneumothorax and large air leak. He was taken again to OR and underwent Hybrid VATS, resection of apical blebs and bullae, and parietal pleurectomy 02/28. He developed left hemothorax and underwent TPA infusion via catheter into left pleura for the persistent hemothorax on 03/08/17 and 03/11/17. Repeat CXR showed significant improvement of hemothorax 1. Spontaneous Pneumothorax s/p VATs,resection of apical blebs and Pleurectomy s/p Chest tube x 2 Apical Hemothorax, loculated s/p TPA x2 Feeling better Repeat CXR yesterday showed almost resolution of hemothorax repeat CT chest today Continue pain management Cont Cefepime 2. Acute blood loss anemia on ferrous sulfate stable 3. DVt prophylaxis SCD ambulatory
--- NOTE | 2017-03-15 11:47 | CT ---
PROCEDURE: CT CT scan of the chest dated 03/15/2017 HISTORY: comparison COMPARISON: Comparison made with CT scan chest 03/11/2017 TECHNIQUE: Contiguous axial images were obtained through the chest without intravenous contrast enhancement. Sagittal and coronal reconstructions were performed. Radiation dose (DLP): 331.06 mGy-cm. This CT exam was performed using one or more of the following dose reduction techniques: Automated exposure control, adjustment of the mA and/or kV according to patient size, and/or use of iterative reconstruction technique. FINDINGS: LUNGS: Current study re- demonstrates two in situ 2 left-sided chest tubes. . Re- demonstrated is a heterogeneous irregular soft tissue density in the left lung apex consistent with residual hematoma/hemorrhage 10 granulation tissue interspersed with bubbles of air. Curvilinear pleurodesis material seen near the left lung apex. A few small peripheral bubbles of air could represent residual blebs though a tiny residual loculated pneumothorax not completely excluded. Overall the soft tissue opacity has diminished in size and appears to have undergone anterior/superior retraction. A 2nd component of loculated extrapleural hemorrhage granulation tissue and fluid seen along the left posterolateral lung apex and upper lung field. There are also areas of parenchymal scarring subjacent to the opacity in the lung apex and upper lobe. Persistent slight elevation left hemidiaphragm likely due to some volume loss. There are areas of of the left basilar atelectasis/scarring and pleural thickening with what may represent small amount of pleural fluid as well. . . There is small left basilar pneumothorax with Right lung is clear. MEDIASTINUM: Unremarkable thoracic aorta. No aneurysm. Normal sized heart. Main pulmonary artery unremarkable. No vascular congestion. No lymphadenopathy. PLEURA: As above. BONES: No fracture. No destructive lesion. UPPER ABDOMEN: Grossly unremarkable. OTHER FINDINGS: None. IMPRESSION: Re- demonstrated are in situ left-sided chest tubes. Heterogeneous irregular soft tissue density left lung apex consistent with some residual hemorrhage hematoma/hemorrhage fluid and granulation tissue interspersed with bubbles of air. Curvilinear pleurodesis material also noted near the lung apex. Few peripheral bubbles of air could represent residual blebs or tiny residual loculated pneumothorax. Overall the soft tissue opacity has diminished in size and appears have undergone anterior superior retraction. Second component of of presumed loculated extrapleural hemorrhage granulation to issue and fluid in the left posterolateral lung apex and left upper lung field. Adjacent parenchymal scarring. Elevation left hemidiaphragm with areas of left basilar atelectasis/scarring and pleural thickening as well as what may represent a small amount of pleural fluid. Small left basilar pneumothorax.
--- NOTE | 2017-03-15 12:37 | CP.PCM.PN ---
Subjective - Date & Time of Evaluation Date of Evaluation: 03/15/17 Time of Evaluation: 12:34 - Subjective Subjective: pt s/e. No c/o. ct : residual hemothorax in the apex. chest tubes: 29cc(marroon) anterior and 10cc(serous) posterior. continue chest tubes until Saturday. daily cxr. Objective - Vital Signs/Intake and Output Vital Signs (last 24 hours): Temp Pulse Resp BP Pulse Ox 98.0 F 77 20 115/71 99 03/15/17 08:04 03/15/17 09:00 03/15/17 08:04 03/15/17 08:04 03/15/17 08:04 - Medications Medications: Current Medications Acetaminophen (Tylenol 325mg Tab) 650 mg PO Q6 PRN PRN Reason: Fever >100.4 F Last Admin: 03/02/17 01:27 Dose: 650 mg Diphenhydramine HCl (Benadryl) 50 mg IVP Q6 PRN PRN Reason: Itching / Pruritus Ferrous Sulfate (Feosol) 325 mg PO DAILY [facility] Last Admin: 03/15/17 08:51 Dose: 325 mg Gabapentin (Neurontin) 300 mg PO TID [facility] Last Admin: 03/15/17 08:51 Dose: 300 mg Cefepime HCl 1 gm/ Sodium (Chloride) 100 mls @ 100 mls/hr IVPB Q8 [facility] Last Admin: 03/15/17 08:55 Dose: 100 mls/hr Ketorolac Tromethamine (Toradol) 30 mg IVP Q6 PRN PRN Reason: Pain, moderate (4-7) Last Admin: 03/13/17 23:50 Dose: 30 mg Ondansetron HCl (Zofran Inj) 4 mg IVP Q6 PRN PRN Reason: Nausea/Vomiting - Labs Labs: 03/12/17 04:20 03/12/17 04:20 PT 10.9 SECONDS (9.6-11.2) 02/26/17 10:30 INR 1.05 (0.92-1.08) 02/26/17 10:30 APTT 27.8 SECONDS (23.3-32.5) 02/18/17 18:25
[2017-03-15 12:39] LABS: HEMATOCRIT 37.7 % (35.0-51.0); MEAN CELL VOLUME 88.8 fl (80.0-94.0); MEAN CORPUSCULAR HEMOGLOBIN 29.5 pg (27.0-31.0); MEAN CORPUSCULAR HGB CONC 33.3 g/dL (33.0-37.0); RED CELL DISTRIBUTION WIDTH 12.8 % (11.5-14.5); WHITE BLOOD COUNT 6.6 K/uL (4.8-10.8)
[2017-03-15] MEDS: Lactobacillus Acidophilus 500 MU Cap PO SCH (17:24)
[2017-03-16] MEDS: Cefepime 1 GM in Sodium Chloride 0.9% 100 ML IVPB SCH ×4 (00:55→16:35)
--- NOTE | 2017-03-16 08:17 | CP.PCM.PN ---
Subjective - Date & Time of Evaluation Date of Evaluation: 03/16/17 Time of Evaluation: 08:15 - Subjective Subjective: Thoracic Surgery - Dr. Espinoza Pt S&E. GENO. Pt denies any complaints. He has no SOB or chest pain. Chest tubes placed to waterseal. Objective - Vital Signs/Intake and Output Vital Signs (last 24 hours): Temp Pulse Resp BP Pulse Ox 97.9 F 80 18 113/82 98 03/16/17 05:15 03/16/17 05:15 03/16/17 05:15 03/16/17 05:15 03/16/17 05:15 Intake and Output: 03/16/17 03/16/17 06:59 18:59 Output Total 0 Balance 0 - Medications Medications: Current Medications Acetaminophen (Tylenol 325mg Tab) 650 mg PO Q6 PRN PRN Reason: Fever >100.4 F Last Admin: 03/02/17 01:27 Dose: 650 mg Diphenhydramine HCl (Benadryl) 50 mg IVP Q6 PRN PRN Reason: Itching / Pruritus Ferrous Sulfate (Feosol) 325 mg PO DAILY [facility] Last Admin: 03/15/17 08:51 Dose: 325 mg Gabapentin (Neurontin) 300 mg PO TID [facility] Last Admin: 03/15/17 17:25 Dose: 300 mg Cefepime HCl 1 gm/ Sodium (Chloride) 100 mls @ 100 mls/hr IVPB Q8 [facility] Last Admin: 03/16/17 00:59 Dose: 100 mls/hr Ketorolac Tromethamine (Toradol) 30 mg IVP Q6 PRN PRN Reason: Pain, moderate (4-7) Last Admin: 03/13/17 23:50 Dose: 30 mg Lactobacillus Acidophilus (Bacid Acidophilus) 1 cap PO BID [facility] Last Admin: 03/15/17 17:24 Dose: 1 cap Ondansetron HCl (Zofran Inj) 4 mg IVP Q6 PRN PRN Reason: Nausea/Vomiting - Labs Labs: 03/15/17 12:20 03/12/17 04:20 PT 10.9 SECONDS (9.6-11.2) 02/26/17 10:30 INR 1.05 (0.92-1.08) 02/26/17 10:30 APTT 27.8 SECONDS (23.3-32.5) 02/18/17 18:25 - Constitutional Appears: No Acute Distress - Head Exam Head Exam: ATRAUMATIC, NORMAL INSPECTION, NORMOCEPHALIC - Eye Exam Eye Exam: Normal appearance - Respiratory Exam Respiratory Exam: NORMAL BREATHING PATTERN. absent: Respiratory Distress - Neurological Exam Neurological Exam: Alert, Oriented x3 - Skin Skin Exam: Dry, Intact Assessment and Plan - Assessment and Plan (Free Text) Assessment: 21M POD#16 s/p hybrid vats/thoracotomy with apical wedge resection and apical pleurectomy -CTs to waterseal -F/U CXR -Encourage OOB/Ambulation -Pain control -Chest tube removal planned for Saturday DW Dr Alexis Dickens PGY2
[2017-03-16] MEDS: Lactobacillus Acidophilus 500 MU Cap PO SCH ×2 (09:37→16:35)
--- NOTE | 2017-03-16 09:39 | RAD ---
HISTORY: hemothorax. COMPARISON: Comparison made with prior CT scan chest dated 03/15/2017 and chest radiograph dated 03/13/2017 FINDINGS: LUNGS: Re- demonstrated are 2 in situ left-sided chest tubes. Heterogeneous opacity left lung apex print again noted consistent with some combination of residual hematoma granulation tissue and pleural thickening. Small basilar pneumothorax on again noted. Slightly improved left basilar amber atelectasis. PLEURA: As above. CARDIOVASCULAR: Normal. OSSEOUS STRUCTURES: No significant abnormalities. VISUALIZED UPPER ABDOMEN: Normal. OTHER FINDINGS: None. IMPRESSION: Re- demonstrated are 2 in situ left-sided chest tubes. Heterogeneous opacity left lung apex print again noted consistent with some combination of residual hematoma granulation tissue and pleural thickening. Small basilar pneumothorax on again noted. Slightly improved left basilar amber atelectasis.
--- NOTE | 2017-03-16 11:27 | CP.PCM.PN ---
Subjective - Date & Time of Evaluation Date of Evaluation: 03/16/17 Time of Evaluation: 11:24 - Subjective Subjective: Pt s/e. No c/o. chest tubes: 7(marroon) /20(seroous) feliciano air leak. cxr-basically unchanged from 03-13-17. continue susctioncxr in am. cahnge pleurecvac. Objective - Vital Signs/Intake and Output Vital Signs (last 24 hours): Temp Pulse Resp BP Pulse Ox 98.4 F 85 20 108/68 99 03/16/17 08:27 03/16/17 08:27 03/16/17 08:27 03/16/17 08:27 03/16/17 08:27 Intake and Output: 03/16/17 03/16/17 06:59 18:59 Output Total 0 Balance 0 - Medications Medications: Current Medications Acetaminophen (Tylenol 325mg Tab) 650 mg PO Q6 PRN PRN Reason: Fever >100.4 F Last Admin: 03/02/17 01:27 Dose: 650 mg Diphenhydramine HCl (Benadryl) 50 mg IVP Q6 PRN PRN Reason: Itching / Pruritus Ferrous Sulfate (Feosol) 325 mg PO DAILY [facility] Last Admin: 03/16/17 09:39 Dose: 325 mg Gabapentin (Neurontin) 300 mg PO TID [facility] Last Admin: 03/16/17 09:38 Dose: 300 mg Cefepime HCl 1 gm/ Sodium (Chloride) 100 mls @ 100 mls/hr IVPB Q8 [facility] Last Admin: 03/16/17 09:38 Dose: 100 mls/hr Ketorolac Tromethamine (Toradol) 30 mg IVP Q6 PRN PRN Reason: Pain, moderate (4-7) Last Admin: 03/13/17 23:50 Dose: 30 mg Lactobacillus Acidophilus (Bacid Acidophilus) 1 cap PO BID [facility] Last Admin: 03/16/17 09:37 Dose: 1 cap Ondansetron HCl (Zofran Inj) 4 mg IVP Q6 PRN PRN Reason: Nausea/Vomiting - Labs Labs: 03/15/17 12:20 03/12/17 04:20 PT 10.9 SECONDS (9.6-11.2) 02/26/17 10:30 INR 1.05 (0.92-1.08) 02/26/17 10:30 APTT 27.8 SECONDS (23.3-32.5) 02/18/17 18:25
[2017-03-16] MEDS ORDERED: guaiFENesin DM 200 mg-20 mg/10 ml UD PO PRN (12:44)
--- NOTE | 2017-03-16 12:44 | CP.PCM.PN ---
Subjective - Date & Time of Evaluation Date of Evaluation: 03/16/17 Time of Evaluation: 12:00 - Subjective Subjective: No fever started coughing last night no SOB Chest tube site pain controlled no abd pain Objective - Vital Signs/Intake and Output Vital Signs (last 24 hours): Temp Pulse Resp BP Pulse Ox 98.4 F 85 20 108/68 99 03/16/17 08:27 03/16/17 08:27 03/16/17 08:27 03/16/17 08:27 03/16/17 08:27 Intake and Output: 03/16/17 03/16/17 06:59 18:59 Output Total 0 Balance 0 - Medications Medications: Current Medications Acetaminophen (Tylenol 325mg Tab) 650 mg PO Q6 PRN PRN Reason: Fever >100.4 F Last Admin: 03/02/17 01:27 Dose: 650 mg Diphenhydramine HCl (Benadryl) 50 mg IVP Q6 PRN PRN Reason: Itching / Pruritus Ferrous Sulfate (Feosol) 325 mg PO DAILY [facility] Last Admin: 03/16/17 09:39 Dose: 325 mg Gabapentin (Neurontin) 300 mg PO TID [facility] Last Admin: 03/16/17 12:40 Dose: 300 mg Cefepime HCl 1 gm/ Sodium (Chloride) 100 mls @ 100 mls/hr IVPB Q8 [facility] Last Admin: 03/16/17 09:38 Dose: 100 mls/hr Ketorolac Tromethamine (Toradol) 30 mg IVP Q6 PRN PRN Reason: Pain, moderate (4-7) Last Admin: 03/13/17 23:50 Dose: 30 mg Lactobacillus Acidophilus (Bacid Acidophilus) 1 cap PO BID [facility] Last Admin: 03/16/17 09:37 Dose: 1 cap Ondansetron HCl (Zofran Inj) 4 mg IVP Q6 PRN PRN Reason: Nausea/Vomiting - Labs Labs: 03/15/17 12:20 03/12/17 04:20 PT 10.9 SECONDS (9.6-11.2) 02/26/17 10:30 INR 1.05 (0.92-1.08) 02/26/17 10:30 APTT 27.8 SECONDS (23.3-32.5) 02/18/17 18:25 - Constitutional Appears: No Acute Distress - Head Exam Head Exam: ATRAUMATIC, NORMAL INSPECTION, NORMOCEPHALIC - Eye Exam Eye Exam: EOMI, Normal appearance, PERRL Pupil Exam: NORMAL ACCOMMODATION - ENT Exam ENT Exam: Mucous Membranes Moist, Normal External Ear Exam - Neck Exam Neck Exam: Full ROM. absent: Meningismus - Respiratory Exam Respiratory Exam: NORMAL BREATHING PATTERN. No Respiratory Distress decrease BS left - Cardiovascular Exam Cardiovascular Exam: REGULAR RHYTHM, +S1, +S2 Additional comments: 2 Left chest tubes on the left , some serosanguinous drainage - GI/Abdominal Exam GI & Abdominal Exam: Soft, Normal Bowel Sounds. absent: Tenderness - Extremities Exam Extremities Exam: Full ROM, Normal Capillary Refill. absent: Calf Tenderness, Normal Inspection - Back Exam Back Exam: Full ROM, NORMAL INSPECTION. absent: CVA tenderness (L), CVA tenderness (R) - Neurological Exam Neurological Exam: alert, oriented x 3 Neuro motor strength exam: 02/22 - Psychiatric Exam Psychiatric exam: Normal Affect, Normal Mood - Skin Skin Exam: Dry, Normal Color, Warm Assessment and Plan - Assessment and Plan (Free Text) Assessment: 21 y/o male with no significant PMH came in because of chest pain and SOB. CXR showed tension Pneumothorax on the left. Cardiothoracic surgery consulted and chest tube was placed. Chest tube was re inserted and talc pleurodesis performed in OR due to residual apical pneumothorax and large air leak. He was taken again to OR and underwent Hybrid VATS, resection of apical blebs and bullae, and parietal pleurectomy 02/28. He developed left hemothorax and underwent TPA infusion via catheter into left pleura for the persistent hemothorax on 03/08/17 and 03/11/17. Repeat CXR today : no change. 1. Spontaneous Pneumothorax s/p VATs,resection of apical blebs and Pleurectomy s/p Chest tube x 2 Apical Hemothorax, loculated s/p TPA x2 Pt remains stable repeat CT chest done yesterday showed persistent PTX and Hemothorax rpt CXR : no change Continue pain management Cont Cefepime Robitussin for cough 2. Acute blood loss anemia on ferrous sulfate stable 3. DVt prophylaxis SCD ambulatory
[2017-03-17] MEDS: Cefepime 1 GM in Sodium Chloride 0.9% 100 ML IVPB SCH ×3 (01:02→16:45)
[2017-03-17] MEDS: Lactobacillus Acidophilus 500 MU Cap PO SCH ×2 (08:59→16:44)
--- NOTE | 2017-03-17 10:22 | RAD ---
HISTORY: hemothorax. COMPARISON: No prior. FINDINGS: LUNGS: Re- demonstrated are 2 in situ left-sided chest tubes. Heterogeneous opacity left lung apex and left upper lobe. Previously noted tiny left basilar pneumothorax appears to have diminished in size as has some left basilar atelectasis PLEURA: As above. CARDIOVASCULAR: Normal. OSSEOUS STRUCTURES: No significant abnormalities. VISUALIZED UPPER ABDOMEN: Normal. OTHER FINDINGS: None. IMPRESSION: Re- demonstrated are 2 in situ left-sided chest tubes. Heterogeneous opacity left lung apex and left upper lobe. Previously noted tiny left basilar pneumothorax appears to have diminished in size as has some left basilar atelectasis
--- NOTE | 2017-03-17 10:48 | CP.PCM.PN ---
Subjective - Date & Time of Evaluation Date of Evaluation: 03/17/17 Time of Evaluation: 10:00 - Subjective Subjective: No fever no SOB cough better with the Robitussin CHest tube site pain controlled no abd pain no diarrhea Objective - Vital Signs/Intake and Output Vital Signs (last 24 hours): Temp Pulse Resp BP Pulse Ox 98.0 F 82 20 106/67 98 03/17/17 08:27 03/17/17 08:27 03/17/17 08:27 03/17/17 08:27 03/17/17 08:27 Intake and Output: 03/17/17 03/17/17 06:59 18:59 Output Total 10 Balance -10 - Medications Medications: Current Medications Acetaminophen (Tylenol 325mg Tab) 650 mg PO Q6 PRN PRN Reason: Fever >100.4 F Last Admin: 03/02/17 01:27 Dose: 650 mg Diphenhydramine HCl (Benadryl) 50 mg IVP Q6 PRN PRN Reason: Itching / Pruritus Ferrous Sulfate (Feosol) 325 mg PO DAILY [facility] Last Admin: 03/17/17 08:58 Dose: 325 mg Gabapentin (Neurontin) 300 mg PO TID [facility] Last Admin: 03/17/17 08:58 Dose: 300 mg Guaifenesin/Dextromethorphan (Robitussin Dm) 10 ml PO Q4 PRN PRN Reason: Cough Last Admin: 03/16/17 16:35 Dose: 10 ml Cefepime HCl 1 gm/ Sodium (Chloride) 100 mls @ 100 mls/hr IVPB Q8 [facility] Last Admin: 03/17/17 08:58 Dose: 100 mls/hr Ketorolac Tromethamine (Toradol) 30 mg IVP Q6 PRN PRN Reason: Pain, moderate (4-7) Last Admin: 03/13/17 23:50 Dose: 30 mg Lactobacillus Acidophilus (Bacid Acidophilus) 1 cap PO BID [facility] Last Admin: 03/17/17 08:59 Dose: 1 cap Ondansetron HCl (Zofran Inj) 4 mg IVP Q6 PRN PRN Reason: Nausea/Vomiting - Labs Labs: 03/15/17 12:20 03/12/17 04:20 PT 10.9 SECONDS (9.6-11.2) 02/26/17 10:30 INR 1.05 (0.92-1.08) 02/26/17 10:30 APTT 27.8 SECONDS (23.3-32.5) 02/18/17 18:25 - Constitutional Appears: No Acute Distress - Head Exam Head Exam: ATRAUMATIC, NORMAL INSPECTION, NORMOCEPHALIC - Eye Exam Eye Exam: EOMI, Normal appearance, PERRL Pupil Exam: NORMAL ACCOMMODATION - ENT Exam ENT Exam: Mucous Membranes Moist, Normal External Ear Exam - Neck Exam Neck Exam: Full ROM. absent: Meningismus - Respiratory Exam Respiratory Exam: NORMAL BREATHING PATTERN. No Respiratory Distress decrease BS left - Cardiovascular Exam Cardiovascular Exam: REGULAR RHYTHM, +S1, +S2 Additional comments: 2 Left chest tubes on the left , some serosanguinous drainage - GI/Abdominal Exam GI & Abdominal Exam: Soft, Normal Bowel Sounds. absent: Tenderness - Extremities Exam Extremities Exam: Full ROM, Normal Capillary Refill. absent: Calf Tenderness, Normal Inspection - Back Exam Back Exam: Full ROM, NORMAL INSPECTION. absent: CVA tenderness (L), CVA tenderness (R) - Neurological Exam Neurological Exam: alert, oriented x 3 Neuro motor strength exam: 02/22 - Psychiatric Exam Psychiatric exam: Normal Affect, Normal Mood - Skin Skin Exam: Dry, Normal Color, Warm Assessment and Plan - Assessment and Plan (Free Text) Assessment: 21 y/o male with no significant PMH came in because of chest pain and SOB. CXR showed tension Pneumothorax on the left. Cardiothoracic surgery consulted and chest tube was placed. Chest tube was re inserted and talc pleurodesis performed in OR due to residual apical pneumothorax and large air leak. He was taken again to OR and underwent Hybrid VATS, resection of apical blebs and bullae, and parietal pleurectomy 02/28. He developed left hemothorax and underwent TPA infusion via catheter into left pleura for the persistent hemothorax on 03/08/17 and 03/11/17. Repeat CXR today : no change. 1. Spontaneous Pneumothorax s/p VATs,resection of apical blebs and Pleurectomy s/p Chest tube x 2 Apical Hemothorax, loculated s/p TPA x2 Pt remains stable repeat CT chest done 03/15 showed persistent PTX and Hemothorax rpt CXR : no change Keep Chest tube on Continue pain management Cont Cefepime Robitussin for cough Dr Espinoza following pt closely 2. Acute blood loss anemia on ferrous sulfate stable 3. DVt prophylaxis SCD ambulatory
--- NOTE | 2017-03-17 11:42 | CP.PCM.PN ---
Subjective - Date & Time of Evaluation Date of Evaluation: 03/17/17 Time of Evaluation: 08:10 - Subjective Subjective: SURGERY PROGRESS NOTE FOR DR. GARCIA 21M seen and examined at bedside, Patient resting comfortably. Denies shortness of breath, NAEON. Objective - Vital Signs/Intake and Output Vital Signs (last 24 hours): Temp Pulse Resp BP Pulse Ox 98.0 F 82 20 106/67 98 03/17/17 08:27 03/17/17 08:27 03/17/17 08:27 03/17/17 08:27 03/17/17 08:27 Intake and Output: 03/17/17 03/17/17 06:59 18:59 Output Total 10 Balance -10 - Medications Medications: Current Medications Acetaminophen (Tylenol 325mg Tab) 650 mg PO Q6 PRN PRN Reason: Fever >100.4 F Last Admin: 03/02/17 01:27 Dose: 650 mg Diphenhydramine HCl (Benadryl) 50 mg IVP Q6 PRN PRN Reason: Itching / Pruritus Ferrous Sulfate (Feosol) 325 mg PO DAILY [facility] Last Admin: 03/17/17 08:58 Dose: 325 mg Gabapentin (Neurontin) 300 mg PO TID [facility] Last Admin: 03/17/17 08:58 Dose: 300 mg Guaifenesin/Dextromethorphan (Robitussin Dm) 10 ml PO Q4 PRN PRN Reason: Cough Last Admin: 03/16/17 16:35 Dose: 10 ml Cefepime HCl 1 gm/ Sodium (Chloride) 100 mls @ 100 mls/hr IVPB Q8 [facility] Last Admin: 03/17/17 08:58 Dose: 100 mls/hr Ketorolac Tromethamine (Toradol) 30 mg IVP Q6 PRN PRN Reason: Pain, moderate (4-7) Last Admin: 03/13/17 23:50 Dose: 30 mg Lactobacillus Acidophilus (Bacid Acidophilus) 1 cap PO BID [facility] Last Admin: 03/17/17 08:59 Dose: 1 cap Ondansetron HCl (Zofran Inj) 4 mg IVP Q6 PRN PRN Reason: Nausea/Vomiting - Labs Labs: 03/15/17 12:20 03/12/17 04:20 PT 10.9 SECONDS (9.6-11.2) 02/26/17 10:30 INR 1.05 (0.92-1.08) 02/26/17 10:30 APTT 27.8 SECONDS (23.3-32.5) 02/18/17 18:25 - Constitutional Appears: Non-toxic, No Acute Distress - Head Exam Head Exam: ATRAUMATIC - ENT Exam ENT Exam: Mucous Membranes Moist - Respiratory Exam Respiratory Exam: Clear to Ausculation Bilateral, NORMAL BREATHING PATTERN - Cardiovascular Exam Cardiovascular Exam: REGULAR RHYTHM, +S1, +S2 Additional comments: two chest tubes in place. no leak. approximately 20cc from posterior tube and anterior tube. - GI/Abdominal Exam GI & Abdominal Exam: Soft. absent: Distended, Firm, Guarding, Rigid, Tenderness , Rebound - Neurological Exam Neurological Exam: Alert, Awake Assessment and Plan - Assessment and Plan (Free Text) Assessment: 21M POD#16 s/p hybrid vats/thoracotomy with apical wedge resection and apical pleurectomy -Continue CT on suction -F/U daily CXR -Encourage OOB/Ambulation -Pain control -Chest tube removal planned for Saturday Further recs discuss with Dr. Alexis Joe, PGY1
--- NOTE | 2017-03-17 13:17 | CP.PCM.PN ---
Subjective - Date & Time of Evaluation Date of Evaluation: 03/17/17 Time of Evaluation: 13:13 - Subjective Subjective: pt s/e. cxr-left apical density remains. chest tubes-ant(12cc) and post(2cc) no air leak. chest tubes off suction. continue current care. Objective - Vital Signs/Intake and Output Vital Signs (last 24 hours): Temp Pulse Resp BP Pulse Ox 97.6 F 91 H 18 109/67 98 03/17/17 13:01 03/17/17 13:01 03/17/17 13:01 03/17/17 13:01 03/17/17 13:01 Intake and Output: 03/17/17 03/17/17 06:59 18:59 Output Total 10 Balance -10 - Medications Medications: Current Medications Acetaminophen (Tylenol 325mg Tab) 650 mg PO Q6 PRN PRN Reason: Fever >100.4 F Last Admin: 03/02/17 01:27 Dose: 650 mg Diphenhydramine HCl (Benadryl) 50 mg IVP Q6 PRN PRN Reason: Itching / Pruritus Ferrous Sulfate (Feosol) 325 mg PO DAILY [facility] Last Admin: 03/17/17 08:58 Dose: 325 mg Gabapentin (Neurontin) 300 mg PO TID [facility] Last Admin: 03/17/17 08:58 Dose: 300 mg Guaifenesin/Dextromethorphan (Robitussin Dm) 10 ml PO Q4 PRN PRN Reason: Cough Last Admin: 03/16/17 16:35 Dose: 10 ml Cefepime HCl 1 gm/ Sodium (Chloride) 100 mls @ 100 mls/hr IVPB Q8 [facility] Last Admin: 03/17/17 08:58 Dose: 100 mls/hr Ketorolac Tromethamine (Toradol) 30 mg IVP Q6 PRN PRN Reason: Pain, moderate (4-7) Last Admin: 03/13/17 23:50 Dose: 30 mg Lactobacillus Acidophilus (Bacid Acidophilus) 1 cap PO BID [facility] Last Admin: 03/17/17 08:59 Dose: 1 cap Ondansetron HCl (Zofran Inj) 4 mg IVP Q6 PRN PRN Reason: Nausea/Vomiting - Labs Labs: 03/15/17 12:20 03/12/17 04:20 PT 10.9 SECONDS (9.6-11.2) 02/26/17 10:30 INR 1.05 (0.92-1.08) 02/26/17 10:30 APTT 27.8 SECONDS (23.3-32.5) 02/18/17 18:25
[2017-03-18] MEDS: Cefepime 1 GM in Sodium Chloride 0.9% 100 ML IVPB SCH ×3 (00:40→16:51)
--- NOTE | 2017-03-18 03:28 | CP.PCM.PN ---
Subjective - Date & Time of Evaluation Date of Evaluation: 03/18/17 Time of Evaluation: 03:26 - Subjective Subjective: SURGERY NOTE FOR DR. GARCIA 21M seen and examined bedside. resting comfortably. no respiratory distress. Objective - Vital Signs/Intake and Output Vital Signs (last 24 hours): Temp Pulse Resp BP Pulse Ox 98.0 F 78 18 109/63 97 03/18/17 00:00 03/18/17 00:00 03/18/17 00:00 03/18/17 00:00 03/18/17 00:00 Intake and Output: 03/17/17 03/18/17 18:59 06:59 Intake Total 1700 Output Total 20 Balance 1680 - Medications Medications: Current Medications Acetaminophen (Tylenol 325mg Tab) 650 mg PO Q6 PRN PRN Reason: Fever >100.4 F Last Admin: 03/02/17 01:27 Dose: 650 mg Diphenhydramine HCl (Benadryl) 50 mg IVP Q6 PRN PRN Reason: Itching / Pruritus Ferrous Sulfate (Feosol) 325 mg PO DAILY [facility] Last Admin: 03/17/17 08:58 Dose: 325 mg Gabapentin (Neurontin) 300 mg PO TID [facility] Last Admin: 03/17/17 16:44 Dose: 300 mg Guaifenesin/Dextromethorphan (Robitussin Dm) 10 ml PO Q4 PRN PRN Reason: Cough Last Admin: 03/16/17 16:35 Dose: 10 ml Cefepime HCl 1 gm/ Sodium (Chloride) 100 mls @ 100 mls/hr IVPB Q8 [facility] Last Admin: 03/18/17 00:40 Dose: 100 mls/hr Ketorolac Tromethamine (Toradol) 30 mg IVP Q6 PRN PRN Reason: Pain, moderate (4-7) Last Admin: 03/13/17 23:50 Dose: 30 mg Lactobacillus Acidophilus (Bacid Acidophilus) 1 cap PO BID [facility] Last Admin: 03/17/17 16:44 Dose: 1 cap Ondansetron HCl (Zofran Inj) 4 mg IVP Q6 PRN PRN Reason: Nausea/Vomiting - Labs Labs: 03/15/17 12:20 03/12/17 04:20 PT 10.9 SECONDS (9.6-11.2) 02/26/17 10:30 INR 1.05 (0.92-1.08) 02/26/17 10:30 APTT 27.8 SECONDS (23.3-32.5) 02/18/17 18:25 - Constitutional Appears: Non-toxic, No Acute Distress - Respiratory Exam Respiratory Exam: Clear to Ausculation Bilateral, NORMAL BREATHING PATTERN Additional comments: chest tubes in place. minimal output from ant, and 20cc in posterior cannister, no air leak, currently on waterseal. - Cardiovascular Exam Cardiovascular Exam: REGULAR RHYTHM, +S1, +S2 - Skin Skin Exam: Dry, Intact, Normal Color, Warm Assessment and Plan - Assessment and Plan (Free Text) Assessment: 21M POD#18 s/p hybrid vats/thoracotomy with apical wedge resection and apical pleurectomy -Currently on waterseal -F/U daily CXR -Encourage OOB/Ambulation -Pain control -Chest tube removal planned for Saturday Further recs discuss with Dr. Alexis Joe, PGY1
[2017-03-18 05:47] LABS: HEMATOCRIT 38.2 % (35.0-51.0); MEAN CELL VOLUME 88.6 fl (80.0-94.0); MEAN CORPUSCULAR HEMOGLOBIN 28.8 pg (27.0-31.0); MEAN CORPUSCULAR HGB CONC 32.5 g/dL (33.0-37.0); RED CELL DISTRIBUTION WIDTH 13.2 % (11.5-14.5)
[2017-03-18 06:03] LABS: BLOOD UREA NITROGEN 11 mg/dl (9-20); CALCIUM 9.8 mg/dL (8.4-10.2); CARBON DIOXIDE 28 mmol/L (22-30); CHLORIDE 103 mmol/L (98-107); GFR AFRICAN-AMERICAN > 60; GLUCOSE,RANDOM 97 mg/dL (75-110); SODIUM 140 mmol/l (132-148)
--- NOTE | 2017-03-18 08:18 | RAD ---
HISTORY: follow up COMPARISON: 03/17/2017 FINDINGS: LUNGS: Hazy opacity throughout the left lung particularly near the apex. Clear and slightly expanded right lung. PLEURA: Pleural thickening versus poor surgical changes along the left chest. Previously seen pneumothorax not clearly identified. CARDIOVASCULAR: Normal. OSSEOUS STRUCTURES: No significant abnormalities. VISUALIZED UPPER ABDOMEN: Upper abdomen is suboptimally evaluated. OTHER FINDINGS: Two chest tubes on the left as before. IMPRESSION: Hazy opacity in the left lung particularly near the apex. Right lung is clear and appears expanded. Other findings as above.
--- NOTE | 2017-03-18 09:47 | CP.PCM.PN ---
Subjective - Date & Time of Evaluation Date of Evaluation: 03/18/17 Time of Evaluation: 09:43 - Subjective Subjective: Pt s/e. No c/o. Afebrile. hct-38 wbc-6k plat. 28k. chest tubes-. off suction. cxr-no pneumo. left apical density imroving. Continue current care. consider d/c tubes tomorrow. Objective - Vital Signs/Intake and Output Vital Signs (last 24 hours): Temp Pulse Resp BP Pulse Ox 98.1 F 79 20 119/72 98 03/18/17 09:00 03/18/17 09:00 03/18/17 09:00 03/18/17 09:00 03/18/17 09:00 Intake and Output: 03/18/17 03/18/17 06:59 18:59 Intake Total 100 Output Total 805 Balance -705 - Medications Medications: Current Medications Acetaminophen (Tylenol 325mg Tab) 650 mg PO Q6 PRN PRN Reason: Fever >100.4 F Last Admin: 03/02/17 01:27 Dose: 650 mg Diphenhydramine HCl (Benadryl) 50 mg IVP Q6 PRN PRN Reason: Itching / Pruritus Ferrous Sulfate (Feosol) 325 mg PO DAILY [facility] Last Admin: 03/17/17 08:58 Dose: 325 mg Gabapentin (Neurontin) 300 mg PO TID [facility] Last Admin: 03/17/17 16:44 Dose: 300 mg Guaifenesin/Dextromethorphan (Robitussin Dm) 10 ml PO Q4 PRN PRN Reason: Cough Last Admin: 03/16/17 16:35 Dose: 10 ml Cefepime HCl 1 gm/ Sodium (Chloride) 100 mls @ 100 mls/hr IVPB Q8 [facility] Last Admin: 03/18/17 00:40 Dose: 100 mls/hr Ketorolac Tromethamine (Toradol) 30 mg IVP Q6 PRN PRN Reason: Pain, moderate (4-7) Last Admin: 03/13/17 23:50 Dose: 30 mg Lactobacillus Acidophilus (Bacid Acidophilus) 1 cap PO BID [facility] Last Admin: 03/17/17 16:44 Dose: 1 cap Ondansetron HCl (Zofran Inj) 4 mg IVP Q6 PRN PRN Reason: Nausea/Vomiting - Labs Labs: 03/18/17 05:10 03/18/17 05:10 PT 10.9 SECONDS (9.6-11.2) 02/26/17 10:30 INR 1.05 (0.92-1.08) 02/26/17 10:30 APTT 27.8 SECONDS (23.3-32.5) 02/18/17 18:25
--- NOTE | 2017-03-18 10:27 | CP.PCM.PN ---
Subjective - Date & Time of Evaluation Date of Evaluation: 03/18/17 Time of Evaluation: 10:15 - Subjective Subjective: No fever no SOB cough better Pain at site of chest tubes controlled no abd pain Objective - Vital Signs/Intake and Output Vital Signs (last 24 hours): Temp Pulse Resp BP Pulse Ox 98.1 F 79 20 119/72 98 03/18/17 09:00 03/18/17 09:00 03/18/17 09:00 03/18/17 09:00 03/18/17 09:00 Intake and Output: 03/18/17 03/18/17 06:59 18:59 Intake Total 100 Output Total 805 Balance -705 - Medications Medications: Current Medications Acetaminophen (Tylenol 325mg Tab) 650 mg PO Q6 PRN PRN Reason: Fever >100.4 F Last Admin: 03/02/17 01:27 Dose: 650 mg Diphenhydramine HCl (Benadryl) 50 mg IVP Q6 PRN PRN Reason: Itching / Pruritus Ferrous Sulfate (Feosol) [address] [facility] Last Admin: 03/17/17 08:58 Dose: 325 mg Gabapentin (Neurontin) [address] [facility] Last Admin: 03/17/17 16:44 Dose: 300 mg Guaifenesin/Dextromethorphan (Robitussin Dm) 10 ml PO Q4 PRN PRN Reason: Cough Last Admin: 03/16/17 16:35 Dose: 10 ml Cefepime HCl 1 gm/ Sodium (Chloride) 100 mls @ 100 mls/hr IVPB Q8 [facility] Last Admin: 03/18/17 00:40 Dose: 100 mls/hr Ketorolac Tromethamine (Toradol) 30 mg IVP Q6 PRN PRN Reason: Pain, moderate (4-7) Last Admin: 03/13/17 23:50 Dose: 30 mg Lactobacillus Acidophilus (Bacid Acidophilus) [address] [facility] Last Admin: 03/17/17 16:44 Dose: 1 cap Ondansetron HCl (Zofran Inj) 4 mg IVP Q6 PRN PRN Reason: Nausea/Vomiting - Labs Labs: 03/18/17 05:10 03/18/17 05:10 PT 10.9 SECONDS (9.6-11.2) 02/26/17 10:30 INR 1.05 (0.92-1.08) 02/26/17 10:30 APTT 27.8 SECONDS (23.3-32.5) 02/18/17 18:25 - Constitutional Appears: No Acute Distress - Head Exam Head Exam: ATRAUMATIC, NORMAL INSPECTION, NORMOCEPHALIC - Eye Exam Eye Exam: EOMI, Normal appearance, PERRL Pupil Exam: NORMAL ACCOMMODATION - ENT Exam ENT Exam: Mucous Membranes Moist, Normal External Ear Exam - Neck Exam Neck Exam: Full ROM. absent: Meningismus - Respiratory Exam Respiratory Exam: NORMAL BREATHING PATTERN. No Respiratory Distress decrease BS left - Cardiovascular Exam Cardiovascular Exam: REGULAR RHYTHM, +S1, +S2 Additional comments: 2 Left chest tubes on the left , some serosanguinous drainage - GI/Abdominal Exam GI & Abdominal Exam: Soft, Normal Bowel Sounds. absent: Tenderness - Extremities Exam Extremities Exam: Full ROM, Normal Capillary Refill. absent: Calf Tenderness, Normal Inspection - Back Exam Back Exam: Full ROM, NORMAL INSPECTION. absent: CVA tenderness (L), CVA tenderness (R) - Neurological Exam Neurological Exam: alert, oriented x 3 Neuro motor strength exam: 02/22 - Psychiatric Exam Psychiatric exam: Normal Affect, Normal Mood - Skin Skin Exam: Dry, Normal Color, Warm Assessment and Plan - Assessment and Plan (Free Text) Assessment: 21 y/o male with no significant PMH came in because of chest pain and SOB. CXR showed tension Pneumothorax on the left. Cardiothoracic surgery consulted and chest tube was placed. Chest tube was re inserted and talc pleurodesis performed in OR due to residual apical pneumothorax and large air leak. He was taken again to OR and underwent Hybrid VATS, resection of apical blebs and bullae, and parietal pleurectomy 02/28. He developed left hemothorax and underwent TPA infusion via catheter into left pleura for the persistent hemothorax on 03/08/17 and 03/11/17. Repeat CXR today : no change. 1. Spontaneous Pneumothorax s/p VATs,resection of apical blebs and Pleurectomy s/p Chest tube x 2 Apical Hemothorax, loculated s/p TPA x2 Pt remains stable repeat CT chest done 03/15 showed persistent PTX and Hemothorax [address] , plan to d/c chest tubes in am Continue pain management Cont Cefepime Robitussin for cough Dr Espinoza following pt closely 2. Acute blood loss anemia on ferrous sulfate stable 3. DVt prophylaxis SCD ambulatory
[2017-03-18] MEDS: Lactobacillus Acidophilus 500 MU Cap PO SCH ×2 (10:35→16:52)
[2017-03-19] MEDS: Cefepime 1 GM in Sodium Chloride 0.9% 100 ML IVPB SCH ×3 (01:05→17:21)
[2017-03-19] MEDS: Lactobacillus Acidophilus 500 MU Cap PO SCH ×2 (08:04→17:20)
--- NOTE | 2017-03-19 08:16 | CP.PCM.PN ---
Subjective - Date & Time of Evaluation Date of Evaluation: 03/19/17 Time of Evaluation: 08:12 - Subjective Subjective: Thoracic Surgery- Dr. Espinoza Pt S&E. GENO. Pt doing well with no complaints. Left chest tubes with ~5cc total drainage. Tubes were removed at bedside this morning, patient tolerated procedure well. Objective - Vital Signs/Intake and Output Vital Signs (last 24 hours): Temp Pulse Resp BP Pulse Ox 97.5 F L 78 20 120/73 98 03/19/17 05:30 03/19/17 05:30 03/19/17 05:30 03/19/17 05:30 03/19/17 05:30 Intake and Output: 03/19/17 03/19/17 06:59 18:59 Intake Total 100 Output Total 600 Balance -500 - Medications Medications: Current Medications Acetaminophen (Tylenol 325mg Tab) 650 mg PO Q6 PRN PRN Reason: Fever >100.4 F Last Admin: 03/02/17 01:27 Dose: 650 mg Diphenhydramine HCl (Benadryl) 50 mg IVP Q6 PRN PRN Reason: Itching / Pruritus Last Admin: 03/19/17 01:51 Dose: 50 mg Ferrous Sulfate (Feosol) 325 mg PO DAILY [facility] Last Admin: 03/19/17 08:02 Dose: 325 mg Gabapentin (Neurontin) 300 mg PO TID [facility] Last Admin: 03/19/17 08:02 Dose: 300 mg Guaifenesin/Dextromethorphan (Robitussin Dm) 10 ml PO Q4 PRN PRN Reason: Cough Last Admin: 03/16/17 16:35 Dose: 10 ml Cefepime HCl 1 gm/ Sodium (Chloride) 100 mls @ 100 mls/hr IVPB Q8 [facility] Last Admin: 03/19/17 08:04 Dose: 100 mls/hr Ketorolac Tromethamine (Toradol) 30 mg IVP Q6 PRN PRN Reason: Pain, moderate (4-7) Last Admin: 03/19/17 08:01 Dose: 30 mg Lactobacillus Acidophilus (Bacid Acidophilus) 1 cap PO BID [facility] Last Admin: 03/19/17 08:04 Dose: 1 cap Ondansetron HCl (Zofran Inj) 4 mg IVP Q6 PRN PRN Reason: Nausea/Vomiting - Labs Labs: 03/18/17 05:10 03/18/17 05:10 PT 10.9 SECONDS (9.6-11.2) 02/26/17 10:30 INR 1.05 (0.92-1.08) 02/26/17 10:30 APTT 27.8 SECONDS (23.3-32.5) 02/18/17 18:25 - Constitutional Appears: No Acute Distress - Head Exam Head Exam: ATRAUMATIC, NORMAL INSPECTION, NORMOCEPHALIC - Respiratory Exam Respiratory Exam: NORMAL BREATHING PATTERN. absent: Respiratory Distress - Cardiovascular Exam Cardiovascular Exam: REGULAR RHYTHM - Neurological Exam Neurological Exam: Alert, Oriented x3 - Psychiatric Exam Psychiatric exam: Normal Affect, Normal Mood - Skin Skin Exam: Dry, Intact Assessment and Plan - Assessment and Plan (Free Text) Assessment: 21 yo M POD #19 s/p Left hybrid vats w/ apical resection and apical pleurectomy -Chest tubes removed -F/U 10AM CXR -If CXR stable pt. would be clear to go home from our standpoint -Chest tube dressing to remain in place for 48hours, then may be removed -F/U with Dr. Espinoza in 1 week for suture removal DW Dr. Alexis Dickens PGY2
--- NOTE | 2017-03-19 11:09 | RAD ---
PROCEDURE: CHEST RADIOGRAPH, 1 VIEW HISTORY: CT removal COMPARISON: 03/18/2017. FINDINGS: There is interval removal of left chest tubes. LUNGS: The right lung is clear. There is haziness in the left upper lobe and postoperative changes in the left apex. There is left basilar atelectasis. PLEURA: Small left basilar pneumothorax. No right pneumothorax or pleural fluid seen. CARDIOVASCULAR: The heart is normal in size. OSSEOUS STRUCTURES: No significant abnormalities. VISUALIZED UPPER ABDOMEN: Normal. OTHER FINDINGS: None. IMPRESSION: 1. Status post removal of left chest tubes, small left basilar pneumothorax and postoperative changes in the left upper lobe. 2. Clear right lung.
--- NOTE | 2017-03-19 11:25 | CP.PCM.PN ---
Subjective - Date & Time of Evaluation Date of Evaluation: 03/19/17 Time of Evaluation: 11:20 - Subjective Subjective: pt s/e. chest tubes removed this am. cxr-small basilar pneumo. and apical haziness consistent with postop changes. ambulate today. d/c home after cxr in am. d/w norman malcolm and Maninder. Objective - Vital Signs/Intake and Output Vital Signs (last 24 hours): Temp Pulse Resp BP Pulse Ox 98.0 F 79 20 116/68 98 03/19/17 08:25 03/19/17 08:25 03/19/17 08:25 03/19/17 08:25 03/19/17 08:25 Intake and Output: 03/19/17 03/19/17 06:59 18:59 Intake Total 100 Output Total 600 Balance -500 - Medications Medications: Current Medications Acetaminophen (Tylenol 325mg Tab) 650 mg PO Q6 PRN PRN Reason: Fever >100.4 F Last Admin: 03/02/17 01:27 Dose: 650 mg Diphenhydramine HCl (Benadryl) 50 mg IVP Q6 PRN PRN Reason: Itching / Pruritus Last Admin: 03/19/17 01:51 Dose: 50 mg Ferrous Sulfate (Feosol) 325 mg PO DAILY [facility] Last Admin: 03/19/17 08:02 Dose: 325 mg Gabapentin (Neurontin) 300 mg PO TID [facility] Last Admin: 03/19/17 08:02 Dose: 300 mg Guaifenesin/Dextromethorphan (Robitussin Dm) 10 ml PO Q4 PRN PRN Reason: Cough Last Admin: 03/16/17 16:35 Dose: 10 ml Cefepime HCl 1 gm/ Sodium (Chloride) 100 mls @ 100 mls/hr IVPB Q8 [facility] Last Admin: 03/19/17 08:04 Dose: 100 mls/hr Ketorolac Tromethamine (Toradol) 30 mg IVP Q6 PRN PRN Reason: Pain, moderate (4-7) Last Admin: 03/19/17 08:01 Dose: 30 mg Lactobacillus Acidophilus (Bacid Acidophilus) 1 cap PO BID [facility] Last Admin: 03/19/17 08:04 Dose: 1 cap Ondansetron HCl (Zofran Inj) 4 mg IVP Q6 PRN PRN Reason: Nausea/Vomiting - Labs Labs: 03/18/17 05:10 03/18/17 05:10 PT 10.9 SECONDS (9.6-11.2) 02/26/17 10:30 INR 1.05 (0.92-1.08) 02/26/17 10:30 APTT 27.8 SECONDS (23.3-32.5) 02/18/17 18:25
--- NOTE | 2017-03-19 14:46 | CP.PCM.PN ---
Subjective - Date & Time of Evaluation Date of Evaluation: 03/19/17 Time of Evaluation: 09:00 - Subjective Subjective: No fever his chest tube was d/c by Surgical team this am pt denies cough no SOB no CP pt is seen ambulating around the room and looks comfortable Objective - Vital Signs/Intake and Output Vital Signs (last 24 hours): Temp Pulse Resp BP Pulse Ox 98.3 F 99 H 20 115/68 99 03/19/17 12:47 03/19/17 12:47 03/19/17 12:47 03/19/17 12:47 03/19/17 12:47 Intake and Output: 03/19/17 03/19/17 06:59 18:59 Intake Total 100 Output Total 600 Balance -500 - Medications Medications: Current Medications Acetaminophen (Tylenol 325mg Tab) 650 mg PO Q6 PRN PRN Reason: Fever >100.4 F Last Admin: 03/02/17 01:27 Dose: 650 mg Diphenhydramine HCl (Benadryl) 50 mg IVP Q6 PRN PRN Reason: Itching / Pruritus Last Admin: 03/19/17 01:51 Dose: 50 mg Ferrous Sulfate (Feosol) 325 mg PO DAILY [facility] Last Admin: 03/19/17 08:02 Dose: 325 mg Gabapentin (Neurontin) 300 mg PO TID [facility] Last Admin: 03/19/17 14:04 Dose: 300 mg Guaifenesin/Dextromethorphan (Robitussin Dm) 10 ml PO Q4 PRN PRN Reason: Cough Last Admin: 03/16/17 16:35 Dose: 10 ml Cefepime HCl 1 gm/ Sodium (Chloride) 100 mls @ 100 mls/hr IVPB Q8 [facility] Last Admin: 03/19/17 08:04 Dose: 100 mls/hr Ketorolac Tromethamine (Toradol) 30 mg IVP Q6 PRN PRN Reason: Pain, moderate (4-7) Last Admin: 03/19/17 08:01 Dose: 30 mg Lactobacillus Acidophilus (Bacid Acidophilus) 1 cap PO BID [facility] Last Admin: 03/19/17 08:04 Dose: 1 cap Ondansetron HCl (Zofran Inj) 4 mg IVP Q6 PRN PRN Reason: Nausea/Vomiting - Labs Labs: 03/18/17 05:10 03/18/17 05:10 PT 10.9 SECONDS (9.6-11.2) 02/26/17 10:30 INR 1.05 (0.92-1.08) 02/26/17 10:30 APTT 27.8 SECONDS (23.3-32.5) 02/18/17 18:25 - Constitutional Appears: No Acute Distress - Head Exam Head Exam: ATRAUMATIC, NORMAL INSPECTION, NORMOCEPHALIC - Eye Exam Eye Exam: EOMI, Normal appearance, PERRL Pupil Exam: NORMAL ACCOMMODATION - ENT Exam ENT Exam: Mucous Membranes Moist, Normal External Ear Exam - Neck Exam Neck Exam: Full ROM. absent: Meningismus - Respiratory Exam Respiratory Exam: NORMAL BREATHING PATTERN. No Respiratory Distress decrease BS left - Cardiovascular Exam Cardiovascular Exam: REGULAR RHYTHM, +S1, +S2 site of previous chest tube - wound with intact dressing - GI/Abdominal Exam GI & Abdominal Exam: Soft, Normal Bowel Sounds. absent: Tenderness - Extremities Exam Extremities Exam: Full ROM, Normal Capillary Refill. absent: Calf Tenderness, Normal Inspection - Back Exam Back Exam: Full ROM, NORMAL INSPECTION. absent: CVA tenderness (L), CVA tenderness (R) - Neurological Exam Neurological Exam: alert, oriented x 3 Neuro motor strength exam: 02/22 - Psychiatric Exam Psychiatric exam: Normal Affect, Normal Mood - Skin Skin Exam: Dry, Normal Color, Warm Assessment and Plan - Assessment and Plan (Free Text) Assessment: 21 y/o male with no significant PMH came in because of chest pain and SOB. CT of chest showed tension Pneumothorax on the left. Cardiothoracic surgery consulted and chest tube was placed. Chest tube was re inserted and talc pleurodesis performed in OR due to residual apical pneumothorax and large air leak. He was taken again to OR and underwent Hybrid VATS, resection of apical blebs and bullae, and parietal pleurectomy 02/28. He developed left hemothorax and underwent TPA infusion via catheter into left pleura for the persistent hemothorax on 03/08/17 and 03/11/17. 1. Spontaneous Pneumothorax s/p VATs,resection of apical blebs and Pleurectomy s/p Chest tube x 2 Apical Hemothorax, loculated s/p TPA x2 Pt remains stable Chest tubes d/c this am Continue pain management Cont Cefepime Robitussin for cough Dr Espinoza following pt closely rpt CXR plan for poss d/c in am if rpt CXR shows no significant PTX/Hemothorax 2. Acute blood loss anemia on ferrous sulfate stable 3. DVt prophylaxis SCD ambulatory
[2017-03-20] MEDS: Cefepime 1 GM in Sodium Chloride 0.9% 100 ML IVPB SCH ×2 (01:19→10:31)
--- NOTE | 2017-03-20 07:58 | CP.PCM.PN ---
Subjective - Date & Time of Evaluation Date of Evaluation: 03/20/17 Time of Evaluation: 07:55 - Subjective Subjective: Thoracic Surgery- Dr. Espinoza Pt S&E. NACELINA. Pt doing well with no complaints. Dressing remains c/d/i. Denies n/f/v/d/c/sob. Objective - Vital Signs/Intake and Output Vital Signs (last 24 hours): Temp Pulse Resp BP Pulse Ox 98.4 F 69 18 111/69 99 03/20/17 04:38 03/20/17 04:38 03/20/17 04:38 03/20/17 04:38 03/20/17 04:38 Intake and Output: 03/20/17 03/20/17 06:59 18:59 Intake Total 800 Output Total 5 Balance 795 - Medications Medications: Current Medications Acetaminophen (Tylenol 325mg Tab) 650 mg PO Q6 PRN PRN Reason: Fever >100.4 F Last Admin: 03/02/17 01:27 Dose: 650 mg Diphenhydramine HCl (Benadryl) 50 mg IVP Q6 PRN PRN Reason: Itching / Pruritus Last Admin: 03/19/17 01:51 Dose: 50 mg Ferrous Sulfate (Feosol) 325 mg PO DAILY [facility] Last Admin: 03/19/17 08:02 Dose: 325 mg Gabapentin (Neurontin) 300 mg PO TID [facility] Last Admin: 03/19/17 17:21 Dose: 300 mg Guaifenesin/Dextromethorphan (Robitussin Dm) 10 ml PO Q4 PRN PRN Reason: Cough Last Admin: 03/16/17 16:35 Dose: 10 ml Cefepime HCl 1 gm/ Sodium (Chloride) 100 mls @ 100 mls/hr IVPB Q8 [facility] Last Admin: 03/20/17 01:19 Dose: 100 mls/hr Ketorolac Tromethamine (Toradol) 30 mg IVP Q6 PRN PRN Reason: Pain, moderate (4-7) Last Admin: 03/19/17 08:01 Dose: 30 mg Lactobacillus Acidophilus (Bacid Acidophilus) 1 cap PO BID [facility] Last Admin: 03/19/17 17:20 Dose: 1 cap Ondansetron HCl (Zofran Inj) 4 mg IVP Q6 PRN PRN Reason: Nausea/Vomiting - Labs Labs: 03/18/17 05:10 03/18/17 05:10 PT 10.9 SECONDS (9.6-11.2) 02/26/17 10:30 INR 1.05 (0.92-1.08) 02/26/17 10:30 APTT 27.8 SECONDS (23.3-32.5) 02/18/17 18:25 - Constitutional Appears: Well, Non-toxic, No Acute Distress - Respiratory Exam Respiratory Exam: NORMAL BREATHING PATTERN - Cardiovascular Exam Cardiovascular Exam: REGULAR RHYTHM - Neurological Exam Neurological Exam: Alert, Awake, Oriented x3 - Psychiatric Exam Psychiatric exam: Normal Affect, Normal Mood Assessment and Plan - Assessment and Plan (Free Text) Assessment: 21 yo M POD #20 s/p Left hybrid vats w/ apical resection and apical pleurectomy -Chest tubes removed yesterday -CXR stable this am -pt. clear to go home from our standpoint -F/U with Dr. Espinoza in 1 week for suture removal -recommend chest x ray 1 day prior to follow up appt with Dr. Espinoza DW Dr. Espinoza
[2017-03-20 07:59] VITALS: BP 119/64; PULSE 74; RESP 20; TEMP 98.1; O2SAT 97
--- NOTE | 2017-03-20 09:48 | RAD ---
HISTORY: s/p chest tube pulled, comparison COMPARISON: 03/19/2017 FINDINGS: LUNGS: Increased density in the left apex. PLEURA: No significant pleural effusion identified, no pneumothorax apparent. CARDIOVASCULAR: Normal. OSSEOUS STRUCTURES: No significant abnormalities. VISUALIZED UPPER ABDOMEN: Normal. OTHER FINDINGS: None. IMPRESSION: Increased density in the left apex possibly representing fluid. No gross pneumothorax.
[2017-03-20] MEDS: Lactobacillus Acidophilus 500 MU Cap PO SCH (10:29)
--- NOTE | 2017-03-20 10:56 | CP.PCM.DIS ---
Provider - Provider Date of Admission: 02/18/17 21:07 Attending physician: Marta Cartwright MD Consults: cardiothoracic surgery Time Spent in preparation of Discharge (in minutes): 15 Hospital Course - Lab Results Lab Results: Micro Results 03/12/17 20:30 Naris MRSA Culture (Admit) - Final MRSA NOT DETECTED 03/05/17 21:02 Pleural Fluid Gram Stain - Final 03/05/17 21:02 Pleural Fluid Anaerobic Culture - Final NO ANAEROBES ISOLATED. 03/05/17 21:02 Pleural Fluid Body Fluid Culture - Final No growth. 02/21/17 16:16 Chest Gram Stain - Final 02/21/17 16:16 Chest Wound Culture - Final Corynebacterium Species 02/28/17 11:00 Other: Please Indicate Gram Stain - Final 02/28/17 11:00 Other: Please Indicate Wound Culture - Final Staphylococcus Sp Coag Neg 02/28/17 15:54 Pleural Fluid Gram Stain - Final 02/28/17 15:54 Pleural Fluid Anaerobic Culture - Final NO ANAEROBES ISOLATED. 02/28/17 15:54 Pleural Fluid Body Fluid Culture - Final No growth. 02/21/17 16:16 Chest Anaerobic Culture - Final NO ANAEROBES ISOLATED. 02/20/17 07:13 Nose MRSA Culture (Admit) - Final MRSA NOT DETECTED 02/19/17 13:56 Nose MRSA Culture (Admit) - Final MRSA NOT DETECTED Most Recent Lab Values WBC 6.0 K/uL (4.8-10.8) 03/18/17 05:10 RBC 4.31 Mil/uL (4.40-5.90) L 03/18/17 05:10 Hgb 12.4 g/dL (12.0-18.0) 03/18/17 05:10 Hct 38.2 % (35.0-51.0) 03/18/17 05:10 MCV 88.6 fl (80.0-94.0) 03/18/17 05:10 MCH 28.8 pg (27.0-31.0) 03/18/17 05:10 MCHC 32.5 g/dL (33.0-37.0) L 03/18/17 05:10 RDW 13.2 % (11.5-14.5) 03/18/17 05:10 Plt Count 287 K/uL (130-400) 03/18/17 05:10 MPV 6.5 fl (7.2-11.7) L 03/11/17 04:25 Neut % (Auto) 60.4 % (50.0-75.0) 03/11/17 04:25 Lymph % (Auto) 23.2 % (20.0-40.0) 03/11/17 04:25 [place] % (Auto) 6.2 % (0.0-10.0) 03/11/17 04:25 Eos % (Auto) 8.8 % (0.0-4.0) H 03/11/17 04:25 Baso % (Auto) 1.4 % (0.0-2.0) 03/11/17 04:25 Neut # 4.5 K/uL (1.8-7.0) 03/11/17 04:25 Lymph # 1.7 K/uL (1.0-4.3) 03/11/17 04:25 [place] # 0.5 K/uL (0.0-0.8) 03/11/17 04:25 Eos # 0.7 K/uL (0.0-0.7) 03/11/17 04:25 Baso # 0.1 K/uL (0.0-0.2) 03/11/17 04:25 Neutrophils % (Manual) 85 % (42-75) H 03/01/17 04:50 Lymphocytes % (Manual) 8 % (20-50) L 03/01/17 04:50 Reactive Lymphs % 2 % (0-0) H 03/01/17 04:50 Monocytes % (Manual) 3 % (0-10) 03/01/17 04:50 Eosinophils % (Manual) 2 % (0-7) 03/01/17 04:50 Platelet Estimate Normal (NORMAL) 03/01/17 04:50 Large Platelets Present 03/01/17 04:50 Hypochromasia (manual) Slight 03/01/17 04:50 Anisocytosis (manual) Slight 03/01/17 04:50 Tear Drop Cells Slight 03/01/17 04:50 PT 10.9 SECONDS (9.6-11.2) 02/26/17 10:30 INR 1.05 (0.92-1.08) 02/26/17 10:30 APTT 27.8 SECONDS (23.3-32.5) 02/18/17 18:25 pCO2 38 mm/Hg (35-45) 02/26/17 12:26 pO2 89 mm/Hg (80-100) 02/26/17 12:26 HCO3 27.9 mmol/L (21-28) 02/26/17 12:26 ABG pH 7.47 (7.35-7.45) H 02/26/17 12:26 ABG Total CO2 28.9 mmol/L (22-28) H 02/26/17 12:26 ABG O2 Saturation 98.3 % (95-98) H 02/26/17 12:26 ABG O2 Content 19.5 ML/dL (15-23) 02/26/17 12:26 ABG Base Excess 3.9 mmol/L (-2.0-3.0) H 02/26/17 12:26 ABG Hemoglobin 14.5 g/dL (11.7-17.4) 02/26/17 12:26 ABG Carboxyhemoglobin 1.8 % (0.5-1.5) H 02/26/17 12:26 POC ABG HHb (Measured) 1.6 % (0.0-5.0) 02/26/17 12:26 ABG Methemoglobin 1.4 % (0.0-3.0) 02/26/17 12:26 ABG O2 Capacity 19.8 mL/dL (16-24) 02/26/17 12:26 Choco Test Yes 02/26/17 12:26 A-a O2 Difference 13.0 mm/Hg 02/26/17 12:26 Hgb O2 Saturation 95.2 % (95.0-98.0) 02/26/17 12:26 FiO2 21.0 % 02/26/17 12:26 Sodium 140 mmol/l (132-148) 03/18/17 05:10 Potassium 4.0 MMOL/L (3.6-5.0) 03/18/17 05:10 Chloride 103 mmol/L (98-107) 03/18/17 05:10 Carbon Dioxide 28 mmol/L (22-30) 03/18/17 05:10 Anion Gap 14 (10-20) 03/18/17 05:10 BUN 11 mg/dl (9-20) 03/18/17 05:10 Creatinine 0.7 mg/dL (0.8-1.5) L 03/18/17 05:10 Est GFR ( Amer) > 60 03/18/17 05:10 Est GFR (Non-Af Amer) > 60 03/18/17 05:10 POC Glucose (mg/dL) 95 mg/dL (65-110) 03/05/17 11:08 Random Glucose 97 mg/dL (75-110) 03/18/17 05:10 Calcium 9.8 mg/dL (8.4-10.2) 03/18/17 05:10 Total Bilirubin 0.4 mg/dl (0.2-1.3) 03/03/17 05:30 AST 41 U/L (17-59) 03/03/17 05:30 ALT 50 U/L (21-72) 03/03/17 05:30 Alkaline Phosphatase 58 U/L (38-126) 03/03/17 05:30 Total Protein 6.1 G/DL (6.3-8.2) L 03/03/17 05:30 Albumin 3.1 g/dL (3.5-5.0) L 03/03/17 05:30 Globulin 3.0 gm/dL (2.2-3.9) 03/03/17 05:30 Albumin/Globulin Ratio 1.0 (1.0-2.1) 03/03/17 05:30 [id number] 112 mg/dL (83-199) 02/19/17 10:19 Blood Type B POSITIVE 03/03/17 12:30 Antibody Screen Negative 03/03/17 12:30 Crossmatch See Detail 03/03/17 12:30 BBK History Checked Patient has bt 03/03/17 12:30 - Hospital Course Hospital Course: 21 y/o male with no significant PMH came in because of chest pain and SOB. CT of chest showed tension Pneumothorax on the left. Cardiothoracic surgery consulted and chest tube was placed. Chest tube was re inserted and talc pleurodesis performed in OR due to residual apical pneumothorax and large air leak. He was taken again to OR and underwent Hybrid VATS, resection of apical blebs and bullae, and parietal pleurectomy 02/28. He developed left hemothorax and underwent TPA infusion via catheter into left pleura for the persistent hemothorax on 03/08/17 and 03/11/17. Patient clinically improved. Chest tube removed 03/19/17. Post removal CXr showed no pneumothorax Patient cleared for discharge by cardiothoracic surgeon. will d/c home with follow up with Dr. langford in 1 week . Repeat CXR [address] langford 1. Spontaneous Pneumothorax s/p VATs,resection of apical blebs and Pleurectomy s/p Chest tube x 2 Apical Hemothorax, loculated s/p TPA x2 Pt remains stable Chest tubes removed received pain management received Cefepime Robitussin for cough Dr Langford following pt closely. will see home in 1 week as out patient 2. Acute blood loss anemia received ferrous sulfate stable 3. DVt prophylaxis SCD ambulatory Discharge Exam - Head Exam Head Exam: ATRAUMATIC, NORMAL INSPECTION, NORMOCEPHALIC - Eye Exam Eye Exam: EOMI, Normal appearance, PERRL Pupil Exam: NORMAL ACCOMODATION - ENT Exam ENT Exam: Mucous Membranes Moist, Normal Exam - Neck Exam Neck exam: Full Rom, Normal Inspection - Respiratory Exam Respiratory Exam: Clear to PA & Lateral, NORMAL BREATHING PATTERN. absent: Rales, Rhonchi, Wheezes Additional comments: ledt hemithorax 2 smal incisions with humble and suture in place - Cardiovascular Exam Cardiovascular Exam: REGULAR RHYTHM, RRR, +S1, +S2. absent: JVD - GI/Abdominal Exam GI & Abdominal Exam: Normal Bowel Sounds, Soft. absent: Distended, Guarding, Rebound, Tenderness - Rectal Exam Rectal Exam: Deferred - Extremities Exam Extremities exam: normal capillary refill, normal inspection, pedal pulses present - Back Exam Back exam: NORMAL INSPECTION - Neurological Exam Neurological exam: Alert, CN II-XII Intact, Oriented x3 - Psychiatric Exam Psychiatric exam: Normal Affect, Normal Mood - Skin Skin Exam: Dry, Intact, Pallor, Warm Discharge Plan - Discharge Medications Prescriptions: Acetaminophen [Tylenol 325mg tab] 650 mg PO Q8 #20 tab - Follow Up Plan Condition: GOOD Disposition: HOME/ ROUTINE Patient education suggested?: Yes Instructions: Spontaneous Pneumothorax (GEN) Referrals: Marcos Langford MD [Medical Doctor] -
--- NOTE | 2017-03-20 20:48 | OP ---
PROCEDURE DATE: 02/21/2017 PREOPERATIVE DIAGNOSIS: Persistent left pneumothorax. POSTOPERATIVE DIAGNOSIS: Persistent left pneumothorax. OPERATION PERFORMED: Tube thoracostomy under fluoroscopic guidance and talc slurry pleurodesis. SURGEON: Dr. Espinoza. SAFETY MANAGER: Dr. Seo. ANESTHESIA: MAC plus local. INDICATION FOR SURGERY: The chest tube, which had been inserted previously, was approximately 5 cm distal to the apex. The patient had a persistent air leak with pneumothorax. Therefore, the chest tube was inserted under fluoroscopic guidance by which the tip was placed at the apex of left lung. OPERATIVE PROCEDURE: The patient was taken to operating room where under satisfactory MAC plus local, the operative field was prepared and draped in a sterile fashion. Next, the previously placed chest tube was removed following which a 28 [place] chest tube with a trocar, after withdrawing trocar approximately 2 inches from the tip, the chest tube was inserted through the pervious insertion site, the tip of the tube was placed at the apex under fluoroscopic guidance. After satisfactory positioning of the chest tube, chest tube was secured at the skin opening with 0 silk sutures in the usual manner. Talc slurry pleurodesis was performed by instilling 5 grams of talcum mixed with 150 mL of normal saline and was instilled through the chest tube in the usual retrograde fashion. Chest tube was next clamped and plan was to remove the clamp in the recovery room after turning the patient every 30 minutes x 2 hours. The patient tolerated the procedure very well and was transferred to the recovery room awake with good vital signs. Estimated blood loss was approximately 10 mL. Sponge, needle and instrument counts were correct. Marcos Espinoza MD cc: [id number] TT: 03/20/2017 20:47:40 chichi SALGADO
--- NOTE | 2017-03-20 21:27 | OP ---
PROCEDURE DATE: 02/28/2017 PREOPERATIVE DIAGNOSES: 1. Left spontaneous pneumothorax with persistent air leak. 2. Status post talc slurry pleurodesis. POSTOPERATIVE DIAGNOSES: 1. Left spontaneous pneumothorax with persistent air leak. 2. Status post talc slurry pleurodesis. OPERATION PERFORMED: Left video-assisted thoracoscopy, left muscle sparing lateral thoracotomy, lysis of adhesions ,partial parietal pleurectomy, and apical lung resection with bullae, ANESTHESIA: Double lumen endotracheal general anesthesia. SURGEON: Dr. Espinoza. ASSISTANTS: Dr. Dickens and Aliza Espinoza. OPERATIVE FINDINGS: Apical bullae, multiple of 2-3 cm in diameter were readily found in the left apical area. Lung and fissure had to be freed up from adhesions due to previous pleurodesis. OPERATIVE PROCEDURE: The patient was taken to operating room where under satisfactory double lumen endotracheal general anesthesia, the patient was placed in a left thoracotomy position, and operative field was prepared and draped in a sterile fashion. Next, previously placed chest tube was removed, following which left lung ventilation was discontinued. Approximately a 5 cm long lateral thoracotomy incision was made in the fourth intercostal space between the latissimus dorsi and pectoralis minor muscles were made and serratus anterior muscle was . Next, the fourth intercostal space was entered and bleeding points were electrocauterized. Adhesions to the chest wall were next encountered which was carefully freed up from the chest wall after initial thoracoscopic evaluation. I was not able find any air leaks from any parts of the lung, including bullae. The apex of the left lung was next mobilized and apex of the left lung containing bullae were next removed with Blue cartridge and peristrip loaded Ethilon power driven stapler . Multiple applications, finally successfully removed and staple line showed no air leak. Next, parietal pleurectomy of upper 1/3 of the pleural cavity was carried out bluntly using finger dissection under direct thoracoscopic visualization. Chest wall oozing was managed with packing with a dry lap.pads. This maneuver brought about successful hemostasis. Finally, 32 and 28 Greek chest tubes were placed in the usual manner posteriorly and anteriorly respectively, and these were secured at the skin edge with 0 silk sutures. Chest incision was closed in layers, ribs with interrupted figure of eight #1 Maxon, muscle fascia with continuous 0 Vicryl, and Maria Elena's fascia with continuous 2-0 Vicryl , and skin with subcuticular suture of 4-0 Monocryl. Sterile dressings were applied and taped in the usual manner. The patient tolerated the procedure very well and was transferred to the recovery room, extubated, awake with good vital signs. Estimated blood loss was approximately 200 mL. Sponge, needle and instrument counts were correct. Marcos Espinoza MD cc: [id number] TT: 03/20/2017 21:26:52 chichi SALGADO
--- NOTE | 2017-03-22 07:50 | PQF PNEUMO ---
Dr. Alvares progress note dated 02/25 documented " possible pneumonia/effusion LLL. After study was pt treated for a diagnosis of pneumonia, pleural effusion or other? And was diagnosis present on admission? This form is a permanent part of the medical record Clarification of your documentation is requested to better reflect the severity of illness and intensity of treatment of your patient. Indicators present [x] Documented diagnosis of pneumonia [x] X-ray findings: [] Positive Sputum cultures [] Cough w/ fever [] Abnormal lungs sounds [] Poor gag reflex [] Speech consults/swallow evaluation [] Vent dependence [] Other: [] Location in the medical record that reflects the above clinical findings: [] Treatment Provided: [] PHYSICIAN'S RESPONSE Patient was diagnosed and treated for pneumonia during this hospital stay . Pneumonia was not present on admission Based on your medical judgment of the clinical indicators outlined above, are you treating this patient for a known or suspected: [] Aspiration pneumonia [] Community acquired pneumonia [] Ventilator associated pneumonia [] Viral pneumonia [x] Bacterial pneumonia Please specify organism: [] [] Other, please indicate [] If Unable to Determine, please check the box, sign and date. Present On Admission (POA) Indicator: [] Present at the time of admission [] Not present at the time of admission [] Clinically Undetermined In responding to this query, please exercise your independent professional judgment. The fact that a question is asked does not imply that any particular answer is desired or expected. Thank you for your clarification on this documentation. If you have any questions please call:[ ] * Thank you, [ ]Kenna DAUGHERTY Coder NAOMI
== END 2017-03-20 11:49 | disposition home or self-care (01) | DRG 538 ==
LOC: H.ER 17:34 → H.ERHOLD 21:07 → H.ICU/CCU 21:56 → H.TEL 02-20 22:31 → H.ICU/CCU 02-28 18:20 → H.TEL 03-12 15:32
PROVIDERS: ADMIT Internal Medicine; ATTEND Internal Medicine
PROC: 0W9B30Z Drainage of Left Pleural Cavity with Drainage Device, Percutaneous Approach (ICD-10-PCS; principal; 2017-02-18)
PROC: 0BJQ4ZZ Inspection of Pleura, Percutaneous Endoscopic Approach (ICD-10-PCS; 2017-02-21)
PROC: 0W9B30Z Drainage of Left Pleural Cavity with Drainage Device, Percutaneous Approach (ICD-10-PCS; 2017-02-21)
PROC: 3E0L3GC Introduction of Other Therapeutic Substance into Pleural Cavity, Percutaneous Approach (ICD-10-PCS; 2017-02-21)
PROC: 0WP Anatomical Regions, General, Removal (ICD-10-PCS; 2017-02-21)
PROC: 0BBP0ZZ Excision of Left Pleura, Open Approach (ICD-10-PCS; 2017-02-28)
PROC: 0BBL0ZZ Excision of Left Lung, Open Approach (ICD-10-PCS; 2017-02-28)
PROC: 0W9B30Z Drainage of Left Pleural Cavity with Drainage Device, Percutaneous Approach (ICD-10-PCS; 2017-02-28)
PROC: 3C1ZX8Z Irrigation of Indwelling Device using Irrigating Substance, External Approach (ICD-10-PCS; 2017-03-05)
PROC: 3C1ZX8Z Irrigation of Indwelling Device using Irrigating Substance, External Approach (ICD-10-PCS; 2017-03-06)
PROC: 3C1ZX8Z Irrigation of Indwelling Device using Irrigating Substance, External Approach (ICD-10-PCS; 2017-03-07)
PROC: 3E0L3GC Introduction of Other Therapeutic Substance into Pleural Cavity, Percutaneous Approach (ICD-10-PCS; 2017-03-08)
PROC: 3E0L3GC Introduction of Other Therapeutic Substance into Pleural Cavity, Percutaneous Approach (ICD-10-PCS; 2017-03-11)
DX: J93.0 Spontaneous tension pneumothorax (principal); J15.9 Unspecified bacterial pneumonia; J94.2 Hemothorax; J98.2 Interstitial emphysema; D62 Acute posthemorrhagic anemia; J98.11 Atelectasis; J94.8 Other specified pleural conditions; J95.812 Postprocedural air leak; Y83.8 Other surgical procedures as the cause of abnormal reaction of the patient, or of later complication, without mention of misadventure at the time of the procedure; T85.868A Thrombosis due to other internal prosthetic devices, implants and grafts, initial encounter